=== PATIENT | male | born 1975 | race Caucasian/White ===

== ENCOUNTER 2020-12-19 18:49 | Inpatient (IN) | payer MEDICAID, OTHER ==
[2020-12-19 20:04] LABS: HEMOGLOBIN 12.4 g/dl (13.5-17.5); MEAN CORPUSCULAR HEMOGLOBIN 33.2 pg (27.0-33.0); MEAN CORPUSCULAR HGB CONC 33.5 g/dl (32.0-36.5); MEAN CORPUSCULAR VOLUME 98.9 fl (80.0-96.0); PLATELET COUNT, AUTOMATED 243 10^3/uL (150-450); RED BLOOD COUNT 3.74 10^6/uL (4.30-6.10); WHITE BLOOD COUNT 13.4 10^3/uL (4.0-10.0)
[2020-12-19 20:23] LABS: AMPHETAMINES LEVEL URINE NEGATIVE (NEGATIVE); BARBITURATES URINE NEGATIVE (NEGATIVE); BENZODIAZEPINES URINE NEGATIVE (NEGATIVE); CANNABINOIDS URINE POSITIVE (NEGATIVE); COCAINE METABOLITE URINE NEGATIVE (NEGATIVE); METHADONE URINE NEGATIVE (NEGATIVE); OPIATES URINE NEGATIVE (NEGATIVE); PHENCYCLIDINE URINE NEGATIVE (NEGATIVE)
[2020-12-19 20:32] LABS: ACETAMINOPHEN LEVEL < 2.0 UG/ML (10.0-30.0); ALBUMIN 3.2 GM/DL (3.2-5.2); ALT/SGPT 68 U/L (12-78); BILIRUBIN,DIRECT 0.2 MG/DL (0.0-0.2); BILIRUBIN,TOTAL 0.5 MG/DL (0.2-1.0); BLOOD UREA NITROGEN 10 MG/DL (7-18); CALCIUM LEVEL 9.1 MG/DL (8.5-10.1); CARBON DIOXIDE LEVEL 28 MEQ/L (21-32); CHLORIDE LEVEL 109 MEQ/L (98-107); CREATININE FOR GFR 1.02 MG/DL (0.70-1.30); ETHYL ALCOHOL (ETHANOL) < 0.003 % (0.000-0.010); GLOMERULAR FILTRATION RATE > 60.0 (>60); GLUCOSE, FASTING 131 MG/DL (70-100); POTASSIUM SERUM 3.8 MEQ/L (3.5-5.1); SALICYLATE LEVEL 3.3 MG/DL (5.0-30.0); SODIUM LEVEL 143 MEQ/L (136-145); TOTAL PROTEIN 6.1 GM/DL (6.4-8.2)
--- NOTE | 2020-12-19 21:35 | REPVR ---
PROCEDURE INFORMATION: Exam: CT Head Without Contrast Exam date and time: 12/19/2020 8:48 PM Age: 45 years old Clinical indication: Altered mental status/memory loss; Confusion or disorientation; Additional info: Personality change, HX CVA TECHNIQUE: Imaging protocol: Computed tomography of the head without contrast. Radiation optimization: All CT scans at this facility use at least one of these dose optimization techniques: automated exposure control; mA and/or kV adjustment per patient size (includes targeted exams where dose is matched to clinical indication); or iterative reconstruction. COMPARISON: No relevant prior studies available. FINDINGS: Brain: Normal. No hemorrhage. Unremarkable white matter. No mass effect. Cerebral ventricles: No ventriculomegaly. Paranasal sinuses: There is mucosal thickening right ethmoid sinus. There is no evidence of secretions within the ethmoid sinuses or sphenoid sinus. Mastoid air cells: Clear mastoid air cells. Orbital cavity: Symmetric orbits. Bones/joints: There is no evidence of fracture. Soft tissues: Unremarkable. IMPRESSION: Normal appearing CT scan of the brain. Electronically signed by: Jaziel Leyva On 12/19/2020 21:35:40 PM
[2020-12-19] MEDS ORDERED: MAALOX 30 ML SUSP *UDC PO PRN (22:15)
[2020-12-19] MEDS ORDERED: MOM 30ML SUSPENSION UDC PO PRN (22:15)
[2020-12-19 23:03] LABS: RSV AMPLIFICATION NEGATIVE (NEGATIVE)
[2020-12-19] MEDS ORDERED: LISI20TA33 PO (23:18)
[2020-12-19] MEDS ORDERED: ATOR80TA59 PO (23:18)
[2020-12-19] MEDS ORDERED: POTA20TA6 PO (23:18)
[2020-12-19] MEDS ORDERED: FLUO20CA20 PO (23:18)
[2020-12-19] MEDS ORDERED: HOME MED LIST COMPLETE! XX SCH (23:20)
[2020-12-19 23:51] VITALS: BP 150/90
[2020-12-20] MEDS: NICOTINE 21MG/24HR 1 EA TRANSDERMAL TD PRN ×2 (00:04→20:45)
[2020-12-20] MEDS ORDERED: diphenhydrAMINE 50MG/ML VIAL (J1200) IM STA (03:51)
[2020-12-20] MEDS ORDERED: HALOPERIDOL 5MG/ML VIAL (J1630 PER 1) IM STA (03:51)
[2020-12-20] MEDS ORDERED: LORazepam 2 MG/ML VIAL IM STA (03:51)
--- NOTE | 2020-12-20 06:24 | IPNPDOC ---
Text Note Date of Service The patient was seen on 12/20/20. NOTE CODE 25 Report: Subjective: Patient was combative and fighting staff. Reortedly kicking, spitting and attempting to bite. - Patient was restrained - The patient was a danger to the staff - Failed de-escalation interventions Physical exam:Pt meng appearance and lifting himself up in bed. RR18. He does allow 2 finger width assessment with restraints. He has brisk cap refill. Vitals: Unable to be obtained General: Patient is laying in bed, all 4 extremities are restrained, verbally abusive to staff. He begins getting agitated within moments of conversation. He remarks "there are gonna be problems" in reference to if restraints are not taken off. Discussed plan is for pt to calm, vitals to be taken and once pt is calm with no further threat to staff, restraints can be removed. By end of exam he agrees- vitals to be taken and restraint removal per guidelines. Staff has contacted Psychiatry; they have placed orders for physical and chemical restraints VS,Ochoabone, I+O VS, Fishbone, I+O Laboratory Tests 12/19/20 19:36 Vital Signs Date Time Temp Pulse Resp B/P (MAP) Pulse Ox O2 Delivery O2 Flow Rate FiO2 12/19/20 23:51 98.0 86 20 150/90 (110) 98 Room Air JENNIFER PEDERSEN NP Dec 20, 2020 06:24
--- NOTE | 2020-12-20 07:30 | MHHPEPDOC ---
General Date Of Admission: Dec 19, 2020 Legal Status: 9.39 Chief Complaint "I made threats" History of Present Illness HISTORY OF THE PRESENT ILLNESS: Patient is a 45 -year-old , male, who has a past psychiatric history of depression (states started when lost father at 6 y/o), dubious ADD (reports diagnosed in 30's),polysubstance use, states only uses cannabis, but used crack 15 years ago frequently, who was brought in on by police. [facility] went to [facility] on Wednesday for unstable vitals (had low BP in [place]) and when got there, says they did CT and xrays, was told had covid-19 ('brown spots on lungs"), states he smokes daily tobacco and cannabis, [facility] was not tested for covid, an argument ensued, "I said alot of bad things to him, If it wasn't for penitentiary I would end his life, so I walked out and lens generating machine tender were called", says that afternoon went to family doctor for covid testing and found out yesterday tests were negative, "there I said I wanted to know the doctor's name from [place], kept calling emergency room to find out when he was coming in", police were called on him. Was told by family doctor who is new he was supposed to go to behavioral health, reported he didn't want to go. Says he then went to 's house. Went with to meet police at parking lot in [facility] court, "talked to them then was arrested and brought to [facility] ED". States he would not hurt the doctor, named Dr Bullock, "I wanted to talk to the doctor and tell him he missed diagnosed me and how does he feel about it". Eleni Pa, , : "I'm baffled by the threats to the Doctor. Known him since age 9, been together 1.5 years, he has a history of ADHD, he has a history of cocaine use, not using 10-15 years, had addiction to Adderall. He told me took adderral in [place], was down there getting his stuff from house used to live at. Got his truck insured so nephew could use it, he got back. He was in kidney failure, unstable vitals. He had a major stroke last March. He was just very sick, he would wake up in the middle of night salivating, sweating, no appetite, he has lost 30 lbs in last year, he's eating like a horse. He has not had any psychiatric issues, but friends told me when abusing adderall was off the wall. He told me he took one last Wednesday. This isn't him at all his demeanor, he's never snapped at me, "he's the sweetest man", he's hyp erfocused, short tempered, he didn't sleep for 3 days very often, he washed and waxed my car at 10 pm. In June they put him on prozac due to depression, he's hellbent the kidney issues are from the prozac. He stopped the prozac on the 06 of November. He lost job, insurance and everything before when depressed. Was posting stuff about doctor on facebook, was weird. No suicidal behavior." Psychiatric Review of Systems Depression (2 or more weeks): denies Kathryn (4 or more days of): denies Psychosis: denies PTSD: denies Anxiety: not anxious Past Psychiatric History Previous Psychiatric Diagnosis: reports depression, substance abuse, adhd Previous Psychiatric Admissions: Inpatient in [place] "[facility]", 4 years ago, [facility] for [facility] abuse Suicide Attempts: denies Psychiatric Follow-up: denies Psychiatric medications: denies currently, hx of prozac 20 mg, reports not working and has felt down since a stroke 1.5 years ago Past Medical History Medical Problems stroke 1.5 years ago Head Injury: No Seizures: No Hospitalizations: No Surgeries: No Family Medical/Psychiatric HX Medical Problems mother has afib, father Psychiatric Disorders: No Addiction: Yes (alcohol both sides) Suicide Attemps/Completions: No Addiction History nicotine (1 ppd cigarettes), cocaine (remote hx), other (daily cannabis, 2 grams a day) Social History Childhood: Grew up in [place], [place], 1 sister older. Father when sharonda cadena was 6. 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 Marital: never , gf of 1.5 years Mental Status Examination General Appearance: well groomed, hospital scubs/clothing Build: average Demeanor: mistrustful, withdrawn, guarded Eye Contact: avoidant Activity: agitated, anxious, hostile Behavior: cooperative, agitated Speech: clear, spontaneous, normal volume Mood: angry, irritable Affect: appropriate, labile, incongruent Thought Process: logical/linear Thought Content (Delusions): none reported Thought Content (Other): none reported Thought Content (Aggressive): aggressive (assess), other (Denies intent or plan) Perception (Hallucinations): none reported Perception (Other): none reported Cognition (Impairment of): none reported Cognition(Intelligence Est.): average Oriented: Awake, Alert, Oriented times three Insight: poor Judgment: Poor Psychosis: Denies Diagnoses Bipolar disorder, unspecified Cannabis use disorder, severe History of cocaine use Unspecified personality disorder A-FIB/CHADSVASC A-FIB History Current/History of A-Fib/PAF?: No Current PO Anticoag Therapy: No Age/Risk Factor Scoring CHADSVASC: CHADSVASC Response (Comments) Value Age Risk Factor Age < 65 years old 0 Gender Risk Factor Male 0 Hx of CHF No 0 Hx of HTN Yes 1 Hx of Stroke/TIA/or VTE Yes 2 Hx of Diabetes No 0 Hx of Vascular Disease No 0 Total 3 Treatment Treatment ordered: NONE Reason Anticoagulant not given: Other (defer to hospitalist team) Other reason anticoagulant not: Defer to hospitalist team Assessment Patient is a 45 -year-old , male, who has a past psychiatric history of depression (states started when lost father at 6 y/o), dubious ADD (reports diagnosed in 30's),polysubstance use, states only uses cannabis, but used crack 15 years ago frequently. [facility] went to [facility] on Wednesday for unstable vitals (had low BP in [place]) and when got there, says they did CT and xrays, was told had covid-19 ('brown spots on lungs"), states he smokes daily tobacco and cannabis, states was not tested for covid, an argument ensued, "I said alot of bad things to him, If it wasn't for penitentiary I would end his life, so I walked out and lens generating machine tender were called", says that afternoon went to family doctor for covid testing and found out yesterday tests were negative, "there I said I wanted to know the doctor's name from [place], kept calling emergency room to find out when he was coming in", police were called on him. Was told by family doctor who is new he was supposed to go to behavioral health, reported he didn't want to go. Says he then went to 's house. Went with to meet police at parking lot in [facility] court, "talked to them then was arrested and brought to [facility] ED". States he would not hurt the doctor, named Dr Bullock, "I wanted to talk to the doctor and tell him he missed diagnosed me and how does he feel about it". Per collateral from girlfriend 1.5 years, states he is not his usual self and has had a significant change in mood and behavior including increased irritability, anger, staying up at night with excess goal-directed activity, lack of sleep for 3 days. Reports not taking outpatient medication Prozac due to concerns of infected kidney function despite the fact that she believes that the medication is not causing side effects that she is to take this medication. Reports he is concerned about misdiagnosis and covid which seem to be stressors for him. Reports the symptoms have interfered with his social and occupational life. Communicated with hospitalist team regarding reported medical issues, to ensure thorough work-up, as he has recently reported symptoms of weight loss despite average appetite, recent stroke, elevated white count, per labs patient has anemia, elevated white count, CT head December 19 was unremarkable, creatinine of 1, TSH within normal limits, sodium and potassium within normal limits. Patient will be offered Abilify 10 mg nightly, made aware of common and rare side effects, patient becomes irritable with document medication wants to end the interview. Initial Treatment Plan 1. Patient was admitted on a [9.39] status. 2. Complete history was obtained. 3. With patients permission, family will be contacted and database will be expanded. 4. Patients medication regimen will be reviewed and changed accordingly. 5. Patient will be provided with protected environment. 6. Patient will be treated with individual, group, and milieu therapies. 7. Patient will receive supportive psych-education. 8. Discharge planning will commence immediately. 9. Outpatient follow-up treatment will be strongly recommended. 10. The initial treatment plan will focus initially on: * Depression, bipolar disorder * Risk for suicide. ESTIMATED LENGTH OF STAY:3-7 DAYS. TIME SPENT COUNSELING AND COORDINATING INITIAL CARE: 40 minutes. Tobacco Cessation Screen If Patient is a Smoker 1 ppd Tobacco Cessation Tx Ordered?: Yes Ordered/Pending Vital Signs Vital Signs Date Time Temp Pulse Resp B/P (MAP) Pulse Ox O2 Delivery O2 Flow Rate FiO2 12/19/20 23:51 98.0 86 20 150/90 (110) 98 Room Air Laboratory Data 24H Labs Laboratory Tests 2 12/19/20 19:36: Nucleated Red Blood Cells % (auto) 0.0, Anion Gap 6L, Glomerular Filtration Rate > 60.0, Calcium Level 9.1, Total Bilirubin 0.5, Direct Bilirubin 0.2, Aspartate Amino Transf (AST/SGOT) 39H, Alanine Aminotransferase (ALT/SGPT) 68, Alkaline Phosphatase 103, Total Protein 6.1L, Albumin 3.2, Albumin/Globulin Ratio 1.1, Thyroid Stimulating Hormone (TSH) 1.030, Salicylates Level 3.3L, Urine Opiates Screen NEGATIVE, Urine Methadone Screen NEGATIVE, Acetaminophen Level < 2.0L, Urine Barbiturates Screen NEGATIVE, Urine Phencyclidine Screen NEGATIVE, Urine Amphetamines Screen NEGATIVE, Urine Benzodiazepines Screen NEGATIVE, Urine Cocaine Metabolite Screen NEGATIVE, Urine Cannabinoids Screen POSITIVEH, Ethyl Alcohol Level < 0.003 12/19/20 22:07: Coronavirus (COVID-19)(PCR) NEGATIVE, Influenza Type A (RT-PCR) NEGATIVE, Influenza Type B (RT-PCR) NEGATIVE, Respiratory Syncytial Virus (PCR) NEGATIVE CBC/BMP Laboratory Tests 12/19/20 19:36 Medications Scheduled Atorvastatin Calcium (Atorvastatin Calcium) 80 Mg Tablet, 80 MG PO QHS, (Reported) Fluoxetine Hcl (Fluoxetine HCl) 20 Mg Capsule, 20 MG PO DAILY, (Reported) Lisinopril (Lisinopril) 20 Mg Tablet, 20 MG PO DAILY, (Reported) Potassium Chloride (Potassium Chloride) 20 Meq Tab.er.prt, 20 MEQ PO QHS, (Reported) Allergies Coded Allergies: No Known Allergies (Verified , 10/02/02) BAMBI ODELL MD Dec 20, 2020 07:30
[2020-12-20] MEDS ORDERED: ASPIRIN 81MG ENTERIC TABLET PO SCH (09:00)
--- NOTE | 2020-12-20 12:35 | MHPR ---
General Date: Dec 20, 2020 Time: 09:00 Post-Restraint Evaluation THE OUTCOME OF THE RESTRAINT: Patient is calmer, continues to be irritable and mildly agitated but no longer aggressive. EFFECTIVENESS OF THE RESTRAINT: Mechanical and/or chemical: Positive ANY EVIDENCE THAT THE PATIENT WAS AFFECTED EMOTIONALLY: Denies ANY NEED FOR COUNSELING/ASSISTANCE: None at this time. CHANGES IN TREATMENT PLAN: Started on Abilify for control of hypomanic symptoms. RECOMMENDATIONS FOR FUTURE INCIDENTS: Offer as needed medications earlier BAMBI ODELL MD Dec 20, 2020 12:35
[2020-12-20] MEDS ORDERED: OLANZapine 2.5MG TABLET PO PRN (13:15)
--- NOTE | 2020-12-20 14:09 | REP ---
INDICATION: hx of nodules, psych c/f CA. COMPARISON: None. TECHNIQUE: Portable FINDINGS: The technique utilized in obtaining the radiograph has magnified the cardiac silhouette and accentuated the interstitial markings. The superior mediastinal structures are midline. The cardiac silhouette is unremarkable in size, shape, and position. The diaphragmatic surfaces of the lungs are regular, and the costophrenic angles are clear. The pulmonary chairez are clear. The imaged osseous structures are intact. IMPRESSION: There is no acute cardiopulmonary disease. <Electronically signed by Sage Howell > 12/20/20 [id number]
[2020-12-20] MEDS ORDERED: HYDR50TAB PO (14:46)
[2020-12-20] MEDS ORDERED: AMLO1TAB25 PO (14:46)
[2020-12-20] MEDS ORDERED: ASPI-255 PO (14:51)
[2020-12-20] MEDS: ASPIRIN ENTERIC 325 MG TAB PO SCH (15:56)
--- NOTE | 2020-12-20 16:29 | HPEPDOC ---
General Date of Admission Dec 19, 2020 at 22:12 Date of Service: Dec 20, 2020 Attending Physician: CLAYTON TATE MD Chief Complaint The patient is a 45-year-old male admitted with a reason for visit of Bipolar Disorder. Source: Patient, RN notes reviewed Exam Limitations: No limitations History of Present Illness 45 yo gentleman with a chart diagnosis of depression and maybe bipolar? who was brought in by police for making homicidal statements and threats to a [facility] doctor for "misdiagnosing him with covid-19" when he did not have covid-19. He is tangential, pressured, appears frustrated and misunderstood. He otherwise denies feeling any physical illness at this time without chest pain, palpitations, dyspnea, recent fevers, chills, cough. Initial ED workup was notable for cannabinoids on tox screen but covid-19 was negative and CBC and BMP were unremarkable. Internal medicine is now consulted for medical H&P. I asked Mr. Macias about his medical history given the extensive discussion I had with the psychiatrist concerned about his physical health given burden on medical history. He reports that he was living in [place] and returned a few days ago. While in [place] 1.5 years ago he had a CVA i/s/o hypertensive emergency with a presenting BP of 220 and there was a right sided stroke with left sided weakness that recovered completely with PT/OT. He was placed on full dose aspirin with ASA 325mg daily since then. He was also originally placed on lisinopril, amlodipine and HCTZ that were since then, revised to only lisinopril 20mg daily after noted symptomatic hypotension. He has a history of a remote kidney stone that has long recovered. He also has a history of depression for which he was placed on prozac but had side effects including some renal failure at the time during which HCTZ and prozac were stopped. During that time, he was quite ill with significant weight loss and poor po but he has begun recovery since his renal recovery and has been on lisinopril without trouble. Though the timing is a bit confusing in his history telling, he reports recent illness in [place] that resolved and on arrival to [facility] he went to [place] where he had a CXR from which a provider postulated that it was c/w covid-19 though he had not received a dedicated covid test. He was upset by being given this presumed diagnosis without confirmation as he had been tested before [place] and had been negative. his PCP tested him and he was negative and he remained upset at the provider who had presumed that heh ad covid-19 to a degree that precipitated his [facility] admission. It was during that CXR at [place] that he was told about lung nodules that may need future follow up. He otherwise denies a history of cancer, blood clots, myocardial infarction heart arrhythmias, ongoing fevers, chills, night sweats. Home Medications Scheduled Aspirin (Aspirin EC) 325 Mg Tablet.dr, 325 MG PO DAILY, (Reported) Atorvastatin Calcium (Atorvastatin Calcium) 80 Mg Tablet, 80 MG PO QHS, (Reported) Fluoxetine Hcl (Fluoxetine HCl) 20 Mg Capsule, 20 MG PO DAILY, (Reported) Lisinopril (Lisinopril) 20 Mg Tablet, 20 MG PO DAILY, (Reported) Potassium Chloride (Potassium Chloride) 20 Meq Tab.er.prt, 20 MEQ PO QHS, (Reported) Allergies Coded Allergies: No Known Allergies (Verified , 10/02/02) Past Medical History Medical History HTN HLD Depression Bipolar? Surgical History None Social History * Smoker: current smoker Alcohol: Denies Drugs: marijuana, other (history of [employer] with other substances as well but none other than MJ recently) Psychosocial History: Depression (history of), Other (reported recent history of admitting homicidal thought towards a [facility] physician) A-FIB/CHADSVASC A-FIB History Current/History of A-Fib/PAF?: No Current PO Anticoag Therapy: No Age/Risk Factor Scoring CHADSVASC: CHADSVASC Response (Comments) Value Age Risk Factor Age < 65 years old 0 Gender Risk Factor Male 0 Hx of CHF No 0 Hx of HTN Yes 1 Hx of Stroke/TIA/or VTE Yes 2 Hx of Diabetes No 0 Hx of Vascular Disease No 0 Total 3 Treatment Treatment ordered: NONE Reason Anticoagulant not given: Not indicated/[id number] Review of Systems Constitutional: Denies: Chills, Fever, Night Sweats Eyes: Denies: Pain, Vision change ENT: Denies: Head Aches, Ear Pain, Dysphagia Skin: Denies: Rash, Lesions, Jaundice, Bruising, Itching, Dry, Breakdown, Nail Changes, Other Pulmonary: Denies: Dyspnea, Cough Cardiovascular: Denies: Chest Pain, Palpitations, Orthopnea, Paroxysmal Noc. Dyspnea, Lt Headedness Gastrointestinal: Denies: Nausea, Vomiting, Abdominal Pain, Diarrhea Genitourinary: Denies: Dysuria, Frequency, Incontinence, Retention Hematologic: Denies: Bruising, Bleeding Excessively Endocrine: Denies: Polydipsia, Polyphagia, Polyuria, Heat Intolerance, Cold Intolerance, Other Endocrine Sx Musculoskeletal: Denies: Neck Pain, Back Pain, Joint Pain, Muscle Pain, Spasms Neurological: Reports: Weakness (was told that his BP had been low recently) Psych: Reports: Thoughts of Harming Other Physical Examination General Exam: Positive: Alert, No Acute Distress Eye Exam: Positive: PERRLA, Conjunctiva & lids normal, EOMI; Negative: Sclera icteric ENT Exam: Positive: Atraumatic, Mucous membr. moist/pink, Pharynx Normal Neck Exam: Positive: Supple; Negative: JVD, thyromegaly Chest Exam: Positive: Clear to auscultation, Normal air movement Heart Exam: Positive: Rate Normal, Regular Rhythm, Normal S1, Normal S2; Negative: Murmurs, Rubs Abdomen Exam: Positive: Normal bowel sounds, Soft; Negative: Tenderness, Hepatospenomegaly Extremity Exam: Positive: Normal pulses; Negative: Clubbing, Cyanosis, Edema Skin Exam: Positive: Nl turgor and temperature; Negative: Breakdown, Lesion Neuro Exam: Positive: Normal Gait, Normal Speech, Cranial Nerves 3-12 NL, Reflexes 2+ Psych Exam: Positive: Oriented x 3 Vital Signs Vital Signs Date Time Temp Pulse Resp B/P (MAP) Pulse Ox O2 Delivery O2 Flow Rate FiO2 12/19/20 23:51 98.0 86 20 150/90 (110) 98 Room Air Laboratory Data Labs 24H Laboratory Tests 2 12/19/20 19:36: Nucleated Red Blood Cells % (auto) 0.0, Anion Gap 6L, Glomerular Filtration Rate > 60.0, Calcium Level 9.1, Total Bilirubin 0.5, Direct Bilirubin 0.2, Aspartate Amino Transf (AST/SGOT) 39H, Alanine Aminotransferase (ALT/SGPT) 68, Alkaline Phosphatase 103, Total Protein 6.1L, Albumin 3.2, Albumin/Globulin Ratio 1.1, Thyroid Stimulating Hormone (TSH) 1.030, Salicylates Level 3.3L, Urine Opiates Screen NEGATIVE, Urine Methadone Screen NEGATIVE, Acetaminophen Level < 2.0L, Urine Barbiturates Screen NEGATIVE, Urine Phencyclidine Screen NEGATIVE, Urine Amphetamines Screen NEGATIVE, Urine Benzodiazepines Screen NEGATIVE, Urine Cocaine Metabolite Screen NEGATIVE, Urine Cannabinoids Screen POSITIVEH, Ethyl Alcohol Level < 0.003 12/19/20 22:07: Coronavirus (COVID-19)(PCR) NEGATIVE, Influenza Type A (RT-PCR) NEGATIVE, Influenza Type B (RT-PCR) NEGATIVE, Respiratory Syncytial Virus (PCR) NEGATIVE CBC/BMP Laboratory Tests 12/19/20 19:36 Assessment/Plan 45 yo gentleman with a chart diagnosis of depression and maybe bipolar? who was brought in by police for making homicidal statements and threats to a [facility] doctor for "misdiagnosing him with covid-19" when he did not have covid-19, for who medicine is now consulted for medical H&P. Homicidal statements w/ history of depression: -plan per psych team HTN: he is currently hypertensive -lisinopril 20mg QD HLD: -lipitor 80mg QD History of CVA: -ASA 325mg QDnper home script -lipitor 80mg QD Psych medical concerns: Psychiatrist informed me patient reported history of recent massive stroke while in [place], where he was found to also have pulm nodules for which he was presented to [facility] for f/u when he had the encounter with the physician he is upset with over the covid-19 misdiagnosis. The psychiatrist was concerned about 10lb weight loss reported over the last 1 year despite good PO and asked about potentially getting more in depth workup and imaging. I discussed that I would be happy to get a CXR at this time though with a negative respiratory panel, breathing comfortably on room air without pulmonary symptoms I would not have otherwise recommended it. With regard to oncological workup, he warrants [address] chest f/u for the nodules depending on their size according to the Fleischner guidelines but that is an outpatient matter that can be discussed with the PCP on follow up. Furthermore, he reported that the patient reported a history of an SALVADOR with Cr of 10 in [place] but his Cr is perfectly 1 here without evidence of an SALVADOR or electrolyte abnormalities or acid/base disturbances so I will not order more imaging, labs or stop his lisinopril. Apparently the patient reported "unstable vitals" at home that brought him to [place] but he is actually hypertensive here and afebrile, I am restarting his lisinopril at a lower dose of 10mg QD with goal to increase to 20mg if he is not adequately controlled since he reported recent hypotension. He has a mild leukocytosis but I believe it may be reactive given his nonfocal examination, afebrile. Of course if he develops a fever a full infectious workup would be warranted. -CXR DVT ppx: ambulatory Plan / VTE VTE Prophylaxis Ordered?: No VTE Exclusion Mechanical Proph: Low Risk for VTE VTE Exclusion Pharmacological: At Low Risk for VTE CLAYTON TATE MD Dec 20, 2020 10:14
[2020-12-20 18:27] VITALS: BP 170/112
[2020-12-20] MEDS ORDERED: LORazepam 1 MG TAB PO ONE (20:00)
[2020-12-20] MEDS ORDERED: diphenhydrAMINE 50MG CAP PO ONE (20:00)
[2020-12-20] MEDS ORDERED: OLANZapine 10 MG TAB PO ONE (20:00)
[2020-12-20] MEDS: ATORVASTATIN 20 MG TAB PO SCH (20:09)
[2020-12-20] MEDS: ARIPiprazole 10 MG TAB PO SCH (20:10)
[2020-12-20] MEDS: POTASSIUM CHLORIDE 10MEQ SR TABLET PO SCH (20:11)
[2020-12-21 06:00] VITALS: BP 158/92
[2020-12-21] MEDS: ACETAMINOPHEN TAB 650MG DOSE (2X325MG) PO PRN (06:57)
[2020-12-21 07:55] LABS: CHOLESTEROL RISK RATIO 4.55 (<5)
[2020-12-21] MEDS: ASPIRIN ENTERIC 325 MG TAB PO SCH (08:02)
[2020-12-21] MEDS: NICOTINE 21MG/24HR 1 EA TRANSDERMAL TD PRN (11:39)
[2020-12-21] MEDS: CEPACOL LOZENGE PO PRN (15:30)
--- NOTE | 2020-12-21 16:54 | MHIPNPDOC ---
[facility] Progress Note Progress Note DATE OF SERVICE: 12/21/20 HISTORY: Patient is a 45 -year-old , male, who has a past psychiatric history of depression (states started when lost father at 6 y/o), dubious ADD ( reports diagnosed in 30's),polysubstance use, states only uses cannabis, but used crack 15 years ago frequently, who was brought in on 9. by police. [facility] went to [facility] on Wednesday for unstable vitals (had low BP in [place]) and when got there, says they did CT and xrays, was told had covid-19 ('brown spots on lungs"), states he smokes daily tobacco and cannabis, states was not tested for covid, an argument ensued, "I said alot of bad things to him, If it wasn't for shelter I would end his life, so I walked out and cryptographic machine operator were called", says that afternoon went to family doctor for covid testing and found out yesterday tests were negative, "there I said I wanted to know the doctor's name from [place], kept calling emergency room to find out when he was coming in", police were called on him. Was told by family doctor who is new he was supposed to go to behavioral health, reported he didn't want to go. Says he then went to 's house. Went with to meet police at parking lot in [facility] court, "talked to them then was arrested and brought to [facility] ED". States he would not hurt the doctor, named Dr Bullock, "I wanted to talk to the doctor and tell him he missed diagnosed me and how does he feel about it". Eleni Pa, , : "I'm baffled by the threats to the Doctor. Known him since age 9, been together 1.5 years, he has a history of ADHD, he has a history of cocaine use, not using 10-15 years, had addiction to Adderall. He told me took adderral in [place], was down there getting his stuff from house used to live at. Got his truck insured so nephew could use it, he got back. He was in kidney failure, unstable vitals. He had a major stroke last March. He was just very sick, he would wake up in the middle of night salivating, sweati ng, no appetite, he has lost 30 lbs in last year, he's eating like a horse. He has not had any psychiatric issues, but friends told me when abusing adderall was off the wall. He told me he took one last Wednesday. This isn't him at all his demeanor, he's never snapped at me, "he's the sweetest man", he's hyperfocused, short tempered, he didn't sleep for 3 days very often, he washed and waxed my car at 10 pm. In June they put him on prozac due to depression, he's hellbent the kidney issues are from the prozac. He stopped the prozac on the 06 of November. He lost job, insurance and everything before when depressed. Was posting stuff about doctor on facebook, was weird. No suicidal behavior." VITAL SIGNS: See below. NEW TEST RESULTS: See below CURRENT MEDICATIONS: See below. MENTAL STATUS EXAMINATION: General Appearance: well groomed, hospital scubs/clothing Build: average Demeanor: cooperative Eye Contact: fair Activity: not fidgety, not restless Behavior: cooperative Speech: clear, spontaneous, normal volume Mood: anxious Affect: congruent with mood Thought Process: logical/linear Thought Content (Delusions): none reported Thought Content (Other): none reported Thought Content (Aggressive): Denies Perception (Hallucinations): none reported Perception (Other): none reported Cognition (Impairment of): none reported Cognition(Intelligence Est.): average Oriented: Awake, Alert, Oriented times three Insight: seems to be improving Judgment: seems to be improving Psychosis: Denies Diagnoses Bipolar disorder, unspecified Cannabis use disorder, severe History of cocaine use Unspecified personality disorder ASSESSMENT: Patient seems to be improving, he is stable, he feels better. MANAGEMENT PLAN: Continue with current treatment plan TIME SPENT: 20 minutes. Vital Signs Vital Signs Date Time Temp Pulse Resp B/P (MAP) Pulse Ox O2 Delivery O2 Flow Rate FiO2 12/21/20 09:45 Room Air 12/21/20 08:11 152/92 12/21/20 06:00 97.8 62 16 99 Laboratory Data 24H Labs Laboratory Tests 2 12/21/20 06:59: Triglycerides Level 106, Total Cholesterol 182, LDL Cholesterol 121H, Non-HDL Cholesterol (LDL + VLDL) 142, Total HDL Cholesterol 40, Cholesterol/HDL Ratio 4.550 Current Medications Current Medications Medications (Trade) Dose Ordered Sig/Debra Route PRN Reason Start Time Stop Time Status Last Admin Dose Admin Acetaminophen (Tylenol Tab) 650 mg Q6HP PRN PO HEADACHE or MILD DISCOMFORT 12/19/20 22:15 12/21/20 06:57 Al Hydrox/Mg Hydrox/Simethicone (Mylanta) 30 ml Q4HP PRN PO HEARTBURN/INDIGESTION 12/19/20 22:15 Aripiprazole (AbiLIFY) 10 mg QHS PO 12/20/20 21:00 12/20/20 20:10 Aspirin (Ecotrin) 81 mg DAILY PO 12/20/20 09:00 12/20/20 14:52 DC Aspirin (Ecotrin) 325 mg DAILY PO 12/20/20 09:00 12/21/20 08:02 Atorvastatin Calcium (Lipitor) 80 mg QHS PO 12/20/20 21:00 12/20/20 20:09 Cetylpyridinium Chloride (Cepacol) 1 fatemeh Q2HP PRN PO COUGH 12/21/20 11:55 12/21/20 15:30 Diphenhydramine HCl (Benadryl) 50 mg STAT STAT IM 12/20/20 03:51 12/20/20 03:53 DC 12/20/20 03:57 Haloperidol (Haldol) 5 mg STAT STAT IM 12/20/20 03:51 12/20/20 03:53 DC 12/20/20 03:57 Home Med (Home Med List Complete!) ASDIRECTED XX 12/19/20 23:20 12/19/20 23:20 DC Lisinopril (Prinivil) 10 mg DAILY PO 12/20/20 09:00 12/20/20 15:17 DC 12/20/20 12:11 Lisinopril (Prinivil) 20 mg DAILY PO 12/21/20 09:00 12/21/20 08:11 Lorazepam (Ativan) 2 mg STAT STAT IM 12/20/20 03:51 12/20/20 03:53 DC 12/20/20 03:58 Magnesium Hydroxide (Milk Of Magnesia) 30 ml DAILYPRN PRN PO CONSTIPATION 12/19/20 22:15 Nicotine (Nicoderm Cq 21mg) 1 patch DAILYPRN PRN TD NICOTINE WITHDRAWAL 12/20/20 00:00 12/21/20 11:39 Olanzapine (ZyPREXA ZYDIS) 5 mg Q2HP PRN PO AGITATION 12/19/20 22:15 Olanzapine (ZyPREXA) 2.5 mg Q6HP PRN PO AGITATION 12/20/20 13:15 12/20/20 13:47 DC Potassium Chloride (Micro-K Extencaps) 20 meq QHS PO 12/20/20 21:00 12/20/20 20:11 Trazodone HCl (Desyrel) 50 mg QHSP PRN PO INSOMNIA 12/19/20 22:15 Allergies Coded Allergies: No Known Allergies (Verified , 10/02/02) DAVINA PACHECO MD Dec 21, 2020 16:48
[2020-12-21 19:12] VITALS: BP 150/68
[2020-12-21] MEDS: traZODone 50 MG TAB PO PRN (20:01)
[2020-12-21] MEDS: ARIPiprazole 10 MG TAB PO SCH (20:01)
[2020-12-21] MEDS: POTASSIUM CHLORIDE 10MEQ SR TABLET PO SCH (20:02)
[2020-12-21] MEDS: ATORVASTATIN 20 MG TAB PO SCH (20:02)
[2020-12-21] MEDS: OLANZapine ORAL DISINTEGRATING TAB 5MG PO PRN (20:03)
[2020-12-21] MEDS: DIVALPROEX 250 MG TAB PO SCH (21:00)
[2020-12-21] MEDS ORDERED: LORazepam 2 MG/ML VIAL IM STA (23:09)
[2020-12-21] MEDS ORDERED: HALOPERIDOL 5MG/ML VIAL (J1630 PER 1) IM STA (23:09)
[2020-12-21] MEDS ORDERED: diphenhydrAMINE 50MG/ML VIAL (J1200) IM STA (23:09)
--- NOTE | 2020-12-21 23:59 | IPNPDOC ---
Text Note Date of Service The patient was seen on 12/21/20. NOTE Significant event. CODE 25 Report: Subjective: Patient was combative and fighting staff. Upon arrival to unit, patient had barricaded himself in his room. When staff began safety measures to open door which would be removing hinges; patient did proceed to unlock door and follow staff to de-escalation room, Patient still verbally aggressive in process of de-escalation room he is ins ulting and using profanity. He does begin to escalate as he sits on bed; nurses attempt to converse with patient regarding behavior and patient with increased agitation. - Patient was restrained - The patient was a danger to the staff - Failed de-escalation interventions Physical exam:Pt meng appearance. Nonlabored breathing. He does allow 2 finger width assessment with restraints. He has brisk cap refill. Vitals: Unable to be obtained at present; staff to obtain once patient calms. General: Patient is laying in bed, all 4 extremities are restrained, intermittently verbally abusive to staff. Calls 1 nurse "bitch". Discussed plan: Reiterated to patient -goal for pt to calm, vitals to be taken and once pt is calm with no further threat to staff, restraints can be removed. VS,Fishbone, I+O VS, Fishbone, I+O Vital Signs Date Time Temp Pulse Resp B/P (MAP) Pulse Ox O2 Delivery O2 Flow Rate FiO2 12/21/20 19:12 97.8 66 18 150/68 (95) 12/21/20 09:45 Room Air 12/21/20 06:00 99 JENNIFER PEDERSEN NP Dec 21, 2020 23:59
[2020-12-22] VITALS (7 sets, daily range): BP systolic 142–167; BP diastolic 85–108
[2020-12-22] MEDS: NICOTINE 21MG/24HR 1 EA TRANSDERMAL TD PRN (08:20)
[2020-12-22] MEDS: ASPIRIN ENTERIC 325 MG TAB PO SCH (08:20)
[2020-12-22] MEDS: DIVALPROEX 250 MG TAB PO SCH ×2 (08:22→20:07)
[2020-12-22] MEDS: CEPACOL LOZENGE PO PRN (09:15)
--- NOTE | 2020-12-22 11:27 | MHIPNPDOC ---
[facility] Progress Note Progress Note DATE OF SERVICE: 12/22/20 HISTORY: Patient is a 45 -year-old , male, who has a past psychiatric history of depression (states started when lost father at 6 y/o), dubious ADD ( reports diagnosed in 30's),polysubstance use, states only uses cannabis, but used crack 15 years ago frequently, who was brought in on 9. by police. [facility] went to [facility] on Wednesday for unstable vitals (had low BP in [place]) and when got there, says they did CT and xrays, was told had covid-19 ('brown spots on lungs"), states he smokes daily tobacco and cannabis, states was not tested for covid, an argument ensued, "I said alot of bad things to him, If it wasn't for penitentiary I would end his life, so I walked out and machine tracer were called", says that afternoon went to family doctor for covid testing and found out yesterday tests were negative, "there I said I wanted to know the doctor's name from [place], kept calling emergency room to find out when he was coming in", police were called on him. Was told by family doctor who is new he was supposed to go to behavioral health, reported he didn't want to go. Says he then went to 's house. Went with to meet police at parking lot in [facility] court, "talked to them then was arrested and brought to [facility] ED". States he would not hurt the doctor, named Dr Bullock, "I wanted to talk to the doctor and tell him he missed diagnosed me and how does he feel about it". Eleni Pa, , : "I'm baffled by the threats to the Doctor. Known him since age 9, been together 1.5 years, he has a history of ADHD, he has a history of cocaine use, not using 10-15 years, had addiction to Adderall. He told me took adderral in [place], was down there getting his stuff from house used to live at. Got his truck insured so nephew could use it, he got back. He was in kidney failure, unstable vitals. He had a major stroke last March. He was just very sick, he would wake up in the middle of night salivating, sweati ng, no appetite, he has lost 30 lbs in last year, he's eating like a horse. He has not had any psychiatric issues, but friends told me when abusing adderall was off the wall. He told me he took one last Wednesday. This isn't him at all his demeanor, he's never snapped at me, "he's the sweetest man", he's hyperfocused, short tempered, he didn't sleep for 3 days very often, he washed and waxed my car at 10 pm. In June they put him on prozac due to depression, he's hellbent the kidney issues are from the prozac. He stopped the prozac on the 06 of November. He lost job, insurance and everything before when depressed. Was posting stuff about doctor on facebook, was weird. No suicidal behavior." VITAL SIGNS: See below. NEW TEST RESULTS: See below CURRENT MEDICATIONS: See below. MENTAL STATUS EXAMINATION: General Appearance: well groomed, hospital scrubs/clothing Build: average Demeanor: cooperative, mildly irritated about being coded last night Eye Contact: fair Activity: not fidgety, not restless Behavior: cooperative Speech: clear, spontaneous, normal volume Mood: anxious, irritable Affect: congruent with mood Thought Process: logical/linear Thought Content (Delusions): none reported Thought Content (Other): none reported Thought Content (Aggressive): Denies Perception (Hallucinations): none reported Perception (Other): none reported Cognition (Impairment of): none reported Cognition(Intelligence Est.): average Oriented: Awake, Alert, Oriented times three Insight: limited Judgment: limited Psychosis: Denies Diagnoses Bipolar disorder, unspecified Cannabis use disorder, severe History of cocaine use Unspecified personality disorder ASSESSMENT: Yesterday night he got upset with the staff because he couldn't get his personal clothes since the staff noticed he was getting touchy with a female patient. He is venting today about this incident. I had ordered Depakote 250 mgs PO BID and Abilify 5 mgs PO am but he refused. He is hoping to get discharged tomorrow. I think he has antisocial personality traits. MANAGEMENT PLAN: Continue with current treatment plan TIME SPENT: 20 minutes. Vital Signs Vital Signs Date Time Temp Pulse Resp B/P (MAP) Pulse Ox O2 Delivery O2 Flow Rate FiO2 12/22/20 09:05 Room Air 12/22/20 08:20 148/92 12/22/20 06:00 97.5 72 15 98 Current Medications Current Medications Medications (Trade) Dose Ordered Sig/Debra Route PRN Reason Start Time Stop Time Status Last Admin Dose Admin Acetaminophen (Tylenol Tab) 650 mg Q6HP PRN PO HEADACHE or MILD DISCOMFORT 12/19/20 22:15 12/21/20 06:57 Al Hydrox/Mg Hydrox/Simethicone (Mylanta) 30 ml Q4HP PRN PO HEARTBURN/INDIGESTION 12/19/20 22:15 Aripiprazole (AbiLIFY) 5 mg QAM PO 12/22/20 09:00 Aripiprazole (AbiLIFY) 10 mg QHS PO 12/20/20 21:00 12/21/20 20:01 Aspirin (Ecotrin) 81 mg DAILY PO 12/20/20 09:00 12/20/20 14:52 DC Aspirin (Ecotrin) 325 mg DAILY PO 12/20/20 09:00 12/22/20 08:20 Atorvastatin Calcium (Lipitor) 80 mg QHS PO 12/20/20 21:00 12/21/20 20:02 Cetylpyridinium Chloride (Cepacol) 1 fatemeh Q2HP PRN PO COUGH 12/21/20 11:55 12/22/20 09:15 Diphenhydramine HCl (Benadryl) 50 mg STAT STAT IM 12/20/20 03:51 12/20/20 03:53 DC 12/20/20 03:57 Diphenhydramine HCl (Benadryl) 50 mg STAT STAT IM 12/21/20 23:09 12/21/20 23:12 DC 12/21/20 23:22 Divalproex Sodium (Depakote) 250 mg BID PO 12/21/20 21:00 Haloperidol (Haldol) 5 mg STAT STAT IM 12/20/20 03:51 12/20/20 03:53 DC 12/20/20 03:57 Haloperidol (Haldol) 10 mg STAT STAT IM 12/21/20 23:09 12/21/20 23:12 DC 12/21/20 23:22 Home Med (Home Med List Complete!) ASDIRECTED XX 12/19/20 23:20 12/19/20 23:20 DC Lisinopril (Prinivil) 10 mg DAILY PO 12/20/20 09:00 12/20/20 15:17 DC 12/20/20 12:11 Lisinopril (Prinivil) 20 mg DAILY PO 12/21/20 09:00 12/22/20 08:20 Lorazepam (Ativan) 2 mg STAT STAT IM 12/20/20 03:51 12/20/20 03:53 DC 12/20/20 03:58 Lorazepam (Ativan) 2 mg STAT STAT IM 12/21/20 23:09 12/21/20 23:12 DC 12/21/20 23:22 Magnesium Hydroxide (Milk Of Magnesia) 30 ml DAILYPRN PRN PO CONSTIPATION 12/19/20 22:15 Nicotine (Nicoderm Cq 21mg) 1 patch DAILYPRN PRN TD NICOTINE WITHDRAWAL 12/20/20 00:00 12/22/20 08:20 Olanzapine (ZyPREXA ZYDIS) 5 mg Q2HP PRN PO AGITATION 12/19/20 22:15 12/21/20 20:03 Olanzapine (ZyPREXA) 2.5 mg Q6HP PRN PO AGITATION 12/20/20 13:15 12/20/20 13:47 DC Potassium Chloride (Micro-K Extencaps) 20 meq QHS PO 12/20/20 21:00 12/21/20 20:02 Trazodone HCl (Desyrel) 50 mg QHSP PRN PO INSOMNIA 12/19/20 22:15 12/21/20 20:01 Allergies Coded Allergies: No Known Allergies (Verified , 10/02/02) DAVINA PACHECO MD Dec 22, 2020 11:27
[2020-12-22] MEDS: ATORVASTATIN 20 MG TAB PO SCH (20:07)
[2020-12-22] MEDS: traZODone 50 MG TAB PO PRN (20:07)
[2020-12-22] MEDS: ARIPiprazole 10 MG TAB PO SCH (20:07)
[2020-12-22] MEDS: OLANZapine ORAL DISINTEGRATING TAB 5MG PO PRN (20:07)
[2020-12-22] MEDS: POTASSIUM CHLORIDE 10MEQ SR TABLET PO SCH (20:07)
[2020-12-23 06:21] VITALS: BP 158/98
[2020-12-23] MEDS: NICOTINE 21MG/24HR 1 EA TRANSDERMAL TD PRN (08:04)
[2020-12-23] MEDS: ASPIRIN ENTERIC 325 MG TAB PO SCH (08:04)
[2020-12-23] MEDS: DIVALPROEX 250 MG TAB PO SCH ×2 (08:04→20:21)
[2020-12-23] MEDS: CEPACOL LOZENGE PO PRN (11:37)
--- NOTE | 2020-12-23 12:34 | MHPR ---
General Date: Dec 23, 2020 Time: 08:30 Post-Restraint Evaluation THE OUTCOME OF THE RESTRAINT: Patient is calmer and sitting comfortably in his room, no longer having aggression and lashing out staff. EFFECTIVENESS OF THE RESTRAINT: Mechanical and/or chemical: Positive ANY EVIDENCE THAT THE PATIENT WAS AFFECTED EMOTIONALLY: None ANY NEED FOR COUNSELING/ASSISTANCE: None at this time CHANGES IN TREATMENT PLAN: Offer as needed medications earlier RECOMMENDATIONS FOR FUTURE INCIDENTS: Early intervention to avoid escalation with redirection and possible use of p.o. medications BAMBI ODELL MD Dec 23, 2020 12:34
--- NOTE | 2020-12-23 12:45 | MHIPNPDOC ---
[facility] Progress Note Progress Note DATE OF SERVICE: 12/23/20 HISTORY: Patient is a 45 -year-old , male, who has a past psychiatric history of depression (states started when lost father at 6 y/o), dubious ADD ( reports diagnosed in 30's),polysubstance use, states only uses cannabis, but used crack 15 years ago frequently, who was brought in on 9.41 by police. [facility] went to [facility] on Wednesday for unstable vitals (had low BP in [place]) and when got there, says they did CT and xrays, was told had covid-19 ('brown spots on lungs"), states he smokes daily tobacco and cannabis, states was not tested for covid, an argument ensued, "I said alot of bad things to him, If it wasn't for detention I would end his life, so I walked out and clinical appeals reviewer were called", says that afternoon went to family doctor for covid testing and found out yesterday tests were negative, "there I said I wanted to know the doctor's name from [place], kept calling emergency room to find out when he was coming in", police were called on him. Was told by family doctor who is new he was supposed to go to behavioral health, reported he didn't want to go. Says he then went to 's house. Went with to meet police at parking lot in [facility], "talked to them then was arrested and brought to [facility] ED". States he would not hurt the doctor, named Dr Bullock, "I wanted to talk to the doctor and tell him he missed diagnosed me and how does he feel about it". Interval: Patient is calm, has been going to groups, has been taking medications, this is despite being chemically restrained 2 times last night and being threatening towards staff, yelling and disrupting the unit. Per collateral obtained yesterday partner of 1.5 years, Vania booking reports a change in behavior and personality with increased irritability and excessive goal-directed behavior in the evenings which is uncharacteristic of him and his concerned. Patient states he is tolerating medications without side effects, no acute physical complaints including any shortness of breath, chest pain, but states he has chronic left-sided weakness post stroke, despite this is able to ambulate and move adequately, without issue. VITAL SIGNS: See below. NEW TEST RESULTS: None CURRENT MEDICATIONS: See below. MENTAL STATUS EXAMINATION: Patient is a 45-year old male, who is in no acute distress, bald, fair hygiene, average build Speech: Is normal Language skills are intact Thought processes including: Linear and logical. Thought content: Denies suicidal or homicidal ideation. Abstract reasoning, and computation: Intact description of associations: Intact. Description of abnormal or psychotic thoughts: Denies Judgment: Poor, improved. Insight: Poor, improving. Orientation: X4. Recent and remote memory: Intact Attention span and concentration: Intact. Language: Citizen Of [place]. Fund of knowledge: Average. Mood: "alright". Affect: Mildly constricted, mood congruent, appropriate DIAGNOSES: Bipolar disorder, unspecified Cannabis use disorder, severe History of cocaine use Unspecified personality disorder ASSESSMENT: Patient is calm today on interview, but had to be chemically mechanically restrained 2 times last night with Haldol, lorazepam and diphenhydramine. Was opening of all the patient's doors and yelling in the evening. Per chart review partner reports change and personality and behavior. In the evenings he tends to be more aggressive requiring restraints, the medication was adjusted to help with mood lability including adding Depakote and increasing abilify nighttime dose. MANAGEMENT PLAN: Increase Abilify to 15 mg nightly, continue 5 mg p.o. daily, continue Depakote 250 mg twice daily, Depakote level ordered and pending. TIME SPENT: 20 minutes. Vital Signs Vital Signs Date Time Temp Pulse Resp B/P (MAP) Pulse Ox O2 Delivery O2 Flow Rate FiO2 12/23/20 08:46 Room Air 12/23/20 08:04 158/98 12/23/20 06:21 97.8 85 18 99 Current Medications Current Medications Medications (Trade) Dose Ordered Sig/Debra Route PRN Reason Start Time Stop Time Status Last Admin Dose Admin Acetaminophen (Tylenol Tab) 650 mg Q6HP PRN PO HEADACHE or MILD DISCOMFORT 12/19/20 22:15 12/21/20 06:57 Al Hydrox/Mg Hydrox/Simethicone (Mylanta) 30 ml Q4HP PRN PO HEARTBURN/INDIGESTION 12/19/20 22:15 Aripiprazole (AbiLIFY) 5 mg QAM PO 12/22/20 09:00 12/23/20 08:04 Aripiprazole (AbiLIFY) 10 mg QHS PO 12/20/20 21:00 12/22/20 20:07 Aspirin (Ecotrin) 81 mg DAILY PO 12/20/20 09:00 12/20/20 14:52 DC Aspirin (Ecotrin) 325 mg DAILY PO 12/20/20 09:00 12/23/20 08:04 Atorvastatin Calcium (Lipitor) 80 mg QHS PO 12/20/20 21:00 12/22/20 20:07 Cetylpyridinium Chloride (Cepacol) 1 fatemeh Q2HP PRN PO COUGH 12/21/20 11:55 12/23/20 11:37 Diphenhydramine HCl (Benadryl) 50 mg STAT STAT IM 12/20/20 03:51 12/20/20 03:53 DC 12/20/20 03:57 Diphenhydramine HCl (Benadryl) 50 mg STAT STAT IM 12/21/20 23:09 12/21/20 23:12 DC 12/21/20 23:22 Divalproex Sodium (Depakote) 250 mg BID PO 12/21/20 21:00 12/23/20 08:04 Haloperidol (Haldol) 5 mg STAT STAT IM 12/20/20 03:51 12/20/20 03:53 DC 12/20/20 03:57 Haloperidol (Haldol) 10 mg STAT STAT IM 12/21/20 23:09 12/21/20 23:12 DC 12/21/20 23:22 Home Med (Home Med List Complete!) ASDIRECTED XX 12/19/20 23:20 12/19/20 23:20 DC Lisinopril (Prinivil) 10 mg DAILY PO 12/20/20 09:00 12/20/20 15:17 DC 12/20/20 12:11 Lisinopril (Prinivil) 20 mg DAILY PO 12/21/20 09:00 12/23/20 08:04 Lorazepam (Ativan) 2 mg STAT STAT IM 12/20/20 03:51 12/20/20 03:53 DC 12/20/20 03:58 Lorazepam (Ativan) 2 mg STAT STAT IM 12/21/20 23:09 12/21/20 23:12 DC 12/21/20 23:22 Magnesium Hydroxide (Milk Of Magnesia) 30 ml DAILYPRN PRN PO CONSTIPATION 12/19/20 22:15 Nicotine (Nicoderm Cq 21mg) 1 patch DAILYPRN PRN TD NICOTINE WITHDRAWAL 12/20/20 00:00 12/23/20 08:04 Olanzapine (ZyPREXA ZYDIS) 5 mg Q2HP PRN PO AGITATION 12/19/20 22:15 12/22/20 20:07 Olanzapine (ZyPREXA) 2.5 mg Q6HP PRN PO AGITATION 12/20/20 13:15 12/20/20 13:47 DC Potassium Chloride (Micro-K Extencaps) 20 meq QHS PO 12/20/20 21:00 12/22/20 20:07 Trazodone HCl (Desyrel) 50 mg QHSP PRN PO INSOMNIA 12/19/20 22:15 12/22/20 20:07 Allergies Coded Allergies: No Known Allergies (Verified , 10/02/02) BAMBI ODELL MD Dec 23, 2020 12:45
[2020-12-23] MEDS: ACETAMINOPHEN TAB 650MG DOSE (2X325MG) PO PRN (15:15)
[2020-12-23 16:29] VITALS: BP 158/94
[2020-12-23] MEDS: traZODone 50 MG TAB PO PRN (20:22)
[2020-12-23] MEDS: POTASSIUM CHLORIDE 10MEQ SR TABLET PO SCH (20:22)
[2020-12-23] MEDS: ATORVASTATIN 20 MG TAB PO SCH (20:23)
[2020-12-24 07:50] VITALS: BP 158/98
[2020-12-24] MEDS: NICOTINE 21MG/24HR 1 EA TRANSDERMAL TD PRN (07:50)
[2020-12-24] MEDS: DIVALPROEX 250 MG TAB PO SCH (07:50)
[2020-12-24] MEDS: ASPIRIN ENTERIC 325 MG TAB PO SCH (07:51)
[2020-12-24] MEDS ORDERED: TRAZ-252 PO (11:28)
[2020-12-24] MEDS ORDERED: ABIL1TAB11 PO ×2 (11:28)
[2020-12-24] MEDS ORDERED: NICO21PAT TD (11:28)
[2020-12-24] MEDS ORDERED: DEPA250T32 PO (11:28)
[2020-12-24] MEDS ORDERED: SORE15LO PO (11:28)
--- NOTE | 2020-12-24 15:03 | MHDSPDOC ---
[facility] Discharge Summary Discharge Summary DATE OF ADMISSION: Dec 19, 2020 at 22:12 DATE OF DISCHARGE: Dec 24, 2020 at 12:30 Discharge diagnoses: Bipolar disorder, unspecified Cannabis use disorder, severe History of cocaine use Unspecified personality disorder Reason for admission:Patient is a 45 -year-old , male, who has a past psychiatric history of depression (states started when lost father at 6 y/o), dubious ADD (reports diagnosed in 's),polysubstance use, states only uses cannabis, but used crack 15 years ago frequently, who was brought in on by police. [facility] went to [facility] on Wednesday for unstable vitals (had low BP in [place]) and when got there, says they did CT and xrays, was told had covid-19 ('brown spots on lungs"), states he smokes daily tobacco and cannabis, states was not tested for covid, an argument ensued, "I said alot of bad things to him, If it wasn't for penitentiary I would end his life, so I walked out and pile operator were called", says that afternoon went to family doctor for covid testing and found out yesterday tests were negative, "there I said I wanted to know the doctor's name from [place], kept calling emergency room to find out when he was coming in", police were called on him. Was told by family doctor who is new he was supposed to go to behavioral health, reported he didn't want to go. Says he then went to 's house. Went with to meet police at parking lot in [facility] [address], "talked to them then was arrested and brought to [facility] ED". States he would not hurt the doctor, named Dr Bullock, "I wanted to talk to the doctor and tell him he missed diagnosed me and how does he feel about it". Vital signs: See below Consultants involved: See medical H&P by hospitalist Treatment and progress on the unit: Patient was admitted to the [facility] legal status and was afforded the following treatment modalities: 1. Individual therapy 2. Group therapy 3. Medication management 4. Milieu therapy 5. Safe environment Hospital course: Patient was admitted to the [facility] on a legal status. Was medically cleared prior to coming up to the [facility]. Patient initially had multiple restraints, twice on the unit which required Haldol, diphenhydramine and lorazepam. Was on the unit opening up patient's doors and yelling which led to these events including mechanical and chemical restraints. Collateral was obtained from noriearnestine agrees to booking reported a sudden change in mental status over the previous few weeks to months, including increased irritability which likely led to his admission. Patient initially appeared frustrated by being hospitalized despite behavioral indiscretion. Communicated the hospitalist team history of stroke and medical concerns for work-up. Patient was started on Abilify 5 mg daily and 15 mg nightly for hypomanic behavior and impulsivity. Was also started on Depakote 250 mg p.o. twice daily, Depakote level was not elevated on testing. Patient found medications beneficial and tolerated them well without side effects. Prior to discharge discussed with ina Vania booking plan for him returning home and she felt he was ready to come back if he can take his medications but did have some questions and concerns needed addressing. Prior to discharge denied low mood, anxiety or intrusive thoughts, these symptoms improved with treatment. Patient attended groups daily during stay. Patient symptoms improved with treatment. On day of discharge patient denied depression, anxiety, insomnia, suicidal or homicidal ideations intent or plan, hallucinations, delusions. Patient was discharged home with follow-up. Patient felt safe for discharge. Was offered continued stay on voluntary admission but refused. Her stay was counseled about substance abuse, risks, especially in context of medical comorbidities. Discharge assessment: On today's interview patient is alert and oriented, dressed appropriately. Hygiene and grooming is well-kept. He is calm and able to engage appropriately in interview, no acute aggression or anger, denies any homicidal ideations, states he had a conversation with his friends yesterday and was tearful coming to terms of him having to continue his medications and outpatient follow-up for behavioral health. Smiles on approach and is pleasant and engaged on interview. Denies depression and anxiety. Denies suicidal homicidal ideation, intent or planning. Denies and is not observed with roxanne or psychotic symptoms of delusions, hallucinations, bizarre thinking, obsessions, paranoia, ruminations, illogical thoughts, flight of ideas or having poor insight or judgment. Patient has normal mentation, declines further hospitalization of voluntary status and meets criteria for discharge today, patient encouraged to return the hospital if symptoms worsen or change and encouraged to call unit if they feel they need provider's questions to be answered or help with medications or care. Mental status: Patient is a 45-year old male, who is in no acute distress, bald, fair hygiene, average build Speech: Is normal Language skills are intact Thought processes including: Linear and logical. Thought content: Denies suicidal or homicidal ideation. Abstract reasoning, and computation: Intact description of associations: Intact. Description of abnormal or psychotic thoughts: Denies Judgment: Good, improved. Insight: Fair, improving. Orientation: X4. Recent and remote memory: Intact Attention span and concentration: Intact. Language: Vietnamese. Fund of knowledge: Average. Mood: "good, just fine". Affect: Euthymic, mood congruent, appropriate, smiles at times. Medications on discharge: -see medication reconciliation: CSSRS on discharge: Wish to be : No nonspecific active suicidal thoughts: No lifetime attempts: 0 interrupted attempts: 0 aborted attempts: 0 preparatory acts or behavior: None Taking into consideration safety state, status, modifiable, non-modifiable risk factors patient is at low risk for suicide on discharge for suicide according to [place] suicide evaluation. PLAN/FOLLOWUP ARRANGEMENTS: Follow Up Care Education Label * Mental Health Appt 1 * Mental Health [facility] * Established With This Provider Yes * Therapist ANDREA * Date Dec 31, 2020 * Time 09:15 * Address of Clinic or Practice [address] [place] [address] * * Additional information PATIENT NEEDS TO ARRIVE ON TIME TO COMPLETE INTAKE PAPERWORK. Follow Up Care Education Label * Medical * Medical Follow Up [facility] * Established With This Provider No NEW PATIENT * Therapist ISAÍAS * Date Mar 31, 2021 * Time 13:45 * Address of Clinic or Practice [address] [place] [address] * * Additional information NEW PATIENTS ARE BOOKED OUT UNTIL MAR. PATIENT NEEDS ARRIVE WITH ID AND INSURANCE INFORMATION, ANY MEDICATIONS THEY ARE CURRENTLY TAKING. THEY ASK YOU ARRIVE 15 MINUTES PRIOR TO APPOINTMENT TO FILL OUT PAPERWORK. WHEN YOU ARRIVE YOU WILL NEED TO CONTACT [phone] FOR ENTRY TO THE CLINIC. The amount of time spent in the coordination of care for this patient was approximately 35 minutes. ETOH/Disorder Med Rx ETOH/DRUG DISORDER RX: Offrd @ d/c & pt refused Vital Signs/I&Os Vital Signs Date Time Temp Pulse Resp B/P (MAP) Pulse Ox O2 Delivery O2 Flow Rate FiO2 12/24/20 07:50 158/98 12/23/20 16:29 97.7 82 18 12/23/20 08:46 Room Air 12/23/20 06:21 99 Laboratory Data Labs 24H Laboratory Tests 2 12/23/20 19:30: Valproic Acid (Depakene) Level 29.1L Medications Scheduled Aripiprazole (Abilify) 5 Mg Tablet, 15 MG PO QHS for mood , #21 Aripiprazole (Abilify) 5 Mg Tablet, 5 MG PO QAM for mood, #7 Aspirin (Aspirin EC) 325 Mg Tablet.dr, 325 MG PO DAILY, (Reported) Atorvastatin Calcium (Atorvastatin Calcium) 80 Mg Tablet, 80 MG PO QHS, (Reported) Divalproex Sodium (Depakote) 250 Mg Tablet.dr, 250 MG PO BID for mood stabilization, #14 Lisinopril (Lisinopril) 20 Mg Tablet, 20 MG PO DAILY, (Reported) Potassium Chloride (Potassium Chloride) 20 Meq Tab.er.prt, 20 MEQ PO QHS, (Reported) Scheduled PRN Benzocaine/Menthol (Sore Throat Lozenge) 1 Each Lozenge, 1 PETER PO Q2HP PRN for COUGH, #7 Nicotine (Nicotine Patch) 21 Mg Patch.td24, 1 PATCH TD DAILYPRN PRN for NICOTINE WITHDRAWAL, #7 Trazodone HCl (Trazodone HCl) 50 Mg Tablet, 50 MG PO QHSP PRN for INSOMNIA, #7 Allergies Coded Allergies: No Known Allergies (Verified , 10/02/02) BAMBI ODELL MD Dec 24, 2020 15:03
== END 2020-12-24 12:30 | disposition home or self-care (01) | DRG 753 ==
LOC: M ED 18:49 → M ED INP 22:12 → M PSY 23:45
PROVIDERS: ADMIT Student in an Organized Health Care Education/Training Program; ATTEND Student in an Organized Health Care Education/Training Program
DX: F31.9 Bipolar disorder, unspecified (principal); F12.20 Cannabis dependence, uncomplicated; F60.9 Personality disorder, unspecified; Z78.1 Physical restraint status; Z86.73 Personal history of transient ischemic attack (TIA), and cerebral infarction without residual deficits; F17.210 Nicotine dependence, cigarettes, uncomplicated; F14.11 Cocaine abuse, in remission; Z20.822 Contact with and (suspected) exposure to COVID-19; Z79.899 Other long term (current) drug therapy; I10 Essential (primary) hypertension; E78.5 Hyperlipidemia, unspecified

== ENCOUNTER 2021-02-05 04:16 | Emergency (ER) | payer MEDICAID, OTHER ==
[~2021-02-05] VITALS: Ht 177.8 cm; Wt 84.2 kg
[~2021-02-05 04:16] MED LIST: ABIL1TAB11 PO; AMLO1TAB25 PO; ASPI-255 PO; ATOR80TA59 PO; DEPA250T32 PO; FLUO20CA20 PO; HYDR50TAB PO; LISI20TA33 PO; NICO21PAT TD; POTA20TA6 PO; SORE15LO PO; TRAZ-252 PO
--- OUTSIDE RECORDS SUMMARY | 2021-02-05 04:23 | CCD ---
Author Author [facility] Organization [facility] Address Unknown Phone Unavailable Care Team Providers Care Project Program Manager Name Role Phone Margarito Mendez Unavailable PROBLEMS Type Condition ICD9-CM Code [id number] Code Onset Dates Condition S tatus W/U Status Risk SNOMED Code Notes Problem Hypertension I10 Active confirmed [id number] Problem ADHD (attention deficit hyperactivity disorder) F9 0.9 Active confirmed 976722568 Problem Hyperlipidemia, unspecified hyperlipidemia type E7 8.5 Active confirmed 99863214 Problem Bipolar affective disorder, remission status unspecified F31.9 Active confirmed 02546144 Problem Smoker F17.200 Active confirmed 09790123 Problem Abnormal CT scan, chest R93.89 Active confirmed 82580495982018523 Problem Renal failure, unspecified chronicity N19 Ac tive confirmed 71550253 Problem Cerebrovascular accident (CVA), unspecified mechanism I63.9 Active confirmed 317803763 ALLERGIES No Known Allergies ENCOUNTERS from 1974 to 2021-01-23 Encounter Location Date Provider Diagnosis [address] [phone] [place] [address] Dec, Margarito Mendez Hypertension I10 ; Hyperlipi demia, unspecified hyperlipidemia type E78.5 ; Bipolar affective disorder, remission status unspecified F31.9 ; History of kidney stones Z87.442 ; Pain in testicle, unspec ified laterality N50.819 ; Renal failure, unspecified chronicity N19 ; Cerebrovascular accident (CVA), unspecified mechanism I63.[address] scan, chest R93.89 IMMUNIZATIONS No Information SOCIAL HISTORY Tobacco Use: Social History Observation Description Date Details (start date - stop date) Current Smoker Sex Assigned At : Social History Observation Description Sex Assigned At Unknown Education: Question Answer Notes Level of Education: Not Finished College Audit Question Answer Notes Total Score: 0 Interpretation: Alcohol Education Language: Question Answer Notes Languages spoken: Indonesian Buddhism: Question Answer Notes Buddhism No confucianist beliefs that would impact health care. Domestic Violence: Question Answer Notes Status: Single Sexual Hx: Question Answer Notes Had sex in the last 12 months (vaginal, oral, or anal)? Yes Have you ever had an STD? No with Women only Use protection? No Drug and Alcohol Question Answer Notes Total Score: 1 Interpretation: Low level Tobacco Use: Question Answer Notes Are you a: current smoker Smoking Cessation Information Given 01/13/2021 Patient counseled on the dangers of tobacco use and urged to quit: 01/13/2021 How many cigarettes a day do you smoke? 11-20 1 ppd Are you interested in quitting? Ready to quit REASON FOR REFERRAL No Information VITAL SIGNS Weight 187 lbs Dec, Weight-kg 84.82 kg Dec, Height 70 in Dec, BMI 26.83 kg/m2 Dec, Heart Rate 64 /min Dec, Respiratory Rate 18 /min Dec, Temperature 98.0 degrees Fahrenheit Dec, Oximetry 100 Dec, Blood pressure systolic 155 mm Hg Dec, Blood pressure diastolic 108 mm Hg Dec, MEDICATIONS Medication SIG (Take, Route, Frequency, Duration) Notes Start Da te End Date Status Potassium Chloride 20 MEQ 1 tablet with food Orally Once a day f or 30 day(s) Active Abilify 20 MG 1 tablet Orally Once a day for 30 day(s) Active Adderall 30 MG 1 tablet Orally Twice a day ( max 2 per day) for 9 days Sep, Not-Taking Lisinopril 40 40 mg 1 tab(s) p.o. daily for 90 day(s) 27 M 2013 Not-Taking traZODone HCl 50 MG 1 tablet at bedtime as neede d Orally Once a day for 30 day(s) Active amLODIPine Besylate 10 mg 1 tablet Orally Once a day for 90 day( s) Mar, Active Lisinopril 20 MG 1 tablet Orally Once a day for 30 day(s) Active Aspirin 81 81 MG 1 tablet Orally Once a day for 30 day(s) Active Hydrochlorothiazide 25 25 mg 1 tab(s) p.o. every morning for 90 day(s) Apr, Not-Taking Atorvastatin Calcium 80 MG 1 tablet Orally Once a day for 30 day(s) Active Depakote 250 MG 1 tablet Orally Twice a day for 30 day(s) Active PROCEDURES No Information RESULTS No Results REASON FOR VISIT TO [facility] CARE MEDICAL (GENERAL) HISTORY Type Description Date Medical History ADHD Medical History hypertension Surgical History No know Surgical history Hospitalization History Stroke - [facility] [place] 03/2019 Hospitalization History Inpatient [facility] -12/31/20 Goals Section No Information Health Concerns No Information MEDICAL EQUIPMENT No Information MENTAL STATUS No Information FUNCTIONAL STATUS No Information ASSESSMENTS Encounter Date Diagnosis Assessment Notes Treatment Notes Treatm ent Clinical Notes Dec, Hypertension (ICD-10 - I10) Patient notes uncontrolled BP outside office. May have stroke last year due to this. Discussed adding on another BP medication. Used to be on norvasc. restart at this time. Check BP outside office. Dec, Hyperlipidemia, unspecified hyperlipidemia type (ICD-10 - E78.5) Continue statin for this and history of CVA. Dec, Bipolar affective disorder, remission status unspecified (ICD-10 - F31.9) Continue to follow up with pyshciatry to adjust medication. Notes some fatigue since starting some medication. Dec, History of kidney stones (ICD-10 - Z87.442) Has an appt next month with urology. Dec, Pain in testicle, unspecified laterality (ICD-10 - N50.819) Has an appt with urology. If worsens call office. Dec, Renal failure, unspecified chronicity (ICD-10 - N19) Noted history of kidney failure in [place]. Will try to obtain records from [place]. Reviewed labs from [facility] admission. Normal kidney function at that time. Dec, Cerebrovascular accident (CV A), unspecified mechanism (ICD-10 - I63.9) Noted history of CVA. Continue medication, continue to control HTN at this time. Dec, Abnormal CT scan, chest (ICD-10 - R93.89) Had some abnormal imaging in [place]. Had negative covid test. Will attempt to obtain copy of that imaging or report. Repeat imaging in future as needed. Reviewed chest xray from [facility] admission. PLAN OF TREATMENT Medication Medication Name Sig Start Date Stop Date amLODIPine Besylate 10 mg 1 tablet Orally Once a day for 90 day( s) Mar, Treatment Notes Assessment Notes Clinical Notes Hypertension Patient notes uncont rolled BP outside office. May have stroke last year due to this. Discussed adding on another BP medication. Used to be on norvasc. restart at this time. Check BP outside office. Hyperlipidemia, unspecified hyperlipidemia type Continue statin for this and history of CVA. Bipolar affective disorder, remission status unspecified Continue to follow up with pyshciatry to adjust medication. Notes some fatigue since starting some medication. History of kidney stones Has an appt nex t month with urology. Pain in testicle, unspecified laterality Has an appt with urology. If worsens call office. Renal failure, unspecified chronicity No mau history of kidney failure in [place]. Will try to obtain records from [place]. Reviewed labs from [facility] admission. Normal kidney function at that time. Cerebrovascular accident (CVA), unspecified mechanism Noted history of CVA. Continue medication, continue to control HTN at this time. Abnormal CT scan, chest Had some abnorma l imaging in [place]. Had negative covid test. Will attempt to obtain copy of that imaging or report. Repeat imaging in future as needed. Reviewed chest xray from [facility] admission. Next Appt Details 2 mth Reason: Provider Name:Margarito Mendez, 2021-03-24 11:00:00 AM, [id number] [facility], , [place], [address], Provider Name:Sheila Porter, - 01:45:00 PM, [address] [facility], , [place], [address], Insurance Providers Payer Name Payer Address Payer Phone Insured Name Patient Relati onship to Insured Coverage Start Date Coverage End Date [facility] [employer] [facility] [address] [facility] [phone] [place]
--- OUTSIDE RECORDS SUMMARY | 2021-02-05 04:23 | CCD | Continuity of Care Document ---
Author Author Nikita GALAVIZ Organization Unknown Address [address] [place] [address] Phone [phone] Care Team Providers Care Meat Stock Clerk Name Role Phone [facility] Neurology AUTM [phone] [facility] Behavioral Health AUTM [phone] [facility] AUTM [phone] [facility] Dermatology AUTM [phone] Elvira Galaviz AUTM [phone] [facility] Urology Clinic AUTM [phone] Problems Active Problems Provider Date Essential hypertension Kaia Santillan PA-C Onset: 01/23/2020 Recurrent major depressive episodes Kaia Santillan PA-C Onse t: 01/23/2020 Anxiety state Kaia Santillan PA-C Onset: 01/23/2020 Social History Type Date Description Comments Sex Unknown Tobacco Use Start: Unknown Heavy tobacco smoker (more than 10 cigarettes/day) Tobacco Use Start: Unknown Never Smoked Cigars Tobacco Use Start: Unknown Never Smoked A Pipe Tobacco Use Start: Unknown Never Used Smokeless Tobacco ETOH Use Denies alcohol use Tobacco Use Start: Unknown Heavy tobacco smoker (more than 10 cigarettes/day) Recreational Drug Use Denies Drug Use Allergies, Adverse Reactions, Alerts Active Allergies Criticality Reaction | Severity Comments Date NKDA Unable to assess criticality 01/23/2020 NKFA Unable to assess criticality 09/16/2020 NKEA Unable to assess criticality 09/16/2020 Medications Active Medications SIG Qnty Indications Ordering Provide r Date Potassium Chloride ER 20Meq Tablet s ER 1 by mouth every day 10tabs GRETA Mckeon Atorvastatin Calcium 80mg Tablets 1 by mouth every day 10taGRETA Lemus 12/16/2020 Lisinopril 20mg Tablets 1 by mouth every day 10GRETA Richey 12/16/2020 Miko Aspirin 325mg Tablets 1 PO daily GRETA Mckeon 12/16/2020 History Medications No Active Medications Unknown - 12/16/2020 Potassium Chloride ER 20Meq Tablet s ER 1 by mouth every day 10GRETA Richey 1 - 12/16/2020 Immunizations Description No Information Available Vital Signs Date Vital Result Comment 12/19/2020 3:42pm BP Systolic 118 mmHg BP Diastolic 72 mmHg Heart Rate 79 /min Body Temperature 97.1 F O2 % BldC Oximetry 98 % Weight 166.38 lb Weight 75.468 kg Height 71 inches 5'11" BMI (Body Mass Index) 23.2 kg/m2 BSA (Body Surface Area) 1.95 m2 12/16/2020 7:38am BP Systolic 142 mmHg BP Diastolic 90 mmHg Heart Rate 99 /min Respiratory Rate 24 /min O2 % BldC Oximetry 72 % Weight 170.00 lb Weight 77.112 kg Height 69 inches 5'9" BMI (Body Mass Index) 25.1 kg/m2 BSA (Body Surface Area) 1.93 m2 Results Test Acquired Date Facility Test Result H/L Range Note Iron Binding Capacity 12/17/2020 [facility] Iron 51 g/dL 42 - 135 Uibc 185 g/dL 112 - 347 Tibc 236 g/dL Low 250 - 450 Iron Sat 22 % Laboratory test finding 12/17/2020 [facility] Ferritin Gerri 451.0 ng/mL High 5.0 - 244 Folic Acid Serum(Folate) 7.7 NG/ML 4.4 - 31.0 Vitamin B12 Serum 917 pg/mL 232 - 1245 Covid-19 12/16/2020 [facility] Sars-CoV-2, Ifrah Not Detected Not Detected 1 Sars-CoV-2, Ifrah 2 Day Tat Performed CBC W/Automated Diff 12/15/2020 [facility] CBC W/Automated Diff (SEE NOTE) 2, 3 WBC 8.1 10^3/uL 4.2 - 11.0 RBC 3.84 10^6/uL Low 4.50 - 6.30 Hemoglobin 12.6 g/dL Low 14.0 - 16.0 Hematocrit 37.3 % Low 41.0 - 51.0 MCV 97.1 fL High 80.0 - 94.0 MCH 32.8 pg 27.0 - 34.0 MCHC 33.8 g/dL 31.0 - 36.0 RDW 12.1 % 11.5 - 14.8 Platelets 198 10^3/uL 150 - 450 MPV 11.8 fL High 7.4 - 10.4 Neut 70.4 % 37.0 - 80.0 Lymph 16.7 % Low 25.0 - 40.0 [place] 8.8 % High 3.0 - 8.0 Eos 3.2 % 0.0 - 7.0 Baso 0.7 % 0.0 - 2.0 %Ig 0.2 % High 0.0 - 0.0 %NRBC 0.0 % 0.0 - 0.0 #Neut 5.67 10^3/uL 2.00 - 6.90 #Lymph 1.35 10^3/uL 0.60 - 3.40 #[place] 0.71 10^3/uL 0.00 - 0.90 #Eos 0.26 10^3/uL 0.00 - 0.70 #Baso 0.06 10^3/uL 0.00 - 0.20 #Ig 0.02 10^3/uL 0.00 - 0.10 #NRBC 0.00 10^3/uL 0.00 - 0.00 Manual Diff NOT INDICATED RBC Morph NOT INDICATED Comprehensive Metabolic Panel 12/15/2020 [facility] Comprehensive Metabo (SEE NOTE) 4 Sodium 140 mEq/L 134 - 153 Potassium 3.7 mEq/L 3.6 - 5.0 Chloride 103 mEq/L 98 - 107 Co2 25 mEq/L 22 - 30 Glucose 97 mg/dL 70 - 99 BUN 17 mg/dL 7 - 21 Creatinine 0.8 mg/dL 0.7 - 1.5 BUN/Creat 21 8 - 27 Total Protein 6.0 g/dL Low 6.3 - 8.2 Albumin 4.0 g/dL 3.9 - 5.0 Globulin 2.0 GM/DL Low 2.4 - 3.2 A/G Ratio 2.0 0.8 - 2.0 Calcium 9.0 mg/dL 8.4 - 10.2 Total Bili 0.7 mg/dL 0.2 - 1.3 Alkaline Phos 98 U/L 38 - 126 Sgot/Ast 48 U/L High 5 - 40 SGPT/Alt 72 U/L High 7 - 56 Anion Gap 12.0 mmol/L 8.0 - 16.0 Age 45 yrs Non-Aa GFR >60 mL/min Afr Amer GFR >60 mL/min 5 Cve Panel 12/15/2020 [facility] Cve Panel (SEE NOTE) 6 Cholesterol 178 mg/dL 131 - 200 Triglycerides 89 mg/dL 35 - 160 HDL 40 mg/dL 29 - 86 LDL 121 mg/dL 65 - 175 Risk Factor 4.5 3.4 - 4.9 LDL/HDL 3.03 1.00 - 3.55 7 Lyme Disease Antibodies 09/18/2020 [facility] Lyme IgG/IgM Ab <0.91 ISR 0.00-0.90 8 Lyme Disease Ab, Quant,IgM 1.10 index High 0.00-0.79 9 IgG P93 Ab. Absent IgG P66 Ab. Absent IgG P58 Ab. Absent IgG P45 Ab. Absent IgG P41 Ab. Absent IgG P39 Ab. Absent IgG P30 Ab. Absent IgG P28 Ab. Absent IgG P23 Ab. Absent IgG P18 Ab. Absent Lyme IgG Line BlotInterp. Negative 10 IgM P41 Ab. Absent IgM P39 Ab. Absent IgM P23 Ab. Present Abnormal Lyme IgM Line BlotInterp. Negative 11 CBC W/Automated Diff 09/16/2020 [facility] CBC W/Automated Diff (SEE NOTE) 12, 13 WBC 8.7 10^3/uL 4.2 - 11.0 RBC 4.60 10^6/uL 4.50 - 6.30 Hemoglobin 15.3 g/dL 14.0 - 16.0 Hematocrit 44.0 % 41.0 - 51.0 MCV 95.7 fL High 80.0 - 94.0 MCH 33.3 pg 27.0 - 34.0 MCHC 34.8 g/dL 31.0 - 36.0 RDW 12.3 % 11.5 - 14.8 Platelets 169 10^3/uL 150 - 450 MPV 13.3 fL High 7.4 - 10.4 Neut 63.7 % 37.0 - 80.0 Lymph 27.2 % 25.0 - 40.0 [place] 6.7 % 3.0 - 8.0 Eos 1.4 % 0.0 - 7.0 Baso 0.8 % 0.0 - 2.0 %Ig 0.2 % High 0.0 - 0.0 %NRBC 0.0 % 0.0 - 0.0 #Neut 5.55 10^3/uL 2.00 - 6.90 #Lymph 2.37 10^3/uL 0.60 - 3.40 #[place] 0.58 10^3/uL 0.00 - 0.90 #Eos 0.12 10^3/uL 0.00 - 0.70 #Baso 0.07 10^3/uL 0.00 - 0.20 #Ig 0.02 10^3/uL 0.00 - 0.10 #NRBC 0.00 10^3/uL 0.00 - 0.00 Manual Diff NOT INDICATED RBC Morph NOT INDICATED Comprehensive Metabolic Panel 09/16/2020 [facility] Comprehensive Metabo (SEE NOTE) 14 Sodium 139 mEq/L 134 - 153 Potassium 3.4 mEq/L Low 3.6 - 5.0 Chloride 101 mEq/L 98 - 107 Co2 27 mEq/L 22 - 30 Glucose 102 mg/dL High 70 - 99 BUN 19 mg/dL 7 - 21 Creatinine 1.0 mg/dL 0.7 - 1.5 BUN/Creat 19 8 - 27 Total Protein 6.5 g/dL 6.3 - 8.2 Albumin 4.4 g/dL 3.9 - 5.0 Globulin 2.1 GM/DL Low 2.4 - 3.2 A/G Ratio 2.1 High 0.8 - 2.0 Calcium 9.2 mg/dL 8.4 - 10.2 Total Bili 0.9 mg/dL 0.2 - 1.3 Alkaline Phos 112 U/L 38 - 126 Sgot/Ast 23 U/L 5 - 40 SGPT/Alt 37 U/L 7 - 56 Anion Gap 11.0 mmol/L 8.0 - 16.0 Age 45 yrs Non-Aa GFR >60 mL/min Afr Amer GFR >60 mL/min 15 Laboratory test finding 09/16/2020 [facility] Hgba1c 5.7 % 4.4 - 6.1 16 TSH Highly Sensitive 1.08 uIU/mL 0.47 - 5.01 Laboratory test finding 09/16/2020 [facility] CRP (High Sensitivity) 0.57 mg/L Low 1.00 - 3.00 17 1 This nucleic acid amplificat ion test was developed and its performance characteristics determined by [employer]. Nucleic acid amplification tests include RT-PCR and TMA. This test has not been FDA cleared or approved. This test has been authorized by FDA under an Emergency Use Authorization (EUA). This test is only authorized for the duration of time the declaration that circumstances exist justifying the authorization of the emergency use of in vitro diagnostic tests for detection of SARS-CoV-2 virus and/or diagnosis of COVID-19 infection under section 564(b)(1) of the Act, 21 U.S.C. 360bbb-3(b) (1), unless the authorizatio n is terminated or revoked sooner. When diagnostic testing is negative, the possibility of a false negative result should be considered in the context of a patient's recent exposures and the presence of clinical signs and symptoms consistent with COVID-19. An individual without symptoms of COVID-19 and who is not shedding SARS-CoV-2 virus would expect to have a negative (not detected) result in this assay. 2 Is patient fasting? Y 3 COMPLETE BLOOD COUNT 4 COMPREHENSIVE METABOLIC PANE L 5 Male GFR Interprentation 20-49 yrs >60 mL/min Normal 50-59 yrs >56 mL/min Normal 60-69 yrs >49 mL/min Normal 70-79yrs >42 mL/min Normal 80 and above >35 mL/min Normal Female GFR Interpretation 20-39 yrs >60 mL/min Normal 40-49 yrs >58 mL/min Normal 50-59 yrs >51 mL/min Normal 60-69 yrs >45 mL/min Normal 70-79 yrs >39 mL/min Normal 80 and above >32 mL/min Normal 6 LIPID PANEL 7 CVE RISK CHOL/HDL LDL/HDL MEN: 1/2 AVERAGE 3.43 1.00 AVERAGE 4.97 3.55 2X AVERAGE 9.55 6.25 3X AVERAGE 23.99 7.99 WOMEN: 1/2 AVERAGE 3.27 1.47 AVERAGE 4.44 3.22 2X AVERAGE 7.05 5.03 3X AVERAGE 11.04 6.14 8 Negative <0.91 Equivocal 0.91 - 1.09 Positive >1.09 9 Negative <0.80 Equivocal 0.80 - 1.19 Positive >1.19 IgM levels may peak at 3-6 weeks post infection, then gradually decline. 10 Positive: 5 of the following Borrelia-specific bands: 18,23,28,30,39,41,45,58, 66, and 93. Negative: No bands or banding patterns which do not meet positive criteria. 11 Note: An equivocal or positi ve EIA result followed by a negative Line Blot result is considered NEGATIVE. An equivocal or positive EIA result followed by a positive Line Blot is considered POSITIVE by the CDC. Positive: 2 of the following bands: 23,39 or 41 Negative: No bands or banding patterns which do not meet positive criteria. Criteria for positivity are those recommended by CDC/ASTPHLD. p23=Osp C, c46=[id number] Note: Sera from individuals with the following may cross react in the Lyme Line Blot assays: other spirochetal diseases (periodontal disease, leptospirosis, relapsing fever, yaws, and pinta); connective autoimmune (Rheumatoid Arthritis and Systemic Lupus Erythematosus and also individuals with Antinuclear Antibody); other infections ([place] Spotted Fever; Marcus-Reed Virus, and Cytomegalovirus). 12 Is patient fasting? N 13 COMPLETE BLOOD COUNT 14 COMPREHENSIVE METABOLIC PANE L 15 Male GFR Interprentation 20-49 yrs >60 mL/min Normal 50-59 yrs >56 mL/min Normal 60-69 yrs >49 mL/min Normal 70-79yrs >42 mL/min Normal 80 and above >35 mL/min Normal Female GFR Interpretation 20-39 yrs >60 mL/min Normal 40-49 yrs >58 mL/min Normal 50-59 yrs >51 mL/min Normal 60-69 yrs >45 mL/min Normal 70-79 yrs >39 mL/min Normal 80 and above >32 mL/min Normal 16 {A1] {HB] 17 CDC/AHS HS-CRP CUT-OFF: RELATIVE RISK: <1.0 mg/L Low 1.0 - 3.0 mg/L A verage >3.0 mg/L High Optimally, the average of HS-CRP results repeated two weeks apart should be used for risk assessment. Procedures Date Code Description Status 12/16/2020 19173 Office/Outpatient Established Mo d MDM 30-39 Min Completed 11/19/2020 80220 Office/Outpatient Established Mo d MDM 30-39 Min Completed 09/16/2020 68755 Office/Outpatient Established Lo w MDM 20-29 Min Completed Medical Devices Description No Information Available Encounters Description No Information Available Assessments Date Code Description Provider 12/16/2020 N17.9 Acute kidney failure, unspecifie d GRETA Mckeon 12/16/2020 R30.0 Dysuria GRETA Mckeon 12/16/2020 N50.811 Right testicular pain GRETA Hines 12/16/2020 M54.5 Low back pain GRETA Mckeon 12/16/2020 Z86.73 Personal history of transient ischemic attack (TIA), and cerebral infarction without residual deficits GRETA Mckeon 12/16/2020 I10 Essential (primary) hypertension GRETA Mckeon 11/19/2020 I10 Essential (primary) hypertension GRETA Mckeon 11/19/2020 Z00.01 Encounter for [facility] adult medical examination with abnormal findings GRETA Mckeon 11/19/2020 R21 Rash and other nonspecific skin eruption GRETA Mckeon 11/19/2020 Z86.73 Personal history of transient ischemic attack (TIA), and cerebral infarction without residual deficits GRETA Mckeon 11/19/2020 F33.9 Major depressive disorder, recur rent, unspecified GRETA Mckeon 11/19/2020 F41.9 Anxiety disorder, unspecified GRETA Rowan 09/16/2020 R21 Rash and other nonspecific skin eruption Kaia Santillan PA-C 09/16/2020 R53.83 Other fatigue GRETA Rubio 09/16/2020 Z86.73 Personal history of transient ischemic attack (TIA), and cerebral infarction without residual deficits Kaia Santillan PA-C 09/16/2020 F33.9 Major depressive disorder, recur rent, unspecified Kaia Santillan PA-C 09/16/2020 F41.9 Anxiety disorder, unspecified El hollis Santillan PA-C Plan of Treatment Future Appointment(s):* 01/29/2021 9:00 am - Urology Resource Schedule at [facility] Urology Center * 12/23/2020 8:40 am - GRETA Mckeon at [facility] * 02/24/2021 2:40 pm - GRETA Mckeon at [facility] Functional Status Description No Information Available Mental Status Description No Information Available Referrals Refer to Reason for Referral Status Appt Date [facility] Urology Clinic 45 year old male with a 2 we ek history of urinary hesitancy, right testicular pain and right back pain. Please evaluate and treat. Thank you. Sent [address] [place] [address] [phone] [facility] Dermatology 45 year old male with rash o n right lower leg. Please evaluate and treat. Thank you. Sent [address] [place] [address] [id number] [phone]
--- OUTSIDE RECORDS SUMMARY | 2021-02-05 04:23 | CCD | Continuity of Care Document ---
Author Author Urology Resource Schedule, Alfredo Jose Organization Unknown Address [address] [place] [address] Phone [phone] Care Team Providers Care Vending Machine Refiller Name Role Phone [facility] Neurology AUTM [phone] [facility] Behavioral Health AUTM [phone] [facility] AUTM [facility] Dermatology AUTM [phone] Elvira Snowden AUTM [phone] [facility] Urology Clinic AUTM [phone] Problems Active Problems Provider Date Essential hypertension Kaia Santillan PA-C Onset: 01/23/2020 Recurrent major depressive episodes Kaia Santillan PA-C Onse t: 01/23/2020 Anxiety state Kaia Santillan PA-C Onset: 01/23/2020 Pure hypercholesterolemia Pj Almanza M.D. Onset: 021 Social History Type Date Description Comments Sex Unknown Tobacco Use Start: Unknown Heavy tobacco smoker (more than 10 cigarettes/day) Tobacco Use Start: Unknown Never Smoked Cigars Tobacco Use Start: Unknown Never Smoked A Pipe Tobacco Use Start: Unknown Never Used Smokeless Tobacco ETOH Use Denies alcohol use Tobacco Use Start: Unknown Heavy tobacco smoker (more than 10 cigarettes/day) Recreational Drug Use Current Drug User Allergies and adverse reactions Active Allergies Criticality Reaction | Severity Comments [...] Tablets 1 PO daily GRETA Mckeon 12/16/2020 Amlodipine Besylate 10mg Tablets 1 by mouth every day Unknown Prazosin HCL 1mg Capsules 1 cap by mouth daily at bedtime Unknown Depakote 500mg Tablets DR 1 by mouth twice a day Unknown Abilify 15mg Tablets 1 by mouth every day Unknown Trazodone HCL 50mg Tablets 1 tab by mouth daily at bedtime Unknown History Medications No Active Medications Unknown - 12/16/2020 Potassium Chloride ER 20Meq Tablet s ER 1 by mouth every day 10taGRETA Lemus - 12/16/2020 Immunizations Description No Information Available Vital Signs Date Vital Result Comment 01/29/2021 8:50am BP Systolic 134 mmHg BP Diastolic 80 mmHg Heart Rate 66 /min O2 % BldC Oximetry 99 % Weight 164.00 lb Weight 74.390 kg Height 70 inches 5'10" BMI (Body Mass Index) 23.5 kg/m2 BSA (Body Surface Area) 1.92 m2 12/19/2020 3:42pm BP Systolic 118 mmHg BP Diastolic 72 mmHg Heart Rate 79 /min Body Temperature 97.1 F O2 % BldC Oximetry 98 % Weight 166.38 lb Weight 75.468 kg Height 71 inches 5'11" BMI (Body Mass Index) 23.2 kg/m2 BSA (Body Surface Area) 1.95 m2 Results Test Acquired Date Facility Test Result H/L Range Note Inhouse Ua 01/29/2021 In Office Ua Color gold Normal: Yellow Ua Appearance clear Normal: Clear Spec [place] 1.020 1.001-1.030 Ua PH Test Strip 5 5-9 Leukocytes - Normal: Negative Ua Nitrate - Normal: Negative Ua Protein trace Normal: Negative Inhouse Glucose 100 High Normal: Negative Ua Ketones - Noraml: Negative Urobilinogen - Normal: Negative Ua Bilirubin - Normal: Negative Blood 50 High Noraml: Negative Iron Binding Capacity 12/17/2020 [facility] Iron 51 g/dL 42 - 135 Uibc 185 g/dL 112 - 347 Tibc 236 g/dL Low 250 - 450 Iron Sat 22 % Laboratory test finding 12/17/[address] [facility] Ferritin Gerri 451.0 ng/mL High 5.0 - 244 Folic Acid Serum(Folate) 7.7 NG/ML 4.4 - 31.0 Vitamin B12 Serum 917 pg/mL 232 - 1245 Covid-19 12/16/2020 [facility] Sars-CoV-2, Ifrah Not Detected Not Detected 1 Sars-CoV-2, Ifrah 2 Day Tat Performed CBC W/Automated Diff 12/15/2020 [facility] CBC W/Automated Diff (SEE NOTE) 2, 3 [...] Lymph 16.7 % Low 25.0 - 40.0 [place] 8.8 % High 3.0 - 8.0 Eos 3.2 % 0.0 - 7.0 Baso 0.7 % 0.0 - 2.0 %Ig 0.2 % High 0.0 - 0.0 %NRBC 0.0 % 0.0 - 0.0 #Neut 5.67 10^3/uL 2.00 - 6.90 #Lymph 1.35 10^3/uL 0.60 - 3.40 #[place] 0.71 10^3/uL 0.00 - 0.90 #Eos 0.26 10^3/uL 0.00 - 0.70 #Baso 0.06 10^3/uL 0.00 - 0.20 #Ig 0.02 10^3/uL 0.00 - 0.10 #NRBC 0.00 10^3/uL 0.00 - 0.00 Manual Diff NOT INDICATED RBC Morph NOT INDICATED Comprehensive Metabolic Panel 12/15/2020 [facility] Comprehensive Metabo (SEE NOTE) 4 Sodium 140 [...] GFR >60 mL/min 5 Cve Panel 12/15/2020 [facility] Cve Panel (SEE NOTE) 6 Cholesterol 178 mg/dL 131 - 200 Triglycerides 89 mg/dL 35 - 160 HDL 40 mg/dL 29 - 86 LDL 121 mg/dL 65 - 175 Risk Factor 4.5 3.4 - 4.9 LDL/HDL 3.03 1.00 - 3.55 7 Lyme Disease Antibodies 09/18/2020 [facility] Lyme IgG/IgM Ab <0.91 ISR 0.00-0.90 [...] BlotInterp. Negative 11 CBC W/Automated Diff 09/16/2020 [facility] CBC W/Automated Diff (SEE NOTE) 12, 13 [...] 80.0 Lymph 27.2 % 25.0 - 40.0 [place] 6.7 % 3.0 - 8.0 Eos 1.4 % 0.0 - 7.0 Baso 0.8 % 0.0 - 2.0 %Ig 0.2 % High 0.0 - 0.0 %NRBC 0.0 % 0.0 - 0.0 #Neut 5.55 10^3/uL 2.00 - 6.90 #Lymph 2.37 10^3/uL 0.60 - 3.40 #[place] 0.58 10^3/uL 0.00 - 0.90 #Eos 0.12 10^3/uL 0.00 - 0.70 #Baso 0.07 10^3/uL 0.00 - 0.20 #Ig 0.02 10^3/uL 0.00 - 0.10 #NRBC 0.00 10^3/uL 0.00 - 0.00 Manual Diff NOT INDICATED RBC Morph NOT INDICATED Comprehensive Metabolic Panel 09/16/2020 [facility] Comprehensive Metabo (SEE NOTE) 14 Sodium 139 [...] >60 mL/min 15 Laboratory test finding 09/16/2020 [facility] Hgba1c 5.7 % 4.4 - 6.1 16 TSH Highly Sensitive 1.08 uIU/mL 0.47 - 5.01 Laboratory test finding 09/16/2020 [facility] CRP (High Sensitivity) 0.57 mg/L Low 1.00 - 3.00 17 1 This nucleic acid amplificat ion test was developed and its performance characteristics determined by [employer]. Nucleic acid amplification tests include RT-PCR and [...] are those recommended by CDC/ASTPHLD. p23=Osp C, m97=[id number] Note: Sera from individuals with the following may cross react in the Lyme Line Blot assays: other spirochetal diseases (periodontal disease, leptospirosis, relapsing fever, yaws, and pinta); connective autoimmune (Rheumatoid Arthritis and Systemic Lupus Erythematosus and also individuals with Antinuclear Antibody); other infections ([place] Spotted Fever; Marcus-Reed Virus, and Cytomegalovirus). 12 [...] >32 mL/min Normal 16 {A1] {HB] 17 CDC/S HS-CRP CUT-OFF: RELATIVE RISK: <1.0 mg/L Low 1.0 - 3.0 mg/L A verage >3.0 mg/L High Optimally, the average of HS-CRP results repeated two weeks apart should be used for risk assessment. Procedures Date Code Description Status 01/29/2021 83657 Office/Outpatient New Moderate M DM 45-59 Minutes Completed 12/19/2020 92536 Office/Outpatient Established Lo w MDM 20-29 Min Completed 12/16/2020 87600 Office/Outpatient Established Mo d MDM 30-39 Min Completed 11/19/2020 09396 Office/Outpatient Established Mo d MDM 30-39 Min Completed 09/16/2020 53673 Office/Outpatient Established Lo w MDM 20-29 Min Completed Medical Devices Description No Information Available Encounters Type Date Location Provider Dx Diagnosis Office Visit 01/29/2021 9:00a [facility] Urology Center Pj Almanza M.D. R39.12 Poor urinary stream N50.811 Right testicular pain R10.2 Pelvic and perineal pain N50.3 Cyst of epididymis F17.210 Nicotine dependence, cigaret yolanda, uncomplicated R31.29 Other microscopic hematuria K40.90 Unil inguinal hernia, w/o ob st or gangr, not spcf as recur Z71.2 Person consulting for explan ation of exam or test findings Assessments Date Code Description Provider 01/29/2021 R39.12 Poor urinary stream Pj cevallos M.D. 01/29/2021 N50.811 Right testicular pain Pj david M.D. 01/29/2021 R10.2 Pelvic and perineal pain Pj Almanza M.D. 01/29/2021 N50.3 Cyst of epididymis Pj Almanza M.D. 01/29/2021 F17.210 Nicotine dependence, cigarettes, uncomplicated Pj Almanza M.D. 01/29/2021 R31.29 Other microscopic hematuria Evelyn Almanza M.D. 01/29/2021 K40.90 Unilateral inguinal hernia, without obstruction or gangrene, not specified as recurrent Pj Almanza M.D. 01/29/2021 Z71.2 Person consulting fo r explanation of examination or test findings Pj Almanza M.D. 12/19/2020 F30.8 Other manic episodes GRETA Austin 12/16/2020 N17.9 Acute kidney failure, unspecifie d GRETA Mckeon 12/16/2020 R30.0 Dysuria GRETA Mckeon 12/16/2020 N50.811 Right testicular pain GRETA Hines 12/16/2020 M54.5 Low back pain GRETA Mckeon 12/16/2020 Z86.73 Personal history of transient ischemic attack (TIA), and cerebral infarction without residual deficits GRETA Mckeon 12/16/2020 I10 Essential (primary) hypertension GRETA Mckeon 11/19/2020 I10 Essential (primary) hypertension GRETA Mckeon 11/19/2020 Z00.01 Encounter for [facility] adult medical examination with abnormal findings GRETA [...] Santillan PA-C Plan of Treatment Future Appointment(s):* 2021 1:30 pm - Urology Resource Schedule at [facility] Urology Center 04/09/2020 - Kaia Santillan PA-C* M25.551 Pain in right hip* Comments:* He c/o worsening right hip pain. Will order right hip x-ray for further evaluation. He can take naproxen along with Tylenol. Will defer treatment plan based on the results. Functional Status Description No Information Available Mental Status Description No Information Available Referrals Refer to Reason for Referral Status Appt Date [facility] Urology Clinic 45 year old male with a 2 we ek history of urinary hesitancy, right testicular pain and right back pain. Please evaluate and treat. Thank you. Closed 01/29/2021 [address] [place] [address] [phone] [facility] Dermatology 45 year old male with rash o n right lower leg. Please evaluate and treat. Thank you. Sent [address] [address] [phone]
--- OUTSIDE RECORDS SUMMARY | 2021-02-05 04:23 | CCD | Continuity of Care Document ---
Author Author Urology Resource Schedule, Alfredo Jose Organization Unknown Address [address] [place] [address] Phone [phone] Care Team Providers Care Tie Inspector Name Role Phone [facility] Neurology AUTM [phone] [facility] Behavioral Health AUTM [phone] [facility] AUTM [facility] Dermatology AUTM [phone] Elvira Snowden AUTM [phone] [facility] Urology Clinic AUTM [phone] Problems Active Problems Provider Date Essential hypertension [...] Yellow Ua Appearance clear Normal: Clear Spec [place] 1.020 1.001-1.030 Ua PH Test Strip 5 5-9 Leukocytes - Normal: Negative Ua Nitrate - Normal: Negative Ua Protein trace Normal: Negative Inhouse Glucose 100 High Normal: Negative Ua Ketones - Noraml: Negative Urobilinogen - Normal: Negative Ua Bilirubin - Normal: Negative Blood 50 High Noraml: Negative Iron Binding Capacity 12/17/2020 [facility] Iron 51 g/dL 42 - 135 Uibc 185 g/dL 112 - 347 Tibc 236 g/dL Low 250 - 450 Iron Sat 22 % Laboratory test finding 12/17/2020 [facility] l Ferritin Gerri 451.0 ng/mL High 5.0 - 244 Folic Acid Serum(Folate) 7.7 NG/ML 4.4 - 31.0 Vitamin B12 Serum 917 pg/mL 232 - 1245 Covid-19 12/16/2020 [facility] Sars-CoV-2, Ifrah Not Detected Not Detected 1 Sars-CoV-2, Ifrah 2 Day Tat Performed CBC W/Automated Diff 12/15/2020 [facility] CBC W/Automated Diff (SEE NOTE) 2, 3 [...] Lymph 16.7 % Low 25.0 - 40.0 [place] 8.8 % High 3.0 - 8.0 Eos 3.2 % 0.0 - 7.0 Baso 0.7 % 0.0 - 2.0 %Ig 0.2 % High 0.0 - 0.0 %NRBC 0.0 % 0.0 - 0.0 #Neut 5.67 10^3/uL 2.00 - 6.90 #Lymph 1.35 10^3/uL 0.60 - 3.40 #Bowman 0.71 10^3/uL 0.00 - 0.90 #Eos 0.26 10^3/uL 0.00 - 0.70 #Baso 0.06 10^3/uL 0.00 - 0.20 #Ig 0.02 10^3/uL 0.00 - 0.10 #NRBC 0.00 10^3/uL 0.00 - 0.00 Manual Diff NOT INDICATED RBC Morph NOT INDICATED Comprehensive Metabolic Panel 12/15/2020 [facility] Comprehensive Metabo (SEE NOTE) 4 Sodium 140 [...] GFR >60 mL/min 5 Cve Panel 12/15/2020 [facility] Cve Panel (SEE NOTE) 6 Cholesterol 178 mg/dL 131 - 200 Triglycerides 89 mg/dL 35 - 160 HDL 40 mg/dL 29 - 86 LDL 121 mg/dL 65 - 175 Risk Factor 4.5 3.4 - 4.9 LDL/HDL 3.03 1.00 - 3.55 7 Lyme Disease Antibodies 09/18/2020 [facility] Lyme IgG/IgM Ab <0.91 ISR 0.00-0.90 [...] BlotInterp. Negative 11 CBC W/Automated Diff 09/16/2020 [facility] CBC W/Automated Diff (SEE NOTE) 12, 13 [...] 80.0 Lymph 27.2 % 25.0 - 40.0 [place] 6.7 % 3.0 - 8.0 Eos 1.4 % 0.0 - 7.0 Baso 0.8 % 0.0 - 2.0 %Ig 0.2 % High 0.0 - 0.0 %NRBC 0.0 % 0.0 - 0.0 #Neut 5.55 10^3/uL 2.00 - 6.90 #Lymph 2.37 10^3/uL 0.60 - 3.40 #Bowman 0.58 10^3/uL 0.00 - 0.90 #Eos 0.12 10^3/uL 0.00 - 0.70 #Baso 0.07 10^3/uL 0.00 - 0.20 #Ig 0.02 10^3/uL 0.00 - 0.10 #NRBC 0.00 10^3/uL 0.00 - 0.00 Manual Diff NOT INDICATED RBC Morph NOT INDICATED Comprehensive Metabolic Panel 09/16/2020 [facility] Comprehensive Metabo (SEE NOTE) 14 Sodium 139 [...] >60 mL/min 15 Laboratory test finding 09/16/2020 [facility] Hgba1c 5.7 % 4.4 - 6.1 16 TSH Highly Sensitive 1.08 uIU/mL 0.47 - 5.01 Laboratory test finding 09/16/2020 [facility] CRP (High Sensitivity) 0.57 mg/L Low 1.00 - 3.00 17 1 This nucleic acid amplificat ion test was developed and its performance characteristics determined by [employer]. Nucleic acid amplification tests include RT-PCR and [...] are those recommended by CDC/ASTPHLD. p23=Osp C, y41=[id number] Note: Sera from individuals with the following may cross react in the Lyme Line Blot assays: other spirochetal diseases (periodontal disease, leptospirosis, relapsing fever, yaws, and pinta); connective autoimmune (Rheumatoid Arthritis and Systemic Lupus Erythematosus and also individuals with Antinuclear Antibody); other infections ([place] Spotted Fever; Marcus-Reed Virus, and Cytomegalovirus). 12 [...] assessment. Procedures Date Code Description Status 01/29/2021 53042 Office/Outpatient New Moderate M DM 45-59 Minutes Completed 12/19/2020 39423 Office/Outpatient Established Lo w MDM 20-29 Min Completed 12/16/2020 68571 Office/Outpatient Established Mo d MDM 30-39 Min Completed 11/19/2020 18374 Office/Outpatient Established Mo d MDM 30-39 Min Completed 09/16/2020 27558 Office/Outpatient Established Lo w MDM 20-29 Min Completed Medical Devices Description No Information Available Encounters Type Date Location Provider Dx Diagnosis Office Visit 01/29/2021 9:00a [facility] Urology Center Pj Almanza M.D. R39.12 Poor [...] hypertension GRETA Mckeon 11/19/2020 Z00.01 Encounter for [facility] adult medical examination with [...] 1:30 pm - Urology Resource Schedule at [facility] Urology Center 04/09/2020 - Kaia Santillan PA-C* M25.551 Pain in right hip* Comments:* He c/o worsening right hip pain. Will order right hip x-ray for further evaluation. He can take naproxen along with Tylenol. Will defer treatment plan based on the results. Functional Status Description No Information Available Mental Status Description No Information Available Referrals Refer to Reason for Referral Status Appt Date [facility] Urology Clinic 45 year old male with a 2 we ek history of urinary hesitancy, right testicular pain and right back pain. Please evaluate and treat. Thank you. Closed 01/29/2021 3 [place] [address] [phone] [facility] Dermatology 45 year old male with rash o n right lower leg. Please evaluate and treat. Thank you. Sent [address] [address] [phone]
--- OUTSIDE RECORDS SUMMARY | 2021-02-05 04:23 | CCD | Continuity of Care Document ---
Author Author Urology Resource Schedule, Alfredo Jose Organization Unknown Address [address] [place] [address] Phone [phone] Care Team Providers Care Nightman Name Role Phone [facility] Neurology AUTM [phone] [facility] Behavioral Health AUTM [phone] [facility] AUTM [phone] [facility] Dermatology AUTM [phone] Elvira Snowden AUTM [phone] [facility] Urology Clinic AUTM [phone] Problems Active Problems Provider Date Essential hypertension [...] Aspirin 325mg Tablets 1 PO daily GRETA Mkceon 12/16/2020 Amlodipine Besylate 10mg Tablets 1 by [...] Yellow Ua Appearance clear Normal: Clear Spec [place] 1.020 1.001-1.030 Ua PH Test Strip 5 5-9 Leukocytes - Normal: Negative Ua Nitrate - Normal: Negative Ua Protein trace Normal: Negative Inhouse Glucose 100 High Normal: Negative Ua Ketones - Noraml: Negative Urobilinogen - Normal: Negative Ua Bilirubin - Normal: Negative Blood 50 High Noraml: Negative Iron Binding Capacity 12/17/2020 [facility] Iron 51 g/dL 42 - 135 Uibc 185 g/dL 112 - 347 Tibc 236 g/dL Low 250 - 450 Iron Sat 22 % Laboratory test finding 12/17/2020 [facility] l Ferritin Gerri 451.0 ng/mL High 5.0 - 244 Folic Acid Serum(Folate) 7.7 NG/ML 4.4 - 31.0 Vitamin B12 Serum 917 pg/mL 232 - 1245 Covid-19 12/16/2020 [facility] Sars-CoV-2, Ifrah Not Detected Not Detected 1 Sars-CoV-2, Ifrah 2 Day Tat Performed CBC W/Automated Diff 12/15/2020 [facility] CBC W/Automated Diff (SEE NOTE) 2, [...] Lymph 16.7 % Low 25.0 - 40.0 [place] 8.8 % High 3.0 - 8.0 Eos 3.2 % 0.0 - 7.0 Baso 0.7 % 0.0 - 2.0 %Ig 0.2 % High 0.0 - 0.0 %NRBC 0.0 % 0.0 - 0.0 #Neut 5.67 10^3/uL 2.00 - 6.90 #Lymph 1.35 10^3/uL 0.60 - 3.40 #[place] 0.71 10^3/uL 0.00 - 0.90 #Eos 0.26 10^3/uL 0.00 - 0.70 #Baso 0.06 10^3/uL 0.00 - 0.20 #Ig 0.02 10^3/uL 0.00 - 0.10 #NRBC 0.00 10^3/uL 0.00 - 0.00 Manual Diff NOT INDICATED RBC Morph NOT INDICATED Comprehensive Metabolic Panel 12/15/2020 [facility] Comprehensive Metabo (SEE NOTE) 4 [...] GFR >60 mL/min 5 Cve Panel 12/15/2020 [facility] Cve Panel (SEE NOTE) 6 Cholesterol 178 mg/dL 131 - 200 Triglycerides 89 mg/dL 35 - 160 HDL 40 mg/dL 29 - 86 LDL 121 mg/dL 65 - 175 Risk Factor 4.5 3.4 - 4.9 LDL/HDL 3.03 1.00 - 3.55 7 Lyme Disease Antibodies 09/18/2020 [facility] Lyme IgG/IgM Ab <0.91 ISR 0.00-0.90 8 [...] BlotInterp. Negative 11 CBC W/Automated Diff 09/16/2020 [facility] CBC W/Automated Diff (SEE NOTE) 12, [...] 80.0 Lymph 27.2 % 25.0 - 40.0 [place] 6.7 % 3.0 - 8.0 Eos 1.4 % 0.0 - 7.0 Baso 0.8 % 0.0 - 2.0 %Ig 0.2 % High 0.0 - 0.0 %NRBC 0.0 % 0.0 - 0.0 #Neut 5.55 10^3/uL 2.00 - 6.90 #Lymph 2.37 10^3/uL 0.60 - 3.40 #[place] 0.58 10^3/uL 0.00 - 0.90 #Eos 0.12 10^3/uL 0.00 - 0.70 #Baso 0.07 10^3/uL 0.00 - 0.20 #Ig 0.02 10^3/uL 0.00 - 0.10 #NRBC 0.00 10^3/uL 0.00 - 0.00 Manual Diff NOT INDICATED RBC Morph NOT INDICATED Comprehensive Metabolic Panel 09/16/2020 [facility] Comprehensive Metabo (SEE NOTE) 14 Sodium [...] >60 mL/min 15 Laboratory test finding 09/16/2020 [facility] Hgba1c 5.7 % 4.4 - 6.1 16 TSH Highly Sensitive 1.08 uIU/mL 0.47 - 5.01 Laboratory test finding 09/16/2020 [facility] CRP (High Sensitivity) 0.57 mg/L Low 1.00 - 3.00 17 1 This nucleic acid amplificat ion test was developed and its performance characteristics determined by [employer]. Nucleic acid amplification tests include RT-PCR and [...] are those recommended by CDC/ASTPHLD. p23=Osp C, m16=[id number] Note: Sera from individuals with the following may cross react in the Lyme Line Blot assays: other spirochetal diseases (periodontal disease, leptospirosis, relapsing fever, yaws, and pinta); connective autoimmune (Rheumatoid Arthritis and Systemic Lupus Erythematosus and also individuals with Antinuclear Antibody); other infections ([place] Spotted Fever; Marcus-Reed Virus, and Cytomegalovirus). 12 [...] assessment. Procedures Date Code Description Status 01/29/2021 08208 Office/Outpatient New Moderate M DM 45-59 Minutes Completed 12/19/2020 51469 Office/Outpatient Established Lo w MDM 20-29 Min Completed 12/16/2020 23076 Office/Outpatient Established Mo d MDM 30-39 Min Completed 11/19/2020 54537 Office/Outpatient Established Mo d MDM 30-39 Min Completed 09/16/2020 31535 Office/Outpatient Established Lo w MDM 20-29 Min Completed Medical Devices Description No Information Available Encounters Type Date Location Provider Dx Diagnosis Office Visit 01/29/2021 9:00a [facility] Urology Center Pj Almanza M.D. [...] hypertension GRETA Mckeon 11/19/2020 Z00.01 Encounter for [facility] adult medical examination with abnormal findings [...] 1:30 pm - Urology Resource Schedule at [facility] Urology Center 04/09/2020 - Kaia [...] to Reason for Referral Status Appt Date [facility] Urology Clinic 45 year old male with a 2 we ek history of urinary hesitancy, right testicular pain and right back pain. Please evaluate and treat. Thank you. Closed 01/29/2021 3 [place] [address] [phone] [facility] Dermatology 45 year old male with rash o n right lower leg. Please evaluate and treat. Thank you. Sent [address] [address] [phone]
--- OUTSIDE RECORDS SUMMARY | 2021-02-05 04:23 | CCD | Continuity of Care Document ---
Author Author Nikita GALAVIZ Organization Unknown Address [address] [place] [address] Phone [phone] Care Team Providers Care Vp Construction Name Role Phone [facility] Neurology AUTM [phone] [facility] Behavioral Health AUTM [phone] [facility] AUTM [phone] [facility] Dermatology AUTM [phone] Elvira Galaviz AUTM [phone] Problems Active Problems Provider Date Anxiety state Kaia Santillan PA-C Onset: 01/23/2020 Recurrent major depressive episodes Kaia Santillan PA-C Onse t: 01/23/2020 Essential hypertension Kaia Santillan PA-C Onset: 01/23/2020 Social History [...] SIG Qnty Indications Ordering Provide r Date No Active Medications Unknown History Medications Potassium Chloride ER 20Meq Tablet s ER 1 by mouth every day 10tabs GRETA Mckeon - 12/16/2020 Immunizations Description No Information Available Vital Signs Date Vital Result Comment 12/16/2020 7:38am BP Systolic 142 mmHg BP Diastolic 90 mmHg Heart Rate 99 /min Respiratory Rate 24 /min O2 % BldC Oximetry 72 % Weight 170.00 lb Weight 77.112 kg Height 69 inches 5'9" BMI (Body Mass Index) 25.1 kg/m2 BSA (Body Surface Area) 1.93 m2 11/19/2020 2:33pm BP Systolic 127 mmHg BP Diastolic 78 mmHg Heart Rate 88 /min Body Temperature 98.2 F Respiratory Rate 16 /min O2 % BldC Oximetry 99 % Weight 175.50 lb Weight 79.607 kg Height 68 inches 5'8" BMI (Body Mass Index) 26.7 kg/m2 BSA (Body Surface Area) 1.93 m2 Results Test Acquired Date Facility Test Result H/L Range Note CBC W/Automated Diff 12/15/2020 [facility] CBC W/Automated Diff (SEE NOTE) 1, 2 WBC 8.1 10^3/uL 4.2 - 11.0 RBC [...] Lymph 16.7 % Low 25.0 - 40.0 [place] 8.8 % High 3.0 - 8.0 Eos 3.2 % 0.0 - 7.0 Baso 0.7 % 0.0 - 2.0 %Ig 0.2 % High 0.0 - 0.0 %NRBC 0.0 % 0.0 - 0.0 #Neut 5.67 10^3/uL 2.00 - 6.90 #Lymph 1.35 10^3/uL 0.60 - 3.40 #[place] 0.71 10^3/uL 0.00 - 0.90 #Eos 0.26 10^3/uL 0.00 - 0.70 #Baso 0.06 10^3/uL 0.00 - 0.20 #Ig 0.02 10^3/uL 0.00 - 0.10 #NRBC 0.00 10^3/uL 0.00 - 0.00 Manual Diff NOT INDICATED RBC Morph NOT INDICATED Comprehensive Metabolic Panel 12/15/2020 [facility] Comprehensive Metabo (SEE NOTE) 3 Sodium 140 mEq/L 134 - 153 Potassium [...] >60 mL/min Afr Amer GFR >60 mL/min 4 Cve Panel 12/15/2020 [facility] Cve Panel (SEE NOTE) 5 Cholesterol 178 mg/dL 131 - 200 Triglycerides 89 mg/dL 35 - 160 HDL 40 mg/dL 29 - 86 LDL 121 mg/dL 65 - 175 Risk Factor 4.5 3.4 - 4.9 LDL/HDL 3.03 1.00 - 3.55 6 Lyme Disease Antibodies 09/18/2020 [facility] Lyme IgG/IgM Ab <0.91 ISR 0.00-0.90 7 Lyme Disease Ab, Quant,IgM 1.10 index High 0.00-0.79 8 IgG P93 Ab. Absent IgG P66 Ab. Absent IgG P58 Ab. Absent IgG P45 Ab. Absent IgG P41 Ab. Absent IgG P39 Ab. Absent IgG P30 Ab. Absent IgG P28 Ab. Absent IgG P23 Ab. Absent IgG P18 Ab. Absent Lyme IgG Line BlotInterp. Negative 9 IgM P41 Ab. Absent IgM P39 Ab. Absent IgM P23 Ab. Present Abnormal Lyme IgM Line BlotInterp. Negative 10 CBC W/Automated Diff 09/16/2020 [facility] CBC W/Automated Diff (SEE NOTE) 11, 12 WBC 8.7 10^3/uL 4.2 - 11.0 RBC [...] 80.0 Lymph 27.2 % 25.0 - 40.0 [place] 6.7 % 3.0 - 8.0 Eos 1.4 % 0.0 - 7.0 Baso 0.8 % 0.0 - 2.0 %Ig 0.2 % High 0.0 - 0.0 %NRBC 0.0 % 0.0 - 0.0 #Neut 5.55 10^3/uL 2.00 - 6.90 #Lymph 2.37 10^3/uL 0.60 - 3.40 #Val[place] 0.58 10^3/uL 0.00 - 0.90 #Eos 0.12 10^3/uL 0.00 - 0.70 #Baso 0.07 10^3/uL 0.00 - 0.20 #Ig 0.02 10^3/uL 0.00 - 0.10 #NRBC 0.00 10^3/uL 0.00 - 0.00 Manual Diff NOT INDICATED RBC Morph NOT INDICATED Comprehensive Metabolic Panel 09/16/2020 [facility] Comprehensive Metabo (SEE NOTE) 13 Sodium 139 mEq/L 134 - 153 Potassium [...] >60 mL/min Afr Amer GFR >60 mL/min 14 Laboratory test finding 09/16/2020 [facility] Hgba1c 5.7 % 4.4 - 6.1 15 TSH Highly Sensitive 1.08 uIU/mL 0.47 - 5.01 Laboratory test finding 09/16/2020 [facility] CRP (High Sensitivity) 0.57 mg/L Low 1.00 - 3.00 16 1 Is patient fasting? Y 2 COMPLETE BLOOD COUNT 3 COMPREHENSIVE METABOLIC PANE L 4 Male GFR Interprentation 20-49 yrs >60 mL/min Normal 50-59 yrs >56 mL/min Normal 60-69 yrs >49 mL/min Normal 70-79yrs >42 mL/min Normal 80 and above >35 mL/min Normal Female GFR Interpretation 20-39 yrs >60 mL/min Normal 40-49 yrs >58 mL/min Normal 50-59 yrs >51 mL/min Normal 60-69 yrs >45 mL/min Normal 70-79 yrs >39 mL/min Normal 80 and above >32 mL/min Normal 5 LIPID PANEL 6 CVE RISK CHOL/HDL LDL/HDL MEN: 1/2 AVERAGE 3.43 1.00 AVERAGE 4.97 3.55 2X AVERAGE 9.55 6.25 3X AVERAGE 23.99 7.99 WOMEN: 1/2 AVERAGE 3.27 1.47 AVERAGE 4.44 3.22 2X AVERAGE 7.05 5.03 3X AVERAGE 11.04 6.14 7 Negative <0.91 Equivocal 0.91 - 1.09 Positive >1.09 8 Negative <0.80 Equivocal 0.80 - 1.19 Positive >1.19 IgM levels may peak at 3-6 weeks post infection, then gradually decline. 9 Positive: 5 of the following Borrelia-specific bands: 18,23,28,30,39,41,45,58, 66, and 93. Negative: No bands or banding patterns which do not meet positive criteria. 10 Note: An equivocal or positi ve EIA [...] are those recommended by CDC/ASTPHLD. p23=Osp C, s55=yepecblzs Note: Sera from individuals with the following may cross react in the Lyme Line Blot assays: other spirochetal diseases (periodontal disease, leptospirosis, relapsing fever, yaws, and pinta); connective autoimmune (Rheumatoid Arthritis and Systemic Lupus Erythematosus and also individuals with Antinuclear Antibody); other infections ([place] Spotted Fever; Marcus-Reed Virus, and Cytomegalovirus). 11 Is patient fasting? N 12 COMPLETE BLOOD COUNT 13 COMPREHENSIVE METABOLIC PANE L 14 Male GFR Interprentation 20-49 yrs >60 mL/min Normal 50-59 yrs >56 mL/min Normal 60-69 yrs >49 mL/min Normal 70-79yrs >42 mL/min Normal 80 and above >35 mL/min Normal Female GFR Interpretation 20-39 yrs >60 mL/min Normal 40-49 yrs >58 mL/min Normal 50-59 yrs >51 mL/min Normal 60-69 yrs >45 mL/min Normal 70-79 yrs >39 mL/min Normal 80 and above >32 mL/min Normal 15 {A1] {HB] 16 CDC/AHS HS-CRP CUT-OFF: RELATIVE RISK: <1.0 mg/L Low 1.0 - 3.0 mg/L A verage >3.0 mg/L High Optimally, the average of HS-CRP results repeated two weeks apart should be used for risk assessment. Procedures Date Code Description Status 11/19/2020 78694 Office/Outpatient Established Mo d MDM 30-39 Min Completed 09/16/2020 83624 Office/Outpatient Established Lo w MDM 20-29 Min Completed Medical Devices Description No Information Available Encounters Description No Information Available Assessments Date Code Description Provider 12/16/2020 R30.0 Dysuria GRETA Mckeon 11/19/2020 I10 Essential (primary) hypertension GRETA Mckeon 11/19/2020 Z00.01 Encounter for genera l adult medical examination with abnormal findings [...] Santillan PA-C Plan of Treatment Future Appointment(s):* 12/23/2020 8:40 am - GRETA Mckeon at [facility] * 02/24/2021 2:40 pm - GRETA Mckeon at [facility] 12/16/2020 - GRETA Mckeon* R30.0 Dysuria * All * New Medication:* No Active Medications - Functional Status Description No Information Available Mental Status Description No Information Available Referrals Refer to Reason for Referral Status Appt Date [facility] Dermatology 45 year old male with rash o n right lower leg. Please evaluate and treat. Thank you. Sent [address] [address] [phone]
--- OUTSIDE RECORDS SUMMARY | 2021-02-05 04:23 | CCD | Continuity of Care Document ---
Author Author Urology Resource Schedule, Alfredo Jose Organization Unknown Address [address] [place] [address] Phone [phone] Care Team Providers Care Feed Mill Manager Name Role Phone [facility] Neurology AUTM [phone] [facility] Behavioral Health AUTM [phone] [facility] AUTM [phone] [facility] Dermatology AUTM [phone] Elvira Snowden AUTM [phone] [facility] Urology Clinic AUTM [phone] Problems Active Problems Provider Date Essential hypertension [...] Yellow Ua Appearance clear Normal: Clear Spec [place] 1.020 1.001-1.030 Ua PH Test Strip 5 5-9 Leukocytes - Normal: Negative Ua Nitrate - Normal: Negative Ua Protein trace Normal: Negative Inhouse Glucose 100 High Normal: Negative Ua Ketones - Noraml: Negative Urobilinogen - Normal: Negative Ua Bilirubin - Normal: Negative Blood 50 High Noraml: Negative Iron Binding Capacity 12/17/2020 [facility] Iron 51 g/dL 42 - 135 Uibc 185 g/dL 112 - 347 Tibc 236 g/dL Low 250 - 450 Iron Sat 22 % Laboratory test finding 12/17/2020 [facility] Ferritin Gerri 451.0 ng/mL High 5.0 - 244 Folic Acid Serum(Folate) 7.7 NG/ML 4.4 - 31.0 Vitamin B12 Serum 917 pg/mL 232 - 1245 Covid-19 12/16/2020 [facility] Sars-CoV-2, Ifrah Not Detected Not Detected 1 Sars-CoV-2, Ifrah 2 Day Tat Performed CBC W/Automated Diff 12/15/2020 [facility] CBC W/Automated Diff (SEE NOTE) 2, [...] Lymph 16.7 % Low 25.0 - 40.0 Morgan 8.8 % High 3.0 - 8.0 Eos 3.2 % 0.0 - 7.0 Baso 0.7 % 0.0 - 2.0 %Ig 0.2 % High 0.0 - 0.0 %NRBC 0.0 % 0.0 - 0.0 #Neut 5.67 10^3/uL 2.00 - 6.90 #Lymph 1.35 10^3/uL 0.60 - 3.40 #Morgan 0.71 10^3/uL 0.00 - 0.90 #Eos 0.26 10^3/uL 0.00 - 0.70 #Baso 0.06 10^3/uL 0.00 - 0.20 #Ig 0.02 10^3/uL 0.00 - 0.10 #NRBC 0.00 10^3/uL 0.00 - 0.00 Manual Diff NOT INDICATED RBC Morph NOT INDICATED Comprehensive Metabolic Panel 12/15/2020 [facility] Comprehensive Metabo (SEE NOTE) 4 Sodium [...] GFR >60 mL/min 5 Cve Panel 12/15/2020 [facility] Cve Panel (SEE NOTE) 6 Cholesterol 178 mg/dL 131 - 200 Triglycerides 89 mg/dL 35 - 160 HDL 40 mg/dL 29 - 86 LDL 121 mg/dL 65 - 175 Risk Factor 4.5 3.4 - 4.9 LDL/HDL 3.03 1.00 - 3.55 7 Lyme Disease Antibodies 09/18/2020 [facility] Lyme IgG/IgM Ab <0.91 ISR 0.00-0.90 8 [...] BlotInterp. Negative 11 CBC W/Automated Diff 09/16/2020 [facility] CBC W/Automated Diff (SEE NOTE) 12, [...] 80.0 Lymph 27.2 % 25.0 - 40.0 Morgan 6.7 % 3.0 - 8.0 Eos 1.4 % 0.0 - 7.0 Baso 0.8 % 0.0 - 2.0 %Ig 0.2 % High 0.0 - 0.0 %NRBC 0.0 % 0.0 - 0.0 #Neut 5.55 10^3/uL 2.00 - 6.90 #Lymph 2.37 10^3/uL 0.60 - 3.40 #Morgan 0.58 10^3/uL 0.00 - 0.90 #Eos 0.12 10^3/uL 0.00 - 0.70 #Baso 0.07 10^3/uL 0.00 - 0.20 #Ig 0.02 10^3/uL 0.00 - 0.10 #NRBC 0.00 10^3/uL 0.00 - 0.00 Manual Diff NOT INDICATED RBC Morph NOT INDICATED Comprehensive Metabolic Panel 09/16/2020 [facility] Comprehensive Metabo (SEE NOTE) 14 Sodium [...] >60 mL/min 15 Laboratory test finding 09/16/2020 [facility] Hgba1c 5.7 % 4.4 - 6.1 16 TSH Highly Sensitive 1.08 uIU/mL 0.47 - 5.01 Laboratory test finding 09/16/2020 [facility] CRP (High Sensitivity) 0.57 mg/L Low 1.00 - 3.00 17 1 This nucleic acid amplificat ion test was developed and its performance characteristics determined by [employer]. Nucleic acid amplification tests include RT-PCR and [...] are those recommended by CDC/ASTPHLD. p23=Osp C, a32=bqrqroiev Note: Sera from individuals with the following may cross react in the Lyme Line Blot assays: other spirochetal diseases (periodontal disease, leptospirosis, relapsing fever, yaws, and pinta); connective autoimmune (Rheumatoid Arthritis and Systemic Lupus Erythematosus and also individuals with Antinuclear Antibody); other infections ([place] Spotted Fever; Marcus-Reed Virus, and Cytomegalovirus). 12 [...] assessment. Procedures Date Code Description Status 01/29/2021 27229 Office/Outpatient New Moderate M DM 45-59 Minutes Completed 12/19/2020 25668 Office/Outpatient Established Lo w MDM 20-29 Min Completed 12/16/2020 44685 Office/Outpatient Established Mo d MDM 30-39 Min Completed 11/19/2020 81878 Office/Outpatient Established Mo d MDM 30-39 Min Completed 09/16/2020 93816 Office/Outpatient Established Lo w MDM 20-29 Min Completed Medical Devices Description No Information Available Encounters Type Date Location Provider Dx Diagnosis Office Visit 01/29/2021 9:00a [facility] Urology Center Pj Almanza M.D. R39.12 [...] hypertension GRETA Mckeon 11/19/2020 Z00.01 Encounter for [facility] adult medical examination with abnormal findings [...] 1:30 pm - Urology Resource Schedule at [facility] Urology Center 04/09/2020 - Kaia Santillan [...] for Referral Status Appt Date [facility] Urology Clinic 45 year old male with a 2 we ek history of urinary hesitancy, right testicular pain and right back pain. Please evaluate and treat. Thank you. Closed 01/29/2021 [address] [place] [address] [phone] [facility] Dermatology 45 year old male with rash o n right lower leg. Please evaluate and treat. Thank you. Sent [address] [address] [phone]
--- OUTSIDE RECORDS SUMMARY | 2021-02-05 04:23 | CCD | Continuity of Care Document ---
Author Author Nikita GALAVIZ Organization Unknown Address [address] [place] [address] Phone [phone] Care Team Providers Care Flower Grower Name Role Phone [facility] Neurology AUTM [phone] [facility] Behavioral Health AUTM [phone] [facility] AUTM [facility] Dermatology AUTM [phone] Elvira Galaviz AUTM [phone] [facility] Urology Clinic AUTM [phone] Problems Active Problems Provider Date Anxiety state [...] 80mg Tablets 1 by mouth every day 10GRETA Richey 12/16/2020 Lisinopril 20mg Tablets 1 by mouth [...] H/L Range Note Iron Binding Capacity 12/17/2020 [facility] Iron 51 g/dL 42 - 135 Uibc 185 g/dL 112 - 347 Tibc 236 g/dL Low 250 - 450 Iron Sat 22 % Laboratory test finding 12/17/2020 [facility] l Ferritin Gerri 451.0 ng/mL High 5.0 - 244 Folic Acid Serum(Folate) 7.7 NG/ML 4.4 - 31.0 Vitamin B12 Serum 917 pg/mL 232 - 1245 Covid-19 12/16/2020 [facility] Sars-CoV-2, Ifrah Not Detected Not Detected 1 Sars-CoV-2, Ifrah 2 Day Tat Performed CBC W/Automated Diff 12/15/2020 [facility] CBC W/Automated Diff (SEE NOTE) 2, [...] Lymph 16.7 % Low 25.0 - 40.0 [place] 8.8 % High 3.0 - 8.0 Eos 3.2 % 0.0 - 7.0 Baso 0.7 % 0.0 - 2.0 %Ig 0.2 % High 0.0 - 0.0 %NRBC 0.0 % 0.0 - 0.0 #Neut 5.67 10^3/uL 2.00 - 6.90 #Lymph 1.35 10^3/uL 0.60 - 3.40 #Cocke 0.71 10^3/uL 0.00 - 0.90 #Eos 0.26 10^3/uL 0.00 - 0.70 #Baso 0.06 10^3/uL 0.00 - 0.20 #Ig 0.02 10^3/uL 0.00 - 0.10 #NRBC 0.00 10^3/uL 0.00 - 0.00 Manual Diff NOT INDICATED RBC Morph NOT INDICATED Comprehensive Met[facility] Panel 12/[facility]2020 [facility] Comprehensive Metabo (SEE NOTE) 4 Sodium [...] GFR >60 mL/min 5 Cve Panel 12/15/2020 [facility] Cve Panel (SEE NOTE) 6 Cholesterol 178 mg/dL 131 - 200 Triglycerides 89 mg/dL 35 - 160 HDL 40 mg/dL 29 - 86 LDL 121 mg/dL 65 - 175 Risk Factor 4.5 3.4 - 4.9 LDL/HDL 3.03 1.00 - 3.55 7 Lyme Disease Antibodies 09/18/2020 [facility] Lyme IgG/IgM Ab <0.91 ISR 0.00-0.90 8 [...] BlotInterp. Negative 11 CBC W/Automated Diff 09/16/2020 [facility] CBC W/Automated Diff (SEE NOTE) 12, [...] 80.0 Lymph 27.2 % 25.0 - 40.0 [place]ke 6.7 % 3.0 - 8.0 Eos 1.4 % 0.0 - 7.0 Baso 0.8 % 0.0 - 2.0 %Ig 0.2 % High 0.0 - 0.0 %NRBC 0.0 % 0.0 - 0.0 #Neut 5.55 10^3/uL 2.00 - 6.90 #Lymph 2.37 10^3/uL 0.60 - 3.40 #[place]ocke 0.58 10^3/uL 0.00 - 0.90 #Eos 0.12 10^3/uL 0.00 - 0.70 #Baso 0.07 10^3/uL 0.00 - 0.20 #Ig 0.02 10^3/uL 0.00 - 0.10 #NRBC 0.00 10^3/uL 0.00 - 0.00 Manual Diff NOT INDICATED RBC Morph NOT INDICATED Comprehensive Metabolic Panel 09/16/2020 [facility] Comprehensive Metabo (SEE NOTE) 14 [...] >60 mL/min 15 Laboratory test finding 09/16/2020 [facility] Hgba1c 5.7 % 4.4 - 6.1 16 TSH Highly Sensitive 1.08 uIU/mL 0.47 - 5.01 Laboratory test finding 09/16/2020 [facility] CRP (High Sensitivity) 0.57 mg/L Low 1.00 - 3.00 17 1 This nucleic acid amplificat ion test was developed and its performance characteristics determined by [employer]. Nucleic acid amplification tests include RT-PCR and [...] are those recommended by CDC/ASTPHLD. p23=Osp C, o83=rbrfznchp Note: Sera from individuals with the following may cross react in the Lyme Line Blot assays: other spirochetal diseases (periodontal disease, leptospirosis, relapsing fever, yaws, and pinta); connective autoimmune (Rheumatoid Arthritis and Systemic Lupus Erythematosus and also individuals with Antinuclear Antibody); other infections ([place] Spotted Fever; Marcus-Reed Virus, and Cytomegalovirus). [...] assessment. Procedures Date Code Description Status 12/16/2020 78333 Office/Outpatient Established Mo d MDM 30-39 Min Completed 11/19/2020 91838 Office/Outpatient Established Mo d MDM 30-39 Min Completed 09/16/2020 74279 Office/Outpatient Established Lo w MDM 20-29 Min [...] hypertension GRETA Mckeon 11/19/[address]00[address] [facility] l adult medical examination with abnormal findings [...] 9:00 am - Urology Resource Schedule at [facility] Urology Center * 12/23/2020 8:40 am - GRETA Mckeon at [facility] * 02/24/2021 2:40 pm - GRETA Mckeon at [facility] 04/09/2020 - GRETA Rubio-C* M25.551 Pain in right hip* Comments:* He c/o worsening right hip pain. Will order right hip x-ray for further evaluation. He can take naproxen along with Tylenol. Will defer treatment plan based on the results. Functional Status Description No Information Available Mental Status Description No Information Available Referrals Refer to Reason for Referral Status Appt Date [facility] Urology Clinic 45 year old male with a 2 we ek history of urinary hesitancy, right testicular pain and right back pain. Please evaluate and treat. Thank you. Sent [address] [place] [address] [phone] [facility] Dermatology 45 year old male with rash o n right lower leg. Please evaluate and treat. Thank you. Sent [address] [id number] [phone]
--- OUTSIDE RECORDS SUMMARY | 2021-02-05 04:23 | CCD ---
Continuity of Care Document (CCD) Created on: 01/29/2021 Nikita Macias External Reference #: [id number] : [id number] Sex: Male Author Author iNkita CORREA M.D. Organization Unknown Address [facility] Urology Center [address] [place] [address] Phone [phone] Care Team Providers Care Burner Tender Name Role Phone [facility] Neurology AUTM [phone] [facility] Behavioral Health AUTM [phone] [facility] AUTM [phone] [facility] Dermatology AUTM [phone] Elvira Snowden AUTM [phone] [facility] Urology Clinic AUTM [phone] Problems Active Problems Provider Date Essential hypertension Kaia Santillan PA-C Onset: 01/23/2020 Recurrent major depressive episodes Kaia Santillan PA-C Onse t: 01/23/2020 Anxiety state Kaia Santillan PA-C Onset: 01/23/2020 Pure hypercholesterolemia Pj Correa M.D. Onset: 021 Social History Type Date [...] ER 1 by mouth every day 10tabs Elvira Snowden PA Atorvastatin Calcium 80mg Tablets 1 by mouth [...] 1 by mouth every day 10taGRETA Lemus 1 - 12/16/2020 Immunizations Description No Information [...] Yellow Ua Appearance clear Normal: Clear Spec [place] 1.020 1.001-1.030 Ua PH Test Strip 5 5-9 Leukocytes - Normal: Negative Ua Nitrate - Normal: Negative Ua Protein trace Normal: Negative Inhouse Glucose 100 High Normal: Negative Ua Ketones - Noraml: Negative Urobilinogen - Normal: Negative Ua Bilirubin - Normal: Negative Blood 50 High Noraml: Negative Iron Binding Capacity 12/17/2020 [facility] Iron 51 g/dL 42 - 135 Uibc 185 g/dL 112 - 347 Tibc 236 g/dL Low 250 - 450 Iron Sat 22 % Laboratory test finding 12/17/2020 [facility] l Ferritin Gerri 451.0 ng/mL High 5.0 - 244 Folic Acid Serum(Folate) 7.7 NG/ML 4.4 - 31.0 Vitamin B12 Serum 917 pg/mL 232 - 1245 Covid-19 12/16/2020 [facility] Sars-CoV-2, Ifrah Not Detected Not Detected 1 Sars-CoV-2, Ifrah 2 Day Tat Performed CBC W/Automated Diff 12/15/2020 [facility] CBC W/Automated Diff (SEE NOTE) 2, [...] Lymph 16.7 % Low 25.0 - 40.0 [place] 8.8 % High 3.0 - 8.0 Eos 3.2 % 0.0 - 7.0 Baso 0.7 % 0.0 - 2.0 %Ig 0.2 % High 0.0 - 0.0 %NRBC 0.0 % 0.0 - 0.0 #Neut 5.67 10^3/uL 2.00 - 6.90 #Lymph 1.35 10^3/uL 0.60 - 3.40 #[place] 0.71 10^3/uL 0.00 - 0.90 #Eos 0.26 10^3/uL 0.00 - 0.70 #Baso 0.06 10^3/uL 0.00 - 0.20 #Ig 0.02 10^3/uL 0.00 - 0.10 #NRBC 0.00 10^3/uL 0.00 - 0.00 Manual Diff NOT INDICATED RBC Morph NOT INDICATED Comprehensive Metabolic Panel 12/15/2020 [facility] Comprehensive Metabo (SEE NOTE) 4 Sodium 140 [...] GFR >60 mL/min 5 Cve Panel 12/15/2020 [facility] Cve Panel (SEE NOTE) 6 Cholesterol 178 mg/dL 131 - 200 Triglycerides 89 mg/dL 35 - 160 HDL 40 mg/dL 29 - 86 LDL 121 mg/dL 65 - 175 Risk Factor 4.5 3.4 - 4.9 LDL/HDL 3.03 1.00 - 3.55 7 Lyme Disease Antibodies 09/18/2020 [facility] Lyme IgG/IgM Ab <0.91 ISR 0.00-0.90 [...] BlotInterp. Negative 11 CBC W/Automated Diff 09/16/2020 [facility] CBC W/Automated Diff (SEE NOTE) 12, [...] 80.0 Lymph 27.2 % 25.0 - 40.0 [place] 6.7 % 3.0 - 8.0 Eos 1.4 % 0.0 - 7.0 Baso 0.8 % 0.0 - 2.0 %Ig 0.2 % High 0.0 - 0.0 %NRBC 0.0 % 0.0 - 0.0 #Neut 5.55 10^3/uL 2.00 - 6.90 #Lymph 2.37 10^3/uL 0.60 - 3.40 #[place] 0.58 10^3/uL 0.00 - 0.90 #Eos 0.12 10^3/uL 0.00 - 0.70 #Baso 0.07 10^3/uL 0.00 - 0.20 #Ig 0.02 10^3/uL 0.00 - 0.10 #NRBC 0.00 10^3/uL 0.00 - 0.00 Manual Diff NOT INDICATED RBC Morph NOT INDICATED Comprehensive Met[facility] Panel [facility]16/2020 [facility] Comprehensive Metabo (SEE NOTE) 14 Sodium [...] >60 mL/min 15 Laboratory test finding 09/16/2020 [facility] Hgba1c 5.7 % 4.4 - 6.1 16 TSH Highly Sensitive 1.08 uIU/mL 0.47 - 5.01 Laboratory test finding 09/16/2020 [facility] CRP (High Sensitivity) 0.57 mg/L Low 1.00 - 3.00 17 1 This nucleic acid amplificat ion test was developed and its performance characteristics determined by [employer]. Nucleic acid amplification tests include RT-PCR and [...] are those recommended by CDC/ASTPHLD. p23=Osp C, z78=diabsesmu Note: Sera from individuals with the following may cross react in the Lyme Line Blot assays: other spirochetal diseases (periodontal disease, leptospirosis, relapsing fever, yaws, and pinta); connective autoimmune (Rheumatoid Arthritis and Systemic Lupus Erythematosus and also individuals with Antinuclear Antibody); other infections ([place] Spotted Fever; Marcus-Reed Virus, and Cytomegalovirus). 12 [...] assessment. Procedures Date Code Description Status 01/29/2021 37658 Office/Outpatient New Moderate M DM 45-59 Minutes Completed 12/19/2020 18942 Office/Outpatient Established Lo w MDM 20-29 Min Completed 12/16/2020 93551 Office/Outpatient Established Mo d MDM 30-39 Min Completed 11/19/2020 82984 Office/Outpatient Established Mo d MDM 30-39 Min Completed 09/16/2020 77525 Office/Outpatient Established Lo w MDM 20-29 Min Completed Medical Devices Description No Information Available Encounters Type Date Location Provider Dx Diagnosis Office Visit 01/29/2021 9:00a [facility] Urology Center Pj Correa M.D. R39.12 Poor urinary stream N50.811 Right [...] 01/29/2021 R10.2 Pelvic and perineal pain Pj Correa M.D. 01/29/2021 N50.3 Cyst of epididymis Pj Correa M.D. 01/29/2021 F17.210 Nicotine dependence, cigarettes, uncomplicated Pj Correa M.D. 01/29/2021 R31.29 Other microscopic hematuria Evelyn rojas Abhishek Correa M.D. 01/29/2021 K40.90 Unilateral inguinal hernia, without obstruction or gangrene, not specified as recurrent Pj Correa M.D. 01/29/2021 Z71.2 Person consulting fo r explanation of examination or test findings Pj Correa M.D. 12/19/2020 F30.8 Other manic episodes GRETA [...] hypertension GRETA Mckeon 11/19/2020 Z00.01 Encounter for [facility] l adult medical examination [...] 1:30 pm - Urology Resource Schedule at [facility] Urology Center 04/09/2020 - Kaia Santillan PA-C* [...] Appt Date [facility] Urology Clinic 45 year old male with a 2 we ek history of urinary hesitancy, right testicular pain and right back pain. Please evaluate and treat. Thank you. Closed 01/29/[address] [place] [address] [phone] [facility] Dermatology 45 year old male with rash o n right lower leg. Please evaluate and treat. Thank you. Sent [address] [id number] [phone]
--- OUTSIDE RECORDS SUMMARY | 2021-02-05 04:23 | CCD | Continuity of Care Document ---
Author Author Nikita GALAVIZ Organization Unknown Address [address] [place] [address] Phone [phone] Care Team Providers Care Pharmacy Grad Intern Name Role Phone [facility] Neurology AUTM [phone] [facility] Behavioral Health AUTM [phone] [facility] AUTM [facility] Dermatology AUTM [phone] Elvira Galaviz AUTM [phone] [facility] Urology Clinic AUTM [phone] Problems Active Problems Provider Date Anxiety state [...] H/L Range Note Iron Binding Capacity 12/17/2020 [facility] Iron 51 g/dL 42 - 135 Uibc 185 g/dL 112 - 347 Tibc 236 g/dL Low 250 - 450 Iron Sat 22 % Laboratory test finding 12/17/2020 [facility] Ferritin Gerri 451.0 ng/mL High 5.0 - 244 Folic Acid Serum(Folate) 7.7 NG/ML 4.4 - 31.0 Vitamin B12 Serum 917 pg/mL 232 - 1245 Covid-19 12/16/2020 [facility] Sars-CoV-2, Ifrah Not Detected Not Detected 1 Sars-CoV-2, Ifrah 2 Day Tat Performed CBC W/Automated Diff 12/15/2020 [facility] CBC W/Automated Diff (SEE NOTE) 2, [...] Lymph 16.7 % Low 25.0 - 40.0 [place] 8.8 % High 3.0 - 8.0 Eos 3.2 % 0.0 - 7.0 Baso 0.7 % 0.0 - 2.0 %Ig 0.2 % High 0.0 - 0.0 %NRBC 0.0 % 0.0 - 0.0 #Neut 5.67 10^3/uL 2.00 - 6.90 #Lymph 1.35 10^3/uL 0.60 - 3.40 #[place] 0.71 10^3/uL 0.00 - 0.90 #Eos 0.26 [...] GFR >60 mL/min 5 Cve Panel 12/15/2020 [facility] Cve Panel (SEE NOTE) 6 Cholesterol 178 mg/dL 131 - 200 Triglycerides 89 mg/dL 35 - 160 HDL 40 mg/dL 29 - 86 LDL 121 mg/dL 65 - 175 Risk Factor 4.5 3.4 - 4.9 LDL/HDL 3.03 1.00 - 3.55 7 Lyme Disease Antibodies 09/18/2020 [facility] Lyme IgG/IgM Ab <0.91 ISR 0.00-0.90 [...] BlotInterp. Negative 11 CBC W/Automated Diff 09/16/2020 [facility] CBC W/Automated Diff (SEE NOTE) 12, [...] 80.0 Lymph 27.2 % 25.0 - 40.0 [place] 6.7 % 3.0 - 8.0 Eos 1.4 % 0.0 - 7.0 Baso 0.8 % 0.0 - 2.0 %Ig 0.2 % High 0.0 - 0.0 %NRBC 0.0 % 0.0 - 0.0 #Neut 5.55 10^3/uL 2.00 - 6.90 #Lymph 2.37 10^3/uL 0.60 - 3.40 #[place] 0.58 10^3/uL 0.00 - 0.90 #Eos 0.12 10^3/uL 0.00 - 0.70 #Baso 0.07 10^3/uL 0.00 - 0.20 #Ig 0.02 10^3/uL 0.00 - 0.10 #NRBC 0.00 10^3/uL 0.00 - 0.00 Manual Diff NOT INDICATED RBC Morph NOT INDICATED Comprehensive Metabolic Panel 09/16/2020 [facility] Comprehensive Metabo (SEE NOTE) 14 [...] >60 mL/min 15 Laboratory test finding 09/16/2020 [facility] Hgba1c 5.7 % 4.4 - 6.1 16 TSH Highly Sensitive 1.08 uIU/mL 0.47 - 5.01 Laboratory test finding 09/16/2020 [facility] CRP (High Sensitivity) 0.57 mg/L Low 1.00 - 3.00 17 1 This nucleic acid amplificat ion test was developed and its performance characteristics determined by [employer]. Nucleic acid amplification tests include RT-PCR and [...] are those recommended by CDC/ASTPHLD. p23=Osp C, n64=vcsrppqhm Note: Sera from individuals with the following may cross react in the Lyme Line Blot assays: other spirochetal diseases (periodontal disease, leptospirosis, relapsing fever, yaws, and pinta); connective autoimmune (Rheumatoid Arthritis and Systemic Lupus Erythematosus and also individuals with Antinuclear Antibody); other infections ([place] Spotted Fever; Marcus-Reed Virus, and Cytomegalovirus). 12 [...] assessment. Procedures Date Code Description Status 12/16/2020 04645 Office/Outpatient Established Mo d MDM 30-39 Min Completed 11/19/2020 19810 Office/Outpatient Established Mo d MDM 30-39 Min Completed 09/16/2020 77657 Office/Outpatient Established Lo w MDM 20-29 Min [...] hypertension GRETA Mckeon 11/19/2020 Z00.01 Encounter for [facility] l adult medical examination with abnormal [...] - Urology Resource Schedule at [facility] Urology Center * 12/23/2020 8:40 am - GRETA Mckeon at [facility] * 02/24/2021 2:40 pm - GRETA Mckeon at [facility] 04/09/2020 - GRETA Rubio-C* M25.551 Pain in right hip* Comments:* He c/o worsening right hip pain. Will order right hip x-ray for further evaluation. He can take naproxen along with Tylenol. Will defer treatment plan based on the results. Functional Status Description No Information Available Mental Status Description No Information Available Referrals Refer to Reason for Referral Status Appt Date [facility] Urology Clinic 45 year old male with a 2 we ek history of urinary hesitancy, right testicular pain and right back pain. Please evaluate and treat. Thank you. Sent [address] [place] [address] [phone] [facility] Dermatology 45 year old male with rash o n right lower leg. Please evaluate and treat. Thank you. Sent [address] [id number] [phone]
--- OUTSIDE RECORDS SUMMARY | 2021-02-05 04:24 | CCD | Continuity of Care Document ---
Author Author Nikita GALAVIZ Organization Unknown Address [address] [place] [address] Phone [phone] Care Team Providers Care Dialysis Social Worker Name Role Phone [facility] Neurology AUTM [phone] [facility] Behavioral Health AUTM [phone] [facility] AUTM [facility] Dermatology AUTM [phone] Ankita Barrientos MD AUTM [phone] Problems Active Problems Provider Date Anxiety state [...] s ER 1 by mouth every day 30tabs GRETA Mckeon Lisinopril 20mg Tablets 1 by mouth every day 90tabs GRETA Mckeon Hydrochlorothiazide 50mg Tablets 1 by mouth every day 90tabs GRETA Mckeon Atorvastatin Calcium 80mg Tablets 1 by mouth every day 90tabs GRETA Mckeon Amlodipine Besylate 10mg Tablets 1 by mouth every day 90tabs GRETA Mckeon Miko Aspirin 325mg Tablets 1 PO daily Unknown Fluoxetine HCL 20mg Capsules Take One Capsule By Mouth Every Day Unknown Immunizations Description No Information Available Vital Signs Date Vital Result Comment 11/19/2020 2:33pm BP Systolic 127 mmHg BP Diastolic 78 mmHg Heart Rate 88 /min Body Temperature 98.2 F Respiratory Rate 16 /min O2 % BldC Oximetry 99 % Weight 175.50 lb Weight 79.607 kg Height 68 inches 5'8" BMI (Body Mass Index) 26.7 kg/m2 BSA (Body Surface Area) 1.93 m2 09/16/2020 3:46pm BP Systolic 102 mmHg BP Diastolic 68 mmHg Heart Rate 95 /min Body Temperature 97.3 F Respiratory Rate 18 /min O2 % BldC Oximetry 98 % Weight 179.00 lb Weight 81.194 kg Height 70 inches 5'10" BMI (Body Mass Index) 25.7 kg/m2 BSA (Body Surface Area) 1.99 m2 Results Test Acquired Date Facility Test Result H/L Range Note Lyme Disease Antibodies 09/18/2020 [facility] Lyme IgG/IgM Ab <0.91 ISR 0.00-0.90 1 Lyme Disease Ab, Quant,IgM 1.10 index High 0.00-0.79 2 IgG P93 Ab. Absent IgG P66 Ab. Absent IgG P58 Ab. Absent IgG P45 Ab. Absent IgG P41 Ab. Absent IgG P39 Ab. Absent IgG P30 Ab. Absent IgG P28 Ab. Absent IgG P23 Ab. Absent IgG P18 Ab. Absent Lyme IgG Line BlotInterp. Negative 3 IgM P41 Ab. Absent IgM P39 Ab. Absent IgM P23 Ab. Present Abnormal Lyme IgM Line BlotInterp. Negative 4 CBC W/Automated Diff 09/16/2020 [facility] CBC W/Automated Diff (SEE NOTE) 5, 6 WBC 8.7 10^3/uL 4.2 - 11.0 RBC [...] 80.0 Lymph 27.2 % 25.0 - 40.0 [place] 6.7 % 3.0 - 8.0 Eos 1.4 % 0.0 - 7.0 Baso 0.8 % 0.0 - 2.0 %Ig 0.2 % High 0.0 - 0.0 %NRBC 0.0 % 0.0 - 0.0 #Neut 5.55 10^3/uL 2.00 - 6.90 #Lymph 2.37 10^3/uL 0.60 - 3.40 #[place] 0.58 10^3/uL 0.00 - 0.90 #Eos 0.12 10^3/uL 0.00 - 0.70 #Baso 0.07 10^3/uL 0.00 - 0.20 #Ig 0.02 10^3/uL 0.00 - 0.10 #NRBC 0.00 10^3/uL 0.00 - 0.00 Manual Diff NOT INDICATED RBC Morph NOT INDICATED Comprehensive Met[facility]2020 [facility] Comprehensive Metabo (SEE NOTE) 7 Sodium 139 mEq/L 134 - 153 Potassium [...] >60 mL/min Afr Amer GFR >60 mL/min 8 Laboratory test finding 09/16/2020 [facility] Hgba1c 5.7 % 4.4 - 6.1 9 TSH Highly Sensitive 1.08 uIU/mL 0.47 - 5.01 Laboratory test finding 09/16/2020 [facility] CRP (High Sensitivity) 0.57 mg/L Low 1.00 - 3.00 10 1 Negative <0.91 Equivocal 0.91 - 1.09 Positive >1.09 2 Negative <0.80 Equivocal 0.80 - 1.19 Positive >1.19 IgM levels may peak at 3-6 weeks post infection, then gradually decline. 3 Positive: 5 of the following Borrelia-specific bands: 18,23,28,30,39,41,45,58, 66, and 93. Negative: No bands or banding patterns which do not meet positive criteria. 4 Note: An equivocal or positi ve EIA [...] are those recommended by CDC/ASTPHLD. p23=Osp C, j66=hbinmmzzo Note: Sera from individuals with the following may cross react in the Lyme Line Blot assays: other spirochetal diseases (periodontal disease, leptospirosis, relapsing fever, yaws, and pinta); connective autoimmune (Rheumatoid Arthritis and Systemic Lupus Erythematosus and also individuals with Antinuclear Antibody); other infections ([place] Spotted Fever; Marcus-Reed Virus, and Cytomegalovirus). 5 Is patient fasting? N 6 COMPLETE BLOOD COUNT 7 COMPREHENSIVE METABOLIC PANE L 8 Male GFR Interprentation 20-49 yrs >60 mL/min Normal 50-59 yrs >56 mL/min Normal 60-69 yrs >49 mL/min Normal 70-79yrs >42 mL/min Normal 80 and above >35 mL/min Normal Female GFR Interpretation 20-39 yrs >60 mL/min Normal 40-49 yrs >58 mL/min Normal 50-59 yrs >51 mL/min Normal 60-69 yrs >45 mL/min Normal 70-79 yrs >39 mL/min Normal 80 and above >32 mL/min Normal 9 {A1] {HB] 10 CDC/AHS HS-CRP CUT-OFF: RELATIVE RISK: <1.0 mg/L Low 1.0 - 3.0 mg/L A verage >3.0 mg/L High Optimally, the average of HS-CRP results repeated two weeks apart should be used for risk assessment. Procedures Date Code Description Status 09/16/2020 27961 Office/Outpatient Established Lo w MDM 20-29 Min Completed Medical Devices Description No Information Available Encounters Description No Information Available Assessments Date Code Description Provider 11/19/2020 I10 Essential (primary) hypertension GRETA Mckeon [...] Santillan PA-C Plan of Treatment Future Appointment(s):* 02/24/2021 2:40 pm - GRETA Mckeon at [facility] 11/19/2020 - GRETA Mckeon* I10 Essential (primary) hypertension* New Labs:* CBC W/Automated Diff, Ordered: 11/19/20 * Comprehensive Metabolic Panel, Ordered: 11/19/20 * Cve Panel, Ordered: 11/19/20 * Follow up:* 3 months * Recommendations:* Patient is encouraged to take all blood pressure medications daily and call office if any side effects are experienced. Patient is recommended to consume <2000 mg of sodium per day and choose a diet rich in fruits, vegetables, and low-fat dairy products, and low in meats, sweets, and refined grains. Patient is encouraged to do something active for at least 30 minutes a day on most days of the week. Patient is encouraged to check blood pressures at home. Will continue current regimen. * Z00.01 Encounter for general adult medical examination with abnormal findings * Recommendations:* Will have patient recheck labs before next appointment. Will discuss smoking cessation at next appointment. * R21 Rash and other nonspecific skin eruption* Recommendations:* Rash of unknown etiology. Patient has an upcoming appointment with Dermatology. Encourage patient to call if rash changes. Previous Lyme test completed on 09/18/20 was western blot negative. * Z86.73 Personal history of transient ischemic attack (TIA), and cerebral infarction without residual deficits* Recommendations:* This is currently being followed by [facility] in [place]. Patient will begin PT soon. Will discuss smoking cessation in detail at next appointment. * F33.9 Major depressive disorder, recurrent, unspecified* Recommendations:* Patient is taking Fluoxetine with no side effects. This is working well. Continue current dosage. If patient experiences any HI/SI, patient should call 911 and go to closest ER to keep himself safe. * F41.9 Anxiety disorder, unspecified* Recommendations:* See above * All * Recommendations:* Potassium was slightly low at last blood draw. Will repeat labs and treat accordingly. Functional Status Description No Information Available Mental Status Description No Information Available Referrals Refer to Reason for Referral Status Appt Date [facility] Dermatology 45 year old male with rash o n right lower leg. Please evaluate and treat. Thank you. Sent [address] [id number] [phone]
--- OUTSIDE RECORDS SUMMARY | 2021-02-05 04:24 | CCD | Continuity of Care Document ---
Author Author Nikita GALAVIZ Organization Unknown Address [address] [place] [address] Phone [phone] Care Team Providers Care Shipping Weigher Name Role Phone [facility] Neurology AUTM [phone] [facility] Behavioral Health AUTM [phone] [facility] AUTM [phone] [facility] Dermatology AUTM [phone] Ankita Barrientos MD AUTM [phone] Problems Active Problems Provider Date Anxiety state [...] H/L Range Note Lyme Disease Antibodies 09/18/2020 [facility] Lyme IgG/IgM Ab <0.91 ISR 0.00-0.90 1 [...] BlotInterp. Negative 4 CBC W/Automated Diff 09/16/2020 [facility] CBC W/Automated Diff (SEE NOTE) 5, 6 [...] 80.0 Lymph 27.2 % 25.0 - 40.0 [place] 6.7 % 3.0 - 8.0 Eos 1.4 % 0.0 - 7.0 Baso 0.8 % 0.0 - 2.0 %Ig 0.2 % High 0.0 - 0.0 %NRBC 0.0 % 0.0 - 0.0 #Neut 5.55 10^3/uL 2.00 - 6.90 #Lymph 2.37 10^3/uL 0.60 - 3.40 #[place] 0.58 10^3/uL 0.00 - 0.90 #Eos 0.12 [...] >60 mL/min 8 Laboratory test finding 09/16/2020 [facility] Hgba1c 5.7 % 4.4 - 6.1 9 TSH Highly Sensitive 1.08 uIU/mL 0.47 - 5.01 Laboratory test finding 09/16/2020 [facility] CRP (High Sensitivity) 0.57 mg/L [...] are those recommended by CDC/ASTPHLD. p23=Osp C, t97=hfatvpbug Note: Sera from individuals with the following may cross react in the Lyme Line Blot assays: other spirochetal diseases (periodontal disease, leptospirosis, relapsing fever, yaws, and pinta); connective autoimmune (Rheumatoid Arthritis and Systemic Lupus Erythematosus and also individuals with Antinuclear Antibody); other infections ([place] Spotted Fever; Marcus-Reed Virus, and Cytomegalovirus). 5 [...] assessment. Procedures Date Code Description Status 09/16/2020 65617 Office/Outpatient Established Lo w MDM 20-29 Min [...] 02/24/2021 2:40 pm - GRETA Mckeon at [facility] 11/19/2020 - GRETA Mckeon* I10 Essential (primary) [...] currently being followed by Stroke Center in [place]. Patient will begin PT soon. Will discuss [...] to Reason for Referral Status Appt Date [facility] Dermatology 45 year old male with rash o n right lower leg. Please evaluate and treat. Thank you. Sent [address] [id number] [phone]
--- OUTSIDE RECORDS SUMMARY | 2021-02-05 04:24 | CCD | Continuity of Care Document ---
Author Author Nikita GALAVIZ Organization Unknown Address [address] [place] [address] Phone [phone] Care Team Providers Care Premium Cancellation Clerk Name Role Phone [facility] Neurology AUTM [phone] [facility] Behavioral Health AUTM [phone] [facility] AUTM [phone] [facility] Dermatology AUTM [phone] Ankita Barrientos MD AUTM [phone] Problems Active Problems Provider Date Anxiety state [...] H/L Range Note Lyme Disease Antibodies 09/18/2020 [facility] Lyme IgG/IgM Ab <0.91 ISR 0.00-0.90 1 [...] BlotInterp. Negative 4 CBC W/Automated Diff 09/16/2020 [facility] CBC W/Automated Diff (SEE NOTE) 5, 6 [...] 80.0 Lymph 27.2 % 25.0 - 40.0 [place] 6.7 % 3.0 - 8.0 Eos 1.4 % 0.0 - 7.0 Baso 0.8 % 0.0 - 2.0 %Ig 0.2 % High 0.0 - 0.0 %NRBC 0.0 % 0.0 - 0.0 #Neut 5.55 10^3/uL 2.00 - 6.90 #Lymph 2.37 10^3/uL 0.60 - 3.40 #[place] 0.58 10^3/uL 0.00 - 0.90 #Eos 0.12 [...] >60 mL/min 8 Laboratory test finding 09/16/2020 [facility] Hgba1c 5.7 % 4.4 - 6.1 9 TSH Highly Sensitive 1.08 uIU/mL 0.47 - 5.01 Laboratory test finding 09/16/2020 [facility] CRP (High Sensitivity) 0.57 mg/L [...] are those recommended by CDC/ASTPHLD. p23=Osp C, a06=ljauwcttz Note: Sera from individuals with the following may cross react in the Lyme Line Blot assays: other spirochetal diseases (periodontal disease, leptospirosis, relapsing fever, yaws, and pinta); connective autoimmune (Rheumatoid Arthritis and Systemic Lupus Erythematosus and also individuals with Antinuclear Antibody); other infections ([place] Spotted Fever; Marcus-Reed Virus, and Cytomegalovirus). 5 [...] assessment. Procedures Date Code Description Status 09/16/2020 [id number] Office/Outpatient Established Lo w MDM 20-29 Min [...] 02/24/2021 2:40 pm - GRETA Mckeon at [facility] 11/19/2020 - GRETA Mckeon* I10 Essential [...] currently being followed by Stroke [facility] in [place]. Patient will begin PT soon. Will discuss [...] to Reason for Referral Status Appt Date [facility] Dermatology 45 year old male with rash o n right lower leg. Please evaluate and treat. Thank you. Sent [address] [id number] [phone]
--- OUTSIDE RECORDS SUMMARY | 2021-02-05 04:24 | CCD | Continuity of Care Document ---
Author Author Nikita GALAVIZ Organization Unknown Address [address] [place] [address] Phone [phone] Care Team Providers Care Oim Consultant Name Role Phone [facility] Neurology AUTM [phone] [facility] Behavioral Health AUTM [phone] [facility] AUTM [facility] Dermatology AUTM [phone] Ankita Barrientos MD AUTM [phone] Problems Active Problems Provider Date Anxiety state [...] H/L Range Note Lyme Disease Antibodies 09/18/2020 [facility] Lyme IgG/IgM Ab <0.91 ISR [...] BlotInterp. Negative 4 CBC W/Automated Diff 09/16/2020 [facility] CBC W/Automated Diff (SEE NOTE) 5, [...] 80.0 Lymph 27.2 % 25.0 - 40.0 [place] 6.7 % 3.0 - 8.0 Eos 1.4 % 0.0 - 7.0 Baso 0.8 % 0.0 - 2.0 %Ig 0.2 % High 0.0 - 0.0 %NRBC 0.0 % 0.0 - 0.0 #Neut 5.55 10^3/uL 2.00 - 6.90 #Lymph 2.37 10^3/uL 0.60 - 3.40 #[place] 0.58 10^3/uL 0.00 - 0.90 #Eos 0.12 [...] mL/min 8 Laboratory test finding 09/16/2020 [facility] Hgba1c 5.7 % 4.4 - 6.1 9 TSH Highly Sensitive 1.08 uIU/mL 0.47 - 5.01 Laboratory test finding 09/16/2020 [facility] CRP (High Sensitivity) 0.57 mg/L [...] are those recommended by CDC/ASTPHLD. p23=Osp C, v04=aoohasfeo Note: Sera from individuals with the following may cross react in the Lyme Line Blot assays: other spirochetal diseases (periodontal disease, leptospirosis, relapsing fever, yaws, and pinta); connective autoimmune (Rheumatoid Arthritis and Systemic Lupus Erythematosus and also individuals with Antinuclear Antibody); other infections ([place] Spotted Fever; Marcus-Reed Virus, and Cytomegalovirus). 5 [...] assessment. Procedures Date Code Description Status 09/16/2020 [id number] Office/Outpatient Established Lo w MDM 20-29 Min [...] 02/24/2021 2:40 pm - GRETA Mckeon at [facility] 11/19/2020 - GRETA Mckeon* I10 Essential [...] currently being followed by Stroke Center in [place]. Patient will begin PT soon. Will discuss [...] to Reason for Referral Status Appt Date [facility] Dermatology 45 year old male with rash o n right lower leg. Please evaluate and treat. Thank you. Sent [address] [id number] [phone]
--- OUTSIDE RECORDS SUMMARY | 2021-02-05 04:25 | CCD ---
Author Author [facility] Organization [facility] Address Unknown Phone Unavailable Care Team Providers Care Fire Captain Name Role Phone Theodora Martínez MD Unavailable Unavailable Theodora Martínez MD Unavailable Unavailable Theodora Martínez MD Unavailable Unavailable Theodora Martínez MD Unavailable Unavailable Elvira Snowden PA Unavailable Unavailable SnowdenElvira michele PA Unavailable Unavailable SnowdenElvira michele PA Unavailable Unavailable SnowdenElvira michele PA Unavailable Unavailable SnowdenElvira michele PA Unavailable Unavailable SnowdenElvira PA Unavailable Unavailable SnowdenElvira PA Unavailable Unavailable Snowden Elvira PA Unavailable Unavailable SnowdenCariElvira PA Unavailable Unavailable SnowdenElvira PA Unavailable Unavailable Nolan, M Kaia PA-C Unavailable Unavailable Nolan, M Kaia PA-C Unavailable Unavailable Nolan, M Kaia PA-C Unavailable Unavailable Nolan, M Kaia PA-C Unavailable Unavailable Nolan, M Kaia PA-C Unavailable Unavailable Nolan, M Kaia PA-C Unavailable Unavailable Nolan, M Kaia PA-C Unavailable Unavailable Nolan, M Kaia PA-C Unavailable Unavailable Nolan, M Kaia PA-C Unavailable Unavailable Nolan, M Kiaa PA-C Unavailable Unavailable Nolan, M Kaia PA-C Unavailable Unavailable Nolan, M Kaia PA-C Unavailable Unavailable Nolan, M Kaia PA-C Unavailable Unavailable Nolan, M Kaia PA-C Unavailable Unavailable Nolan, M Kaia PA-C Unavailable Unavailable Nolan, M Kaia PA-C Unavailable Unavailable Nolan, M Kaia PA-C Unavailable Unavailable Nolan, M Kaia PA-C Unavailable Unavailable Nolan, M Kaia PA-C Unavailable Unavailable Nolan, M Kaia PA-C Unavailable Unavailable Nolan, M Kaia PA-C Unavailable Unavailable Nolan, M Kaia PA-C Unavailable Unavailable Nolan, M Kaia PA-C Unavailable Unavailable Nolan, M Kaia PA-C Unavailable Unavailable Nolan, M Kaia PA-C Unavailable Unavailable Nolan, M Kaia PA-C Unavailable Unavailable Nolan, M Kaia PA-C Unavailable Unavailable Nolan, M Kaia PA-C Unavailable Unavailable Nolan, M Kaia PA-C Unavailable Unavailable Nolan, M Kaia PA-C Unavailable Unavailable Nolan, M Kaia PA-C Unavailable Unavailable Nolan, M Kaia PA-C Unavailable Unavailable Nolan, M Kaia PA-C Unavailable Unavailable Nolan, M Kaia PA-C Unavailable Unavailable Nolan, M Kaia PA-C Unavailable Unavailable Nolan, M Kaia PA-C Unavailable Unavailable Nolan, M Kaia PA-C Unavailable Unavailable Nolan, M Kaia PA-C Unavailable Unavailable Nagi Brooks MD Unavailable Unavailable Nagi Brooks MD Unavailable Unavailable Nagi Brooks MD Unavailable Unavailable Nagi Brooks MD Unavailable Unavailable Nagi Brooks MD Unavailable Unavailable Nagi Brooks MD Unavailable Unavailable TURRIN, DANIE Unavailable Unavailable TURRIN, DANIE Unavailable Unavailable TURRIN, DANIE Unavailable Unavailable TURRIN, DANIE Unavailable Unavailable Sam CORREA MD Unavailable Unavailable Sam CORREA MD Unavailable Unavailable Sam CORREA MD Unavailable Unavailable Sam CORREA MD Unavailable Unavailable Sam CORREA MD Unavailable Unavailable Sam CORREA MD Unavailable Unavailable Sam CORREA MD Unavailable Unavailable Sam CORREA MD Unavailable Unavailable Sam CORREA MD Unavailable Unavailable Sam CORREA MD Unavailable Unavailable Sam CORREA MD Unavailable Unavailable Sam CORREA MD Unavailable Unavailable Sam CORREA MD Unavailable Unavailable Sam CORREA MD Unavailable Unavailable OBEN, T JULISA MD Unavailable Unavailable OBEN, T JULISA MD Unavailable Unavailable OBEN, T JULISA MD Unavailable Unavailable OBEN, T JULISA MD Unavailable Unavailable OBEN, T JULISA MD Unavailable Unavailable OBEN, T JULISA MD Unavailable Unavailable OBEN, T JULISA MD Unavailable Unavailable OBEN, T JULISA MD Unavailable Unavailable OBEN, T JULISA MD Unavailable Unavailable OBEN, T JULISA MD Unavailable Unavailable OBEN, T JULISA MD Unavailable Unavailable OBEN, T JULISA MD Unavailable Unavailable OBEN, T JULISA MD Unavailable Unavailable OBEN, T JULISA MD Unavailable Unavailable OBEN, T JULISA MD Unavailable Unavailable OBEN, T JULISA MD Unavailable Unavailable OBEN, T JULISA MD Unavailable Unavailable OBEN, T JULISA MD Unavailable Unavailable OBEN, T JULISA MD Unavailable Unavailable OBEN, T JULISA MD Unavailable Unavailable OBEN, T JULISA MD Unavailable Unavailable OBEN, T JULISA MD Unavailable Unavailable OBEN, T JULISA MD Unavailable Unavailable OBEN, T JULISA MD Unavailable Unavailable OBEN, T JULISA MD Unavailable Unavailable OBEN, T JULISA MD Unavailable Unavailable OBEN, T JULISA MD Unavailable Unavailable OBEN, T JULISA MD Unavailable Unavailable OBEN, T JULISA MD Unavailable Unavailable OBEN, T JULISA MD Unavailable Unavailable OBEN, T JULISA MD Unavailable Unavailable OBEN, T JULISA MD Unavailable Unavailable OBEN, T JULISA MD Unavailable Unavailable OBEN, T JULISA MD Unavailable Unavailable OBEN, T JULISA MD Unavailable Unavailable OBEN, T JULISA MD Unavailable Unavailable OBEN, T JULISA MD Unavailable Unavailable OBEN, T JULISA MD Unavailable Unavailable OBEN, T JULISA MD Unavailable Unavailable OBEN, T JULISA MD Unavailable Unavailable OBEN, T JULISA MD Unavailable Unavailable OBEN, T JULISA MD Unavailable Unavailable OBEN, T JULISA MD Unavailable Unavailable OBEN, T JULISA MD Unavailable Unavailable Kunnumpurath, F Ankita Unavailable Unavailable Rhysnumpurasusan, F Ankita MD Unavailable Unavailable Lucienumpurasusan F Ankita [place] Unavailable Unavailable Rhysnumpurasusan F Ankita MD Unavailable Unavailable Rhysnumpurasusan F Ankita MD Unavailable Unavailable Rhysnumpurasusan, F Ankita MD Unavailable Unavailable Rhysnumpurasusan, F Ankita MD Unavailable Unavailable Rhysnumpurasusan, F Ankita MD Unavailable Unavailable Rhysnumpurasusan F Ankita MD Unavailable Unavailable Kunnumpurath, F Ankita MD Unavailable Unavailable Kunnumpurath, F Ankita MD Unavailable Unavailable Kunnumpurath, F Ankita MD Unavailable Unavailable Kunnumpurath, F Ankita MD Unavailable Unavailable Kunnumpurath, F Ankita MD Unavailable Unavailable Kunnumpurath, F Ankita MD Unavailable Unavailable Kunnumpurath, F Ankita MD Unavailable Unavailable Kunnumpurath, F Ankita MD Unavailable Unavailable Kunnumpurath, F Ankita MD Unavailable Unavailable Kunnumpurath, F Ankita MD Unavailable Unavailable Kunnumpurath, F Ankita MD Unavailable Unavailable Kunnumpurath, F Ankita MD Unavailable Unavailable Kunnumpurath, F Ankita MD Unavailable Unavailable Kunnumpurath, F Ankita MD Unavailable Unavailable Kunnumpurath, F Ankita MD Unavailable Unavailable Kunnumpurath, F Ankita MD Unavailable Unavailable Kunnumpurath, F Ankita MD Unavailable Unavailable Kunnumpurath, F Ankita MD Unavailable Unavailable Kunnumpurath, F Ankita MD Unavailable Unavailable Kunnumpurath, F Ankita MD Unavailable Unavailable Kunnumpurath, F Ankita MD Unavailable Unavailable Kunnumpurath, F Ankita MD Unavailable Unavailable Kunnumpurath, F Ankita MD Unavailable Unavailable Kunnumpurath, F Ankita MD Unavailable Unavailable Kunnumpurath, F Ankita MD Unavailable Unavailable Kunnumpurath, F Ankita MD Unavailable Unavailable Kunnumpurath, F Ankita MD Unavailable Unavailable Kunnumpurath, F Ankita MD Unavailable Unavailable Kunnumpurath, F Ankita MD Unavailable Unavailable Kunnumpurath, F Ankita MD Unavailable Unavailable Kunnumpurath, F Ankita MD Unavailable Unavailable Kunnumpurath, F Ankita MD Unavailable Unavailable Kunnumpurath, F Ankita MD Unavailable Unavailable Kunnumpurath, F Ankita MD Unavailable Unavailable Kunnumpurath, F Ankita MD Unavailable Unavailable Kunnumpurath, F Ankita MD Unavailable Unavailable Kunnumpurath, F Ankita MD Unavailable Unavailable Sam CORREA MD Unavailable Unavailable Sam CORREA MD Unavailable Unavailable Sam CORREA MD Unavailable Unavailable Sam CORREA MD Unavailable Unavailable Sam CORREA MD Unavailable Unavailable Sam CORREA MD Unavailable Unavailable OBEN, T JULISA MD Unavailable Unavailable OBEN, T JULISA MD Unavailable Unavailable OBEN, T JULISA MD Unavailable Unavailable OBEN, T JULISA MD Unavailable Unavailable OBEN, T JULISA MD Unavailable Unavailable OBEN, T JULISA MD Unavailable Unavailable OBEN, T JULISA MD Unavailable Unavailable OBEN, T JULISA MD Unavailable Unavailable OBEN, T JULISA MD Unavailable Unavailable OBEN, T JULISA MD Unavailable Unavailable OBEN, T JULISA MD Unavailable Unavailable OBEN, T JULISA MD Unavailable Unavailable OBEN, T JULISA MD Unavailable Unavailable OBEN, T JULISA MD Unavailable Unavailable OBEN, T JULISA MD Unavailable Unavailable OBEN, T JULISA MD Unavailable Unavailable OBEN, T JULISA MD Unavailable Unavailable OBEN, T JULISA MD Unavailable Unavailable OBEN, T JULISA MD Unavailable Unavailable OBEN, T JULISA MD Unavailable Unavailable OBEN, T JULISA MD Unavailable Unavailable OBEN, T JULISA MD Unavailable Unavailable OBEN, T JULISA MD Unavailable Unavailable OBEN, T JULISA MD Unavailable Unavailable OBEN, T JULISA MD Unavailable Unavailable OBEN, T JULISA MD Unavailable Unavailable OBEN, T JULISA MD Unavailable Unavailable OBEN, T JULISA MD Unavailable Unavailable OBEN, T JULISA MD Unavailable Unavailable OBEN, T JULISA MD Unavailable Unavailable OBEN, T JULISA MD Unavailable Unavailable OBEN, T JULISA MD Unavailable Unavailable OBEN, T JULISA MD Unavailable Unavailable OBEN, T JULISA MD Unavailable Unavailable OBEN, T JULISA MD Unavailable Unavailable OBEN, T JULISA MD Unavailable Unavailable OBEN, T JULISA MD Unavailable Unavailable OBEN, T JULISA MD Unavailable Unavailable OBEN, T JULISA MD Unavailable Unavailable OBEN, T JULISA MD Unavailable Unavailable OBEN, T JULISA MD Unavailable Unavailable OBEN, T JULISA MD Unavailable Unavailable OBEN, T JULISA MD Unavailable Unavailable OBEN, T JULISA MD Unavailable Unavailable OBEN, T JULISA MD Unavailable Unavailable OBEN, T JULISA MD Unavailable Unavailable OBEN, T JULISA MD Unavailable Unavailable OBEN, T JULISA MD Unavailable Unavailable OBEN, T JULISA MD Unavailable Unavailable OBEN, T JULISA MD Unavailable Unavailable OBEN, T JULISA MD Unavailable Unavailable OBEN, T JULISA MD Unavailable Unavailable NolanFinesse-C Unavailable Unavailable NolanFinesseC Unavailable Unavailable NolanFinesseC Unavailable Unavailable Nolan, M Kaia PA-C Unavailable Unavailable Nolan, M Kaia PA-C Unavailable Unavailable Nolan, M Kaia PA-C Unavailable Unavailable Nolan, M Kaia PA-C Unavailable Unavailable Nolan, M Kaia PA-C Unavailable Unavailable Nolan, M Kaia PA-C Unavailable Unavailable Nolan, M Kaia PA-C Unavailable Unavailable Nolan, M Kaia PA-C Unavailable Unavailable Nolan, M Kaia PA-C Unavailable Unavailable Nolan, M Kaia PA-C Unavailable Unavailable Nolan, M Kaia PA-C Unavailable Unavailable Nolan, M Kaia PA-C Unavailable Unavailable Nolan, M Kaia PA-C Unavailable Unavailable Nolan, M Kaia PA-C Unavailable Unavailable Nolan, M Kaia PA-C Unavailable Unavailable Nolan, M Kaia PA-C Unavailable Unavailable Nolan, M Kaia PA-C Unavailable Unavailable Nolan, M Kaia PA-C Unavailable Unavailable Nolan, M Kaia PA-C Unavailable Unavailable Nolan, M Kaia PA-C Unavailable Unavailable Nolan, M Kaia PA-C Unavailable Unavailable Nolan, M Kaia PA-C Unavailable Unavailable Nolan, M Kaia PA-C Unavailable Unavailable Nolan, M Kaia PA-C Unavailable Unavailable Nolan, M Kaia PA-C Unavailable Unavailable Nolan, M Kaia PA-C Unavailable Unavailable Nolan, M Kaia PA-C Unavailable Unavailable Nolan, M Kaia PA-C Unavailable Unavailable Nolan, M Kaia PA-C Unavailable Unavailable Nolan, M Kaia PA-C Unavailable Unavailable Nolan, M Kaia PA-C Unavailable Unavailable Nolan, M Kaia PA-C Unavailable Unavailable Nolan, M Kaia PA-C Unavailable Unavailable Nolan, M Kaia PA-C Unavailable Unavailable Nolan, M Kaia PA-C Unavailable Unavailable Nolan, M Kaia PA-C Unavailable Unavailable Nolan, M Kaia PA-C Unavailable Unavailable Nolan, M Kaia PA-C Unavailable Unavailable Nolan, M Kaia PA-C Unavailable Unavailable Nolan, M Kaia PA-C Unavailable Unavailable Nolan, M Kaia PA-C Unavailable Unavailable Nolan, M Kaia PA-C Unavailable Unavailable Nolan, M Kaia PA-C Unavailable Unavailable Nolan, M Kaia PA-C Unavailable Unavailable Nolan, M Kaia PA-C Unavailable Unavailable Nolan, M Kaia PA-C Unavailable Unavailable Nolan, M Kaia PA-C Unavailable Unavailable Nolan, M Kaia PA-C Unavailable Unavailable Nolan, M Kaia PA-C Unavailable Unavailable Nolan, M Kaia PA-C Unavailable Unavailable Nolan, M Kaia PA-C Unavailable Unavailable Nolan, M Kaia PA-C Unavailable Unavailable Nolan, M Kaia PA-C Unavailable Unavailable Nolan, M Kaia PA-C Unavailable Unavailable Nolan, M Kaia PA-C Unavailable Unavailable Nolan, M Kaia PA-C Unavailable Unavailable Nolan, M Kaia PA-C Unavailable Unavailable Nolan, M Kaia PA-C Unavailable Unavailable Nolan, M Kaia PA-C Unavailable Unavailable Nolan, M Kaia PA-C Unavailable Unavailable Nolan, M Kaia PA-C Unavailable Unavailable Nolan, M Kaia PA-C Unavailable Unavailable Nolan, M Kaia PA-C Unavailable Unavailable Nolan, M Kaia PA-C Unavailable Unavailable Nolan, M Kaia PA-C Unavailable Unavailable Nolan, M Kaia PA-C Unavailable Unavailable Nolan, M Kaia PA-C Unavailable Unavailable Nolan, M Kaia PA-C Unavailable Unavailable Nolan, M Kaia PA-C Unavailable Unavailable Nolan, M Kaia PA-C Unavailable Unavailable Nolan, M Kaia PA-C Unavailable Unavailable Nolan, M Kaia PA-C Unavailable Unavailable Nolan, M Kaia PA-C Unavailable Unavailable Re-disclosure Warning The records that you are about to access may contain information from federally-assisted alcohol or drug abuse programs. If such information is present, then the following federally mandated warning applies: This information has been disclosed to you from records protected by federal confidentiality rules (42 CFR part 2). The federal rules prohibit you from making any further disclosure of this information unless further disclosure is expressly permitted by the written consent of the person to whom it pertains or as otherwise permitted by 42 CFR part 2. A general authorization for the release of medical or other information is NOT sufficient for this purpose. The Federal rules restrict any use of the information to criminally investigate or prosecute any alcohol or drug abuse patient.The records that you are about to access may contain highly sensitive health information, the redisclosure of which is protected by Article 27-F of the [place] State Public Health law. If you continue you may have access to information: Regarding HIV / AIDS; Provided by facilities licensed or operated by the [facility] Office of Mental Health; or Provided by the [facility] Office for People With Developmental Disabilities. If such information is present, then the following [facility] mandated warning applies: This information has been disclosed to you from confidential records which are protected by state law. State law prohibits you from making any further disclosure of this information without the specific written consent of the person to whom it pertains, or as otherwise permitted by law. Any unauthorized further disclosure in violation of state law may result in a fine or mcfp sentence or both. A general authorization for the release of medical or other information is NOT sufficient authorization for further disc losure. Allergies and Adverse Reactions Type Description Substance Reaction Status Data Source(s ) Propensity to adverse reactions NO KNOWN ALLERGIES NO KNOWN ALLERGIES [facility] Encounters Encounter Providers Location Date Indications Data Source(s ) Outpatient Attender: JULISA CORREA MD Family [facility] 01/29/2021 09:00:0 0 AM EDT [facility] ([facility]) Outpatient Attender: JULISA CORREA MDConsultant: Kaia Nolan PA-C 01/29/2021 08:45:00 AM EDT - 01/29/2021 08:45:00 AM EDT [facility] Outpatient [address] [id number] 01/13/2021 12:00:00 AM EDT eCW1 ([facility]) Outpatient Attender: Elvira Snowden PAConsultant: Kaia Lau [facility] GRETA- 12/19/2020 03:40:00 PM EDT - 12/19/2020 03:40:00 PM EDT [facility] Emergency Attender: DANIE PIERREConsultant: Kaia hull PA-C 12/16/2020 08:34:00 AM EDT - 12/16/2020 11:00:00 AM EDT [facility] Patient discharged. Outpatient Attender: Elvira Snowden PAConsultant: Kaia cabral PA-C 12/16/2020 07:28:00 AM EDT - 12/16/2020 07:28:00 AM EDT [facility] Outpatient Attender: Elvira Snowden PAConsultant: Kaia cabral PA-C 12/15/2020 07:49:00 AM EDT - 12/15/2020 08:49:00 AM EDT [facility] Outpatient Attender: Elvira Snowden PA Attender: Ankita Barrientos MDConsultant: Kaia Nolan PA-C 11/19/2020 02:23:00 PM EDT - 11/19/2020 02:23: 00 PM EDT [facility] Outpatient Attender: Kaia Nolan PA-C Family [facility] 08/28 03:40:00 PM EDT [facility] Outpatient Attender: Kaia LEIGHonsultant: Kaia cuadra PA-C 09/16/2020 03:38:00 PM EDT - 09/16/2020 03:38:00 PM EDT [facility] Emergency Attender: Nagi Brooks MDConsultant: Kaia Brian 09/07/2020 08:22:00 AM EDT - 09/07/2020 09:33:00 AM EDT [facility] Patient discharged. Outpatient Attender: Vladislav Martínez MDReferrer: Kaia Nolan PA-C [id number] 07/24/2020 12:00:00 AM EDT - 07/24/2020 02:15:47 PM EDT Personal history of transient ischemic attack (TIA), and cerebral infarction without residual deficits [facility] Personal history of transient ischemic a ttack (TIA), and cerebral infarction without residual deficits Outpatient Attender: Kaia DEL ROSARIOCConsultant: Kaia cuadra PA-C 05/10/2020 08:40:00 AM EST - 05/10/2020 08:40:00 AM [facility] Outpatient Attender: Kaia LEIGHonsultant: Kaia cuadra PA-C 04/25/2020 07:40:00 AM EST - 04/25/2020 08:40:00 AM [facility] Outpatient Attender: Kaia Nolan PA-C 03/29 02:14:00 PM EST - 04/09/2020 02:14:00 PM [facility] Outpatient Attender: Kaia Nolan PA-C 02/26 11:19:00 AM EST - 03/07/2020 11:19:00 AM [facility] Outpatient Attender: Kaia Nolan PA-C Family Practice 02/26 10:20:00 AM EST [facility] ([facility]) Outpatient Attender: Kaia Nolan PA-C 12/28 08:06:00 AM EDT - 01/23/2020 08:06:00 AM EDT [facility] Medications Medication Brand Name Start Date Product Form Dose Route Admi nistrative Instructions Pharmacy Instructions Status Indications Reaction Description Data Source(s) 10 mg 01/13/2021 12:00:00 AM EDT tablet 90 TAKE ONE TABLET BY MOUTH EVERY DAY TAKE ONE TABLET BY MOUTH EVERY DAY SOLD: 01/14/2021 [facility] 15 mg 01/12/2021 12:00:00 AM EDT tablet 30 TAKE ONE TABLET BY MOUTH EVERY DAY TAKE ONE TABLET BY MOUTH EVERY DAY SOLD: 01/14/2021 [facility] 1 mg 01/12/2021 12:00:00 AM EDT capsule 30 TAKE ONE CAPSULE BY MOUTH EVERY DAY TAKE ONE CAPSULE BY MOUTH EVERY DAY SOLD: 01/14/2021 [facility] 500 mg 01/12/2021 12:00:00 AM EDT tablet,delayed release (DR/EC) 30 TAKE ONE TABLET BY MOUTH AT BEDTIME TAKE ONE TABLET BY MOUTH AT BEDTIME SOLD: 01/14/2021 [facility] 50 mg 01/12/2021 12:00:00 AM EDT tablet 30 TAKE ONE TABLET BY MOUTH AT BEDTIME TAKE ONE TABLET BY MOUTH AT BEDTIME SOLD: 01/14/2021 [facility] 21 mg/24 hr 12/25/2020 12:00:00 AM EDT patch 24 hour 7 APPLY 1 PATCH TO SKIN ONCE DAILY APPLY 1 PATCH TO SKIN ONCE DAILY SOLD: 12/30/2020 [facility] 50 mg 12/24/2020 12:00:00 AM EDT tablet 7 TAKE ONE TABLET BY MOUTH AT BEDTIME NEEDED FOR INSOMNIA TAKE ONE TABLET BY MOUTH AT BEDTIME N EEDED FOR INSOMNIA SOLD: 12/31/2020 [facility] 250 mg 12/24/2020 12:00:00 AM EDT tablet,delayed release (DR/EC) 14 TAKE ONE TABLET BY MOUTH TWICE A DAY FOR MOOD STABILIZATION TAKE ONE TABLET BY MOUTH TWICE A DAY FOR MOOD STABILIZATION SOLD: 12/30/2020 [facility] 50 mg 12/24/2020 12:00:00 AM EDT tablet 7 TAKE ONE TABLET BY MOUTH AT BEDTIME NEEDED FOR INSOMNIA TAKE ONE TABLET BY MOUTH AT BEDTIME N EEDED FOR INSOMNIA SOLD: 01/06/2021 [facility] 250 mg 12/24/2020 12:00:00 AM EDT tablet,delayed release (DR/EC) 14 TAKE ONE TABLET BY MOUTH TWICE A DAY FOR MOOD STABILIZATION TAKE ONE TABLET BY MOUTH TWICE A DAY FOR MOOD STABILIZATION SOLD: 01/06/2021 [facility] 20 mg 12/24/2020 12:00:00 AM EDT tablet 7 TAKE ONE TABLET BY MOUTH EVERY EVENING TAKE ONE TABLET BY MOUTH EVERY EVENING SOLD: 12/30/2020 [facility] 50 mg 12/24/2020 12:00:00 AM EDT tablet 7 TAKE ONE TABLET BY MOUTH AT BEDTIME NEEDED FOR INSOMNIA TAKE ONE TABLET BY MOUTH AT BEDTIME N EEDED FOR INSOMNIA SOLD: 12/24/2020 [facility] 20 mg 12/24/2020 12:00:00 AM EDT tablet 7 TAKE ONE TABLET BY MOUTH EVERY EVENING TAKE ONE TABLET BY MOUTH EVERY EVENING SOLD: 01/06/2021 [facility] 20 mg 12/24/2020 12:00:00 AM EDT tablet 7 TAKE ONE TABLET BY MOUTH EVERY EVENING TAKE ONE TABLET BY MOUTH EVERY EVENING SOLD: 12/24/2020 [facility] 250 mg 12/24/2020 12:00:00 AM EDT tablet,delayed release (DR/EC) 14 TAKE ONE TABLET BY MOUTH TWICE A DAY FOR MOOD STABILIZATION TAKE ONE TABLET BY MOUTH TWICE A DAY FOR MOOD STABILIZATION SOLD: 12/24/2020 [facility] Lisinopril 20 MG Oral Tablet Lisinopril 12/16/2020 12:00:00 AM EDT ORAL active [facility] ([facility]) Aspirin 325 MG Oral Tablet [Miko Aspirin] Miko Aspirin 12/16/2020 12:00:00 AM EDT ORAL active [facility] ([facility]) No Active Medications 12/16/2020 12:00:00 AM EDT completed [facility] ([facility]) atorvastatin 80 MG Oral Tablet Atorvastatin Calcium 12/16/2020 1 2:00:00 AM EDT ORAL active [facility] ( [facility]) Potassium Chloride 20 MEQ Extended Release Oral Tablet Potas sium Chloride ER 12/16/2020 12:00:00 AM EDT ORAL active [facility] ([facility]) 20 mEq 11/20/2020 12:00:00 AM EDT tablet extended release 30 TAKE ONE TABLET BY MOUTH EVERY DAY TAKE ONE TABLET BY MOUTH EVERY DAY SOLD: 01/14/2021 [facility] 20 mEq 11/20/2020 12:00:00 AM EDT tablet extended release 30 TAKE ONE TABLET BY MOUTH EVERY DAY TAKE ONE TABLET BY MOUTH EVERY DAY SOLD: 11/26/2020 [facility] 20 mg 11/20/2020 12:00:00 AM EDT tablet 90 TAKE ONE TABLET BY MOUTH EVERY DAY TAKE ONE TABLET BY MOUTH EVERY DAY SOLD: 11/26/2020 [facility] 80 mg 10/11/2020 12:00:00 AM EDT tablet 90 TAKE ONE TABLET BY MOUTH EVERY DAY TAKE ONE TABLET BY MOUTH EVERY DAY SOLD: 02/01/2021 [facility] 80 mg 10/11/2020 12:00:00 AM EDT tablet 90 TAKE ONE TABLET BY MOUTH EVERY DAY TAKE ONE TABLET BY MOUTH EVERY DAY SOLD: 10/15/2020 [facility] 10 mg 09/19/2020 12:00:00 AM EDT tablet 90 TAKE ONE TABLET BY MOUTH EVERY DAY TAKE ONE TABLET BY MOUTH EVERY DAY SOLD: 09/20/2020 [facility] Hydrochlorothiazide 50 MG Oral Tablet HYDROCHLOROTHIAZIDE 12:00:00 AM EDT tablet 90 TAKE ONE TABLET BY MOUTH ENMA RY DAY TAKE ONE TABLET BY MOUTH EVERY DAY SOLD: 09/20/2020 [facility] Potassium Chloride 20 MEQ Extended Release Oral Tablet Potas sium Chloride ER 09/17/2020 12:00:00 AM EDT ORAL completed [facility] ([facility]) 20 mEq 09/17/2020 12:00:00 AM EDT tablet extended release 30 TAKE ONE TABLET BY MOUTH EVERY DAY TAKE ONE TABLET BY MOUTH EVERY DAY SOLD: 09/20/2020 [facility] 20 mEq 09/17/2020 12:00:00 AM EDT tablet extended release 30 TAKE ONE TABLET BY MOUTH EVERY DAY TAKE ONE TABLET BY MOUTH EVERY DAY SOLD: 10/22/2020 [facility] 20 mg 07/25/2020 12:00:00 AM EDT capsule 30 TAKE ONE CAPSULE BY MOUTH EVERY DAY TAKE ONE CAPSULE BY MOUTH EVERY DAY SOLD: 11/30/2020 [facility] 20 mg 07/25/2020 12:00:00 AM EDT capsule 30 TAKE ONE CAPSULE BY MOUTH EVERY DAY TAKE ONE CAPSULE BY MOUTH EVERY DAY SOLD: 08/28/2020 [facility] 20 mg 07/25/2020 12:00:00 AM EDT capsule 30 TAKE ONE CAPSULE BY MOUTH EVERY DAY TAKE ONE CAPSULE BY MOUTH EVERY DAY SOLD: 10/22/2020 [facility] 20 mg 07/25/2020 12:00:00 AM EDT capsule 30 TAKE ONE CAPSULE BY MOUTH EVERY DAY TAKE ONE CAPSULE BY MOUTH EVERY DAY SOLD: 07/31/2020 [facility] 20 mg 07/25/2020 12:00:00 AM EDT capsule 30 TAKE ONE CAPSULE BY MOUTH EVERY DAY TAKE ONE CAPSULE BY MOUTH EVERY DAY SOLD: 09/25/2020 [facility] Fluoxetine 20 MG Oral Capsule FLUoxetine HCl 20 MG Ora l Capsule (PROZAC) FLUoxetine HCl 20 MG Oral Capsule (PROZAC) 07/24/2020 12:00:00 AM EDT 20 mg Oral active Take 1 capsule by mo uth daily [facility] 10 mg 03/08/2020 12:00:00 AM EST tablet 30 TAKE ONE TABLET BY MOUTH EVERY DAY TAKE ONE TABLET BY MOUTH EVERY DAY SOLD: 06/13/2020 [facility] atorvastatin 80 MG Oral Tablet Atorvastatin Calcium 80 MG Oral Tablet (LIPITOR) Atorvastatin Calcium 80 MG Oral Tablet (LIPITOR) 03/08/2020 12:00:00 AM EST 80 mg Oral active Take 80 mg by mouth [facility] Hydrochlorothiazide 50 MG Oral Tablet hy droCHLOROthiazide 50 MG Oral Tablet (HYDRODIURIL) hydroCHLOROthiazide 50 MG Oral Tablet (HYDRODIURIL) 12:00:00 AM EST 50 mg Oral active Take 50 mg by mouth daily [facility] Hydrochlorothiazide 50 MG Oral Tablet HYDROCHLOROTHIAZIDE 12:00:00 AM EST tablet 30 TAKE ONE TABLET BY MOUTH ENMA RY DAY TAKE ONE TABLET BY MOUTH EVERY DAY SOLD: 07/19/2020 [facility] Amlodipine 10 MG Oral Tablet amLODIPine Besylate 10 MG Oral Tablet (NORVASC) amLODIPine Besylate 10 MG Oral Tablet (NORVASC) 03/08/2020 12:00:00 AM EST 10 mg Oral active Take 10 mg by mouth [facility] 10 mg 03/08/2020 12:00:00 AM EST tablet 30 TAKE ONE TABLET BY MOUTH EVERY DAY TAKE ONE TABLET BY MOUTH EVERY DAY SOLD: 08/19/2020 [facility] Hydrochlorothiazide 50 MG Oral Tablet HYDROCHLOROTHIAZIDE 12:00:00 AM EST tablet 90 TAKE ONE TABLET BY MOUTH ENMA DAY TAKE ONE TABLET BY MOUTH EVERY DAY SOLD: 03/14/2020 [facility] 80 mg 03/08/2020 12:00:00 AM EST tablet 30 TAKE ONE TABLET BY MOUTH EVERY DAY TAKE ONE TABLET BY MOUTH EVERY DAY SOLD: 08/28/2020 [facility] 80 mg 03/08/2020 12:00:00 AM EST tablet 30 TAKE ONE TABLET BY MOUTH EVERY DAY TAKE ONE TABLET BY MOUTH EVERY DAY SOLD: 06/28/2020 [facility] 10 mg 03/08/2020 12:00:00 AM EST tablet 30 TAKE ONE TABLET BY MOUTH EVERY DAY TAKE ONE TABLET BY MOUTH EVERY DAY SOLD: 07/15/2020 [facility] Hydrochlorothiazide 50 MG Oral Tablet HYDROCHLOROTHIAZIDE 12:00:00 AM EST tablet 30 TAKE ONE TABLET BY MOUTH ENMA TAKE ONE TABLET BY MOUTH EVERY DAY SOLD: 08/19/2020 [facility] Hydrochlorothiazide 50 MG Oral Tablet HYDROCHLOROTHIAZIDE 12:00:00 AM EST tablet 30 TAKE ONE TABLET BY MOUTH ENMA DAY TAKE ONE TABLET BY MOUTH EVERY DAY SOLD: 06/13/2020 [facility] 10 mg 03/08/2020 12:00:00 AM EST tablet 90 TAKE ONE TABLET BY MOUTH EVERY DAY TAKE ONE TABLET BY MOUTH EVERY DAY SOLD: 03/14/2020 [facility] 80 mg 03/08/2020 12:00:00 AM EST tablet 30 TAKE ONE TABLET BY MOUTH EVERY DAY TAKE ONE TABLET BY MOUTH EVERY DAY SOLD: 07/31/2020 [facility] 80 mg 03/08/2020 12:00:00 AM EST tablet 90 TAKE ONE TABLET BY MOUTH EVERY DAY TAKE ONE TABLET BY MOUTH EVERY DAY SOLD: 03/14/2020 [facility] Lisinopril 20 MG Oral Tablet Lisinopril 20 MG Oral Tab let (ZESTRIL) Lisinopril 20 MG Oral Tablet (ZESTRIL) 02/19/2020 12:00:00 AM EST 20 mg Oral active Take 20 mg by mouth daily [facility] 20 mg 02/19/2020 12:00:00 AM EST tablet 30 TAKE ONE TABLET BY MOUTH EVERY DAY TAKE ONE TABLET BY MOUTH EVERY DAY SOLD: 08/28/2020 [facility] 20 mg 02/19/2020 12:00:00 AM EST tablet 30 TAKE ONE TABLET BY MOUTH EVERY DAY TAKE ONE TABLET BY MOUTH EVERY DAY SOLD: 06/28/2020 [facility] 20 mg 02/19/2020 12:00:00 AM EST tablet 30 TAKE ONE TABLET BY MOUTH EVERY DAY TAKE ONE TABLET BY MOUTH EVERY DAY SOLD: 10/22/2020 [facility] 20 mg 02/19/2020 12:00:00 AM EST tablet 90 TAKE ONE TABLET BY MOUTH EVERY DAY TAKE ONE TABLET BY MOUTH EVERY DAY SOLD: 02/19/2020 [facility] 20 mg 02/19/2020 12:00:00 AM EST tablet 30 TAKE ONE TABLET BY MOUTH EVERY DAY TAKE ONE TABLET BY MOUTH EVERY DAY SOLD: 05/27/2020 [facility] 20 mg 02/19/2020 12:00:00 AM EST tablet 30 TAKE ONE TABLET BY MOUTH EVERY DAY TAKE ONE TABLET BY MOUTH EVERY DAY SOLD: 09/25/2020 [facility] 20 mg 02/19/2020 12:00:00 AM EST tablet 30 TAKE ONE TABLET BY MOUTH EVERY DAY TAKE ONE TABLET BY MOUTH EVERY DAY SOLD: 07/31/2020 [facility] Insurance Providers Payer name Policy type / Coverage type Policy ID Covered republican ID Covered republican's relationship to burrows Policy Burrows Plan Information [facility] I [id number] Self [id number] [facility] XIX [id number] 18 [id number] [facility] COMMUNTY PLAN [id number] [facility] [id number] SP [id number] [facility] COMM[facility] [id number] SP [id number] UN COMMUNITY PLAN [facility] [id number] SP [id number] UNAVAILABLE UNAVAILA BLE MEDICAID CT CLIN[facility] [id number] 18 [id number] MEDICAID -PHYSICIAN [id number] 1 [id number] MEDICAID -O/P [id number] 18 [id number] [place]/PPO 306 [id number] P [id number] [place] PPO 302/307 [id number] SP [id number] MEDICAID [id number] [employer] COMMUNITY PLAN XIX [id number] 18 [id number] Problems, Conditions, and Diagnoses Code Display Name Description Problem Type Effective Dates Data Source(s) K4090 Unilateral inguinal hernia, without obstruction or gangrene, not specified as recurrent Unilateral inguinal hernia, without obst ruction or gangrene, not specified as recurrent Diagnosis 01/29/2021 08:45:00 AM EDT [facility] R3129 Other microscopic hematuria Other microscopic hematuri a Diagnosis 01/29/2021 08:45:00 AM EDT [facility] X56352 Nicotine dependence, cigarettes, uncompl icated Nicotine dependence, cigarettes, uncomplicated Diagnosis 01/29/2021 08:45:00 AM EDT [facility] N503 Cyst of epididymis Cyst of epididymis Diagnosis 08:45:00 AM EDT [facility] R102 Pelvic and perineal pain Pelvic and perineal pain Diag nosis 01/29/2021 08:45:00 AM EDT [facility] U25328 Right testicular pain Right testicular pain Diagnosis 01/29/2021 08:45:00 AM EDT [facility] R3912 Poor urinary stream Poor urinary stream Diagnosis 1 03/31/2020 08:45:00 AM EDT [facility] F308 Other manic episodes Other manic episodes Diagnosis 12/19/2020 03:40:00 PM EDT [facility] Z5320 Procedure and treatment not carried out because of patient's decision for unspecified reasons Procedure and treatment not carried out because of patient's decision for unspecified reasons Diagnosis 12/16/2020 08:34:00 AM EDT [facility] R456 Violent behavior Violent behavior Diagnosis 12/16/2020 08 :34:00 AM EDT [facility] G8929 Other chronic pain Other chronic pain [facility] Right lower quadrant pain Right lower quadrant pain Di agnosis 12/16/2020 08:34:00 AM [facility] Z1152 ENCOUNTER FOR SCREENING FOR COVID-19 ENCOUNTER F OR SCREENING FOR COVID-19 Diagnosis 12/16/2020 07:28:00 AM [facility] I10 Essential (primary) hypertension Essential (primary) h ypertension Diagnosis 12/16/2020 07:28:00 AM [facility] Z8673 Personal history of transien t ischemic attack (TIA), and cerebral infarction without residual deficits Personal history of transient ischemic attack (TIA), and cerebral infarction without residual deficits Diagnosis 12/16/2020 07:28:00 AM [facility] M545 Low back pain Low back pain Diagnosis 12/16/2020 07:28:00 AM [facility] R300 Dysuria Dysuria Diagnosis 12/16/2020 07:28:00 AM ED [facility] N179 Acute kidney failure, unspecified Acute kidney f ailure, unspecified Diagnosis 12/16/2020 07:28:00 AM [facility] D649 Anemia, unspecified Anemia, unspecified Diagnosis 0 12/15/2020 07:49:00 AM [facility] F419 Anxiety disorder, unspecified Anxiety disorder, unspec ified Diagnosis 11/19/2020 02:23:00 PM [facility] F339 Major depressive disorder, recurrent, un specified Major depressive disorder, recurrent, unspecified Diagnosis 11/19/2020 02:23:00 PM [facility] R21 Rash and other nonspecific skin eruption Rash and other nonspecific skin eruption Diagnosis 11/19/2020 02:23:00 PM [facility] 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 senior living (cu rrent) use of aspirin Diagnosis 09/07/2020 08:22:00 AM [facility] L237 Allergic contact dermatitis due to plant s, except food Allergic contact dermatitis due to plants, except food Diagnosis 09/07/2020 08:22:00 AM [facility] Z86.73 Personal history of transien t ischemic attack (TIA), and cerebral infarction without residual deficits Personal history of transient ischemic attack (TIA), and cerebral infarction without residual deficits Diagnosis 07/24/2020 01:59:59 PM EDT [facility] M1611 Unilateral primary osteoarthritis, right hip Unilateral primary osteoarthritis, right hip Diagnosis 04/25/2020 07:40:00 AM [facility] D12361 Pain in right hip Pain in right hip Diagnosis 04/09/2020 02:14:00 PM [facility] [id number] Pure hypercholesterolemia Pure hypercholesterolemia Pr oblem 01/29/2021 12:00:00 AM EDT [facility] ([facility]) I63.9 [id number] Cerebrovascular accident (CVA), unspecifi ed mechanism Problem 01/19/2021 12:00:00 AM EDT [facility]CW1 ([facility]) N19 [id number] Renal failure, unspecified chronicity Pro blem 01/19/2021 12:00:00 AM EDT eCW1 ([facility]) R93.[id number] scan, chest Problem 01/19/2021 12:00:00 AM EDT eCW1 ([facility]) F31.9 [id number] Bipolar affective disorder, remission sta tus unspecified Problem 01/13/2021 12:00:00 AM EDT eCW1 ([facility]) E78.5 [id number] Hyperlipidemia, unspecified hyperlipidemi a type Problem 01/13/2021 12:00:00 AM EDT eCW1 ([facility]) F41.9 Anxiety state Anxiety state Problem 01/23/2020 12:00:00 AM EDT [facility] ([facility]) F33.9 Recurrent major depressive episodes Recurrent ma paul depressive episodes Problem 01/23/2020 12:00:00 AM EDT [facility] ([facility]) I10 Essential hypertension Essential hypertension Problem 01/23/2020 12:00:00 AM EDT [facility] ([facility]) Surgeries/Procedures Procedure Description Date Indications Data Source(s) OFFICE OUTPATIENT NEW 45 MINUTES 01/29/2021 12:00:00 A M EDT [facility] ([facility]) OFFICE OUTPATIENT VISIT 15 MINUTES 12/19/2020 12:00:00 AM EDT [facility] ([facility]) OFFICE OUTPATIENT VISIT 25 MINUTES 12/16/2020 12:00:00 AM EDT [facility] ([facility]) OFFICE OUTPATIENT VISIT 25 MINUTES 11/19/2020 12:00:00 AM EDT [facility] ([facility]) OFFICE OUTPATIENT VISIT 15 MINUTES 09/16/2020 12:00:00 AM EDT [facility] ([facility]) PLATELET AGGREGATION IN VITRO EACH AGENT <td>VERIFYNOW ASPIRIN</td><td>Routine</td><td>07/24/2020 2:27 PM EDT</td><td> History of ischemic stroke</td><td> </td> 07/24/2020 02:27:00 PM EDT History of ischemic stroke [facility] History of ischemic stroke Brief Emotional/Behav Assessment W/ Scoring Doc Per Standard Inst 01/23/2020 12:00:00 AM EDT [facility] ([facility]) Admin Patient Focused Health Risk Assessment Instrument 01/23/2020 12:00:00 AM EDT [facility] ([facility]) Results ID Date Data Source [id number] 01/29/2021 11:13:00 AM EDT [facility] ([facility]) Name Value Range Interpretation Code Description Data Rhea rce(s) Supporting Document(s) Appearance of Urine Laboratory test result [facility] ([facility]) Color of Urine Laboratory test result [facility] ([facility]) Leukocytes Laboratory test result [facility] ([facility]) pH of Urine by Test strip 5 5-9 [facility] NT ([facility]) Spec [place] 1.020 1.001-1.030 [facility] ([facility]) Protein [Presence] in Urine by Test strip Laboratory test result [facility] ([facility]) Nitrate [Presence] in Urine Laboratory [facility] Urobilinogen Laboratory test result [facility] ([facility]) Ketones [Presence] in Urine by Test strip Laboratory test [facility]) Inhouse Glucose 100 Above high normal [facility] ([facility]) Bilirubin.total [Presence] in Urine by Test strip Laboratory test res ult [facility] ([facility]) Blood type and Indirect antibody screen panel - Blood 50 Above high normal [facility] ([facility]) ID Date Data Source [id number] 12/19/2020 10:07:00 PM EDT [facility] Name Value Range Interpretation Code Description Data Rhea rce(s) Supporting Document(s) SARS coronavirus 2 RNA [Presence] in Res piratory specimen by JOSE with probe detection NEGATIVE [facility] This lab was ordered by [facility] a nd reported by [facility]. ID Date Data Source [id number] 12/17/2020 08:04:00 AM EDT [facility] ([facility]) Name Value Range Interpretation Code Description Data Rhea rce(s) Supporting Document(s) Folate [Mass/volume] in Serum or Plasma 7.7 ng/mL 4.4-31.0 [facility] ([facility]) Ferritin [Mass/volume] in Serum or Plasma 451.0 ng/mL 5.0-244 Above high normal [facility] ([facility]) Cobalamin (Vitamin B12) [Mass/volume] in Serum or Plasma 917 pg/mL 2 32-1245 [facility] ([facility]) ID Date Data Source [id number] 12/17/2020 08:04:00 AM EDT [facility] ([facility]) Name Value Range Interpretation Code Description Data Rhea rce(s) Supporting Document(s) Iron 51 ug/dL 42-135 [facility] ([facility]) Uibc 185 ug/dL 112-347 [facility] ([facility]) Tibc 236 ug/dL 250-450 Below low normal [facility] ( [facility]) Iron Sat 22 % [facility] ([facility]) ID Date Data Source [id number] 12/17/2020 11:18:00 AM EDT [facility] Name Value Range Interpretation Code Description Data Rhea rce(s) Supporting Document(s) Ferritin [Mass/volume] in Serum or Plasma 451.0 ng/mL 5.0 - 244 H [facility] ID Date Data Source [id number] 12/17/2020 11:15:00 AM EDT [facility] Name Value Range Interpretation Code Description Data Rhea rce(s) Supporting Document(s) Cobalamin (Vitamin B12) [Mass/volume] in Serum or Plasma 917 PG/ML 232 - 1245 [facility] ID Date Data Source [id number] 12/17/2020 11:15:00 AM EDT [facility] Name Value Range Interpretation Code Description Data Rhea rce(s) Supporting Document(s) Folate [Mass/volume] in Serum or Plasma 7.7 NG/ML 4.4 - 31.0 [facility] ID Date Data Source [id number] 12/17/2020 10:54:00 AM EDT [facility] Name Value Range Interpretation Code Description Data Rhea rce(s) Supporting Document(s) Iron [Mass/volume] in Serum or Plasma 51 UG/DL 42 - 135 [facility] Iron binding capacity.unsaturated [Mass/volume] in Serum or Plasma 185 UG/DL 112 - 347 [facility] Iron binding capacity [Mass/volume] in Serum or Plasma 236 ug/dL 250 - 450 L [facility] Iron saturation [Mass Fraction] in Serum or Plasma 22 % [facility] ID Date Data Source [id number] 12/16/2020 08:34:00 AM EDT [facility] 1 OrderSheet [facility] Emergency Department [address] [place] [address] Phone #: [phone]- [phone] 12/16/2020 08:34 Patient: NEERAJ SANTIAGO Sex: M : 1975 Age: 45yWEIGHT:76.6 kg (S) HEIGHT:70 inches (S) BMI:24.2ALLERGIES: No Known Drug AllergyCHIEF COMPLAINT: dysuria, flank pain:, Rt, testicular pain:, RtDIAGNOSIS: Abdominal painLAB ORDERSOrder Description Priority Entered Acknowledged InitialedCBC w Diff STAT 08:58 12/16/2020 09:07 Ignacio Lloyd Riccardo Jennifer R.N. M.D.;CMP STAT 08:58 12/16/2020 09:07 Ignacio Lloyd Riccardo Jennifer R.N. M.D.;Lipase STAT 08:58 12/16/2020 09:07 Ignacio Lloyd Riccardo Jennifer R.N. M.D.;UA Reflex to UA 08:58 12/16/2020 09:07 Prema,Culture Danie Pierre R.N., M.D.;Lactic Acid STAT 08:58 12/16/2020 09:07 Ignacio Lloyd Riccardo Jennifer R.N. M.D.;COVID-19 CAH STAT 10:29 12/16/2020 Cancelled: Unable to Collect 11:06(Symptomatic as Danie Pierre Riccardo M.D.Defined by CDC) Jem;(12/16/2020) (FirstTest) (NotHospitalized) (Not) (NotResident inCongregate CareSetting) (NotEmployed inHealthcare Setting)DIAGNOSTIC STUDY OR DERSOrder Description Priority Entered Acknowledged InitialedCT Abd PEL W/ IV STAT 09:00 12/16/2020 Ack'd: 09:07 10:09 Prema,Marlyn Only Danie Pierre Jennifer Jennifer R.N. 2 OrderSheet [facility] Emergency Department [address] [place] [address] Phone #: ext- [phone] 12/16/2020 08:34 Patient: NEERAJ SANTIAGO Sex: M : 1975 Age: 45y(Oxygen?(No)) Jem; R.N.(IV?(Yes)) Reason for Study: RLQ pain w radiation to rt testicle x 2 monthsUS Scrotal STAT 09:00 12/16/2020 Ack'd: 09:07 09:46 Delight,(Oxygen?(No)) Danie Pierre Jennifer Jennifer R.N. MLarissaDLarissa; R.N. Reason for Study: rt testicle pain x 2 monthsCT Chest W/O Cont STAT 10:35 12/16/2020 Cancelled: Patient Refusal 11:06 Turrin,(Oxygen?(No)) Danie Pierre M.D., M.D.; Reason for Study: Covid Pneumoniae on CTAPMEDICATION/IV/DRIP/FLUID ORD ERSOrder Description Priority Entered Acknowledged InitialedToradol 15 mg IVP 09:00 12/16/2020 Ack'd: 09:07 10:09 Delight,X1 dose: 15 mg Danie Pierre Jennifer Jennifer R.N.(NOW x1) M.D.; R.N.Zofran 4 mg IVP X 1 09:00 12/16/2020 Ack'd: 09:07 09:15 Delight,dose: 4 mg (NOW Danie Pierre Jennifer Jennifer R.N.x1) M.D.; R.N.NS IV 500 mL 09:00 12/16/2020 Ack'd: 09:07 09:15 Prema,Bolus: : Bolus 500 Danie Pierre Jennifer Jennifer R.N.mL, then 150 mL/hr M.D.; R.N.(X1)Potassium Chloride 09:48 12/16/2020 Ack'd: 09:50 10:09 Delight,Liquid PO 40 meq Danie Pierre Jennifer Jennifer R.N. M.DLarissa; R.N.Dexamethasone 10:29 12/16/2020IVP 10 mg Danie Pierre M.D.;GENERAL ORDERSOrder Description Priority Entered Acknowledged InitialedNPO 08:58 12/16/2020 09:07 Delight, Danie Pierre R.N., M.D.;Saline Lock 08:58 12/16/2020 09:07 Ignacio Lloyd Riccardo Jennifer R.N. M.D.; 3 OrderSheet [facility] Emergency Department [address] [place] [address] Phone #: ext- [phone] 12/16/2020 08:34 Patient: NEERAJ SANTIAGO Sex: M : 1975 Age: 45y[Electronically signed by Carola Lloyd R.N. (11:00 12/16/2020)][Electronically signed by Danie Pierre M.D. (19:30 12/16/2020)][Electronically locked by Carola Lloyd R.N. (11:00 12/16/2020)] Name Value Range Interpretation Code Description Data Rhea rce(s) Supporting Document(s) ID Date Data Source [id number] 12/16/2020 08:34:00 AM EDT [facility] 1 Medication Reconciliation Report [facility] Emergency Department [address] [place] [address] Phone #: ext- [phone] 12/16/2020 08:34 Patient: NEERAJ SANTIAGO Sex: M : 1975 Age: 45yWeight: 76.6 kgHeight/Length: 70 in.BMI: 24.2ALLERGIES: No Known Drug AllergyThe patient's Home Medications are listed below:NONE.The source(s) of the original Home Medication information:patientThe following Medications were given to the patient in the Emergency Department:NS [IV] IV F luids bolus 500 mL wide open, then 150 mL/hr, administered: :12/16/2020Zofran [IVP] IVP 4 mg, administered: 12/16/2020Toradol [IVP] IVP 15 mg, administered: 10:12/16/2020OTASSIUM CHLORIDE LIQUID PO PO 40 meq, administered: 10:12/16/2020The following Medications were prescribed to the patient:None. Name Value Range Interpretation Code Description Data Rhea rce(s) Supporting Document(s) ID Date Data Source [id number] 12/16/2020 08:34:00 AM EDT [facility] 1 Medication Administration Record [facility] Emergency Department [address] [place] [address] Phone #: ext- [phone] 12/16/2020 08:34 Patient: NEERAJ SANTIAGO Sex: M : 1975 Age: 45yWeight: 76.6 kgHeight/Length: 70 inBMI: 24.2ALLERGIES: No Known Drug Allergy Date/Time Medication Administered Medication OrderedGiven TORADOL [IVP] (KETOROLAC Toradol 15 mg IVP X1 dose: 15 mg10:12/16/2020 TROMETHAMINE) (NOW x1)Carola Lloyd R.N. Dose: 15 mg IVP Site: #1 left ACGiven ZOFRAN [IVP] (ONDANSETRON HCL) Zofran 4 mg IVP X 1 dose: 4 mg09:12/16/2020 Dose: 4 mg IVP (NOW x1)Carola Lloyd R.N. Site: #1 left ACStart NS [IV] NS IV 500 mL Bolus: : Bolus 11652:12/16/2020 Dose: IV Fluids mL, then 150 mL/hr (X1)Carola Lloyd R.N. Rate: 150 mL/hr---- Bolus: 500 mL wide openStop Dispensed: 1000 mL bag10:35 12/16/2020 Site: #1 left Carola Rick R.N.Given POTASSIUM CHLORIDE LIQUID PO Potassium Chloride Liquid PO 4010:09 12/16/2020 Dose: 40 meq Oral Suspension PO meqCarola Lloyd R.N. Name Value Range Interpretation Code Description Data Rhea rce(s) Supporting Document(s) ID Date Data Source [id number] 12/16/2020 08:34:00 AM EDT [facility] 1 General Instructions [facility] Emergency Department [address] [place] [address] Phone #: [phone] hgs- [phone] 12/16/2020 08:34 Patient: NEERAJ SANTIAGO Sex: M : 1975 Age: 45yChronic right lower quadrant abdominal pain.Rule out Covid- 19LWBS with Aggressive, Violent Behavior.INSTRUCTIONSEloped: Patient left the Emergency Department without completion of treatment. Notified the chargenurse and primary nurse of patient departure. Stated is leaving the ED due to personal reasons.(Electronically signed by Danie Pierre M.D. 12/16/2020 19:30) Name Value Range Interpretation Code Description Data Rhea rce(s) Supporting Document(s) ID Date Data Source [id number] 12/16/2020 08:34:00 AM EDT [facility] 1 Clinical Report - Nurses [facility] Emergency Department [address] [place] [address] Phone #: ext- [phone] 12/16/2020 08:34 Patient: NEERAJ SANTIAGO Sex: M : 1975 Age: 45yTRIAGEArrived by private vehicle. Historian: patient. Accompanied by (Significant other).Triage time: 08:35 12/16/2020. Acuity: LEVEL 3.Chief Complaint: TESTICULAR PAIN.Alert.Onset. (2 weeks ago). 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 SEPSIS SCREEN NEGATIVE. No suspected or confirmedsigns of infection present. (08:40 12/16/2020). --08:40 12/16/20 Carola Lloyd R.N.08:35 12/16/20. BP: 144/96. MAP: 112. HR: 79. RR: 18. O2 saturation: 99% on room air. Temp: 98.2 F(oral). Pain level now: 01/05. --08:40 12/16/20 Carola Lloyd R.N.Weight: 76.6 kg stated. Height/Length: 70 inches Per Patient. BMI: 24.2. --08:35 12/16/20 Carola Lloyd R.N.MedicationsNone. --08:38 12/16/20 Carola Lloyd R.N.AllergiesNo Known Drug Allergy. --08:38 12/16/20 Carola Lloyd R.N.PROBLEMS:Hypertension.Hypercholesterolemia.Blood clot in clavicle.CVA - Cerebrovascular Accident: (Slight L sided weakness). --08:38 12/16/20 Carola Lloyd R.N.Medication/allergy information source: the patient. --08:40 12/16/20 Carola Lloyd R.N.ADDITIONAL SURGERIES:no known surgeries. 2 Clinical Report - Nurses [facility] Emergency Department [address] [place] [address] Phone #: ext- [phone] 12/16/2020 08:34 Patient: NEERAJ SANTIAGO Sex: M : 1975 Age: 45y History PAST MEDICAL HX: Immunizations: up-to-date and (Pt has not had COVID-19 vaccine). SOCIAL HX: Current every day heavy tobacco smoker (cigarette)- 1 pack per day. Heavy drug use: marijuana. No alcohol use. He was offered HIV testing but declined. Patient education was provided. He was offered hepatitis C testing but declined. Patient education was provided. ( COVID screen negative; Pt states chronic cough and recent travel to [place] with negative covid test on 12/08/2020, denies all other symptoms). He has not traveled outside the [place] Infectious disease exposure: No infectious disease exposure. The patient was not exposed to Coronavirus. Patient is not a known carrier of tuberculosis, hepatitis, HIV, MRSA or VRE. Patient is not a known carrier of CRE. SELF HARM ASSESSMENT: Self harm assessment was performed. The patient answered "no" to the question(s) "Do you have thoughts of harming or killing yourself?" and "Do you have a plan for harming or killing yourself?". ABUSE ASSESSMENT: Abuse assessment. The patient had positive responses to the question(s) "Do you feel safe in your home?". Abuse denied. No suspicion of abuse. No report of abuse. NUTRITIONAL RISK ASSESSMENT: The nutritional risk assessment revealed no deficiencies. FUNCTIONAL ASSESSMENT: Functional assessment: no impairments noted. LEARNING NEEDS ASSESSMENT: The learning needs assessment revealed no barriers. FALL RISK ASSESSMENT: Fall risk assessment completed. No risk factors identified. SKIN INTEGRITY ASSESSMENT: Skin integrity risk assessment completed. No skin integrity risk identified. --08:40 12/16/20 Carola Lloyd R.N. Interventions Identification band on patient. --08:40 12/16/20 Carola Lloyd R.N.PHYSICAL ASSESSMENTAmbulatory to room.GENERAL / NEURO / PSYCH: Alert. Oriented X 4. Appears in pain.HEENT: Mucous membranes are pink.RESPIRATORY: Respirations not labored. Breath sounds within normal limits.CVS: Capillary refill less than 2 seconds.GI / : Abdomen soft. Abdominal tenderness in the right lower quadrant (right groin). Bowel soundswithin normal limits. Right testicular tenderness. No swelling, erythema or ulceration. ( Pt c/o low urine"force").SKIN: Skin is warm and dry. --08:57 12/16/20 Carola Lloyd R.N. 3 Clinical Report - Nurses [facility] Emergency Department [address] [place] [address] Phone #: ext- [phone] 12/16/2020 08:34 Patient: NEERAJ SANTIAGO Sex: M : 1975 Age: 45yNURSING PROGRESS NOTESPatient gowned. Reassurance given. Three patient identi fiers checked. Call light placed in reach. Siderails up x 2. Bed placed in lowest position. Brakes of bed on. Patient ready for evaluation- ED physiciannotified. --08:41 12/16/20 Carola Lloyd R.N. 09:05 12/16/2020 Site #1 started via IV in the left antecubital space with an 20g angiocath, with aseptic technique and good blood return; three attempts. Blood drawn: rainbow set. Labeled in the presence of the patient and sent to the lab. Saline lock flushed with 10 mL saline. --09:07 12/16/20 Carola Lloyd R.N. 09:15 12/16/2020 Started bag #1 1000 mL IV Fluids NS; bolus of 500 mL wide open then a t 150 mL/hr via site #1 via IV pump. Allergies verified and confirmed 5 rights. IV patency established. IV site checked: no pain, redness, or swelling. IV flushed thoroughly pre- and post-medication administration. Information reviewed with patient including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 [facility] al Calcium [Mass/volume] in Serum or Plasma 9.0 MG/DL 8.4 - 10.2 [facility] Bilirubin.total [Mass/volume] in Serum or Plasma 0.9 MG/DL 0.2 - 1.3 [facility] Alkaline phosphatase [Enzymatic activity/volume] in Serum or Plasma 103 U/L 38 - 126 [facility] Aspartate aminotransferase [Enzymatic activity/volume] in Serum or Plasma 50 U/L 5 - 40 H [facility] Alanine aminotransferase [Enzymatic activity/volume] in Seru m or Plasma 67 U/L 7 - 56 H [facility] Anion gap 3 in Serum or Plasma 13.0 mmol/L 8.0 - 16.0 [facility] AGE 45 yrs [facility] al NON-AA GFR >60 mL/min [facility] Hosp ital AFR AMER GFR >60 mL/min [facility] Ho spital Male GFR In terprentation 20-49 yrs >60 mL/min Normal 50-59 yrs >56 mL/min Normal 60-69 yrs >49 mL/min Normal 70-79yrs >42 mL/min Normal 80 and above >35 mL/min Normal Female GFR Interpretation 20-39 yrs >60 mL/min Normal 40-49 yrs >58 mL/min Normal 50-59 yrs >51 mL/min Normal 60-69 yrs >45 mL/min Normal 70-79 yrs >39 mL/min Normal 80 and above >32 mL/min Normal ID Date Data Source [id number] 12/16/2020 09:41:00 AM EDT [facility] Name Value Range Interpretation Code Description Data Rhea rce(s) Supporting Document(s) Lipase [Enzymatic activity/volume] in Serum or Plasma 28 U/L 13 - 60 [facility] ID Date Data Source [id number] 12/16/2020 09:21:00 AM EDT [facility] Name Value Range Interpretation Code Description Data Rhea rce(s) Supporting Document(s) Lactate [Moles/volume] in Serum or Plasma 1.3 MMOL/L 0.2 - 2.2 [facility] ID Date Data Source [id number] 12/16/2020 09:15:00 AM EDT [facility] Name Value Range Interpretation Code Description Data Rhea rce(s) Supporting Document(s) CBC W/AUTOMATED DIFF [facility] COMPLETE BLOOD COUNT Leukocytes [#/volume] in Blood by Automated count 9.5 10^3/uL 4.2 - 1 1.0 [facility] Erythrocytes [#/volume] in Blood by Automated count 3.80 10^6/uL 4. 50 - 6.30 L [facility] Hemoglobin [Mass/volume] in Blood 12.7 g/dL 14.0 - 16.0 L [facility] Hematocrit [Volume Fraction] of Blood by Automated count 36.5 % 4 1.0 - 51.0 L [facility] Erythrocyte mean corpuscular volume [Entitic volume] by Auto mated count 96.1 fL 80.0 - 94.0 H [facility] Erythrocyte mean corpuscular hemoglobin [Entitic mass] by Automated count 33.4 pg 27.0 - 34.0 [facility] Erythrocyte mean corpuscular hemoglobin concentration [Mass/volume] by Automated count 34.8 g/dL 31.0 - 36.0 [facility] Erythrocyte distribution width [Ratio] by Automated count 12.0 % 11.5 - 14.8 [facility] Platelets [#/volume] in Blood by Automated count 212 10^3/uL 150 - 45 0 [facility] Platelet mean volume [Entitic volume] in Blood by Automated count 11.4 fL 7.4 - 10.4 H [facility] Neutrophils/100 leukocytes in Blood by Automated count 70.0 % 37. 0 - 80.0 [facility] Lymphocytes/100 leukocytes in Blood by Manual count 19.3 % 25.0 - 40.0 L [facility] Monocytes/100 leukocytes in Blood by Automated count 8.2 % 3.0 - 8.0 H [facility] Eosinophils/100 leukocytes in Blood by Automated count 1.6 % 0.0 - 7.0 [facility] Basophils/100 leukocytes in Blood by Automated count 0.7 % 0.0 - 2.0 [facility] %IG 0.2 % 0.0 - 0.0 H [facility] %NRBC 0.0 % 0.0 - 0.0 [facility] al Neutrophils [#/volume] in Blood by Automated count 6.68 10^3/uL 2.00 - 6.90 [facility] Lymphocytes [#/volume] in Blood by Automated count 1.84 10^3/uL 0.60 - 3.40 [facility] Monocytes [#/volume] in Blood by Automated count 0.78 10^3/uL 0.00 - 0.90 [facility] Eosinophils [#/volume] in Blood by Automated count 0.15 10^3/uL 0.00 - 0.70 [facility] Basophils [#/volume] in Blood by Automated count 0.07 10^3/uL 0.00 - 0.20 [facility] #IG 0.02 10^3/uL 0.00 - 0.10 [facility] H ospital #NRBC 0.00 10^3/uL 0.00 - 0.00 [facility] ospital MANUAL DIFF NOT INDICATED [facility] RBC MORPH NOT INDICATED [facility] spital ID Date Data Source [id number] 12/16/2020 09:14:00 AM EDT [facility] Name Value Range Interpretation Code Description Data Rhea rce(s) Supporting Document(s) UA REFLEX TO UA CULTURE [facility] URINALYSIS SOURCE R [facility] COLOR yellow NORMAL: Yellow [facility] ospital CLARITY clear NORMAL: Clear [facility] spital Specific gravity of Urine by Test strip 1.010 1.001 - 1.030 [facility] pH 6 5 - 9 [facility] al Glucose [Mass/volume] in Urine by Test strip NORM NORMAL: Negat myah [facility] Bilirubin.total [Presence] in Urine by Test strip NEG NORMAL: Negative [facility] Ketones [Presence] in Urine by Test strip NEG NORMAL: Negative [facility] Protein [Mass/volume] in Urine by Test strip NEG NORMAL: Negat myah [facility] Nitrite [Presence] in Urine by Test strip NEG NORMAL: Negative [facility] BLOOD 25 NORMAL: Negative A [facility] Leukocyte esterase [Presence] in Urine by Test strip NEG YOSVANY L: Negative [facility] Urobilinogen [Mass/volume] in Urine by Test strip NOR less gayle n 1.0 mg/dL [facility] MICROSCOPIC See Below [facility] WBC 0 - 1 NORMAL: NONE SEEN [facility] Erythrocytes [#/volume] in Urine by Test strip 0 - 1 NORMAL: NON E SEEN [facility] EPITHELIAL FEW NORMAL: NONE SEEN [facility] Bacteria [Presence] in Urine sediment by Light microscopy Tr jake NORMAL: NONE SEEN [facility] Mucus [Presence] in Urine sediment by Light microscopy None Seen NORMAL: NONE SEEN [facility] Amorphous sediment [Presence] in Urine sediment by Light jp roscopy NONE SEEN NORMAL: NONE SEEN [facility] Casts [#/area] in Urine sediment by Microscopy low power field N ot Indicated [facility] Crystals [type] in Urine sediment by Light microscopy Not Indicated [facility] YEAST None Seen [facility] ID Date Data Source [id number] 12/15/2020 08:04:00 AM EDT [facility] Name Value Range Interpretation Code Description Data Rhea rce(s) Supporting Document(s) Cve Panel Laboratory test result [facility] ([facility]) Is patient fasting? Y Cholesterol 178 mg/dL 131-200 [facility] ([facility]) Is patient fasting? Y Triglycerides 89 mg/dL 35-160 [facility] ([facility]) Is patient fasting? Y HDL 40 mg/dL 29-86 [facility] ([facility]) Is patient fasting? Y LDL 121 mg/dL 65-175 [facility] ([facility]) Is patient fasting? Y Risk Factor 4.5 3.4-4.9 [facility] ([facility]) Is patient fasting? Y LDL/HDL 3.03 1.00-3.55 [facility] ([facility]) Is patient fasting? Y ID Date Data Source [id number] 12/15/2020 08:04:00 AM EDT [facility] ([facility]) Name Value Range Interpretation Code Description Data Rhea rce(s) Supporting Document(s) Sodium 140 meq/L 134-153 [facility] ([facility]) Is patient fasting? Y Comprehensive Metabo Laboratory test result [facility] ([facility]) Is patient fasting? Y Potassium 3.7 meq/L 3.6-5.0 [facility] ([facility]) Is patient fasting? Y Chloride 103 meq/L 98-107 [facility] ([facility]) Is patient fasting? Y Co2 25 meq/L 22-30 [facility] ([facility]) Is patient fasting? Y BUN 17 mg/dL 7-21 [facility] ([facility]) Is patient fasting? Y Glucose 97 mg/dL 70-99 [facility] ([facility]) Is patient fasting? Y Creatinine 0.8 mg/dL 0.7-1.5 [facility] ([facility]) Is patient fasting? Y BUN/Creat 21 8-27 [facility] ([facility]) Is patient fasting? Y Total Protein 6.0 g/dL 6.3-8.2 Below low normal [facility] ([facility]) Is patient fasting? Y A/G Ratio 2.0 0.8-2.0 [facility] ([facility]) Is patient fasting? Y Globulin 2.0 GM/DL 2.4-3.2 Below low normal [facility] ( [facility]) Is patient fasting? Y Albumin 4.0 g/dL 3.9-5.0 [facility] ([facility]) Is patient fasting? Y Calcium 9.0 mg/dL 8.4-10.2 [facility] ([facility]) Is patient fasting? Y Total Bili 0.7 mg/dL 0.2-1.3 [facility] ([facility]) Is patient fasting? Y Alkaline Phos 98 U/L 38-126 [facility] ([facility]) Is patient fasting? Y Sgot/Ast 48 U/L 5-40 Above high normal [facility] ([facility]) Is patient fasting? Y Anion Gap 12.0 mmol/L 8.0-16.0 [facility] ([facility]) Is patient fasting? Y SGPT/Alt 72 U/L 7-56 Above high normal [facility] ([facility]) Is patient fasting? Y Non-Aa GFR Laboratory test result [facility] ([facility]) Is patient fasting? Y Age 45 yrs [facility] ([facility]) Is patient fasting? Y Afr Amer GFR Laboratory test result [facility] ([facility]) Is patient fasting? Y ID Date Data Source [id number] 12/15/2020 08:04:00 AM EDT [facility] ([facility]) Name Value Range Interpretation Code Description Data Rhea rce(s) Supporting Document(s) CBC W/Automated Diff Laboratory test result [facility] ([facility]) Is patient fasting? Y WBC 8.1 10^3/uL 4.2-11.0 [facility] ([facility]) Is patient fasting? Y RBC 3.84 10^6/uL 4.50-6.30 Below low normal [facility] ([facility]) Is patient fasting? Y Hemoglobin 12.6 g/dL 14.0-16.0 Below low normal [facility] ( [facility]) Is patient fasting? Y Hematocrit 37.3 % 41.0-51.0 Below low normal [facility] ( [facility]) Is patient fasting? Y MCV 97.1 fL 80.0-94.0 Above high normal [facility] ([facility]) Is patient fasting? Y MCHC 33.8 g/dL 31.0-36.0 [facility] ([facility]) Is patient fasting? Y MCH 32.8 pg 27.0-34.0 [facility] ([facility]) Is patient fasting? Y MPV 11.8 fL 7.4-10.4 Above high normal [facility] ([facility]) Is patient fasting? Y Platelets 198 10^3/uL 150-450 [facility] ([facility]) Is patient fasting? Y RDW 12.1 % 11.5-14.8 [facility] ([facility]) Is patient fasting? Y Neut 70.4 % 37.0-80.0 [facility] ([facility]) Is patient fasting? Y Lymph 16.7 % 25.0-40.0 Below low normal [facility] ( [facility]) Is patient fasting? Y Ritchie 8.8 % 3.0-8.0 Above high normal [facility] ([facility]) Is patient fasting? Y Eos 3.2 % 0.0-7.0 [facility] ([facility]) Is patient fasting? Y Baso 0.7 % 0.0-2.0 [facility] ([facility]) Is patient fasting? Y %NRBC 0.0 % 0.0-0.0 [facility] ([facility]) Is patient fasting? Y %Ig 0.2 % 0.0-0.0 Above high normal [facility] ([facility]) Is patient fasting? Y #Lymph 1.35 10^3/uL 0.60-3.40 [facility] ([facility]) Is patient fasting? Y #Neut 5.67 10^3/uL 2.00-6.90 [facility] ([facility]) Is patient fasting? Y #Ritchie 0.71 10^3/uL 0.00-0.90 [facility] ([facility]) Is patient fasting? Y #Eos 0.26 10^3/uL 0.00-0.70 [facility] ([facility]) Is patient fasting? Y #Baso 0.06 10^3/uL 0.00-0.20 [facility] ([facility]) Is patient fasting? Y #NRBC 0.00 10^3/uL 0.00-0.00 [facility] ([facility]) Is patient fasting? Y #Ig 0.02 10^3/uL 0.00-0.10 [facility] ([facility]) Is patient fasting? Y RBC Morph Laboratory test result [facility] ([facility]) Is patient fasting? Y Manual Diff Laboratory test result [facility] ([facility]) Is patient fasting? Y ID Date Data Source [id number] 12/15/2020 09:07:00 AM EDT [facility] Name Value Range Interpretation Code Description Data Rhea rce(s) Supporting Document(s) CBC W/AUTOMATED DIFF [facility] COMPLETE BLOOD COUNT Leukocytes [#/volume] in Blood by Automated count 8.1 10^3/uL 4.2 - 1 1.0 [facility] Erythrocytes [#/volume] in Blood by Automated count 3.84 10^6/uL 4. 50 - 6.30 L [facility] Hemoglobin [Mass/volume] in Blood 12.6 g/dL 14.0 - 16.0 L [facility] Hematocrit [Volume Fraction] of Blood by Automated count 37.3 % 4 1.0 - 51.0 L [facility] Erythrocyte mean corpuscular volume [Entitic volume] by Auto mated count 97.1 fL 80.0 - 94.0 H [facility] Erythrocyte mean corpuscular hemoglobin [Entitic mass] by Automated count 32.8 pg 27.0 - 34.0 [facility] Erythrocyte mean corpuscular hemoglobin concentration [Mass/volume] by Automated count 33.8 g/dL 31.0 - 36.0 [facility] Erythrocyte distribution width [Ratio] by Automated count 12.1 % 11.5 - 14.8 [facility] Platelets [#/volume] in Blood by Automated count 198 10^3/uL 150 - 45 0 [facility] Platelet mean volume [Entitic volume] in Blood by Automated count 11.8 fL 7.4 - 10.4 H [facility] Neutrophils/100 leukocytes in Blood by Automated count 70.4 % 37. 0 - 80.0 [facility] Lymphocytes/100 leukocytes in Blood by Manual count 16.7 % 25.0 - 40.0 L [facility] Monocytes/100 leukocytes in Blood by Automated count 8.8 % 3.0 - 8.0 H [facility] Eosinophils/100 leukocytes in Blood by Automated count 3.2 % 0.0 - 7.0 [facility] Basophils/100 leukocytes in Blood by Automated count 0.7 % 0.0 - 2.0 [facility] %IG 0.2 % 0.0 - 0.0 H [facility] %NRBC 0.0 % 0.0 - 0.0 [facility] al Neutrophils [#/volume] in Blood by Automated count 5.67 10^3/uL 2.00 - 6.90 [facility] Lymphocytes [#/volume] in Blood by Automated count 1.35 10^3/uL 0.60 - 3.40 [facility] Monocytes [#/volume] in Blood by Automated count 0.71 10^3/uL 0.00 - 0.90 [facility] Eosinophils [#/volume] in Blood by Automated count 0.26 10^3/uL 0.00 - 0.70 [facility] Basophils [#/volume] in Blood by Automated count 0.06 10^3/uL 0.00 - 0.20 [facility] #IG 0.02 10^3/uL 0.00 - 0.10 [facility] H ospital #NRBC 0.00 10^3/uL 0.00 - 0.00 [facility] ospital MANUAL DIFF NOT INDICATED [facility] RBC MORPH NOT INDICATED [facility] spital ID Date Data Source [id number] 12/15/2020 09:06:00 AM EDT [facility] Name Value Range Interpretation Code Description Data Rhea rce(s) Supporting Document(s) COMPREHENSIVE METABOLIC PANEL [facility] COMPREHENSIVE METABOLIC PANEL Sodium [Moles/volume] in Serum or Plasma 140 mEq/L 134 - 153 [facility] Potassium [Moles/volume] in Serum or Plasma 3.7 mEq/L 3.6 - 5.0 [facility] Chloride [Moles/volume] in Serum or Plasma 103 mEq/L 98 - 107 [facility] Carbon dioxide, total [Moles/volume] in Serum or Plasma 25 MEQ/L 22 - 30 [facility] Glucose [Mass/volume] in Serum or Plasma 97 MG/DL 70 - 99 [facility] BUN 17 MG/DL 7 - 21 [facility] al Creatinine [Mass/volume] in Serum or Plasma 0.8 MG/DL 0.7 - 1.5 [facility] BUN/CREAT 21 8 - 27 [facility] al Protein [Mass/volume] in Serum or Plasma 6.0 G/DL 6.3 - 8.2 L [facility] Albumin [Mass/volume] in Serum or Plasma 4.0 G/DL 3.9 - 5.0 [facility] Globulin [Mass/volume] in Serum by calculation 2.0 GM/DL 2.4 - 3.2 L [facility] A/G RATIO 2.0 0.8 - 2.0 [facility] Calcium [Mass/volume] in Serum or Plasma 9.0 MG/DL 8.4 - 10.2 [facility] Bilirubin.total [Mass/volume] in Serum or Plasma 0.7 MG/DL 0.2 - 1.3 [facility] Alkaline phosphatase [Enzymatic activity/volume] in Serum or Plasma 98 U/L 38 - 126 [facility] Aspartate aminotransferase [Enzymatic activity/volume] in Serum or Plasma 48 U/L 5 - 40 H [facility] Alanine aminotransferase [Enzymatic activity/volume] in Seru m or Plasma 72 U/L 7 - 56 H [facility] Anion gap 3 in Serum or Plasma 12.0 mmol/L 8.0 - 16.0 [facility] AGE 45 yrs [facility] al NON-AA GFR >60 mL/min [facility] AFR AMER GFR >60 mL/min [facility] Ho spital Male GFR In terprentation 20-49 yrs >60 mL/min Normal 50-59 yrs >56 mL/min Normal 60-69 yrs >49 mL/min Normal 70-79yrs >42 mL/min Normal 80 and above >35 mL/min Normal Female GFR Interpretation 20-39 yrs >60 mL/min Normal 40-49 yrs >58 mL/min Normal 50-59 yrs >51 mL/min Normal 60-69 yrs >45 mL/min Normal 70-79 yrs >39 mL/min Normal 80 and above >32 mL/min Normal ID Date Data Source [id number] 12/15/2020 09:06:00 AM EDT [facility] Name Value Range Interpretation Code Description Data Rhea rce(s) Supporting Document(s) CVE PANEL [facility] LIPID PANEL Cholesterol [Mass/volume] in Serum or Plasma 178 MG/DL 131 - 200 [facility] Deprecated Triglyceride [Mass/volume] in Serum or Plasma 89 MG/DL 3 5 - 160 [facility] HDL 40 MG/DL 29 - 86 [facility] Cholesterol in LDL [Mass/volume] in Serum or Plasma by Direc t assay 121 mg/dL 65 - 175 [facility] Cholesterol.total/Cholesterol in HDL [Mass Ratio] in Serum o r Plasma 4.5 3.4 - 4.9 [facility] LDL/HDL 3.03 1.00 - 3.55 [facility] CVE RISK CHOL/HDL LDL/HDLMEN: 1/2 AVERAGE 3.43 1.00 AVERAGE 4.97 3.55 2X AVERAGE 9.55 6.25 3X AVERAGE 23.99 7.99WOMEN: 1/2 AVERAGE 3.27 1.47 AVERAGE 4.44 3.22 2X AVERAGE 7.05 5.03 3X AVERAGE 11.04 6.14 ID Date Data Source [id number] 09/18/2020 04:18:00 PM EDT [facility] ([facility]) Name Value Range Interpretation Code Description Data Rhea rce(s) Supporting Document(s) Lyme IgG/IgM Ab Laboratory test result 0.00-0.90 [facility] ([facility]) <content>Negative <0.91</content >
<content>Equivocal 0.91 - 1.09</content>
<content>Positive >1.09</content>
<content></content> IgG P93 Ab. [facility] Lyme Disease Ab, Quant,IgM 1.10 index 0.00-0.79 Above high normal [facility] <content>Negative <0.80</content >
<content>Equivocal 0.80 - 1.19</content>
<content>Positive >1.19</content>
<content>IgM levels may peak at 3-6 weeks post infection, then</content>
<content>gradually decline.</content>
<content></content> IgG P58 Ab. Laboratory test result [facility] ([facility]) IgG P66 Ab. Laboratory test result [facility] ([facility]) IgG P41 Ab. Laboratory test result [facility] ([facility]) IgG P45 Ab. Laboratory test result [facility] ([facility]) IgG P39 Ab. Laboratory test result [facility] [facility] IgG P30 Ab. Laboratory test result [facility] ([facility]) IgG P28 Ab. Laboratory test result [facility] ([facility]) IgG P18 Ab. Laboratory test result [facility] ([facility]) IgG P23 Ab. Laboratory test result [facility] ([facility]) Laboratory test finding (navigational concept) Laboratory test result [facility] ([facility]) Positive: 5 of the following Borrelia-specific bands: 18,23,28,30,39,41,45,58, 66, and 93. Negative: No bands or banding patterns which do not meet positive criteria. IgM P41 Ab. Laboratory test result [facility] ([facility]) IgM P39 Ab. Laboratory test result [facility] ([facility]) IgM P23 Ab. Laboratory test result Abnormal (applies to non-numeric results) [facility] ([facility]) Laboratory test finding (navigational concept) Laboratory test result [facility] ([facility]) Note: An equivocal or positive EIA resul t followed by a negative Line Blot result is considered NEGATIVE. An equivocal or positive EIA result followed by a positive Line Blot is considered POSITIVE by the CDC. Positive: 2 of the following bands: 23,39 or 41 Negative: No bands or banding patterns which do not meet positive criteria. Criteria for positivity are those recommended by CDC/ASTPHLD. p23=Osp C, j99=kfwhbcxke Note: Sera from individuals with the following may cross react in the Lyme Line Blot assays: other spirochetal diseases (periodontal disease, leptospirosis, relapsing fever, yaws, and pinta); connective autoimmune (Rheumatoid Arthritis and Systemic Lupus Erythematosus and also individuals with Antinuclear Antibody); other infections (Olmsted Spotted Fever; Marcus-Reed Virus, and Cytomegalovirus). ID Date Data Source [id number] 09/21/2020 06:44:00 AM EDT [facility] Name Value Range Interpretation Code Description Data Rhea rce(s) Supporting Document(s) Borrelia burgdorferi IgG+IgM Ab [Units/volume] in Serum <0.91 ISR 0. 00-0.90 [facility] Negative <0.91 Equivocal 0.91 - 1.09 Positive >1.09 Borrelia burgdorferi IgM Ab [Units/volume] in Serum by Immun oassay 1.10 index 0.00-0.79 H [facility] Negative <0.80 Equivocal 0.80 - 1.19 Positive >1.19 IgM levels may peak at 3-6 weeks post infection, then gradually decline. Borrelia burgdorferi 93kD IgG Ab [Presence] in Serum by Immu noblot (IB) Absent [facility] Borrelia burgdorferi 66kD IgG Ab [Presence] in Serum by Immu noblot (IB) Absent [facility] Borrelia burgdorferi 58kD IgG Ab [Presence] in Serum by Immu noblot (IB) Absent [facility] Borrelia burgdorferi 45kD IgG Ab [Presence] in Serum by Immu noblot (IB) Absent [facility] Borrelia burgdorferi 41kD IgG Ab [Presence] in Serum by Immu noblot (IB) Absent [facility] Borrelia burgdorferi 39kD IgG Ab [Presence] in Serum by Immu noblot (IB) Absent [facility] Borrelia burgdorferi 30kD IgG Ab [Presence] in Serum by Immu noblot (IB) Absent [facility] Borrelia burgdorferi 28kD IgG Ab [Presence] in Serum by Immu noblot (IB) Absent [facility] Borrelia burgdorferi 23kD IgG Ab [Presence] in Serum by Immu noblot (IB) Absent [facility] Borrelia burgdorferi 18kD IgG Ab [Presence] in Serum by Immu noblot (IB) Absent [facility] Borrelia burgdorferi Ab.IgG band pattern [Interpretation] in Serum by Immunoblot (IB) Negative [facility] Posi tive: 5 of the following Borrelia-specific bands: 18,23,28,30,39,41,45,58, 66, and 93. Negative: No bands or banding patterns which do not meet positive criteria. Borrelia burgdorferi 41kD IgM Ab [Presence] in Serum by Immu noblot (IB) Absent [facility] Borrelia burgdorferi 39kD IgM Ab [Presence] in Serum by Immu noblot (IB) Absent [facility] Borrelia burgdorferi 23kD IgM Ab [Presence] in Serum by Immu noblot (IB) Present A [facility] Borrelia burgdorferi Ab.IgM band pattern [Interpretation] in Serum by Immunoblot (IB) Negative [facility] Note: An equivocal or positive EIA resul t followed by a negativeLine Blot result is considered NEGATIVE. An equivocal or positiveEIA result followed by a positive Line Blot is considered POSITIVEby the CDC.Positive: 2 of the following bands: 23,39 or 41Negative: No bands or banding patterns which do not meet positivecriteria.Criteria for positivity are those recommended by CDC/ASTPHLD.p23=Osp C, h21=yjkfhqtybFkyo:Sera from individuals with the following may cross react in theLyme Line Blot assays: other spirochetal diseases (periodontaldisease, leptospirosis, relapsing fever, yaws, and pinta);connective autoimmune (Rheumatoid Arthritis and Systemic LupusErythematosus and also individuals with Antinuclear Antibody);other infections (Olmsted Spotted Fever; Marcus-Reed Virus,and Cytomegalov irus). ID Date Data Source [id number] 09/16/2020 04:18:00 PM EDT [facility] ([facility]) Name Value Range Interpretation Code Description Data Rhea rce(s) Supporting Document(s) C reactive protein [Mass/volume] in Serum or Plasma by High sensitivity method 0.57 mg/L 1.00-3.00 Below low normal [facility] ([facility]) Is patient fasting? N ID Date Data Source [id number] 09/16/2020 04:18:00 PM EDT [facility] ([facility]) Name Value Range Interpretation Code Description Data Rhea rce(s) Supporting Document(s) Hemoglobin A1c/Hemoglobin.total in Blood 5.7 % 4.4-6.1 [facility] ([facility]) Is patient fasting? N Thyrotropin [Units/volume] in Serum or Plasma 1.08 uIU/mL 0.47-5.01 [facility] ([facility]) Is patient fasting? N ID Date Data Source [id number] 09/16/2020 04:18:00 PM EDT [facility] ([facility]) Name Value Range Interpretation Code Description Data Rhea rce(s) Supporting Document(s) Comprehensive Metabo Laboratory test result [facility] ([facility]) Is patient fasting? N Potassium 3.4 meq/L 3.6-5.0 Below low normal [facility] ( [facility]) Is patient fasting? N Sodium 139 meq/L 134-153 [facility] ([facility]) Is patient fasting? N Chloride 101 meq/L 98-107 [facility] ([facility]) Is patient fasting? N Co2 27 meq/L 22-30 [facility] ([facility]) Is patient fasting? N Glucose 102 mg/dL 70-99 Above high normal [facility] ([facility]) Is patient fasting? N BUN 19 mg/dL 7-21 [facility] ([facility]) Is patient fasting? N Creatinine 1.0 mg/dL 0.7-1.5 [facility] ([facility]) Is patient fasting? N BUN/Creat 19 8-27 [facility] ([facility]) Is patient fasting? N Total Protein 6.5 g/dL 6.3-8.2 [facility] ([facility]) Is patient fasting? N Albumin 4.4 g/dL 3.9-5.0 [facility] ([facility]) Is patient fasting? N A/G Ratio 2.1 0.8-2.0 Above high normal [facility] ([facility]) Is patient fasting? N Globulin 2.1 GM/DL 2.4-3.2 Below low normal [facility] ( [facility]) Is patient fasting? N Calcium 9.2 mg/dL 8.4-10.2 [facility] ([facility]) Is patient fasting? N Total Bili 0.9 mg/dL 0.2-1.3 [facility] ([facility]) Is patient fasting? N Sgot/Ast 23 U/L 5-40 [facility] ([facility]) Is patient fasting? N Alkaline Phos 112 U/L 38-126 [facility] ([facility]) Is patient fasting? N SGPT/Alt 37 U/L 7-56 [facility] ([facility]) Is patient fasting? N Age 45 yrs [facility] ([facility]) Is patient fasting? N Non-Aa GFR Laboratory test result [facility] ([facility]) Is patient fasting? N Anion Gap 11.0 mmol/L 8.0-16.0 [facility] ([facility]) Is patient fasting? N Afr Amer GFR Laboratory test result [facility] ([facility]) Is patient fasting? N ID Date Data Source [id number] 09/16/2020 04:18:00 PM EDT [facility] ([facility]) Name Value Range Interpretation Code Description Data Rhea rce(s) Supporting Document(s) WBC 8.7 10^3/uL 4.2-11.0 [facility] ([facility]) Is patient fasting? N CBC W/Automated Diff Laboratory test result [facility] ([facility]) Is patient fasting? N RBC 4.60 10^6/uL 4.50-6.30 [facility] ([facility]) Is patient fasting? N Hemoglobin 15.3 g/dL 14.0-16.0 [facility]) Is patient fasting? N Hematocrit 44.0 % 41.0-51.0 [facility] ([facility]) Is patient fasting? N MCV 95.7 fL 80.0-94.0 Above high normal [facility] ([facility]) Is patient fasting? N MCH 33.3 pg 27.0-34.0 [facility] ([facility]) Is patient fasting? N RDW 12.3 % 11.5-14.8 [facility] ([facility]) Is patient fasting? N MCHC 34.8 g/dL 31.0-36.0 [facility] ([facility]) Is patient fasting? N MPV 13.3 fL 7.4-10.4 Above high normal [facility] ([facility]) Is patient fasting? N Platelets 169 10^3/uL 150-450 [facility] ([facility]) Is patient fasting? N Neut 63.7 % 37.0-80.0 [facility] ([facility]) Is patient fasting? N Lymph 27.2 % 25.0-40.0 [facility] ([facility]) Is patient fasting? N Ritchie 6.7 % 3.0-8.0 [facility] ([facility]) Is patient fasting? N Eos 1.4 % 0.0-7.0 [facility] ([facility]) Is patient fasting? N %Ig 0.2 % 0.0-0.0 Above high normal [facility] ([facility]) Is patient fasting? N Baso 0.8 % 0.0-2.0 [facility] ([facility]) Is patient fasting? N #Neut 5.55 10^3/uL 2.00-6.90 [facility] ([facility]) Is patient fasting? N %NRBC 0.0 % 0.0-0.0 [facility] ([facility]) Is patient fasting? N #Eos 0.12 10^3/uL 0.00-0.70 [facility] ([facility]) Is patient fasting? N #Ritchie 0.58 10^3/uL 0.00-0.90 [facility] ([facility]) Is patient fasting? N #Lymph 2.37 10^3/uL 0.60-3.40 [facility] ([facility]) Is patient fasting? N #Baso 0.07 10^3/uL 0.00-0.20 [facility] ([facility]) Is patient fasting? N #Ig 0.02 10^3/uL 0.00-0.10 [facility] ([facility]) Is patient fasting? N #NRBC 0.00 10^3/uL 0.00-0.00 [facility] ([facility]) Is patient fasting? N Manual Diff Laboratory test result [facility] ([facility]) Is patient fasting? N RBC Morph Laboratory test result [facility] ([facility]) Is patient fasting? N ID Date Data Source [id number] 09/16/2020 10:05:00 PM EDT [facility] Name Value Range Interpretation Code Description Data Rhea rce(s) Supporting Document(s) Thyrotropin [Units/volume] in Serum or Plasma by Detec tion limit <= 0.05 mIU/L 1.08 uIU/mL 0.47 - 5.01 [facility] ID Date Data Source [id number] 09/16/2020 10:00:00 PM EDT [facility] Name Value Range Interpretation Code Description Data Rhea rce(s) Supporting Document(s) C reactive protein [Mass/volume] in Serum or Plasma by High sensitivity method 0.57 MG/L 1.00 - 3.00 L [facility] HS-CRP CUT-OFF: RELATIVE RISK: <1.0 mg/L Low 1.0 - 3.0 mg/L Average >3.0 mg/L High Optimally, the average of HS-CRP results repeated two weeks apart should be used for risk assessment. ID Date Data Source [id number] 09/16/2020 10:00:00 PM EDT [facility] Name Value Range Interpretation Code Description Data Rhea rce(s) Supporting Document(s) COMPREHENSIVE METABOLIC PANEL [facility] COMPREHENSIVE METABOLIC PANEL Sodium [Moles/volume] in Serum or Plasma 139 mEq/L 134 - 153 [facility] Potassium [Moles/volume] in Serum or Plasma 3.4 mEq/L 3.6 - 5.0 L [facility] Chloride [Moles/volume] in Serum or Plasma 101 mEq/L 98 - 107 [facility] Carbon dioxide, total [Moles/volume] in Serum or Plasma 27 MEQ/L 22 - 30 [facility] Glucose [Mass/volume] in Serum or Plasma 102 MG/DL 70 - 99 H [facility] BUN 19 MG/DL 7 - 21 [facility] Creatinine [Mass/volume] in Serum or Plasma 1.0 MG/DL 0.7 - 1.5 [facility] BUN/CREAT 19 8 - 27 [facility] Protein [Mass/volume] in Serum or Plasma 6.5 G/DL 6.3 - 8.2 [facility] Albumin [Mass/volume] in Serum or Plasma 4.4 G/DL 3.9 - 5.0 [facility] Globulin [Mass/volume] in Serum by calculation 2.1 GM/DL 2.4 - 3.2 L [facility] A/G RATIO 2.1 0.8 - 2.[address] [facility] Calcium [Mass/volume] in Serum or Plasma 9.2 MG/DL 8.4 - 10.2 [facility] Bilirubin.total [Mass/volume] in Serum or Plasma 0.9 MG/DL 0.2 - 1.3 [facility] Alkaline phosphatase [Enzymatic activity/volume] in Serum or Plasma 112 U/L 38 - 126 [facility] Aspartate aminotransferase [Enzymatic activity/volume] in Serum or Plasma 23 U/L 5 - 40 [facility] Alanine aminotransferase [Enzymatic activity/volume] in Seru m or Plasma 37 U/L 7 - 56 [facility] Anion gap 3 in Serum or Plasma 11.0 mmol/L 8.0 - 16.0 [facility] AGE 45 yrs [facility] al NON-AA GFR >60 mL/min [facility] ital AFR AMER GFR >60 mL/min [facility] sp[facility] Male GFR In terprentation 20-49 yrs >60 mL/min Normal 50-59 yrs >56 mL/min Normal 60-69 yrs >49 mL/min Normal 70-79yrs >42 mL/min Normal 80 and above >35 mL/min Normal Female GFR Interpretation 20-39 yrs >60 mL/min Normal 40-49 yrs >58 mL/min Normal 50-59 yrs >51 mL/min Normal 60-69 yrs >45 mL/min Normal 70-79 yrs >39 mL/min Normal 80 and above >32 mL/min Normal ID Date Data Source [id number] 09/16/2020 09:59:00 PM EDT [facility] Name Value Range Interpretation Code Description Data Rhea rce(s) Supporting Document(s) Hemoglobin A1c/Hemoglobin.total in Blood 5.7 % 4.4 - 6.1 [facility] {A1]{HB] ID Date Data Source [id number] 09/16/2020 09:23:00 PM EDT [facility] Name Value Range Interpretation Code Description Data Rhea rce(s) Supporting Document(s) CBC W/AUTOMATED DIFF [facility] COMPLETE BLOOD COUNT Leukocytes [#/volume] in Blood by Automated count 8.7 10^3/uL 4.2 - 1 1.0 [facility] Erythrocytes [#/volume] in Blood by Automated count 4.60 10^6/uL 4. 50 - 6.30 [facility] Hemoglobin [Mass/volume] in Blood 15.3 g/dL 14.0 - 16.0 [facility] Hematocrit [Volume Fraction] of Blood by Automated count 44.0 % 4 1.0 - 51.0 [facility] Erythrocyte mean corpuscular volume [Entitic volume] by Auto mated count 95.7 fL 80.0 - 94.0 H [facility] Erythrocyte mean corpuscular hemoglobin [Entitic mass] by Automated count 33.3 pg 27.0 - 34.0 [facility] Erythrocyte mean corpuscular hemoglobin concentration [Mass/volume] by Automated count 34.8 g/dL 31.0 - 36.0 [facility] Erythrocyte distribution width [Ratio] by Automated count 12.3 % 11.5 - 14.8 [facility] Platelets [#/volume] in Blood by Automated count 169 10^3/uL 150 - 45 0 [facility] Platelet mean volume [Entitic volume] in Blood by Automated count 13.3 fL 7.4 - 10.4 H [facility] Neutrophils/100 leukocytes in Blood by Automated count 63.7 % 37. 0 - 80.0 [facility] Lymphocytes/100 leukocytes in Blood by Manual count 27.2 % 25.0 - 40.0 [facility] Monocytes/100 leukocytes in Blood by Automated count 6.7 % 3.0 - 8.0 [facility] Eosinophils/100 leukocytes in Blood by Automated count 1.4 % 0.0 - 7.0 [facility] Basophils/100 leukocytes in Blood by Automated count 0.8 % 0.0 - 2.0 [facility] %IG 0.2 % 0.0 - 0.0 H [facility] %NRBC 0.0 % 0.0 - 0.0 [facility] al Neutrophils [#/volume] in Blood by Automated count 5.55 10^3/uL 2.00 - 6.90 [facility] Lymphocytes [#/volume] in Blood by Automated count 2.37 10^3/uL 0.60 - 3.40 [facility] Monocytes [#/volume] in Blood by Automated count 0.58 10^3/uL 0.00 - 0.90 [facility] Eosinophils [#/volume] in Blood by Automated count 0.12 10^3/uL 0.00 - 0.70 [facility] Basophils [#/volume] in Blood by Automated count 0.07 10^3/uL 0.00 - 0.20 [facility] #IG 0.02 10^3/uL 0.00 - 0.10 [facility] #NRBC 0.00 10^3/uL 0.00 - 0.00 [facility] MANUAL DIFF NOT INDICATED [facility] RBC MORPH NOT INDICATED [facility] ID Date Data Source [id number] 09/07/2020 08:22:00 AM EDT [facility] 1 OrderSheet [facility] Emergency Department [address] [place] [address] Phone #: ext- [phone] 09/07/2020 08:18 [id number] Sex: M : 1975 Age: 45yWEIGHT:86.1 kg (S) HEIGHT:70 inches (S) BMI:27.2ALLERGIES: No Known Drug AllergyCHIEF COMPLAINT: skin rash, lesionDIAGNOSIS: Contact dermatitisLAB ORDERSOrder Description Priority Entered Acknowledged InitialedDIAGNOSTIC STUDY ORDERSOrder Description Priority Entered Acknowledged InitialedMEDICATION/IV/DRIP/FLUID ORDERSOrder Description Priority Entered Acknowledged InitialedGENERAL ORDERSOrder Description Priority Entered Acknowledged InitialedAccucheck 09:02 09/07/2020 09:09 Todd Donahue Jack ; Nora RN[Electronically signed by Nagi Brooks (09:54 09/07/2020)][Electronically signed by Nora Donahue RN (10:15 09/07/2020)][Electronically locked by Nora Donahue RN (10:15 09/07/2020)] Name Value Range Interpretation Code Description Data Rhea rce(s) Supporting Document(s) ID Date Data Source [id number] 09/07/2020 08:22:00 AM EDT [facility] 1 Medication Reconciliation Report [facility] Emergency Department [address] [place] [address] Phone #: ext- [phone] 09/07/2020 08:18 Patient: NEERAJ SANTIAGO Sex: M : 1975 Age: 45yWeight: 86.1 kgHeight/Length: 70 in.BMI: 27.2ALLERGIES: No Known Drug AllergyThe patient's Home Medications are listed below:THE FOLLOWING MEDICATIONS NEED TO BE RECONCILED: Aspirin EC Oral hydroCHLOROthiazide Oral Lipitor Oral Lisinopril Oral Norvasc OralThe source(s) of the original Home Medication information:patientThe following Medications were given to the patient in the Emergency Department:None.The following Medications were prescribed to the patient:hydrocortisone acetate 1 % topical cream Apply 1 a small amount three times a day -- Dispense 1 tube.Refills: 0. Substitution permitted.Pharmacy - [facility] - [address] [place], [place] [phone]. . -- Nagi Brooks Name Value Range Interpretation Code Description Data Rhea rce(s) Supporting Document(s) ID Date Data Source [id number] 09/07/2020 08:22:00 AM EDT [facility] 1 Medication Administration Record [facility] Emergency Department [address] [place] [address] Phone #: ext- [phone] 09/07/2020 08:18 Patient: NEERAJ SANTIAGO Sex: M : 1975 Age: 45yWeight: 86.1 kgHeight/Length: 70 inBMI: 27.2ALLERGIES: No Known Drug AllergyDate/Time Medication Administered Medication Ordered Name Value Range Interpretation Code Description Data Rhea rce(s) Supporting Document(s) ID Date Data Source [id number] 09/07/2020 08:22:00 AM EDT [facility] 1 General Instructions [facility] Emergency Department [address] [place] [address] Phone #: ext- [phone] 09/07/2020 08:18 Patient: NEERAJ SANTIAGO Sex: M : 1975 Age: 45yMild irritative contact dermatitis from plants.INSTRUCTIONSWarnings: Further evaluation is necessary.GENERAL WARNINGS: Return or contact your physician immediately if your condition worsens orchanges unexpectedly, if not improving as expected, or if other problems alecia se.Prescription Medications:hydrocortisone acetate 1 % topical cream Apply 1 a small amount three times a day -- Dispense 1 tube.Refills: 0. Substitution permitted.Pharmacy - [facility] [address] - [address] [place], [place] [phone]. .Understanding of the discharge instructions verbalized by patient.Follow-up with: [facility], , , [address], [place], [facility] Follow up in two days if not well. Call for an appointment. Reason for referral: evaluation. ADDITIONAL INFORMATIONContact DermatitisContact dermatitis is a skin rash caused by something that touches the skin and makes it irritated andinflamed. Your skin may be red, swollen, dry, and may be cracked. Blisters may form and ooze. Therash will itch.Contact dermatitis often forms on the face and neck, backs of hands, forearms, genitals, and lowerlegs. But it can affect any area.People can get contact dermatitis from lots of sources. These include: Plants such as poison alissa, oak, or sumac Chemicals in hair dyes and rinses, soaps, solvents, waxes, fingernail gibraltarian, and deodorants Jewelry or watchbands made of nickel or cobalt 2 General Instructions [facility] Emergency Department [address] [place] [address] Phone #: ext- [phone] 09/07/2020 08:18 Patient: NEERAJ SANTIAGO Sex: M : 1975 Age: 45yContact dermatitis is not passed from person to person.Talk with your healthcare provider about what may have caused the rash. A type of allergy testingcalled "patch testing" may be used to discover what you are allergic to. You will need to stay awayfrom the source of the rash in the future to prevent it from coming back.Treatment is done to ease itching and prevent the rash from coming back. The rash should go awayin a few days to a few weeks.Home careYour healthcare provider may prescribe medicine to ease swelling and itching. Follow all instructionswhen using these medicines.General care Stay away from anything that heats up your skin, such as hot showers or baths, or direct sunlight. This can make itching worse. Apply cold compresses to soothe your sores to help ease your symptoms. Do this for 30 minutes 3 to 4 times a day. You can make a cold compress by soaking a cloth in cold water. Squeeze out excess water. You can add colloidal oatmeal to the water to help reduce itching. For severe itching in a small area, apply an ice pack wrapped in a thin towel. Do this for 20 minutes 3 to 4 times a day. You can also try wet dressings. One way to do this is to wear a wet piece of clothing under a dry one. Wear a damp shirt under a dry shirt if your upper body is affected. This can relieve itching and prevent you from scratching the affected area. You can also help ease large areas of itching by taking a lukewarm bath with colloidal oatmeal added to the water. Use hydrocortisone cream for redness and irritation, unless another medicine was prescribed. Calamine lotion can also relieve mild symptoms. Use oral diphenhydramine to help reduce itching. You can buy this antihistamine at drugstores and grocery stores. It can make you sleepy, so use lower doses during the daytime. Don't use diphenhydramine if you have glaucoma or have trouble urinating because of an enlarged prostate. If a plant causes your rash, make sure to wash your skin and the clothes you were wearing when you came into contact with the plant. This is to wash away the plant oils that gave you the rash and prevent more or worse symptoms. If you have a pet that's been outdoors, its fur may also have oil from the plant. Bathe your pet with soap or shampoo. Stay away from the substance or object that causes your symptoms. If you can't stay away 3 General Instructions [facility] Emergency Department [address] [place] [address] Phone #: ext- [phone] 09/07/2020 08:18 Patient: NEERAJ SANTIAGO Sex: M : 1975 Age: 45y from it, wear gloves or some other type of protectionFollow-up careFollow up with your healthcare provider, or as advised.When to seek medical adviceCall your healthcare provider or seek medical attention right away if any of these occur: Spreading of the rash to other parts of your body Severe swelling of your face, eyelids, mouth, throat or tongue Trouble urinating due to swelling in the genital area Fever of 100.4F (38C) or higher, or as advised by your provider Redness or swelling that gets worse Pain that gets worse Foul-smelling fluid leaking from the skin Yellow-brown crusts on the open blisters [phone] [employer]. [address] [place] [address], [place] [address]. All rights reserved. This information is not intended as asubstitute for professional medical care. Always follow your healthcare professional's instructions. You have been given the following additional information: Contact Dermatitis(Electronically signed by Nagi Brooks 09/07/2020 09:54) Name Value Range Interpretation Code Description Data Rhea rce(s) Supporting Document(s) ID Date Data Source [id number] 09/07/2020 08:22:00 AM EDT [facility] 1 Clinical Report - Nurses [facility] Emergency Department [address] [place] [address] Phone #: ext- [phone] 09/07/2020 08:18 [id number] Sex: M : 1975 Age: 45yTRIAGEArrived by private vehicle. Historian: patient. Accompanied by family. ( presents with girlfriend with c/odiscoloration on R inner calf area, has had it for a month but today and yesterday noticed increasedredness, no pain or injury).Triage time: 08:23 09/07/2020. Acuity: LEVEL 4.Chief Complaint: L lower leg discoloration.Alert. No acute distress.Reported as located on the right leg. Onset. 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 SEPSIS SCREEN NEGATIVE. No suspected or confirmedsigns of infection present. --08:29 09/07/20 Nora Donahue RN08:23 09/07/20. BP: 127/82. MAP: 97. HR: 59. RR: 18. O2 saturation: 97%. Temp: 97.4 F. Pain level now:0/10. --08:29 09/07/20 Nora Donahue RN.Weight: 86.1 kg stated. Height/Length: 70 inches Per Patient. BMI: 27.2. --08:28 09/07/20 Nora Donahue RN.MedicationsLisinopril Oral. --08:09/07/20 Nora Donahue RN hydroCHLOROthiazide Oral. --08:09/07/20 Nora Donahue, ANA Lipitor Oral. --08:09/07/20 Nora Donahue RN Aspirin EC Oral. --08:09/07/20 Nora Donahue RN Norvasc Oral. --08:09/07/20 Nora Donahue RN.AllergiesNo Known Drug Allergy. --08:09/07/20 Nora Donahue RN.PROBLEMS:Hypertension.Hypercholesterolemia. --08:27 09/07/20 Nora Donahue RNBlood clot in clavicle.CVA - Cerebrovascular Accident: (Slight L sided weakness). --08:31 09/07/20 Nora Donahue RN.Medication/allergy information source: the patient. --08:29 09/07/20 Nora Donahue RN. 2 Clinical Report - Nurses [facility] Emergency Department [address] [place] [address] Phone #: ext- [phone] 09/07/2020 08:18 [id number] Sex: M : 1975 Age: 45y ADDITIONAL SURGERIES: no known surgeries. History SOCIAL HX: Heavy tobacco smoker- 1 pack per day. Drug use: marijuana. No alcohol use. He was offered HIV testing but declined and hepatitis C testing but declined. He has not traveled outside the [place] Infectious disease exposure: No infectious disease exposure. SELF HARM ASSESSMENT: Self harm assessment was performed. The patient answered "no" to the question(s) "Have you recently felt down, depressed, or hopeless?". ABUSE ASSESSMENT: No report of abuse. NUTRITIONAL RISK ASSESSMENT: The nutritional risk assessment revealed no deficiencies. FUNCTIONAL ASSESSMENT: Functional assessment: no impairments noted. LEARNING NEEDS ASSESSMENT: The learning needs assessment revealed no barriers. FALL RISK ASSESSMENT: Fall risk assessment completed. No risk factors identified. SKIN INTEGRITY ASSESSMENT: Skin integrity risk assessment completed. No skin integrity risk identified. --08:29 09/07/20 Nora Donahue RN. FAMILY HX: No significant family medical history. --09:54 09/07/20 Nagi Brooks.PHYSICAL WGRKJRIKVZ45:25 09/07/20. Ambulatory to room.GENERAL / NEURO / PSYCH: Alert. The patient does not appear to be in acute distress. Oriented X 4.HEENT: Mucous membranes are pink.RESPIRATORY: Respirations not labored.CVS: Capillary refill less than 2 seconds.SKIN: Skin is warm and dry. ( R inner calf area has brownish discoloration, no redness or pain.). --09: Nora Donahue RN.NURSING PROGRESS NOTESPatient gowned. Reassurance given. Two patient identifiers checked. Bed placed in lowest position.Brakes of bed on. Patient ready for evaluation. --08:30 09/07/20 Nora Donahue RN Finger stick glucose: 113; performed by nurse; result shown to the ED physician. --09:09 09/07/20 Nora Donahue RN.DISPOSITION / DISCHARGE 3 Clinical Report - Nurses [facility] Emergency Department [address] [place] [address] Phone #: ext- [phone] 09/07/2020 08:18 [id number] Sex: M : 1975 Age: 45y 09:30 09/07/20. BP: 114/79. MAP: 90. HR: 59. RR: 16. O2 saturation: 99%. Temp: 98.1 F. Pain level now: 04/07. --09:31 09/07/20 [place] inventory control supervisor, Leeanne, Tech1 Departure time: 09:33 09/07/2020. --09:33 09/07/20 Nora Donahue RN Condition at departure: unchanged. No learning barriers present. Discharge instructions provided and reviewed with the patient. Reviewed medication(s) side effects, precautions, dosing and course information. Prescription(s) sent electronically to pharmacy. Reviewed referral to a primary care physician. Patient verbalized understanding. Written instructions provided in Malawian. The patient was discharged by the physician. He was discharged home and accompanied by staff electrical engineer. He left ambulatory and via private vehicle. Telephone Advice Nurse driving. --09:33 09/07/20 Nora Donahue RN.Locked/Released at 09/07/2020 10:15 by Nora Donahue RN Name Value Range Interpretation Code Description Data Rhea rce(s) Supporting Document(s) ID Date Data Source [id number] 09/07/2020 08:22:00 AM EDT [facility] 1 Clinical Report - Physicians/Mid Levels [facility] Emergency Department [address] [place] [address] Phone #: ext- [phone] 09/07/2020 08:18 [id number] Sex: M : 1975 Age: 45y Time Seen: 09:09 09/07/2020. Arrived- By private vehicle. Historian- patient.HISTORY OF PRESENT ILLNESS Chief Complaint: SKIN RASH and LESION. This started yesterday and is now gone. (1 day). Not itchy, painful or burning. It has been located on the right lower extremity. It has not been generalized in location. No cause has been identified. No recent medication, insect bite or food exposure. Was not recently exposed to poison alissa. (Red area developed yesterday but resolved this morning. There has been a dark oval lesion on right calf for over a month. It was never itchy, painful, red or swollen. However, it never went away. Girlfriend was worried that it was a blood clot or infection. There was never any pain, itching or swelling). Similar symptoms previously. None. Recent medical care: Not recently seen/assessed.REVIEW OF SYSTEMSNo fever, sore throat, cough, difficulty breathing or enlarged lymph nodes. No headache, eye irritation,chest pain or pain or abdominal pain. No diarrhea, joint pain, insect bite, numbness or diabetic symptoms.No easy bruising or extremity swelling. The patient has had fatigue, weight loss and skin lesion. All othersystems reviewed and are negative.PAST HISTORYSee nurses notes. Has not had shingles. Problems: CVA - Cerebrovascular Accident. (Slight L sided weakness) Hypertension. Hypercholesterolemia. Additional Surgeries: no known surgeries. Medications: Norvasc Oral. Aspirin EC Oral. Lipitor Oral. hydroCHLOROthiazide Oral. Lisinopril Oral. Allergies: 2 Clinical Report - Physicians/Mid Levels [facility] Emergency Department [address] [place] [address] Phone #: ext- [phone] 09/07/2020 08:18 Patient: [id number] Sex: M : 1975 Age: 45y No Known Drug Allergy.SOCIAL HISTORYCurrent every day smoker.FAMILY HISTORYNo significant family medical history.ADDITIONAL NOTESThe nursing notes have been reviewed.PHYSICAL EXAMVital Signs: 09/07/2020 08:23 BP: 127/82. MAP: 97. HR: 59. RR: 18. O2 saturation: 97%. Temp: 97.4 F.Pain level now: 0/10.Appearance: Alert. Oriented X3. No acute distress.Eyes: Pupils equal, round and reactive to light. Conjunctivae and eyelids normal.ENT: Pharynx normal.Neck: Neck supple. No lymphadenopathy.CVS: Normal heart rate and rhythm.Respiratory: No respiratory distress. Breath sounds normal. Chest nontender.Abdomen: Nontender. No organomegaly.Skin: Skin warm and dry. Normal skin color. Normal skin turgor. No erythema. No tender induratedarea. No cellulitis. Mild, well- demarcated skin rash on the right leg- hyperpigmented circular lesion. Nocrusting skin rash. The rash is fine. No abscess.Extremities: Normal external inspection. Extremities nontender. No calf tenderness. (no edema).Neuro: Orien mau X 3. No motor deficit. No sensory deficit. (flat affect).PROGRESS AND PROCEDURESCourse of Care: 09:19 09/07/20. Apparently he was told he was pre- diabetic at PCP office months ago.No signs of infection, cellulitis, edema. Unlikely to be DVT or cellulitis. The red region noted at the monthold lesion has completely resolved. Accucheck normal 09:52 09/07/20. Patient will follow up with PCP for the fatigue. This is an unrelated complaint that has been ongoing since move from [place]. Disposition: Discharged. Condition: stable.CLINICAL IMPRESSION Mild irritative contact dermatitis from plants. 3 Clinical Report - Physicians/Mid Levels [facility] Emergency Department [address] [place] [address] Phone #: ext- [phone] 09/07/2020 08:18 Patient: NEERAJ SANTIAGO Sex: M : 1975 Age: 45yINSTRUCTIONS Warnings: Further evaluation is necessary. GENERAL WARNINGS: Return or contact your physician immediately if your condition worsens or changes unexpectedly, if not improving as expected, or if other problems arise. Prescription Medications: hydrocortisone acetate 1 % topical cream Apply 1 a small amount three times a day -- Dispense 1 tube. Refills: 0. Substitution permitted. Pharmacy - [facility] - [id number] ; [place], [place] [id number]. . Understanding of the discharge instructions verbalized by patient. Follow-up with: [facility], , , [address], , [place], [address] Follow up in two days if not well. Call for an appointment. Reason for referral: evaluation.(Electronically signed by Nagi Brooks 09/07/2020 09:54) Name Value Range Interpretation Code Description Data Rhea rce(s) Supporting Document(s) ID Date Data Source [id number] 07/26/2020 01:44:06 PM EDT [facility] Name Value Range Interpretation Code Description Data [facility] rce(s) Supporting Document(s) Progress Note [facility] EGLDCj1nKnYESgQr92/SGNazNQAez6MrOMhsNWx1ZOkbNBWyG3PjIFS7uI0bQPC0FVjGEaWpQpFcOUFv [facility] OsIjbQHhChHQOhSlrUOsMbAHdxBrbgnUXmFS5ZvQP5WLKeL21dBRTjKKPuP4EaWVOzArr+Rr0WYGOsfZ PnSH3MSzoC3H3pnia7LZ1o5L4WuMFZH2L4mm7yERbODniamliVGyQr1IJpd208rUTrmQmubc1Au8N9d9 KHqBnrEOdGspNmhmgPc0uIUJnK/XwV+9AkjOSY7+XH INLi+kH8+G4mQibFk8Bug2tLrOWVFToVW5tBV/38kYWTRAgDChRceqcD211TsOhkHuQQhFeT8OcOs765 jF+Ld/FoFM/pavgPL9qv9LULDpf2/wGG4rkk0MYXi9lsgdSebVQ85d+HcZWjUgqIJievFKkXV3xH2j1F vp7fLFKXGiF+5ATaY3+dhGgSFtM6oCDcT+RtGotbu/ LS3GzCaKPGVCOHDaNsFo+RUSjZnyW+wNGZ/OrC0Voz7yZB+D0xb5oNztb5SdSUmnsSKYmD3jyE87on9V IM/LIdABYJ2nC4/EoKdsduSXFBvsDXBqVKd1dbH/g+kxoFZ6DoodUb9tB21G8tt1Ylq8G+2s4vqvVhhl h+OI9U9v4/ygnMZQOEFbSWqyYG6MscZF0fFjLc1AUw PQdp5Kq1lrQhyjDwE7/o4iXoFV7/Z96G3vKFsr63T201l4uY9A8hcMoux99jT5lh6XcIaz+PLNqeHHjO ZezVm8Ax9zLJ62Jg82Z9DSeOMvJyCIe33UV/g7MifgCW9zvmrEHEwLDEDICWgVHB88CiRO0T+v8Sk4QT 2Iba9zZDu1AagxcEWZk1PC3Jq8/ekIRL8vhOjYAl0T pr/HsWZ+dk6eFl0T/H4q+yN4BqUg1LYPY8Nfd66XEtNeLqLlkb8QhjXiBOu+n42+Wvisl2O5VqrbfG0K ndWv4Op1XanadTn4lBF+1mZ+n3jg3wsiRFpB4efzIT0vguGUyeG12e90RdrLUN0Uv0ncsP/bko/nkS94 aXWvEgUWsFUNI3Pc0foHCATvapW17JNPFaqVgZSFCK [file] ICAgICAgICAgICAgICAgICAgICAgICAgICAgICAgIC AgICAgICAgICAgICAgICAgICAgICAgICAgICAgICAgICAgICAgICAgICAgICAgICAgICANCiAgICAgIC AgICAgICAgICAgICAgICAgICAgICAgICAgICAgICAgICAgICAgICAgICAgICAgICAgICAgICAgICAgIC AgICAgICAgICAgICAgICAgICAgICAgICAgICAgICAg ICANCiAgICAgICAgICAgICAgICAgICAgICAgICAgICAgICAgICAgICAgICAgICAgICAgICAgICAgICAg ICAgICAgICAgICAgICAgICAgICAgICAgICAgICAgICAgICAgICAgICAgICANCiAgICAgICAgICAgICAg ICAgICAgICAgICAgICAgICAgICAgICAgICAgICAgIC AgICAgICAgICAgICAgICAgICAgICAgICAgICAgICAgICAgICAgICAgICAgICAgICAgICAgICANCiAgIC AgICAgICAgICAgICAgICAgICAgICAgICAgICAgICAgICAgICAgICAgICAgICAgICAgICAgICAgICAgIC AgICAgICAgICAgICAgICAgICAgICAgICAgICAgICAg ICAgICANCiAgICAgICAgICAgICAgICAgICAgICAgICAgICAgICAgICAgICAgICAgICAgICAgICAgICAg ICAgICAgICAgICAgICAgICAgICAgICAgICAgICAgICAgICAgICAgICAgICAgICANCiAgICAgICAgICAg ICAgICAgICAgICAgICAgICAgICAgICAgICAgICAgIC AgICAgICAgICAgICAgICAgICAgICAgICAgICAgICAgICAgICAgICAgICAgICAgICAgICAgICAgICANCi AgICAgICAgICAgICAgICAgICAgICAgICAgICAgICAgICAgICAgICAgICAgICAgICAgICAgICAgICAgIC AgICAgICAgICAgICAgICAgICAgICAgICAgICAgICAg ICAgICAgICANCiAgICAgICAgICAgICAgICAgICAgICAgICAgICAgICAgICAgICAgICAgICAgICAgICAg ICAgICAgICAgICAgICAgICAgICAgICAgICAgICAgICAgICAgICAgICAgICAgICAgICANCiAgICAgICAg ICAgICAgICAgICAgICAgICAgICAgICAgICAgICAgIC AgICAgICAgICAgICAgICAgICAgICAgICAgICAgICAgICAgICAgICAgICAgICAgICAgICAgICAgICAgIC ANCjw/nESqX6tzbWFdobK0V8clXj3WXo3DNU5ah1BxZHAnIRynuzTlNakKPzVdLVZjYbvQJrl2VUndJW 4EvZQkR5ZuX1JiGJzeTA4NLMXgDVZakVSmZJToHAPb LbJ0VGHmDMcrLN5JrERrQFanLDOvTLCxZkFvCVYrFZGhKKYnEXAtSWZWPTAoMRWoQlSiQJVzNUVaDIkb CPQSULU6ZUAsTcAgWWEeKRNvGV6JDYYpP241sbSpKS1HFe9ZFmAcXK8fcx8CHYJoVMZrSzuQQsc9RAvx QT9OzPOnkCX3LiQpHPPPRjQkW7vim1WtPLchXZYOZI dqCI4Pr0KirBMeGNo+Vh8YIA0wr3UfPIx9SyLeEB0qfd6SZSaLWyAqO5TiaUbpHXAhh7ikJEEtDC4buT DeHCD6GXDwtdtkcoVRgpgsfqLRi6LrcbacEZUrSHSnNW1qOO8zQPYoOZMbObYhKZBEIU3QXDFkXQHuyK KdGDZmAQXFLO5CSQhdTRO9TXQmrvEqvBVoHYkoBC9B YXJlbnQgNDYgMCBSDQo+Sr1OZQ5hl9BhPYp4HCRkUW5rnf2IARbDZtEmR1Z0sRMkF0K8AZeaUf1XDINq RFCdGRHgAJJXFHgcTL6JET8tobP0SV5WzSBrYKCnKQAgoAQtBUv3N87qbXSiOEfqJR1FBAF+Kaila+Pg0K QWAuAXOdNTWeQqUgGVROShKaR0EpA2JIj7RvZ2HpGO 04tHmawrJeNTdyCT0KUN6tKRMhUUAHVO5RfTBrcQ7oatL5OcQdGVBMHaXeR07noSWsNUDsNWT1NDWfHs 3KOOPeA5TaywXlfRzdpnOgTLIhVANDBU6WYHvatoPziKIafZdkZF43uGriNW3KXv8LWvWaAE3ayy0OdO PbNg6QCSX0UA7ZWOExIXGnSSYrSIZ1PZFiUkDxGWif MGJuEYYtYRD9JYAbBBTwII5IAdBkSSBmJHUkQLphVBQbEXEstl8QLTHqFVO2OJHlPnQxKSCqELTpDAic DGXbQOMlVQT6KPSuYVLsMR3RBcWbVVOgKSH6BIJpMLTxZEMeur4JFRQxWFQoZbcuKJOmFZWmWRGdYLho AQYwXQA1JUJjIIIhVJVaXF3LFmTfLSNtUWcsZosjOI RzZSSpfh9HYYStGAWrVQL8CNLvICRwEZGlKYnuXHXuOXW3YKMrNQFjDHXxOH2VCrWqMPQpHTI7AOGnAC LtURFaag9EUVSaPKEsJjysMUNqJJWvXCJtYKeoQGFgLVL7QwBhBDXuIVXkUO0QBpTrMLUmHMs1JbtuTV HsTULrvp2LPXKeAZCrQWMzLTNqXTIpYNJdGHibZPYg TNTrVMK9IBEpJVYrRJ6VNaCaOOCnAtY0TPEgQENyARLxty2RTDDnFGHeCwzuFSCkQHKqEOLjQHosOLVj FSC8Zsv2HYPpVORaDN8NShIdQJNdEcx9DJDnYOBtPNTcki9IUGDuEYNhPOwkCUBtERSgTYRjCMyyZWYd FZU3YLImOBBcRDIcEM7ZCbDnTOBbQsu1GPPvFZSaCS Gxon9PJGQoVOLqLHV6AYBaPHEeRGBqSSlySXIqBBHfTgGfHBTrZJLgRV1UGePeOOEoUyEmFsNsYRLnHN Gvdf5GUKLgERVdVKAfHyXuOSJvJFOjYVvtJNWkDQKbPxZqCFKbWMYwPF2EEuFqTGTuCaJ8RYAsVQTzYI Gwpf0JCQBnRKC1BpH0InHjKICnCZZgVKnsTDXhXSVv Veo9ZCIcGWAiLQ6IVgKxOUSkQbKnECFvLKVuUUGwlx6UGTAgJDX4LaWaPiCvIFLfIZGwTJpnKYMmHOD0 RkL7JNMuSBYtUJ0JTpNdLFAoIuR2GjOiJHGnTLDnal5ILGOjHMM8VOZbRbTjWPLuJOBeLDjnFZEoRIV8 WOF1LTIvTYDkQM4YEbDoPHNfMwG6IEzgYUOzWACddm 7OLHXyDVN3DLyhWUHqNXDaRPBzNMgrGBXcRWx0PVRkGAGkTPPgAK3ATmQjQGLfPDE5SqckNKOfUYTicp 3FRZAsQVU7LVU3WjRpAPIoZXOwAXadFBZtZGk4JZt8HOGjHKLeXF4ALjHxORUtBMWjUdqfPOElYRJlvo 3XCTAlGPE4Wrg7SwErUIGbCZLzJRemCXJuJIl2Lns1 KAUpMFSrSQ5ARkZwGRIhTRyfCXdoMSWbIBGpmq8FOZDtNOX5MGLbEhInNBVyXGKoXKi6jpZatUBrAGa1 PN3PI7YonjKjYYvMAo2Al570HKN9OMLnCe4ZE9tjWr9vNYIsJZUXLu5JVDs4HNwtXld0OLgiMKPxRCU2 ZYDgICj2ZEzrFOJfL2W5UqS+OJlpTCUjYParIFK9QK L3YbVvU9M5GUkkDlM1TsL6LQM2Rq9cXASXMc7+BMybtZVuoPenMFLRQyi4VaQ7TJfxVRUOIm8W ID Date Data Source [id number] 07/24/2020 04:11:26 PM EDT [facility] Name Value Range Interpretation Code Description Data Rhea rce(s) Supporting Document(s) Platelet aggregation arachidonate induced [Units/volume] in Bloo d 451 ARU <550 [facility] (NOTE)350-549 ARU Therapeutic aspirin r xorq783-207 ARU Non-therapeutic range for aspirin ID Date Data Source [id number] 05/10/2020 09:27:00 AM EST [facility] ([facility]) Name Value Range Interpretation Code Description Data Rhea rce(s) Supporting Document(s) Shoulder Comp-2 Or More VWS RT Laboratory test result [facility] ([facility]) Spine Cerv Comp-5 Or More View Laboratory test result [facility] ([facility]) ID Date Data Source [id number] 04/26/2020 10:55:00 AM EST [facility] [address] [place] [address] PHONE: [phone] FAX: [phone] Name .................. : PAMELA PICKARD Acct Number.................. : [id number] ROOM. ................. : MR Number ................... : [id number] Stay type ............. : O/P Discharge Date......... ... : 04/25/20 Admit Date ......... : 04/25/20 Admit Phys .................... : INGRAMELIS Date of ....... : 1975 Family Phys ................... : INGRAMELIS Phone . ................. : [phone] Age ................................ : 45 Film# .................. .:[id number] Sex ................................. : M Unsigned transcriptions are preliminary reports and do not represent a medical or legal document [place] [id number] COMPLETE:04/25/20 07:44 3115 (REASON FOR HIP: PAIN RIGHT HIP, 04/25/20: INDICATION: Pain. 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 Vymg-uy-dxpz contact is identified along with joint space narrowing and sclerotic margins. No evidence of an acute fracture is noted. Soft tissues are within normal limits. IMPRESSION: Severe degenerative changes. No acute findings. Examination dictated by GRETA De La Torre. Examination was reviewed with Candida Glover MD, radiologist at the time of this dictation. Electronically Reviewed and Signed By CANDIDA GLOVER MD , 04/26/20 10:55, [facility] Transcribe Initials: [facility], Transcribe Date: 04/25/20 10:52, Dictation Date: Copy for: NOLAN KAIA Hull via fax Copy for : [address] [facility] Page 1 of 1 Name Value Range Interpretation Code Description Data Rhea rce(s) Supporting Document(s) ID Date Data Source [id number] 04/09/2020 02:56:00 PM EST [facility] ([facility]) Name Value Range Interpretation Code Description Data Rhea rce(s) Supporting Document(s) Hip Complete RT Laboratory test result [facility] ([facility]) ID Date Data Source [id number] 03/07/2020 11:40:00 AM EST [facility] ([facility]) Name Value Range Interpretation Code Description Data Rhea rce(s) Supporting Document(s) Prostate specific Ag [Mass/volume] in Serum or Plasma 1.07 ng/mL 0.00 -4.00 [facility] ([facility]) Is patient fasting? N ID Date Data Source [id number] 03/07/2020 11:40:00 AM EST [facility] ([facility]) Name Value Range Interpretation Code Description Data Rhea rce(s) Supporting Document(s) Calcidiol [Mass/volume] in Serum or Plasma 37 ng/mL [facility] ([facility]) Is patient fasting? N ID Date Data Source [id number] 03/07/2020 11:40:00 AM EST [facility] ([facility]) Name Value Range Interpretation Code Description Data Rhea rce(s) Supporting Document(s) Thyrotropin [Units/volume] in Serum or Plasma 1.52 uIU/mL 0.47-5.01 [facility] ([facility]) Is patient fasting? N ID Date Data Source [id number] 03/07/2020 11:40:00 AM EST [facility] ([facility]) Name Value Range Interpretation Code Description Data Rhea rce(s) Supporting Document(s) Cve Panel Laboratory test result [facility] ([facility]) Is patient fasting? N Cholesterol 159 mg/dL 131-200 [facility] ([facility]) Is patient fasting? N Triglycerides 94 mg/dL 35-160 [facility] ([facility]) Is patient fasting? N HDL 41 mg/dL 29-86 [facility] ([facility]) Is patient fasting? N LDL 109 mg/dL 65-175 [facility] ([facility]) Is patient fasting? N LDL/HDL 2.66 1.00-3.55 [facility] ([facility]) Is patient fasting? N Risk Factor 3.9 3.4-4.9 [facility] ([facility]) Is patient fasting? N ID Date Data Source [id number] 03/07/2020 11:40:00 AM EST [facility] ([facility]) Name Value Range Interpretation Code Description Data Rhea rce(s) Supporting Document(s) Hemoglobin A1c/Hemoglobin.total in Blood 5.8 % 4.4-6.1 [facility] ([facility]) Is patient fasting? N ID Date Data Source [id number] 03/07/2020 11:40:00 AM EST [facility] ([facility]) Name Value Range Interpretation Code Description Data Rhea rce(s) Supporting Document(s) Comprehensive Metabo Laboratory test result [facility] ([facility]) Is patient fasting? N Sodium 140 meq/L 134-153 [facility] ([facility]) Is patient fasting? N Potassium 3.9 meq/L 3.6-5.0 [facility] ([facility]) Is patient fasting? N Chloride 101 meq/L 98-107 [facility] ([facility]) Is patient fasting? N Co2 30 meq/L 22-30 [facility] ([facility]) Is patient fasting? N Glucose 72 mg/dL 65-110 [facility] ([facility]) Is patient fasting? N Creatinine 1.0 mg/dL 0.7-1.5 [facility] ([facility]) Is patient fasting? N BUN 22 mg/dL 7-21 Above high normal [facility] ([facility]) Is patient fasting? N BUN/Creat 22 8-27 [facility] ([facility]) Is patient fasting? N Total Protein 6.4 g/dL 6.3-8.2 [facility] ([facility]) Is patient fasting? N Albumin 4.8 g/dL 3.9-5.0 [facility] ([facility]) Is patient fasting? N Globulin 1.6 GM/DL 2.4-3.2 Below low normal [facility] ( [facility]) Is patient fasting? N A/G Ratio 3.0 0.8-2.0 Above high normal [facility] Is patient fasting? N Calcium 9.4 mg/dL 8.4-10.2 [facility] ([facility]) Is patient fasting? N Total Bili Laboratory test result 0.2-1.3 [facility] ([facility]) Is patient fasting? N Alkaline Phos 106 U/L 38-126 [facility] ([facility]) Is patient fasting? N Anion Gap 9.0 mmol/L 8.0-16.0 [facility] ([facility]) Is patient fasting? N SGPT/Alt 36 U/L 7-56 [facility] Is patient fasting? N Sgot/Ast 22 U/L 5-40 [facility] ([facility]) Is patient fasting? N Age 45 yrs [facility] ([facility]) Is patient fasting? N Non-Aa GFR Laboratory test result [facility] ([facility]) Is patient fasting? N Afr Amer GFR Laboratory test result [facility] ([facility]) Is patient fasting? N ID Date Data Source [id number] 03/07/2020 11:40:00 AM EST [facility] ([facility]) Name Value Range Interpretation Code Description Data Rhea rce(s) Supporting Document(s) CBC W/Automated Diff Laboratory test result [facility] ([facility]) Is patient fasting? N WBC 9.2 10^3/uL 4.2-11.0 [facility] ([facility]) Is patient fasting? N RBC 4.69 10^6/uL 4.50-6.30 [facility] ([facility]) Is patient fasting? N Hematocrit 46.1 % 41.0-51.0 [facility] ([facility]) Is patient fasting? N Hemoglobin 15.6 g/dL 14.0-16.0 [facility] ([facility]) Is patient fasting? N MCV 98.3 fL 80.0-94.0 Above high normal [facility] ([facility]) Is patient fasting? N MCH 33.3 pg 27.0-34.0 [facility] ([facility]) Is patient fasting? N Platelets 163 10^3/uL 150-450 [facility] ([facility]) Is patient fasting? N RDW 11.9 % 11.5-14.8 [facility] ([facility]) Is patient fasting? N MCHC 33.8 g/dL 31.0-36.0 [facility] ([facility]) Is patient fasting? N MPV 13.2 fL 7.4-10.4 Above high normal [facility] ([facility]) Is patient fasting? N Neut 59.1 % 37.0-80.0 [facility] ([facility]) Is patient fasting? N Ritchie 7.8 % 3.0-8.0 [facility] ([facility]) Is patient fasting? N Eos 1.7 % 0.0-7.0 [facility] ([facility]) Is patient fasting? N Lymph 30.1 % 25.0-40.0 [facility] ([facility]) Is patient fasting? N Baso 1.0 % 0.0-2.0 [facility] ([facility]) Is patient fasting? N %Ig 0.3 % 0.0-0.0 Above high normal [facility] ([facility]) Is patient fasting? N %NRBC 0.0 % 0.0-0.0 [facility] ([facility]) Is patient fasting? N #Neut 5.43 10^3/uL 2.00-6.90 [facility] ([facility]) Is patient fasting? N #Eos 0.16 10^3/uL 0.00-0.70 [facility] ([facility]) Is patient fasting? N #Lymph 2.77 10^3/uL 0.60-3.40 [facility] ([facility]) Is patient fasting? N #Ritchie 0.72 10^3/uL 0.00-0.90 [facility] ([facility]) Is patient fasting? N #Baso 0.09 10^3/uL 0.00-0.20 [facility] ([facility]) Is patient fasting? N #Ig 0.03 10^3/uL 0.00-0.10 [facility] ([facility]) Is patient fasting? N #NRBC 0.00 10^3/uL 0.00-0.00 [facility] ([facility]) Is patient fasting? N Manual Diff Laboratory test result M [facility] ([facility]) Is patient fasting? N PLT Est Laboratory test result [facility] ([facility]) Is patient fasting? N RBC Morph Laboratory test result [facility] ([facility]) Is patient fasting? N ID Date Data Source [id number] 03/08/2020 03:53:00 AM EST [facility] Name Value Range Interpretation Code Description Data Rhea rce(s) Supporting Document(s) Calcidiol [Moles/volume] in Serum or Plasma 37 NG/ML [facility] VITAMIN-D(2 5HYDROXY) Deficiency: <=20 ng/ml Insufficiency: 21-29 ng/ml Preferred level: => 30 ng/ml ID Date Data Source [id number] 03/07/2020 06:18:00 PM EST [facility] Name Value Range Interpretation Code Description Data Rhea rce(s) Supporting Document(s) CBC W/AUTOMATED DIFF [facility] COMPLETE BLOOD COUNT Leukocytes [#/volume] in Blood by Automated count 9.2 10^3/uL 4.2 - 1 1.0 [facility] Erythrocytes [#/volume] in Blood by Automated count 4.69 10^6/uL 4. 50 - 6.30 [facility] Hemoglobin [Mass/volume] in Blood 15.6 g/dL 14.0 - 16.0 [facility] Hematocrit [Volume Fraction] of Blood by Automated count 46.1 % 4 1.0 - 51.0 [facility] Erythrocyte mean corpuscular volume [Entitic volume] by Auto mated count 98.3 fL 80.0 - 94.0 H [facility] Erythrocyte mean corpuscular hemoglobin [Entitic mass] by Automated count 33.3 pg 27.0 - 34.0 [facility] Erythrocyte mean corpuscular hemoglobin concentration [Mass/volume] by Automated count 33.8 g/dL 31.0 - 36.0 [facility] Erythrocyte distribution width [Ratio] by Automated count 11.9 % 11.5 - 14.8 [facility] Platelets [#/volume] in Blood by Automated count 163 10^3/uL 150 - 45 0 [facility] Platelet mean volume [Entitic volume] in Blood by Automated count 13.2 fL 7.4 - 10.4 H [facility] Neutrophils/100 leukocytes in Blood by Automated count 59.1 % 37. 0 - 80.0 [facility] Lymphocytes/100 leukocytes in Blood by Manual count 30.1 % 25.0 - 40.0 [facility] Monocytes/100 leukocytes in Blood by Automated count 7.8 % 3.0 - 8.0 [facility] Eosinophils/100 leukocytes in Blood by Automated count 1.7 % 0.0 - 7.0 [facility] Basophils/100 leukocytes in Blood by Automated count 1.0 % 0.0 - 2.0 [facility] %IG 0.3 % 0.0 - 0.0 [facility] %NRBC 0.0 % 0.0 - 0.0 [facility] al Neutrophils [#/volume] in Blood by Automated count 5.43 10^3/uL 2.00 - 6.90 [facility] Lymphocytes [#/volume] in Blood by Automated count 2.77 10^3/uL 0.60 - 3.40 [facility] Monocytes [#/volume] in Blood by Automated count 0.72 10^3/uL 0.00 - 0.90 [facility] Eosinophils [#/volume] in Blood by Automated count 0.16 10^3/uL 0.00 - 0.70 [facility] Basophils [#/volume] in Blood by Automated count 0.09 10^3/uL 0.00 - 0.20 [facility] #IG 0.03 10^3/uL 0.00 - 0.10 [facility] #NRBC 0.00 10^3/uL 0.00 - 0.00 [facility] MANUAL DIFF NOT INDICATED [facility] RBC MORPH MORPH IS NORMAL [facility] { SICKLE CELL (NORMAL: NONE SEEN ) Platelet adequacy [Presence] in Blood by Light microscopy NORMAL NORMAL: NORMAL [facility] COMMENT: ID Date Data Source [id number] 03/07/2020 06:03:00 PM EST [facility] Name Value Range Interpretation Code Description Data Rhea rce(s) Supporting Document(s) CVE PANEL [facility] al LIPID PANEL Cholesterol [Mass/volume] in Serum or Plasma 159 MG/DL 131 - 200 [facility] Deprecated Triglyceride [Mass/volume] in Serum or Plasma 94 MG/DL 3 5 - 160 [facility] HDL 41 MG/DL 29 - 86 [facility] Cholesterol in LDL [Mass/volume] in Serum or Plasma by Direc t assay 109 mg/dL 65 - 175 [facility] Cholesterol.total/Cholesterol in HDL [Mass Ratio] in Serum o r Plasma 3.9 3.4 - 4.9 [facility] LDL/HDL 2.66 1.00 - 3.55 [facility] CVE RISK CHOL/HDL LDL/HDLMEN: 1/2 AVERAGE 3.43 1.00 AVERAGE 4.97 3.55 2X AVERAGE 9.55 6.25 3X AVERAGE 23.99 7.99WOMEN: 1/2 AVERAGE 3.27 1.47 AVERAGE 4.44 3.22 2X AVERAGE 7.05 5.03 3X AVERAGE 11.04 6.14 ID Date Data Source [id number] 03/07/2020 06:02:00 PM EST [facility] Name Value Range Interpretation Code Description Data Rhea rce(s) Supporting Document(s) COMPREHENSIVE METABOLIC PANEL [facility] COMPREHENSIVE METABOLIC PANEL Sodium [Moles/volume] in Serum or Plasma 140 mEq/L 134 - 153 [facility] Potassium [Moles/volume] in Serum or Plasma 3.9 mEq/L 3.6 - 5.0 [facility] Chloride [Moles/volume] in Serum or Plasma 101 mEq/L 98 - 107 [facility] Carbon dioxide, total [Moles/volume] in Serum or Plasma 30 MEQ/L 22 - 30 [facility] Glucose [Mass/volume] in Serum or Plasma 72 MG/DL 65 - 110 [facility] BUN 22 MG/DL 7 - 21 [facility] Creatinine [Mass/volume] in Serum or Plasma 1.0 MG/DL 0.7 - 1.5 [facility] BUN/CREAT 22 8 - 27 [facility] al Protein [Mass/volume] in Serum or Plasma 6.4 G/DL 6.3 - 8.2 [facility] Albumin [Mass/volume] in Serum or Plasma 4.8 G/DL 3.9 - 5.0 [facility] Globulin [Mass/volume] in Serum by calculation 1.6 GM/DL 2.4 - 3.2 L [facility] A/G RATIO 3.0 0.8 - 2.[address] [facility] Calcium [Mass/volume] in Serum or Plasma 9.4 MG/DL 8.4 - 10.2 [facility] Bilirubin.total [Mass/volume] in Serum or Plasma <0.7 MG/DL 0.2 - 1.3 [facility] Alkaline phosphatase [Enzymatic activity/volume] in Serum or Plasma 106 U/L 38 - 126 [facility] Aspartate aminotransferase [Enzymatic activity/volume] in Serum or Plasma 22 U/L 5 - 40 [facility] Alanine aminotransferase [Enzymatic activity/volume] in Seru m or Plasma 36 U/L 7 - 56 [facility] Anion gap 3 in Serum or Plasma 9.0 mmol/L 8.0 - 16.0 [facility] AGE 45 yrs [facility] Hospit al NON-AA GFR >60 mL/min [facility] Hosp ital AFR AMER GFR >60 mL/min [facility] Ho spital Male GFR In terprentation 20-49 yrs >60 mL/min Normal 50-59 yrs >56 mL/min Normal 60-69 yrs >49 mL/min Normal 70-79yrs >42 mL/min Normal 80 and above >35 mL/min Normal Female GFR Interpretation 20-39 yrs >60 mL/min Normal 40-49 yrs >58 mL/min Normal 50-59 yrs >51 mL/min Normal 60-69 yrs >45 mL/min Normal 70-79 yrs >39 mL/min Normal 80 and above >32 mL/min Normal ID Date Data Source [id number] 03/07/2020 06:02:00 PM [facility] Name Value Range Interpretation Code Description Data Rhea rce(s) Supporting Document(s) Prostate specific Ag [Mass/volume] in Serum or Plasma 1.07 ng/mL 0.00 - 4.00 [facility] \\BLDo\\PSA INTERPRETA TION\\BLDx\\ The PSA assay should not be used alone for a screening test or diagnosis for presence or absence of malignant disease. Predictions of disease recurrence should not be based solely on values obtained from serial patient serum values. The PSA result was determined by "[employer]", on the [employer] 6000. Values obtained with different assay methods or kits cannot be used interchangeably. ID Date Data Source [id number] 03/07/2020 06:02:00 PM [facility] Name Value Range Interpretation Code Description Data Rhea rce(s) Supporting Document(s) Thyrotropin [Units/volume] in Serum or Plasma by Detec tion limit <= 0.05 mIU/L 1.52 uIU/mL 0.47 - 5.01 [facility] ID Date Data Source [id number] 03/07/2020 04:59:00 PM [facility] Name Value Range Interpretation Code Description Data Rhea rce(s) Supporting Document(s) Hemoglobin A1c/Hemoglobin.total in Blood 5.8 % 4.4 - 6.1 [facility] {A1]{HB] Procedure Social History Code Duration Value Status Description Data Source(s ) Smoking 01/13/2021 12:00:00 AM EDT Current Smoker completed Curre nt Smoker eCW1 ([facility]) Alcohol intake 07/24/2020 12:00:00 AM EDT Ex-drinker (finding) comp leted Ex- drinker (finding) [facility] Tobacco use and exposure 07/24/2020 12:00:00 AM EDT Never used co mpleted Never used [facility] Smoking 07/24/2020 12:00:00 AM EDT Current every day smoker co mpleted Current every day smoker [facility] Vital Signs ID Date Data Source UNK Name Value Range Interpretation Code Description Data Source(s) Heart rate 66 /min 66 /min [facility] Systolic blood pressure 134 mm[Hg] 134 mm[Hg] [facility] Diastolic blood pressure 80 mm[Hg] 80 mm[Hg] [facility] ([facility]) Oxygen saturation in Arterial blood by Pulse oximetry 99 % 99 % [facility] ([facility]) Body weight 164.00 [lb_av] 164.00 [lb_av] [facility] T ([facility]) Body weight 74.390 kg 74.390 kg [facility] ([facility]) Body height 70 [in_i] 70 [in_i] [facility] ([facility]) 5'10" Body mass index (BMI) [Ratio] 23.5 kg/m2 23.5 k g/m2 [facility] ([facility]) Body surface area Derived from formula 1.92 m2 1.92 m2 [facility] ([facility]) Body weight 187 [lb_av] 187 [lb_av] eCW1 ([facility]) Body weight 84.82 kg 84.82 kg W1 ([facility]) Body height 70 [in_i] 70 [in_i] W1 ([facility]) Body mass index (BMI) [Ratio] 26.83 kg/m2 26.83 kg/m2 [facility] ([facility]) Heart rate 64 /min 64 /min eCW1 ([facility]) Respiratory rate 18 /min 18 /min eCW1 ([facility]) Body temperature 98.0 [degF] 98.0 [degF] eCW1 ( [facility]) Systolic blood pressure 155 mm[Hg] 155 mm[Hg] e CW1 ([facility]) Diastolic blood pressure 108 mm[Hg] 108 mm[Hg] eCW1 ([facility]) Body weight 75.468 kg 75.468 kg [facility] ([facility]) Heart rate 79 /min 79 /min [facility] ([facility]) Body temperature 97.1 [degF] 97.1 [degF] [facility] ([facility]) Oxygen saturation in Arterial blood by Pulse oximetry 98 % 98 % [facility] ([facility]) Body weight 166.38 [lb_av] 166.38 [lb_av] [facility] T ([facility]) Body height 71 [in_i] 71 [in_i] [facility]) 5'11" Body mass index (BMI) [Ratio] 23.2 kg/m2 23.2 k g/m2 [facility] ([facility]) Body surface area Derived from formula 1.95 m2 1.95 m2 [facility] ([facility]) Systolic blood pressure 118 mm[Hg] 118 mm[Hg] M [facility] ([facility]) Diastolic blood pressure 72 mm[Hg] 72 mm[Hg] [facility] ([facility]) Systolic blood pressure 142 mm[Hg] 142 mm[Hg] [facility] ([facility]) Diastolic blood pressure 90 mm[Hg] 90 mm[Hg] [facility] ([facility]) Heart rate 99 /min 99 /min [facility] ([facility]) Respiratory rate 24 /min 24 /min [facility] ( [facility]) Oxygen saturation in Arterial blood by Pulse oximetry 72 % 72 % [facility] ([facility]) Body weight 170.00 [lb_av] 170.00 [lb_av] [facility] T ([facility]) Body weight 77.112 kg 77.112 kg [facility] ([facility]) Body height 69 [in_i] 69 [in_i] [facility] ([facility]) 5'9" Body mass index (BMI) [Ratio] 25.1 kg/m2 25.1 k g/m2 [facility] ([facility]) Body surface area Derived from formula 1.93 m2 1.93 m2 [facility] ([facility]) Systolic blood pressure 127 mm[Hg] 127 mm[Hg] M [facility] ([facility]) Diastolic blood pressure 78 mm[Hg] 78 mm[Hg] [facility] ([facility]) Heart rate 88 /min 88 /min [facility] ([facility]) Body temperature 98.2 [degF] 98.2 [degF] [facility] ([facility]) Respiratory rate 16 /min 16 /min [facility] ( [facility]) Body height 68 [in_i] 68 [in_i] [facility] ([facility]) 5'8" Body weight 79.607 kg 79.607 kg [facility] ([facility]) Body surface area Derived from formula 1.93 m2 1.93 m2 [facility] ([facility]) Oxygen saturation in Arterial blood by Pulse oximetry 99 % 99 % [facility] ([facility]) Body mass index (BMI) [Ratio] 26.7 kg/m2 26.7 k g/m2 [facility] ([facility]) Body weight 175.50 [lb_av] 175.50 [lb_av] [facility] T ([facility]) Diastolic blood pressure 68 mm[Hg] 68 mm[Hg] [facility] ([facility]) Heart rate 95 /min 95 /min [facility] ([facility]) Body temperature 97.3 [degF] 97.3 [degF] [facility] ([facility]) Respiratory rate 18 /min 18 /min [facility]) Oxygen saturation in Arterial blood by Pulse oximetry 98 % 98 % [facility] ([facility]) Systolic blood pressure 102 mm[Hg] 102 mm[Hg] M [facility] ([facility]) Body weight 179.00 [lb_av] 179.00 [lb_av] [facility] T ([facility]) Body weight 81.194 kg 81.194 kg [facility] ([facility]) Body height 70 [in_i] 70 [in_i] [facility] 5'10" Body mass index (BMI) [Ratio] 25.7 kg/m2 25.7 k g/m2 [facility] ([facility]) Body surface area Derived from formula 1.99 m2 1.99 m2 [facility] ([facility]) Systolic blood pressure 122 mm[Hg] 122 mm[Hg] M [facility] ([facility]) Diastolic blood pressure 84 mm[Hg] 84 mm[Hg] [facility] ([facility]) Heart rate 73 /min 73 /min [facility] ([facility]) Body temperature 97.2 [degF] 97.2 [degF] [facility] ([facility]) Respiratory rate 16 /min 16 /min [facility] ( [facility]) Oxygen saturation in Arterial blood by Pulse oximetry 98 % 98 % [facility] ([facility]) Body weight 186.12 [lb_av] 186.12 [lb_av] [facility] T ([facility]) Body weight 84.426 kg 84.426 kg [facility] ([facility]) Body height 70 [in_i] 70 [in_i] [facility] 5'10" Body mass index (BMI) [Ratio] 26.7 kg/m2 26.7 k g/m2 [facility] ([facility]) Body surface area Derived from formula 2.02 m2 2.02 m2 [facility] ([facility]) Systolic blood pressure 120 mm[Hg] 120 mm[Hg] M [facility] ([facility]) Diastolic blood pressure 80 mm[Hg] 80 mm[Hg] [facility] ([facility]) Heart rate 68 /min 68 /min [facility] ([facility]) Body temperature 97.6 [degF] 97.6 [degF] [facility] ([facility]) Respiratory rate 16 /min 16 /min [facility] ( [facility]) Oxygen saturation in Arterial blood by Pulse oximetry 97 % 97 % [facility] Body weight 86.411 kg 86.411 kg [facility] ([facility]) Body height 70 [in_i] 70 [in_i] [facility] ([facility]) 5'10" Body mass index (BMI) [Ratio] 27.3 kg/m2 27.3 k g/m2 [facility] ([facility]) Body surface area Derived from formula 2.04 m2 2.04 m2 [facility] ([facility]) Body weight 190.50 [lb_av] 190.50 [lb_av] [facility] T ([facility]) Body mass index (BMI) [Ratio] 28.0 kg/m2 28.0 k g/m2 [facility] ([facility]) Body surface area Derived from formula 2.06 m2 2.06 m2 [facility] ([facility]) Systolic blood pressure 112 mm[Hg] 112 mm[Hg] [facility] ([facility]) Diastolic blood pressure 78 mm[Hg] 78 mm[Hg] [facility] ([facility]) Heart rate 57 /min 57 /min [facility] ([facility]) Body temperature 97.1 [degF] 97.1 [degF] [facility] ([facility]) Respiratory rate 16 /min 16 /min [facility] ( [facility]) Oxygen saturation in Arterial blood by Pulse oximetry 98 % 98 % [facility] ([facility]) Body weight 195.00 [lb_av] 195.00 [lb_av] [facility] T ([facility]) Body weight 88.452 kg 88.452 kg [facility] ([facility]) Body height 70 [in_i] 70 [in_i] [facility] ([facility]) 5'10" Systolic blood pressure 128 mm[Hg] 128 mm[Hg] M [facility] ([facility]) Body weight 190.38 [lb_av] 190.38 [lb_av] [facility] T ([facility]) Body weight 86.354 kg 86.354 kg [facility] ([facility]) Diastolic blood pressure 80 mm[Hg] 80 mm[Hg] [facility] ([facility]) Heart rate 72 /min 72 /min [facility] ([facility]) Body temperature 97.4 [degF] 97.4 [degF] [facility] ([facility]) Respiratory rate 16 /min 16 /min [facility] ( [facility]) Oxygen saturation in Arterial blood by Pulse oximetry 99 % 99 % [facility] ([facility]) Body height 70 [in_i] 70 [in_i] [facility] ([facility]) 5'10" Body mass index (BMI) [Ratio] 27.3 kg/m2 27.3 k g/m2 [facility] ([facility]) Body surface area Derived from formula 2.04 m2 2.04 m2 [facility] ([facility]) ID Date Data Source [id number] 08/01/2020 02:01:[address] [facility] Name Value Range Interpretation Code Description Data Source(s) WEIGHT RECORDED 190 lb 190 lb [facility] Body height Measured 71 in 71 in [facility] Patient Treatment Plan of Care Planned Activity Planned Date Details Description Data Source (s) Fluoxetine 20 MG Oral Capsule 07/24/2020 12:00:00 AM [facility] Amlodipine 10 MG Oral Tablet 03/08/2020 12:00:00 AM [facility] atorvastatin 80 MG Oral Tablet 03/08/2020 12:00:00 AM [facility] Hydrochlorothiazide 50 MG Oral Tablet 03/08/2020 12:00:00 AM [facility] Lisinopril 20 MG Oral Tablet 02/19/2020 12:00:00 AM [facility]
[2021-02-05 05:04] LABS: BASO # 0.1 10^3/uL (0.0-0.2); BASO % 0.6 % (0.0-1.0); EOS # 0.2 10^3/uL (0.0-0.5); EOS % 1.8 % (0.0-3.0); HEMOGLOBIN 15.2 g/dl (13.5-17.5); LYMPH # 1.9 10^3/uL (1.5-5.0); LYMPH % 14.7 % (24.0-44.0); MEAN CORPUSCULAR HEMOGLOBIN 33.3 pg (27.0-33.0); MEAN CORPUSCULAR HGB CONC 33.8 g/dl (32.0-36.5); MEAN CORPUSCULAR VOLUME 98.5 fl (80.0-96.0); MONO # 1.2 10^3/uL (0.0-0.8); NEUTROPHILS # 9.7 10^3/uL (1.5-8.5); NEUTROPHILS % 73.5 % (36.0-66.0); PLATELET COUNT, AUTOMATED 151 10^3/uL (150-450); RED BLOOD COUNT 4.57 10^6/uL (4.30-6.10); WHITE BLOOD COUNT 13.2 10^3/uL (4.0-10.0)
[2021-02-05 05:29] LABS: ALBUMIN 3.5 GM/DL (3.2-5.2); ALT/SGPT 30 U/L (12-78); BILIRUBIN,DIRECT 0.3 MG/DL (0.0-0.2); BILIRUBIN,TOTAL 1.4 MG/DL (0.2-1.0); BLOOD UREA NITROGEN 20 MG/DL (7-18); CALCIUM LEVEL 8.9 MG/DL (8.5-10.1); CARBON DIOXIDE LEVEL 26 MEQ/L (21-32); CHLORIDE LEVEL 108 MEQ/L (98-107); GLOMERULAR FILTRATION RATE > 60.0 (>60); GLUCOSE, FASTING 104 MG/DL (70-100); LIPASE 84 U/L (73-393); POTASSIUM SERUM 3.5 MEQ/L (3.5-5.1); SODIUM LEVEL 141 MEQ/L (136-145); TOTAL PROTEIN 6.6 GM/DL (6.4-8.2)
[2021-02-05] MEDS ORDERED: NS 1,000 ML IV ONE (06:40)
[2021-02-05 06:54] LABS: C REACTIVE PROTEIN QUANTITATIV 4.72 MG/DL (0.00-0.30)
--- OUTSIDE RECORDS SUMMARY | 2021-02-05 06:55 | CCD ---
Author Author [facility] Organization [facility] Address Unknown Phone Unavailable Care Team Providers Care Supply Manager Name Role Phone Theodora Martínez MD Unavailable [...] M Kaia PA-C Unavailable Unavailable Nolan, M Kaai PA-C Unavailable Unavailable Nolan, M Kaia PA-C [...] is protected by Article 27-F of the [place] State Public Health law. If you continue you may have access to information: Regarding HIV / AIDS; Provided by facilities licensed or operated by the [facility] Office of Mental Health; or Provided by the [facility] Office for People With Developmental Disabilities. If such information is present, then the following [facility] mandated warning applies: This information has [...] law may result in a fine or penitentiary sentence or both. A general authorization for the release of medical or other information is NOT sufficient authorization for further disc losure. Allergies and Adverse Reactions Type Description Substance Reaction Status Data Source(s ) Propensity to adverse reactions NO KNOWN ALLERGIES NO KNOWN ALLERGIES [facility] Encounters Encounter Providers Location Date Indications Data Source(s ) Outpatient Attender: JULISA CORREA MD Family [facility] 01/29/2021 09:00:0 0 AM EDT [facility] ([facility]) Outpatient Attender: JULISA CORREA MDConsultant: Kaia Nolan PA-C 01/29/2021 08:45:00 AM EDT - 01/29/2021 08:45:00 AM EDT [facility] Outpatient [address] [facility] [id number] 01/13/2021 12:00:00 AM EDT eCW1 ([facility]) Outpatient Attender: Elvira Snowden PAConsultant: Kaia Lau [facility] [place]- 12/19/2020 03:40:00 PM EDT - 12/19/2020 03:40:00 PM EDT [facility] Emergency Attender: DANIE PIERREConsultant: Kaia hull PA-C 12/16/2020 08:34:00 AM EDT - 12/16/2020 11:00:00 AM EDT [facility] Patient discharged. Outpatient Attender: Elvira Snowden PAConsultant: Kaia cabral PA-C 12/16/2020 07:28:00 AM EDT - 12/16/2020 07:28:00 AM EDT [facility] Outpatient Attender: Elvira Snowden PAConsultant: Kaia cabral PA-C 12/15/2020 07:49:00 AM EDT - 12/15/2020 08:49:00 AM EDT [facility] Outpatient Attender: Elvira Snowden PA Attender: Ankita Barrientos MDConsultant: Kaia Nolan PA-C 11/19/2020 02:23:00 PM EDT - 11/19/2020 02:23: 00 PM EDT [facility] Outpatient Attender: Kaia Nloan PA-C Family [facility] 08/28 03:40:00 PM EDT [facility] ([facility]) Outpatient Attender: Kaia LEIGHonsultant: Kaia cuadra PA-C 09/16/2020 03:38:00 PM EDT - 09/16/2020 03:38:00 PM EDT [facility] Emergency Attender: Nagi Brooks MDConsultant: Kaia Brian 09/07/2020 08:22:00 AM EDT - 09/07/2020 09:33:00 AM EDT [facility] Patient discharged. Outpatient Attender: Vladislav Martínez MDReferrer: Kaia Nolan PA-C [id number] 07/24/2020 12:00:00 AM EDT - 07/24/2020 02:15:47 PM EDT Personal history of transient ischemic attack (TIA), and cerebral infarction without residual deficits [facility] Personal history of transient ischemic a ttack (TIA), and cerebral infarction without residual deficits Outpatient Attender: Kaia DEL ROSARIOCConsultant: Kaia cuadra PA-C 05/10/2020 08:40:00 AM EST - 05/10/2020 08:40:00 AM [facility] Outpatient Attender: Kaia LEIGHonsultant: Kaia cuadra PA-C 04/25/2020 07:40:00 AM EST - 04/25/2020 08:40:00 AM [facility] Outpatient Attender: Kaia Nolan PA-C 03/29 02:14:00 PM EST - 04/09/2020 02:14:00 PM [facility] Outpatient Attender: Kaia Nolan PA-C 02/26 11:19:00 AM EST - 03/07/2020 11:19:00 AM [facility] Outpatient Attender: Kaia Nolan PA-C Family Practice 02/26 10:20:00 AM EST [facility] ([facility]) Outpatient Attender: Kaia Nolan PA-C 12/28 08:06:00 AM EDT - 01/23/2020 08:06:00 AM EDT [facility] Medications Medication Brand Name Start Date [...] 12/16/2020 12:00:00 AM EDT ORAL active [facility] ([facility]) Aspirin 325 MG Oral Tablet [Miko Aspirin] Miko Aspirin 12/16/2020 12:00:00 AM EDT ORAL active [facility] ([facility]) No Active Medications 12/16/2020 12:00:00 AM EDT completed [facility] ([facility]) atorvastatin 80 MG Oral Tablet Atorvastatin Calcium 12/16/2020 1 2:00:00 AM EDT ORAL active [facility] ( [facility]) Potassium Chloride 20 MEQ Extended Release Oral Tablet Potas sium Chloride ER 12/16/2020 12:00:00 AM EDT ORAL active [facility] ([facility]) 20 mEq 11/20/2020 12:00:00 AM EDT tablet [...] 09/17/2020 12:00:00 AM EDT ORAL completed [facility] ([facility]) 20 mEq 09/17/2020 12:00:00 AM EDT tablet [...] Take 1 capsule by mo uth daily [facility] 10 mg 03/08/2020 12:00:00 AM EST tablet 30 TAKE ONE TABLET BY MOUTH EVERY DAY TAKE ONE TABLET BY MOUTH EVERY DAY SOLD: 06/13/2020 [facility] atorvastatin 80 MG Oral Tablet Atorvastatin Calcium 80 MG Oral Tablet (LIPITOR) Atorvastatin Calcium 80 MG Oral Tablet (LIPITOR) 03/08/2020 12:00:00 AM EST 80 mg Oral active Take 80 mg by mouth [facility] Hydrochlorothiazide 50 MG Oral Tablet hy droCHLOROthiazide 50 MG Oral Tablet (HYDRODIURIL) hydroCHLOROthiazide 50 MG Oral Tablet (HYDRODIURIL) 12:00:00 AM EST 50 mg Oral active Take 50 mg by mouth daily [facility] Hydrochlorothiazide 50 MG Oral Tablet [...] Oral active Take 10 mg by mouth [facility] 10 mg 03/08/2020 12:00:00 AM EST tablet [...] active Take 20 mg by mouth daily [facility] 20 mg 02/19/2020 12:00:00 AM EST tablet [...] type / Coverage type Policy ID Covered libertarian ID Covered libertarian's relationship to burrows Policy Burrows Plan Information [facility] I [id number] Self [id number] [facility] COMMUNITY PLAN XIX [id number] 18 [id number] [facility] COMMUNTY PLAN [id number] [facility] [id number] SP [id number] [facility] COMMUNITY PLAN [facility] [id number] SP [id number] UN COMMUNITY PLAN [facility] [id number] SP [id number] U[place] B[place] [id number] 18 A [id number] MEDICAID -PHYSICIAN [id number] 1 8 [id number] MEDICAID -O/P [id number] 18 [id number]/PPO 306 [id number] P [id number] [place] PPO [id number] SP [id number] MEDICAID [id number] [facility] COMMUNITY PLAN XIX [id number] 18 [id number] Problems, Conditions, and Diagnoses Code Display Name Description Problem Type Effective Dates Data Source(s) K4090 Unilateral inguinal hernia, without obstruction or gangrene, not specified as recurrent Unilateral inguinal hernia, without obst ruction or gangrene, not specified as recurrent Diagnosis 01/29/2021 08:45:00 AM EDT [facility] R3129 Other microscopic hematuria Other microscopic hematuri a Diagnosis 01/29/2021 08:45:00 AM EDT [facility] O31539 Nicotine dependence, cigarettes, uncompl icated Nicotine dependence, cigarettes, uncomplicated Diagnosis 01/29/2021 08:45:00 AM EDT [facility] N503 Cyst of epididymis Cyst of epididymis Diagnosis 08:45:00 AM EDT [facility] R102 Pelvic and perineal pain Pelvic and perineal pain Diag nosis 01/29/2021 08:45:00 AM EDT [facility] O35293 Right testicular pain Right testicular pain Diagnosis 01/29/2021 08:45:00 AM EDT [facility] R3912 Poor urinary stream Poor urinary stream Diagnosis 1 03/31/2020 08:45:00 AM EDT [facility] F308 Other manic episodes Other manic episodes Diagnosis 12/19/2020 03:40:00 PM EDT [facility] Z5320 Procedure and treatment not carried out because of patient's decision for unspecified reasons Procedure and treatment not carried out because of patient's decision for unspecified reasons Diagnosis 12/16/2020 08:34:00 AM EDT [facility] R456 Violent behavior Violent behavior Diagnosis 12/16/2020 08 :34:00 AM EDT [facility] G8929 Other chronic pain Other chronic pain [facility] Right lower quadrant pain Right lower quadrant pain Di agnosis 12/16/2020 08:34:00 AM [facility] Z1152 ENCOUNTER FOR SCREENING FOR COVID-19 ENCOUNTER F OR SCREENING FOR COVID-19 Diagnosis 12/16/2020 07:28:00 AM [facility] I10 Essential (primary) hypertension Essential (primary) h ypertension Diagnosis 12/16/2020 07:28:00 AM [facility] Z8673 Personal history of transien t ischemic attack (TIA), and cerebral infarction without residual deficits Personal history of transient ischemic attack (TIA), and cerebral infarction without residual deficits Diagnosis 12/16/2020 07:28:00 AM [facility] M545 Low back pain Low back pain Diagnosis 12/16/2020 07:28:00 AM [facility] R300 Dysuria Dysuria Diagnosis 12/16/2020 07:28:00 AM ED [facility] N179 Acute kidney failure, unspecified Acute kidney f ailure, unspecified Diagnosis 12/16/2020 07:28:00 AM [facility] D649 Anemia, unspecified Anemia, unspecified Diagnosis 0 12/15/2020 07:49:00 AM [facility] F419 Anxiety disorder, unspecified Anxiety disorder, unspec ified Diagnosis 11/19/2020 02:23:00 PM [facility] F339 Major depressive disorder, recurrent, un specified Major depressive disorder, recurrent, unspecified Diagnosis 11/19/2020 02:23:00 PM [facility] R21 Rash and other nonspecific skin eruption Rash and other nonspecific skin eruption Diagnosis 11/19/2020 02:23:00 PM [facility] 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 (cu rrent) use of aspirin Diagnosis 09/07/2020 08:22:00 AM [facility] L237 Allergic contact dermatitis due to plant s, except food Allergic contact dermatitis due to plants, except food Diagnosis 09/07/2020 08:22:00 AM [facility] Z86.73 Personal history of transien t ischemic attack (TIA), and cerebral infarction without residual deficits Personal history of transient ischemic attack (TIA), and cerebral infarction without residual deficits Diagnosis 07/24/2020 01:59:59 PM EDT [facility] M1611 Unilateral primary osteoarthritis, right hip Unilateral primary osteoarthritis, right hip Diagnosis 04/25/2020 07:40:00 AM [facility] J53405 Pain in right hip Pain in right hip Diagnosis 04/09/2020 02:14:00 PM [facility] [id number] Pure hypercholesterolemia Pure hypercholesterolemia Pr oblem 01/29/2021 12:00:00 AM EDT [facility] ([facility]) I63.9 [id number] Cerebrovascular accident (CVA), unspecifi ed mechanism Problem 01/19/2021 12:00:00 AM EDT eCW1 ([facility]) N19 [id number] Renal failure, unspecified chronicity Pro blem 01/19/2021 12:00:00 AM EDT eCW1 ([facility]) R93.[id number] scan, chest Problem 01/19/2021 12:00:00 AM EDT eCW1 ([facility]) F31.9 [id number] Bipolar affective disorder, remission sta tus unspecified Problem 01/13/2021 12:00:00 AM EDT eCW1 ([facility]) E78.5 [id number] Hyperlipidemia, unspecified hyperlipidemi a type Problem 01/13/2021 12:00:00 AM EDT eCW1 ([facility]) F41.9 Anxiety state Anxiety state Problem 01/23/2020 12:00:00 AM EDT [facility] ([facility]) F33.9 Recurrent major depressive episodes Recurrent ma paul depressive episodes Problem 01/23/2020 12:00:00 AM EDT [facility] ([facility]) I10 Essential hypertension Essential hypertension Problem 01/23/2020 12:00:00 AM EDT [facility] ([facility]) Surgeries/Procedures Procedure Description Date Indications Data Source(s) OFFICE OUTPATIENT NEW 45 MINUTES 01/29/2021 12:00:00 A M EDT [facility] ([facility]) OFFICE OUTPATIENT VISIT 15 MINUTES 12/19/2020 12:00:00 AM EDT [facility] ([facility]) OFFICE OUTPATIENT VISIT 25 MINUTES 12/16/2020 12:00:00 AM EDT [facility] ([facility]) OFFICE OUTPATIENT VISIT 25 MINUTES 11/19/2020 12:00:00 AM EDT [facility] ([facility]) OFFICE OUTPATIENT VISIT 15 MINUTES 09/16/2020 12:00:00 AM EDT [facility] ([facility]) PLATELET AGGREGATION IN VITRO EACH AGENT <td>VERIFYNOW ASPIRIN</td><td>Routine</td><td>07/24/2020 2:27 PM EDT</td><td> History of ischemic stroke</td><td> </td> 07/24/2020 02:27:00 PM EDT History of ischemic stroke [facility] History of ischemic stroke Brief Emotional/Behav Assessment W/ Scoring Doc Per Standard Inst 01/23/2020 12:00:00 AM EDT [facility] ([facility]) Admin Patient Focused Health Risk Assessment Instrument 01/23/2020 12:00:00 AM EDT [facility] ([facility]) Results ID Date Data Source [id number] 01/29/2021 11:13:00 AM EDT [facility] ([facility]) Name Value Range Interpretation Code Description Data Rhea rce(s) Supporting Document(s) Appearance of Urine Laboratory test result [facility] ([facility]) Color of Urine Laboratory test result [facility] ([facility]) Leukocytes Laboratory test result [facility] ([facility]) pH of Urine by Test strip 5 5-9 MEDE NT ([facility]) Spec Backus 1.020 1.001-1.030 [facility] ([facility]) Protein [Presence] in Urine by Test strip Laboratory test result [facility] ([facility]) Nitrate [Presence] in Urine [facility] Urobilinogen Laboratory test result [facility] ([facility]) Ketones [Presence] in Urine by Test strip Laboratory [facility] Inhouse Glucose 100 Above high normal [place] DENT ([facility]) Bilirubin.total [Presence] in Urine by Test strip Laboratory test res ult [facility] ([facility]) Blood type and Indirect antibody screen panel - Blood 50 Above high normal [facility] ([facility]) ID Date Data Source [id number] 12/19/2020 10:07:00 PM EDT [facility] Name Value Range Interpretation Code Description Data Rhea rce(s) Supporting Document(s) SARS coronavirus 2 RNA [Presence] in Res piratory specimen by JOSE with probe detection NEGATIVE [facility] This lab was ordered by [facility] a nd reported by [facility]. ID Date Data Source [id number] 12/17/2020 08:04:00 AM EDT [facility] ([facility]) Name Value Range Interpretation Code Description Data Rhea rce(s) Supporting Document(s) Folate [Mass/volume] in Serum or Plasma 7.7 ng/mL 4.4-31.0 [facility] ([facility]) Ferritin [Mass/volume] in Serum or Plasma 451.0 ng/mL 5.0-244 Above high normal [facility] ([facility]) Cobalamin (Vitamin B12) [Mass/volume] in Serum or Plasma 917 pg/mL 2 32-1245 [facility] ([facility]) ID Date Data Source [id number] 12/17/2020 08:04:00 AM EDT [facility] ([facility]) Name Value Range Interpretation Code Description Data Rhea rce(s) Supporting Document(s) Iron 51 ug/dL 42-135 [facility] ([facility]) Uibc 185 ug/dL 112-347 [facility] ([facility]) Tibc 236 ug/dL 250-450 Below low normal [facility] ( [facility]) Iron Sat 22 % [facility] ([facility]) ID Date Data Source [id number] 12/17/2020 11:18:00 AM EDT [facility] Name Value Range Interpretation Code Description Data Rhea rce(s) Supporting Document(s) Ferritin [Mass/volume] in Serum or Plasma 451.0 ng/mL 5.0 - 244 H [facility] ID Date Data Source [id number] 12/17/2020 11:15:00 AM EDT [facility] Name Value Range Interpretation Code Description Data Rhea rce(s) Supporting Document(s) Cobalamin (Vitamin B12) [Mass/volume] in Serum or Plasma 917 PG/ML 232 - 1245 [facility] ID Date Data Source [id number] 12/17/2020 11:15:00 AM EDT [facility] Name Value Range Interpretation Code Description Data Rhea rce(s) Supporting Document(s) Folate [Mass/volume] in Serum or Plasma 7.7 NG/ML 4.4 - 31.0 [facility] ID Date Data Source [id number] 12/17/2020 10:54:00 AM EDT [facility] Name Value Range Interpretation Code Description Data Rhea rce(s) Supporting Document(s) Iron [Mass/volume] in Serum or Plasma 51 UG/DL 42 - 135 [facility] Iron binding capacity.unsaturated [Mass/volume] in Serum or Plasma 185 UG/DL 112 - 347 [facility] Iron binding capacity [Mass/volume] in Serum or Plasma 236 ug/dL 250 - 450 L [facility] Iron saturation [Mass Fraction] in Serum or Plasma 22 % [facility] ID Date Data Source [id number] 12/16/2020 08:34:00 AM EDT [facility] 1 OrderSheet [facility] Emergency Department [address] [place] [address] Phone #: [phone] 12/16/2020 08:34 Patient: NEERAJ SANTIAGO Sex: M [...] Danie Pierre Jennifer Jennifer R.N. 2 OrderSheet [facility] Emergency Department [address] [place] [address] Phone #: ext- [phone] 12/16/2020 08:34 Patient: NEERAJ SANTIAGO Sex: M : 1975 Age: 45y(Oxygen?(No)) Jem; R.N.(IV?(Yes)) Reason for Study: RLQ pain w radiation to rt testicle x 2 monthsUS Scrotal STAT 09:00 12/16/2020 Ack'd: 09:07 09:46 Prole,(Oxygen?(No)) Danie Pierre Jennifer Jennifer R.N. MLarissaDLarissa; R.N. Reason for Study: rt testicle pain x 2 monthsCT Chest W/O Cont STAT 10:35 12/16/2020 Cancelled: Patient Refusal 11:06 Turrin,(Oxygen?(No)) Danie Pierre M.D., M.D.; Reason for Study: Covid Pneumoniae on CTAPMEDICATION/IV/DRIP/FLUID ORD ERSOrder Description Priority Entered Acknowledged InitialedToradol 15 mg IVP 09:00 12/16/2020 Ack'd: 09:07 10:09 Prole,X1 dose: 15 mg Danie Pierre Jennifer Jennifer R.N.(NOW x1) M.D.; R.N.Zofran 4 mg IVP X 1 09:00 12/16/2020 Ack'd: 09:07 09:15 Prole,dose: 4 mg (NOW Danie Pierre Jennifer Jennifer R.N.x1) M.D.; R.N.NS IV 500 mL 09:00 12/16/2020 Ack'd: 09:07 09:15 Prema,Bolus: : Bolus 500 Danie Pierre Jennifer Jennifer R.N.mL, then 150 mL/hr M.D.; R.N.(X1)Potassium Chloride 09:48 12/16/2020 Ack'd: 09:50 10:09 Prole,Liquid PO 40 meq Danie Pierre Jennifer Jennifer R.N. M.DLarissa; R.N.Dexamethasone 10:29 12/16/2020IVP 10 mg Danie Pierre M.D.;GENERAL ORDERSOrder Description Priority Entered Acknowledged InitialedNPO 08:58 12/16/2020 09:07 Prole, Danie Pierre R.N., M.D.;Saline Lock 08:58 12/16/2020 09:07 Ignacio Lloyd Riccardo Jennifer R.N. M.D.; 3 OrderSheet [facility] Emergency Department [address] [place] [address] Phone #: ext- [phone] 12/16/2020 08:34 Patient: NEERAJ SANTIAGO Sex: M : 1975 Age: 45y[Electronically signed by Carola Lloyd R.N. (11:00 12/16/2020)][Electronically signed by Danie Pierre M.D. (19:30 12/16/2020)][Electronically locked by Carola Lloyd R.N. (11:00 12/16/2020)] Name Value Range Interpretation Code Description Data Rhea rce(s) Supporting Document(s) ID Date Data Source [id number] 12/16/2020 08:34:00 AM EDT [facility] 1 Medication Reconciliation Report [facility] Emergency Department [address] [place] [address] Phone #: ext- [phone] 12/16/2020 08:34 Patient: [...] rce(s) Supporting Document(s) ID Date Data Source [id number] 12/16/2020 08:34:00 AM EDT [facility] 1 Medication Administration Record [facility] Emergency Department [address] [place] [address] Phone #: ext- [phone] 12/16/2020 08:34 Patient: [...] NS IV 500 mL Bolus: : Bolus 47100:12/16/2020 Dose: IV Fluids mL, then 150 mL/hr (X1)Carola Llody R.N. Rate: 150 mL/hr---- Bolus: 500 mL wide openStop Dispensed: 1000 mL bag10:35 12/16/2020 Site: #1 left Carola Rick R.N.Given POTASSIUM CHLORIDE LIQUID PO Potassium Chloride Liquid PO 4010:09 12/16/2020 Dose: 40 meq Oral Suspension PO meqCarola Lloyd R.N. Name Value Range Interpretation Code Description Data Rhea rce(s) Supporting Document(s) ID Date Data Source [id number] 12/16/2020 08:34:00 AM EDT [facility] 1 General Instructions [facility] Emergency Department [address] [place] [address] Phone #: [phone]- [phone] 12/16/2020 08:34 Patient: NEERAJ SANTIAGO Sex: M [...] rce(s) Supporting Document(s) ID Date Data Source [id number] 12/16/2020 08:34:00 AM EDT [facility] 1 Clinical Report - Nurses [facility] Emergency Department [address] [place] [address] Phone #: ext- [phone] 12/16/2020 08:34 Patient: NEERAJ SANTIAGO Sex: M : 1975 Age: 45yTRIAGEArrived by private vehicle. Historian: patient. Accompanied by (Significant other).Triage time: 08:35 12/16/2020. Acuity: LEVEL 3.Chief Complaint: TESTICULAR PAIN.Alert.Onset. (2 weeks ago). 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 SEPSIS SCREEN [...] known surgeries. 2 Clinical Report - Nurses [facility] Emergency Department [address] [place] [address] Phone #: ext- [phone] 12/16/2020 08:34 Patient: [...] states chronic cough and recent travel to [place] with negative covid test on 12/08/2020, denies [...] Lloyd R.N. 3 Clinical Report - Nurses [facility] Emergency Department [address] [place] [address] Phone #: ext- [phone] 12/16/2020 08:34 Patient: NEERAJ SANTIAGO Sex: M [...] 12/16/20 Carola Lloyd R.N. Patient transported to [facility] by wheelchair with mask and cardiac cath lab radiology technologist. --09:46 12/16/20 Carola Lloyd R.N. 10:08 12/16/20. BP: 147/95. HR: 58. RR: 18. O2 saturation: 100%. --10:08 12/16/20 Carola Lloyd R.N. late entry - 10:05 12/16/20. Patient returned from [place] by wheelchair with mask and cardiac cath lab radiology technologist. --10:10 12/16/20 Carola Lloyd R.N. 10:12/16/2020 Toradol [...] Lloyd R.N. 4 Clinical Report - Nurses [facility] Emergency Department [address] [place] [address] Phone #: ext- [phone] 12/16/2020 08:34 Patient: [...] rce(s) Supporting Document(s) ID Date Data Source [id number] 12/16/2020 08:34:00 AM EDT [facility] 1 Clinical Report - Physicians/Mid Levels [facility] Emergency Department [address] [place] [address] Phone #: ext- [phone] 12/16/2020 08:34 Patient: [...] sent to ER for eval. was in [place] x last 2 weeks , returned on 12/14, was in ER 9 days ago, told he was dehydrated and his BP was low and his Creat was 10, but back to ncl now per his family MD???).REVIEW OF SYSTEMSNo [...] Allergy. 2 Clinical Report - Physicians/Mid Levels [facility] Emergency Department [address] [place] [address] Phone #: ext- [phone] 12/16/2020 08:34 Patient: NEERAJ SANTIAGO Sex: M : 1975 Age: 45ySOCIAL HISTORYHeavy tobacco smoker- 1 pack per day. Heavy drug use: marijuana. No alcohol use. Recent travel by[place] in the last two (2) weeks[place] [facility] [place]ADDITIONAL NOTESThe nursing notes have been reviewed with [...] noted. The exam was performed by a electrostatic powder coating technician.The study was limited due to pain. The study was interpreted by the radiologist. Interpretation time:10:15 12/16/2020.Laboratory Tests: Laboratory tests have been ordered, with results reviewed and considered in themedical decision making process. US Scrotal: (KYLE: 12/16/2020 09:00) ( KygRcvd 12/16/2020 10:00) In Progress US SCROTAL Reason(s): rt testicle pain x 2 months TRANSPORTATION: IV? O2? Oxygen?(No) Room: ED CBC w Diff: (KYLE: 12/16/2020 09:05) ( MsgRcvd 12/16/2020 09:15) Final results Test Result Flag Units (Reference) CBC W/AUTOMATED DIFF COMPLETE BLOOD CO UNT 3 Clinical Report - Physicians/Mid Levels [facility] Emergency Department [address] [place] [address] Phone #: ext- [phone] 12/16/2020 08:34 Patient: [...] Male GFR Interprentation 20-49 yrs >60 mL/min Dtqxgx62-98 yrs >56 mL/min Normal 60-69 yrs >49 mL/min Normal 70-79yrs>42 mL/min Normal 80 and above >35 mL/min Normal Female GFRInterpretation 20-39 yrs >60 mL/min Normal 40-49 yrs >58 mL/minNormal 50-59 yrs >51 mL/min Normal 60-69 yrs >45 mL/min Hetsek60-46 yrs >39 mL/min Normal 80 and above >32 mL/min Normal 4 Clinical Report - Physicians/Mid Levels [facility] Emergency Department [address] [place] [address] Phone #: ext- [phone] 12/16/2020 08:34 Patient: NEERAJ SANTIAGO 4 Sex: M : 1975 Age: 45y Lipase: (KYLE: 12/16/2020 09:05) ( [facility] 12/16/2020 09:41) Final results Test Result Flag [...] having 5 Clinical Report - Physicians/Mid Levels [facility] Emergency Department [address] [place] [address] Phone #: ext- [phone] 12/16/2020 08:34 Patient: NEERAJ SANTIAGO Sex: M [...] rce(s) Supporting Document(s) ID Date Data Source [id number] 12/16/2020 03:45:00 PM EDT [facility] ([facility]) Name Value Range Interpretation Code Description Data Rhea rce(s) Supporting Document(s) Laboratory test finding (navigational concept) Laboratory test result [facility] ([facility]) Sars-CoV-2, Jose Laboratory test result [facility] ([facility]) This nucleic acid amplification test was developed and its performance characteristics determined by [employer]. Nucleic acid amplification tests include RT-PCR and [...] in this assay. ID Date Data Source [id number] 12/16/2020 03:45:00 PM EDT [facility] Name Value Range Interpretation Code Description Data Rhea rce(s) Supporting Document(s) SARS coronavirus 2 RNA Not Detected [facility] This lab was ordered by [facility] Rob pascual and reported by [employer]. ID Date Data Source [id number] 12/19/2020 06:23:00 AM EDT [facility] Name Value Range Interpretation Code Description Data Rhea rce(s) Supporting Document(s) SARS-CoV-2, JOSE Not Detected Not Detected [facility] This nucleic acid amplification test was developed and its performancecharacteristics determined by [employer]. Nucleic acidamplification tests include RT-PCR and TMA. [...] assay. SARS-CoV-2, JOSE 2 DAY TAT Performed [facility] ID Date Data Source [id number] 12/16/2020 01:41:00 PM EDT [facility] [address] [place] [address] PHONE: [phone] FAX: [phone] Name .................. : PAMELA PICKARD Acct Number.................. : [id number] ROOM. ................. : VT- MR Number ................... : [id number] Stay type ............. : E/R Discharge Date......... ... : Admit Date ......... : 12/16/20 Admit Phys .................... : IGNACIO LENTZ Date of ....... : 1975 Family Phys ................... : GEN Phone .................. : [phone] Age ................................ : 45 Film# .................. .:[id number] Sex ................................. : M Unsigned transcriptions are preliminary reports and do not represent a medical or legal document CT ABD & PELVIS W/ IV ONLY [id number] COMPLETE:12/16/20 09:00 [id number] Reason(s): RLQ pain w radiation to rt [...] the reproductive organs. Page 1 of 3 [facility] [address] [facility] [place] [address] PHONE: [phone] FAX: [phone] Name .................. : PAMELA PICKARD Acct Number.................. : [id number] ROOM. ................. : VT-02 MR Number ................... : [id number] Stay type ............. : E/R Discharge Date......... ... : Admit Date ......... : 12/16/20 Admit Phys .................... : IGNACIO MARY CARMEN Date of ....... : 1975 Family Phys ................... : [employer] Phone .................. : [phone] Age ................................ : 45 Film# .................. .:[id number] Sex ................................. : M Unsigned transcriptions are preliminary reports and do not represent a medical or legal document CT ABD & PELVIS W/ IV ONLY [id number] COMPLETE:12/16/20 09:00 99425 Reason(s): RLQ pain w radiation to rt [...] via fax Copy for: EMERGENCY DEPT via [employer] Copy for: 710 MED REC Page 2 of 3 [facility] [address] [place] [address] [place] [address] PHONE: [phone] FAX: [phone] Name .................. : PAMELA PICKARD Acct Number.................. : [id number] ROOM. ................. : VT-02 MR Number ................... : [id number] Stay type ............. : E/R Discharge Date......... ... : Admit Date ......... : 12/16/20 Admit Phys .................... : IGNACIO LENTZ Date of ....... : 1975 Family Phys ................... : GEN Phone .............. .... : [phone] Age ................................ : 45 Film# .................. .:[id number] Sex ................................. : M Unsigned transcriptions are preliminary reports and do not represent a medical or legal document CT ABD & PELVIS W/ IV ONLY [id number] COMPLETE:12/16/20 09:00 11121 Reason(s): RLQ pain w radiation to rt testicle x 2 months DISCHARGED Page 3 of 3 Name Value Range Interpretation Code Description Data Rhea rce(s) Supporting Document(s) ID Date Data Source [id number] 12/16/2020 01:41:00 PM EDT [facility] [address] [place] [address] PHONE: [phone] FAX: [phone] Name .................. : PAMELA PICKARD Acct Number.................. : [id number] ROOM. ................. : VT-02 Number ................... : [id number] Stay type ............. : E/R Discharge Date......... ... : Admit Date ......... : 12/16/20 Admit Phys .................... : IGNACIO LENTZ Date of ....... : 1975 Family Phys ................... : GEN Phone .................. : [phone] Age ................................ : 45 Film# .................. .:[id number] Sex ................................. : M Unsigned transcriptions are preliminary reports and do not represent a medical or legal document SCROTAL [id number] COMPLETE:12/16/20 10:00 KNB [id number] Reason(s): rt testicle pain x 2 months [...] Nor mal study Page 1 of 2 [facility] [address] [place] [address] PHONE: [phone] FAX: [phone] Name .................. : PAMELA PICKARD Acct Number.................. : [id number] ROOM. ................. : VT-02 Number ................... : [id number] Stay type ............. : E/R Discharge Date......... ... : Admit Date ......... : 12/16/20 Admit Phys .................... : IGNACIO LENTZ Date of ....... : 1975 Family Phys ................... : GEN Phone .................. : [phone] Age ................................ : 45 Film# .................. .:[id number] Sex ................................. : M Unsigned transcriptions are preliminary reports and do not represent a medical or legal document SCROTAL [id number] COMPLETE:12/16/20 10:00 KNB [id number] Reason(s): rt testicle pain x 2 months [...] rce(s) Supporting Document(s) ID Date Data Source [id number] 12/16/2020 09:41:00 AM EDT [facility] Name Value Range Interpretation Code Description Data Rhea rce(s) Supporting Document(s) COMPREHENSIVE METABOLIC PANEL [facility] COMPREHENSIVE METABOLIC PANEL Sodium [Moles/volume] in Serum or Plasma 136 mEq/L 134 - 153 [facility] Potassium [Moles/volume] in Serum or Plasma 3.2 mEq/L 3.6 - 5.0 L [facility] Chloride [Moles/volume] in Serum or Plasma 98 mEq/L 98 - 107 [facility] Carbon dioxide, total [Moles/volume] in Serum or Plasma 25 MEQ/L 22 - 30 [facility] Glucose [Mass/volume] in Serum or Plasma 94 MG/DL 70 - 99 [facility] BUN 14 MG/DL 7 - 21 [facility] Creatinine [Mass/volume] in Serum or Plasma 0.8 MG/DL 0.7 - 1.5 [facility] BUN/CREAT 18 8 - 27 [facility] Protein [Mass/volume] in Serum or Plasma 6.0 G/DL 6.3 - 8.2 L [facility] Albumin [Mass/volume] in Serum or Plasma 4.1 G/DL 3.9 - 5.0 [facility] Globulin [Mass/volume] in Serum by calculation 1.9 GM/DL 2.4 - 3.2 L [facility] A/G RATIO 2.2 0.8 - 2.0 H [facility] al Calcium [Mass/volume] in Serum or Plasma 9.0 MG/DL 8.4 - 10.2 [facility] Bilirubin.total [Mass/volume] in Serum or Plasma 0.9 MG/DL 0.2 - 1.3 [facility] Alkaline phosphatase [Enzymatic activity/volume] in Serum or Plasma 103 U/L 38 - 126 [facility] Aspartate aminotransferase [Enzymatic activity/volume] in Serum or Plasma 50 U/L 5 - 40 H [facility] Alanine aminotransferase [Enzymatic activity/volume] in Seru m or Plasma 67 U/L 7 - 56 H [facility] Anion gap 3 in Serum or Plasma 13.0 mmol/L 8.0 - 16.0 [facility] AGE 45 yrs [facility] al NON-AA GFR >60 mL/min [facility] Hosp ital AFR AMER GFR >60 mL/min [facility] Ho spital Male GFR In terprentation [...] >32 mL/min Normal ID Date Data Source [id number] 12/16/2020 09:41:00 AM EDT [facility] Name Value Range Interpretation Code Description Data Rhea rce(s) Supporting Document(s) Lipase [Enzymatic activity/volume] in Serum or Plasma 28 U/L 13 - 60 [facility] ID Date Data Source [id number] 12/16/2020 09:21:00 AM EDT [facility] Name Value Range Interpretation Code Description Data Rhea rce(s) Supporting Document(s) Lactate [Moles/volume] in Serum or Plasma 1.3 MMOL/L 0.2 - 2.2 [facility] ID Date Data Source [id number] 12/16/2020 09:15:00 AM EDT [facility] Name Value Range Interpretation Code Description Data Rhea rce(s) Supporting Document(s) CBC W/AUTOMATED DIFF [facility] COMPLETE BLOOD COUNT Leukocytes [#/volume] in Blood by Automated count 9.5 10^3/uL 4.2 - 1 1.0 [facility] Erythrocytes [#/volume] in Blood by Automated count 3.80 10^6/uL 4. 50 - 6.30 L [facility] Hemoglobin [Mass/volume] in Blood 12.7 g/dL 14.0 - 16.0 L [facility] Hematocrit [Volume Fraction] of Blood by Automated count 36.5 % 4 1.0 - 51.0 L [facility] Erythrocyte mean corpuscular volume [Entitic volume] by Auto mated count 96.1 fL 80.0 - 94.0 H [facility] Erythrocyte mean corpuscular hemoglobin [Entitic mass] by Automated count 33.4 pg 27.0 - 34.0 [facility] Erythrocyte mean corpuscular hemoglobin concentration [Mass/volume] by Automated count 34.8 g/dL 31.0 - 36.0 [facility] Erythrocyte distribution width [Ratio] by Automated count 12.0 % 11.5 - 14.8 [facility] Platelets [#/volume] in Blood by Automated count 212 10^3/uL 150 - 45 0 [facility] Platelet mean volume [Entitic volume] in Blood by Automated count 11.4 fL 7.4 - 10.4 H [facility] Neutrophils/100 leukocytes in Blood by Automated count 70.0 % 37. 0 - 80.0 [facility] Lymphocytes/100 leukocytes in Blood by Manual count 19.3 % 25.0 - 40.0 L [facility] Monocytes/100 leukocytes in Blood by Automated count 8.2 % 3.0 - 8.0 H [facility] Eosinophils/100 leukocytes in Blood by Automated count 1.6 % 0.0 - 7.0 [facility] Basophils/100 leukocytes in Blood by Automated count 0.7 % 0.0 - 2.0 [facility] %IG 0.2 % 0.0 - 0.0 [facility] %NRBC 0.0 % 0.0 - 0.0 [facility] al Neutrophils [#/volume] in Blood by Automated count 6.68 10^3/uL 2.00 - 6.90 [facility] Lymphocytes [#/volume] in Blood by Automated count 1.84 10^3/uL 0.60 - 3.40 [facility] Monocytes [#/volume] in Blood by Automated count 0.78 10^3/uL 0.00 - 0.90 [facility] Eosinophils [#/volume] in Blood by Automated count 0.15 10^3/uL 0.00 - 0.70 [facility] Basophils [#/volume] in Blood by Automated count 0.07 10^3/uL 0.00 - 0.20 [facility] #IG 0.02 10^3/uL 0.00 - 0.10 [facility] H ospital #NRBC 0.00 10^3/uL 0.00 - 0.00 [facility] ospital MANUAL DIFF NOT INDICATED [facility] RBC MORPH NOT INDICATED [facility] spital ID Date Data Source [id number] 12/16/2020 09:14:00 AM EDT [facility] Name Value Range Interpretation Code Description Data Rhea rce(s) Supporting Document(s) UA REFLEX TO UA CULTURE [facility] URINALYSIS SOURCE R [facility] COLOR yellow NORMAL: Yellow [facility] ospital CLARITY clear NORMAL: Clear [facility] spital Specific gravity of Urine by Test strip 1.010 1.001 - 1.030 [facility] pH 6 5 - 9 [facility] al Glucose [Mass/volume] in Urine by Test strip NORM NORMAL: Negat myah [facility] Bilirubin.total [Presence] in Urine by Test strip NEG NORMAL: Negative [facility] Ketones [Presence] in Urine by Test strip NEG NORMAL: Negative [facility] Protein [Mass/volume] in Urine by Test strip NEG NORMAL: Negat myah [facility] Nitrite [Presence] in Urine by Test strip NEG NORMAL: Negative [facility] BLOOD 25 NORMAL: Negative A [facility] Leukocyte esterase [Presence] in Urine by Test strip NEG YOSVANY L: Negative [facility] Urobilinogen [Mass/volume] in Urine by Test strip NOR less gayle n 1.0 mg/dL [facility] MICROSCOPIC See Below [facility] ital WBC 0 - 1 NORMAL: NONE SEEN [facility] Erythrocytes [#/volume] in Urine by Test strip 0 - 1 NORMAL: NON E SEEN [facility] EPITHELIAL FEW NORMAL: NONE SEEN [facility] Bacteria [Presence] in Urine sediment by Light microscopy Tr jake NORMAL: NONE SEEN [facility] Mucus [Presence] in Urine sediment by Light microscopy None Seen NORMAL: NONE SEEN [facility] Amorphous sediment [Presence] in Urine sediment by Light jp roscopy NONE SEEN NORMAL: NONE SEEN [facility] Casts [#/area] in Urine sediment by Microscopy low power field N ot Indicated [facility] Crystals [type] in Urine sediment by Light microscopy Not Indicated [facility] YEAST None Seen [facility] ID Date Data Source [id number] 12/15/2020 08:04:00 AM EDT [facility] Name Value Range Interpretation Code Description Data Rhea rce(s) Supporting Document(s) Cve Panel Laboratory test result [facility] ([facility]) Is patient fasting? Y Cholesterol 178 mg/dL 131-200 [facility] ([facility]) Is patient fasting? Y Triglycerides 89 mg/dL 35-160 [facility] ([facility]) Is patient fasting? Y HDL 40 mg/dL 29-86 [facility] ([facility]) Is patient fasting? Y LDL 121 mg/dL 65-175 [facility] ([facility]) Is patient fasting? Y Risk Factor 4.5 3.4-4.9 [facility] ([facility]) Is patient fasting? Y LDL/HDL 3.03 1.00-3.55 [facility] ([facility]) Is patient fasting? Y ID Date Data Source [id number] 12/15/2020 08:04:00 AM EDT [facility] ([facility]) Name Value Range Interpretation Code Description Data Rhea rce(s) Supporting Document(s) Sodium 140 meq/L 134-153 [facility] ([facility]) Is patient fasting? Y Comprehensive [place] Laboratory test result [facility] ([facility]) Is patient fasting? Y Potassium 3.7 meq/L 3.6-5.0 [facility] ([facility]) Is patient fasting? Y Chloride 103 meq/L 98-107 [facility] ([facility]) Is patient fasting? Y Co2 25 meq/L 22-30 [facility] ([facility]) Is patient fasting? Y BUN 17 mg/dL 7-21 [facility] ([facility]) Is patient fasting? Y Glucose 97 mg/dL 70-99 [facility] ([facility]) Is patient fasting? Y Creatinine 0.8 mg/dL 0.7-1.5 [facility]) Is patient fasting? Y BUN/Creat 21 8-27 [facility] ([facility]) Is patient fasting? Y Total Protein 6.0 g/dL 6.3-8.2 Below low normal [facility] ([facility]) Is patient fasting? Y A/G Ratio 2.0 0.8-2.0 [facility] ([facility]) Is patient fasting? Y Globulin 2.0 GM/DL 2.4-3.2 Below low normal [facility] ( [facility]) Is patient fasting? Y Albumin 4.0 g/dL 3.9-5.0 [facility] ([facility]) Is patient fasting? Y Calcium 9.0 mg/dL 8.4-10.2 [facility] ([facility]) Is patient fasting? Y Total Bili 0.7 mg/dL 0.2-1.3 [facility] ([facility]) Is patient fasting? Y Alkaline Phos 98 U/L 38-126 [facility] ([facility]) Is patient fasting? Y Sgot/Ast 48 U/L 5-40 Above high normal [facility] ([facility]) Is patient fasting? Y Anion Gap 12.0 mmol/L 8.0-16.0 [facility] ([facility]) Is patient fasting? Y SGPT/Alt 72 U/L 7-56 Above high normal [facility] ([facility]) Is patient fasting? Y Non-Aa GFR Laboratory test result [facility] ([facility]) Is patient fasting? Y Age 45 yrs [facility] ([facility]) Is patient fasting? Y Afr Amer GFR Laboratory test result [facility] ([facility]) Is patient fasting? Y ID Date Data Source [id number] 12/15/2020 08:04:00 AM EDT [facility] ([facility]) Name Value Range Interpretation Code Description Data Rhea rce(s) Supporting Document(s) CBC W/Automated Diff Laboratory test result [facility] ([facility]) Is patient fasting? Y WBC 8.1 10^3/uL 4.2-11.0 [facility] ([facility]) Is patient fasting? Y RBC 3.84 10^6/uL 4.50-6.30 Below low normal [facility] ([facility]) Is patient fasting? Y Hemoglobin 12.6 g/dL 14.0-16.0 Below low normal [facility] ( [facility]) Is patient fasting? Y Hematocrit 37.3 % 41.0-51.0 Below low normal [facility] ( [facility]) Is patient fasting? Y MCV 97.1 fL 80.0-94.0 Above high normal [facility] ([facility]) Is patient fasting? Y MCHC 33.8 g/dL 31.0-36.0 [facility] ([facility]) Is patient fasting? Y MCH 32.8 pg 27.0-34.0 [facility] ([facility]) Is patient fasting? Y MPV 11.8 fL 7.4-10.4 Above high normal [facility] ([facility]) Is patient fasting? Y Platelets 198 10^3/uL 150-450 [facility] ([facility]) Is patient fasting? Y RDW 12.1 % 11.5-14.8 [facility] ([facility]) Is patient fasting? Y Neut 70.4 % 37.0-80.0 [facility] ([facility]) Is patient fasting? Y Lymph 16.7 % 25.0-40.0 Below low normal [facility] ( [facility]) Is patient fasting? Y George 8.8 % 3.0-8.0 Above high normal [facility] ([facility]) Is patient fasting? Y Eos 3.2 % 0.0-7.0 [facility] ([facility]) Is patient fasting? Y Baso 0.7 % 0.0-2.0 [facility] ([facility]) Is patient fasting? Y %NRBC 0.0 % 0.0-0.0 [facility] ([facility]) Is patient fasting? Y %Ig 0.2 % 0.0-0.0 Above high normal [facility] ([facility]) Is patient fasting? Y #Lymph 1.35 10^3/uL 0.60-3.40 [facility] ([facility]) Is patient fasting? Y #Neut 5.67 10^3/uL 2.00-6.90 [facility] ([facility]) Is patient fasting? Y #George 0.71 10^3/uL 0.00-0.90 [facility] ([facility]) Is patient fasting? Y #Eos 0.26 10^3/uL 0.00-0.70 [facility] ([facility]) Is patient fasting? Y #Baso 0.06 10^3/uL 0.00-0.20 [facility] ([facility]) Is patient fasting? Y #NRBC 0.00 10^3/uL 0.00-0.00 [facility] ([facility]) Is patient fasting? Y #Ig 0.02 10^3/uL 0.00-0.10 [facility] ([facility]) Is patient fasting? Y RBC Morph Laboratory test result [facility] ([facility]) Is patient fasting? Y Manual Diff Laboratory test result [facility] ([facility]) Is patient fasting? Y ID Date Data Source [id number] 12/15/2020 09:07:00 AM EDT [facility] Name Value Range Interpretation Code Description Data Rhea rce(s) Supporting Document(s) CBC W/AUTOMATED DIFF [facility] COMPLETE BLOOD COUNT Leukocytes [#/volume] in Blood by Automated count 8.1 10^3/uL 4.2 - 1 1.0 [facility] Erythrocytes [#/volume] in Blood by Automated count 3.84 10^6/uL 4. 50 - 6.30 L [facility] Hemoglobin [Mass/volume] in Blood 12.6 g/dL 14.0 - 16.0 L [facility] Hematocrit [Volume Fraction] of Blood by Automated count 37.3 % 4 1.0 - 51.0 L [facility] Erythrocyte mean corpuscular volume [Entitic volume] by Auto mated count 97.1 fL 80.0 - 94.0 H [facility] Erythrocyte mean corpuscular hemoglobin [Entitic mass] by Automated count 32.8 pg 27.0 - 34.0 [facility] Erythrocyte mean corpuscular hemoglobin concentration [Mass/volume] by Automated count 33.8 g/dL 31.0 - 36.0 [facility] Erythrocyte distribution width [Ratio] by Automated count 12.1 % 11.5 - 14.8 [facility] Platelets [#/volume] in Blood by Automated count 198 10^3/uL 150 - 45 0 [facility] Platelet mean volume [Entitic volume] in Blood by Automated count 11.8 fL 7.4 - 10.4 H [facility] Neutrophils/100 leukocytes in Blood by Automated count 70.4 % 37. 0 - 80.0 [facility] Lymphocytes/100 leukocytes in Blood by Manual count 16.7 % 25.0 - 40.0 L [facility] Monocytes/100 leukocytes in Blood by Automated count 8.8 % 3.0 - 8.0 H [facility] Eosinophils/100 leukocytes in Blood by Automated count 3.2 % 0.0 - 7.0 [facility] Basophils/100 leukocytes in Blood by Automated count 0.7 % 0.0 - 2.0 [facility] %IG 0.2 % 0.0 - 0.0 [facility] %NRBC 0.0 % 0.0 - 0.0 [facility] al Neutrophils [#/volume] in Blood by Automated count 5.67 10^3/uL 2.00 - 6.90 [facility] Lymphocytes [#/volume] in Blood by Automated count 1.35 10^3/uL 0.60 - 3.40 [facility] Monocytes [#/volume] in Blood by Automated count 0.71 10^3/uL 0.00 - 0.90 [facility] Eosinophils [#/volume] in Blood by Automated count 0.26 10^3/uL 0.00 - 0.70 [facility] Basophils [#/volume] in Blood by Automated count 0.06 10^3/uL 0.00 - 0.20 [facility] #IG 0.02 10^3/uL 0.00 - 0.10 [facility] H ospital #NRBC 0.00 10^3/uL 0.00 - 0.00 [facility]spital MANUAL DIFF NOT INDICATED [facility] RBC MORPH NOT INDICATED [facility] spital ID Date Data Source [id number] 12/15/2020 09:06:00 AM EDT [facility] Name Value Range Interpretation Code Description Data Rhea rce(s) Supporting Document(s) COMPREHENSIVE METABOLIC PANEL [facility] COMPREHENSIVE METABOLIC PANEL Sodium [Moles/volume] in Serum or Plasma 140 mEq/L 134 - 153 [facility] Potassium [Moles/volume] in Serum or Plasma 3.7 mEq/L 3.6 - 5.0 [facility] Chloride [Moles/volume] in Serum or Plasma 103 mEq/L 98 - 107 [facility] Carbon dioxide, total [Moles/volume] in Serum or Plasma 25 MEQ/L 22 - 30 [facility] Glucose [Mass/volume] in Serum or Plasma 97 MG/DL 70 - 99 [facility] BUN 17 MG/DL 7 - 21 [facility] al Creatinine [Mass/volume] in Serum or Plasma 0.8 MG/DL 0.7 - 1.5 [facility] BUN/CREAT 21 8 - 27 [facility] al Protein [Mass/volume] in Serum or Plasma 6.0 G/DL 6.3 - 8.2 L [facility] Albumin [Mass/volume] in Serum or Plasma 4.0 G/DL 3.9 - 5.0 [facility] Globulin [Mass/volume] in Serum by calculation 2.0 GM/DL 2.4 - 3.2 L [facility] A/G RATIO 2.0 0.8 - 2.0 [facility] Calcium [Mass/volume] in Serum or Plasma 9.0 MG/DL 8.4 - 10.2 [facility] Bilirubin.total [Mass/volume] in Serum or Plasma 0.7 MG/DL 0.2 - 1.3 [facility] Alkaline phosphatase [Enzymatic activity/volume] in Serum or Plasma 98 U/L 38 - 126 [facility] Aspartate aminotransferase [Enzymatic activity/volume] in Serum or Plasma 48 U/L 5 - 40 H [facility] Alanine aminotransferase [Enzymatic activity/volume] in Seru m or Plasma 72 U/L 7 - 56 H [facility] Anion gap 3 in Serum or Plasma 12.0 mmol/L 8.0 - 16.0 [facility] AGE 45 yrs [facility] al NON-AA GFR >60 mL/min [facility] ital AFR AMER GFR >60 mL/min [facility] Ho spital Male GFR In terprentation [...] >32 mL/min Normal ID Date Data Source [id number] 12/15/2020 09:06:00 AM EDT [facility] Name Value Range Interpretation Code Description Data Rhea rce(s) Supporting Document(s) CVE PANEL [facility] LIPID PANEL Cholesterol [Mass/volume] in Serum or Plasma 178 MG/DL 131 - 200 [facility] Deprecated Triglyceride [Mass/volume] in Serum or Plasma 89 MG/DL 3 5 - 160 [facility] HDL 40 MG/DL 29 - 86 [facility] Ch[facility] in LDL [Mass/volume] in Serum or Plasma by Direc t assay 121 mg/dL 65 - 175 [facility] Cholesterol.total/Cholesterol in HDL [Mass Ratio] in Serum o r Plasma 4.5 3.4 - 4.9 [facility] LDL/HDL 3.03 1.00 - 3.55 [facility] CVE RISK CHOL/HDL LDL/HDLMEN: 1/2 AVERAGE 3.43 1.00 AVERAGE 4.97 3.55 2X AVERAGE 9.55 6.25 3X AVERAGE 23.99 7.99WOMEN: 1/2 AVERAGE 3.27 1.47 AVERAGE 4.44 3.22 2X AVERAGE 7.05 5.03 3X AVERAGE 11.04 6.14 ID Date Data Source [id number] 09/18/2020 04:18:00 PM EDT [facility] ([facility]) Name Value Range Interpretation Code Description Data Rhea rce(s) Supporting Document(s) Lyme IgG/IgM Ab Laboratory test result 0.00-0.90 [facility] ([facility]) <content>Negative <0.91</content >
<content>Equivocal 0.91 - 1.09</content>
<content>Positive >1.09</content>
<content></content> IgG P93 Ab. [facility] Lyme Disease Ab, Quant,IgM 1.10 index 0.00-0.79 Above high normal [facility] <content>Negative <0.80</content >
<content>Equivocal 0.80 - 1.19</content>
<content>Positive >1.19</content>
<content>IgM levels may peak at 3-6 weeks post infection, then</content>
<content>gradually decline.</content>
<content></content> IgG P58 Ab. Laboratory test result [facility] ([facility]) IgG P66 Ab. Laboratory test result [facility] ([facility]) IgG P41 Ab. Laboratory test result [facility] ([facility]) IgG P45 Ab. Laboratory test result [facility] ([facility]) IgG P39 Ab. Laboratory test result [facility] ([facility]) IgG P30 Ab. Laboratory test result [facility] ([facility]) IgG P28 Ab. Laboratory test result [facility] ([facility]) IgG P18 Ab. Laboratory test result [facility] ([facility]) IgG P23 Ab. Laboratory test result [facility] ([facility]) Laboratory test finding (navigational concept) Laboratory test result [facility] ([facility]) Positive: 5 of the following Borrelia-specific bands: 18,23,28,30,39,41,45,58, 66, and 93. Negative: No bands or banding patterns which do not meet positive criteria. IgM P41 Ab. Laboratory test result [facility] ([facility]) IgM P39 Ab. Laboratory test result [facility] ([facility]) IgM P23 Ab. Laboratory test result Abnormal (applies to non-numeric results) [facility] ([facility]) Laboratory test finding (navigational concept) Laboratory test result [facility] ([facility]) Note: An equivocal or positive EIA resul [...] are those recommended by CDC/ASTPHLD. p23=Osp C, m19=zofwcvmnp Note: Sera from individuals with the following may cross react in the Lyme Line Blot assays: other spirochetal diseases (periodontal disease, leptospirosis, relapsing fever, yaws, and pinta); connective autoimmune (Rheumatoid Arthritis and Systemic Lupus Erythematosus and also individuals with Antinuclear Antibody); other infections ([place] Spotted Fever; Marcus-Reed Virus, and Cytomegalovirus). ID Date Data Source [id number] 09/21/2020 06:44:00 AM EDT [facility] Name Value Range Interpretation Code Description Data Rhea rce(s) Supporting Document(s) Borrelia burgdorferi IgG+IgM Ab [Units/volume] in Serum <0.91 ISR 0. 00-0.90 [facility] Negative <0.91 Equivocal 0.91 - 1.09 Positive >1.09 Borrelia burgdorferi IgM Ab [Units/volume] in Serum by Immun oassay 1.10 index 0.00-0.79 H [facility] Negative <0.80 Equivocal 0.80 - 1.19 Positive >1.19 IgM levels may peak at 3-6 weeks post infection, then gradually decline. Borrelia burgdorferi 93kD IgG Ab [Presence] in Serum by Immu noblot (IB) Absent [facility] Borrelia burgdorferi 66kD IgG Ab [Presence] in Serum by Immu noblot (IB) Absent [facility] Borrelia burgdorferi 58kD IgG Ab [Presence] in Serum by Immu noblot (IB) Absent [facility] Borrelia burgdorferi 45kD IgG Ab [Presence] in Serum by Immu noblot (IB) Absent [facility] Borrelia burgdorferi 41kD IgG Ab [Presence] in Serum by Immu noblot (IB) Absent [facility] Borrelia burgdorferi 39kD IgG Ab [Presence] in Serum by Immu noblot (IB) Absent [facility] Borrelia burgdorferi 30kD IgG Ab [Presence] in Serum by Immu noblot (IB) Absent [facility] Borrelia burgdorferi 28kD IgG Ab [Presence] in Serum by Immu noblot (IB) Absent [facility] Borrelia burgdorferi 23kD IgG Ab [Presence] in Serum by Immu noblot (IB) Absent [facility] Borrelia burgdorferi 18kD IgG Ab [Presence] in Serum by Immu noblot (IB) Absent [facility] Borrelia burgdorferi Ab.IgG band pattern [Interpretation] in Serum by Immunoblot (IB) Negative [facility] Posi tive: 5 of the following Borrelia-specific bands: 18,23,28,30,39,41,45,58, 66, and 93. Negative: No bands or banding patterns which do not meet positive criteria. Borrelia burgdorferi 41kD IgM Ab [Presence] in Serum by Immu noblot (IB) Absent [facility] Borrelia burgdorferi 39kD IgM Ab [Presence] in Serum by Immu noblot (IB) Absent [facility] Borrelia burgdorferi 23kD IgM Ab [Presence] in Serum by Immu noblot (IB) Present A [facility] Borrelia burgdorferi Ab.IgM band pattern [Interpretation] in Serum by Immunoblot (IB) Negative [facility] Note: An equivocal or positive EIA resul t followed by a negativeLine Blot result is considered NEGATIVE. An equivocal or positiveEIA result followed by a positive Line Blot is considered POSITIVEby the CDC.Positive: 2 of the following bands: 23,39 or 41Negative: No bands or banding patterns which do not meet positivecriteria.Criteria for positivity are those recommended by CDC/ASTPHLD.p23=Osp C, u55=wwybgzjlsSjab:Sera from individuals with the following may cross react in theLyme Line Blot assays: other spirochetal diseases (periodontaldisease, leptospirosis, relapsing fever, yaws, and pinta);connective autoimmune (Rheumatoid Arthritis and Systemic LupusErythematosus and also individuals with Antinuclear Antibody);other infections ([place] Spotted Fever; Marcus-Reed Virus,and Cytomegalov irus). ID Date Data Source [id number] 09/16/2020 04:18:00 PM EDT [facility] ([facility]) Name Value Range Interpretation Code Description Data Rhea rce(s) Supporting Document(s) C reactive protein [Mass/volume] in Serum or Plasma by High sensitivity method 0.57 mg/L 1.00-3.00 Below low normal [facility] ([facility]) Is patient fasting? N ID Date Data Source [id number] 09/16/2020 04:18:00 PM EDT [facility] ([facility]) Name Value Range Interpretation Code Description Data Rhea rce(s) Supporting Document(s) Hemoglobin A1c/Hemoglobin.total in Blood 5.7 % 4.4-6.1 [facility] ([facility]) Is patient fasting? N Thyrotropin [Units/volume] in Serum or Plasma 1.08 uIU/mL 0.47-5.01 [facility] ([facility]) Is patient fasting? N ID Date Data Source [id number] 09/16/2020 04:18:00 PM EDT [facility] ([facility]) Name Value Range Interpretation Code Description Data Rhea rce(s) Supporting Document(s) Comprehensive Metabo Laboratory test result [facility] ([facility]) Is patient fasting? N Potassium 3.4 meq/L 3.6-5.0 Below low normal [facility] ( [facility]) Is patient fasting? N Sodium 139 meq/L 134-153 [facility] ([facility]) Is patient fasting? N Chloride 101 meq/L 98-107 [facility] ([facility]) Is patient fasting? N Co2 27 meq/L 22-30 [facility] ([facility]) Is patient fasting? N Glucose 102 mg/dL 70-99 Above high normal [facility] ([facility]) Is patient fasting? N BUN 19 mg/dL 7-21 [facility] ([facility]) Is patient fasting? N Creatinine 1.0 mg/dL 0.7-1.5 [facility] ([facility]) Is patient fasting? N BUN/Creat 19 8-27 [facility] ([facility]) Is patient fasting? N Total Protein 6.5 g/dL 6.3-8.2 [facility] ([facility]) Is patient fasting? N Albumin 4.4 g/dL 3.9-5.0 [facility] ([facility]) Is patient fasting? N A/G Ratio 2.1 0.8-2.0 Above high normal [facility] ([facility]) Is patient fasting? N Globulin 2.1 GM/DL 2.4-3.2 Below low normal [facility] ( [facility]) Is patient fasting? N Calcium 9.2 mg/dL 8.4-10.2 [facility] ([facility]) Is patient fasting? N Total Bili 0.9 mg/dL 0.2-1.3 [facility] ([facility]) Is patient fasting? N Sgot/Ast 23 U/L 5-40 [facility] ([facility]) Is patient fasting? N Alkaline Phos 112 U/L 38-126 [facility] ([facility]) Is patient fasting? N SGPT/Alt 37 U/L 7-56 [facility] ([facility]) Is patient fasting? N Age 45 yrs [facility] ([facility]) Is patient fasting? N Non-Aa GFR Laboratory test result [facility] ([facility]) Is patient fasting? N Anion Gap 11.0 mmol/L 8.0-16.0 [facility] ([facility]) Is patient fasting? N Afr Amer GFR Laboratory test result [facility] ([facility]) Is patient fasting? N ID Date Data Source [id number] 09/16/2020 04:18:00 PM EDT [facility] ([facility]) Name Value Range Interpretation Code Description Data Rhea rce(s) Supporting Document(s) WBC 8.7 10^3/uL 4.2-11.0 [facility] ([facility]) Is patient fasting? N CBC W/Automated Diff Laboratory test result [facility] ([facility]) Is patient fasting? N RBC 4.60 10^6/uL 4.50-6.30 [facility] ([facility]) Is patient fasting? N Hemoglobin 15.3 g/dL 14.0-16.0 [facility] Is patient fasting? N Hematocrit 44.0 % 41.0-51.0 [facility] ([facility]) Is patient fasting? N MCV 95.7 fL 80.0-94.0 Above high normal [facility] ([facility]) Is patient fasting? N MCH 33.3 pg 27.0-34.0 [facility] ([facility]) Is patient fasting? N RDW 12.3 % 11.5-14.8 [facility] ([facility]) Is patient fasting? N MCHC 34.8 g/dL 31.0-36.0 [facility] ([facility]) Is patient fasting? N MPV 13.3 fL 7.4-10.4 Above high normal [facility] ([facility]) Is patient fasting? N Platelets 169 10^3/uL 150-450 [facility] ([facility]) Is patient fasting? N Neut 63.7 % 37.0-80.0 [facility] ([facility]) Is patient fasting? N Lymph 27.2 % 25.0-40.0 [facility] ([facility]) Is patient fasting? N George 6.7 % 3.0-8.0 [facility] ([facility]) Is patient fasting? N Eos 1.4 % 0.0-7.0 [facility] ([facility]) Is patient fasting? N %Ig 0.2 % 0.0-0.0 Above high normal [facility] ([facility]) Is patient fasting? N Baso 0.8 % 0.0-2.0 [facility] ([facility]) Is patient fasting? N #Neut 5.55 10^3/uL 2.00-6.90 [facility] ([facility]) Is patient fasting? N %NRBC 0.0 % 0.0-0.0 [facility] ([facility]) Is patient fasting? N #Eos 0.12 10^3/uL 0.00-0.70 [facility] ([facility]) Is patient fasting? N #George 0.58 10^3/uL 0.00-0.90 [facility] ([facility]) Is patient fasting? N #Lymph 2.37 10^3/uL 0.60-3.40 [facility] ([facility]) Is patient fasting? N #Baso 0.07 10^3/uL 0.00-0.20 [facility] ([facility]) Is patient fasting? N #Ig 0.02 10^3/uL 0.00-0.10 [facility] ([facility]) Is patient fasting? N #NRBC 0.00 10^3/uL 0.00-0.00 [facility] ([facility]) Is patient fasting? N Manual Diff Laboratory test result M [facility] ([facility]) Is patient fasting? N RBC Morph Laboratory test result [facility] ([facility]) Is patient fasting? N ID Date Data Source [id number] 09/16/2020 10:05:00 PM EDT [facility] Name Value Range Interpretation Code Description Data Rhea rce(s) Supporting Document(s) Thyrotropin [Units/volume] in Serum or Plasma by Detec tion limit <= 0.05 mIU/L 1.08 uIU/mL 0.47 - 5.01 [facility] ID Date Data Source [id number] 09/16/2020 10:00:00 PM EDT [facility] Name Value Range Interpretation Code Description Data Rhea rce(s) Supporting Document(s) C reactive protein [Mass/volume] in Serum or Plasma by High sensitivity method 0.57 MG/L 1.00 - 3.00 L [facility] HS-CRP CUT-OFF: RELATIVE RISK: <1.0 mg/L Low 1.0 - 3.0 mg/L Average >3.0 mg/L High Optimally, the average of HS-CRP results repeated two weeks apart should be used for risk assessment. ID Date Data Source [id number] 09/16/2020 10:00:00 PM EDT [facility] Name Value Range Interpretation Code Description Data Rhea rce(s) Supporting Document(s) COMPREHENSIVE METABOLIC PANEL [facility] COMPREHENSIVE METABOLIC PANEL Sodium [Moles/volume] in Serum or Plasma 139 mEq/L 134 - 153 [facility] Potassium [Moles/volume] in Serum or Plasma 3.4 mEq/L 3.6 - 5.0 L [facility] Chloride [Moles/volume] in Serum or Plasma 101 mEq/L 98 - 107 [facility] Carbon dioxide, total [Moles/volume] in Serum or Plasma 27 MEQ/L 22 - 30 [facility] Glucose [Mass/volume] in Serum or Plasma 102 MG/DL 70 - 99 H [facility] BUN 19 MG/DL 7 - 21 [facility] Creatinine [Mass/volume] in Serum or Plasma 1.0 MG/DL 0.7 - 1.5 [facility] BUN/CREAT 19 8 - 27 [facility] Protein [Mass/volume] in Serum or Plasma 6.5 G/DL 6.3 - 8.2 [facility] Albumin [Mass/volume] in Serum or Plasma 4.4 G/DL 3.9 - 5.0 [facility] Globulin [Mass/volume] in Serum by calculation 2.1 GM/DL 2.4 - 3.2 L [facility] A/G RATIO 2.1 0.8 - 2.0 H [facility] Calcium [Mass/volume] in Serum or Plasma 9.2 MG/DL 8.4 - 10.2 [facility] Bilirubin.total [Mass/volume] in Serum or Plasma 0.9 MG/DL 0.2 - 1.3 [facility] Alkaline phosphatase [Enzymatic activity/volume] in Serum or Plasma 112 U/L 38 - 126 [facility] Aspartate aminotransferase [Enzymatic activity/volume] in Serum or Plasma 23 U/L 5 - 40 [facility] Alanine aminotransferase [Enzymatic activity/volume] in Seru m or Plasma 37 U/L 7 - 56 [facility] Anion gap 3 in Serum or Plasma 11.0 mmol/L 8.0 - 16.0 [facility] AGE 45 yrs [facility] al NON-AA GFR >60 mL/min [facility] ital AFR AMER GFR >60 mL/min [facility] Male GFR In terprentation [...] >32 mL/min Normal ID Date Data Source [id number] 09/16/2020 09:59:00 PM EDT [facility] Name Value Range Interpretation Code Description Data Rhea rce(s) Supporting Document(s) Hemoglobin A1c/Hemoglobin.total in Blood 5.7 % 4.4 - 6.1 [facility] {A1]{HB] ID Date Data Source [id number] 09/16/2020 09:23:00 PM EDT [facility] Name Value Range Interpretation Code Description Data Rhea rce(s) Supporting Document(s) CBC W/AUTOMATED DIFF [facility] COMPLETE BLOOD COUNT Leukocytes [#/volume] in Blood by Automated count 8.7 10^3/uL 4.2 - 1 1.0 [facility] Erythrocytes [#/volume] in Blood by Automated count 4.60 10^6/uL 4. 50 - 6.30 [facility] Hemoglobin [Mass/volume] in Blood 15.3 g/dL 14.0 - 16.0 [facility] Hematocrit [Volume Fraction] of Blood by Automated count 44.0 % 4 1.0 - 51.0 [facility] Erythrocyte mean corpuscular volume [Entitic volume] by Auto mated count 95.7 fL 80.0 - 94.0 H [facility] Erythrocyte mean corpuscular hemoglobin [Entitic mass] by Automated count 33.3 pg 27.0 - 34.0 [facility] Erythrocyte mean corpuscular hemoglobin concentration [Mass/volume] by Automated count 34.8 g/dL 31.0 - 36.0 [facility] Erythrocyte distribution width [Ratio] by Automated count 12.3 % 11.5 - 14.8 [facility] Platelets [#/volume] in Blood by Automated count 169 10^3/uL 150 - 45 0 [facility] Platelet mean volume [Entitic volume] in Blood by Automated count 13.3 fL 7.4 - 10.4 H [facility] Neutrophils/100 leukocytes in Blood by Automated count 63.7 % 37. 0 - 80.0 [facility] Lymphocytes/100 leukocytes in Blood by Manual count 27.2 % 25.0 - 40.0 [facility] Monocytes/100 leukocytes in Blood by Automated count 6.7 % 3.0 - 8.0 [facility] Eosinophils/100 leukocytes in Blood by Automated count 1.4 % 0.0 - 7.0 [facility] Basophils/100 leukocytes in Blood by Automated count 0.8 % 0.0 - 2.0 [facility] %IG 0.2 % 0.0 - 0.0 H [facility] %NRBC 0.0 % 0.0 - 0.0 [facility] al Neutrophils [#/volume] in Blood by Automated count 5.55 10^3/uL 2.00 - 6.90 [facility] Lymphocytes [#/volume] in Blood by Automated count 2.37 10^3/uL 0.60 - 3.40 [facility] Monocytes [#/volume] in Blood by Automated count 0.58 10^3/uL 0.00 - 0.90 [facility] Eosinophils [#/volume] in Blood by Automated count 0.12 10^3/uL 0.00 - 0.70 [facility] Basophils [#/volume] in Blood by Automated count 0.07 10^3/uL 0.00 - 0.20 [facility] #IG 0.02 10^3/uL 0.00 - 0.10 [facility] #NRBC 0.00 10^3/uL 0.00 - 0.00 [facility] MANUAL DIFF NOT INDICATED [facility] RBC MORPH NOT INDICATED [facility] ID Date Data Source [id number] 09/07/2020 08:22:00 AM EDT [facility] 1 OrderSheet [facility] Emergency Department [address] [place] [address] Phone #: ext- [phone] 09/07/2020 08:18 [id number] Sex: [facility] : 1975 Age: 45yWEIGHT:86.1 kg (S) HEIGHT:70 inches (S) BMI:27.2ALLERGIES: No Known Drug AllergyCHIEF COMPLAINT: skin rash, lesionDIAGNOSIS: Contact dermatitisLAB ORDERSOrder Description Priority Entered Acknowledged InitialedDIAGNOSTIC STUDY ORDERSOrder Description Priority Entered Acknowledged InitialedMEDICATION/IV/DRIP/FLUID ORDERSOrder Description Priority Entered Acknowledged InitialedGENERAL ORDERSOrder Description Priority Entered Acknowledged InitialedAccucheck 09:02 09/07/2020 09:09 Todd Donahue Jack ; Nora RN[Electronically signed by Nagi Broosk (09:54 09/07/2020)][Electronically signed by Nora Donahue RN (10:15 09/07/2020)][Electronically locked by Nora Donahue RN (10:15 09/07/2020)] Name Value Range Interpretation Code Description Data Rhea rce(s) Supporting Document(s) ID Date Data Source [id number] 09/07/2020 08:22:00 AM EDT [facility] 1 Medication Reconciliation Report [facility] Emergency Department [address] [place] [address] Phone #: ext- [phone] 09/07/2020 08:18 Patient: [...] Dispense 1 tube.Refills: 0. Substitution permitted.Pharmacy - [facility] [address] [place], [place] [phone]. . -- Nagi Brooks Name Value Range Interpretation Code Description Data Rhea rce(s) Supporting Document(s) ID Date Data Source [id number] 09/07/2020 08:22:00 AM EDT [facility] 1 Medication Administration Record [facility] Emergency Department [address] [place] [address] Phone #: ext- [phone] 09/07/2020 08:18 Patient: NEERAJ SANTIAGO Sex: M : 1975 Age: 45yWeight: 86.1 kgHeight/Length: 70 inBMI: 27.2ALLERGIES: No Known Drug AllergyDate/Time Medication Administered Medication Ordered Name Value Range Interpretation Code Description Data Rhea rce(s) Supporting Document(s) ID Date Data Source [id number] 09/07/2020 08:22:00 AM EDT [facility] 1 General Instructions [facility] Emergency Department [address] [place] [address] Phone #: ext- [phone] 09/07/2020 08:18 Patient: NEERAJ SANTIAGO Sex: M [...] Dispense 1 tube.Refills: 0. Substitution permitted.Pharmacy - [facility] [address] [place], [place] [phone]. .Understanding of the discharge instructions verbalized by patient.Follow-up with: [facility], , , [address], [place], [facility] Follow up in two days if not [...] dyes and rinses, soaps, solvents, waxes, fingernail libyan, and deodorants Jewelry or watchbands made of nickel or cobalt 2 General Instructions [facility] Emergency Department [address] [place] [address] Phone #: ext- [phone] 09/07/2020 08:18 Patient: [...] you can't stay away 3 General Instructions [facility] Emergency Department [address] [place] [address] Phone #: [phone] ext- [phone] 09/07/2020 08:18 Patient: NEERAJ SANTIAGO Sex: M [...] skin Yellow-brown crusts on the open blisters [id number] [employer] [address] [place] [address], [place] [address]. All rights reserved. This information is not intended as asubstitute for professional medical care. Always follow your healthcare professional's instructions. You have been given the following additional information: Contact Dermatitis(Electronically signed by Nagi Brooks 09/07/2020 09:54) Name Value Range Interpretation Code Description Data Rhea rce(s) Supporting Document(s) ID Date Data Source [id number] 09/07/2020 08:22:00 AM EDT [facility] 1 Clinical Report - Nurses [facility] Emergency Department [address] [place] [address] Phone #: ext- [phone] 09/07/2020 08:18 [id number] Sex: M : 1975 Age: 45yTRIAGEArrived by [...] on the right leg. Onset. 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 SEPSIS SCREEN [...] Donahue RN. 2 Clinical Report - Nurses [facility] Emergency Department [address] [place] [address] Phone #: ext- [phone] 09/07/2020 08:18 [id number] Sex: M : 1975 Age: 45y ADDITIONAL [...] family medical history. --09:54 09/07/20 Nagi Brooks.PHYSICAL [id number]:25 09/07/20. Ambulatory to room.GENERAL / NEURO / [...] / DISCHARGE 3 Clinical Report - Nurses [facility] Emergency Department [address] [place] [address] Phone #: ext- [phone] 09/07/2020 08:18 [id number] Sex[facility] M : 1975 Age: 45y 09:30 09/07/20. BP: 114/79. MAP: 90. HR: 59. RR: 16. O2 saturation: 99%. Temp: 98.1 F. Pain level now: 04/07. --09:31 09/07/20 [employer] officer, Leeanne, Tech1 Departure time: 09:33 09/07/2020. --09:33 09/07/20 Nora Donahue RN Condition at departure: unchanged. No learning barriers present. Discharge instructions provided and reviewed with the patient. Reviewed medication(s) side effects, precautions, dosing and course information. Prescription(s) sent electronically to pharmacy. Reviewed referral to a primary care physician. Patient verbalized understanding. Written instructions provided in Kenyan. The patient was discharged by the physician. He was discharged home and accompanied by harvest crew supervisor. He left ambulatory and via private vehicle. Director Of Industrial Relations driving. --09:33 09/07/20 Nora Donahue RN.Locked/Released at 09/07/2020 10:15 by Nora Doanhue RN Name Value Range Interpretation Code Description Data Rhea rce(s) Supporting Document(s) ID Date Data Source [id number] 09/07/2020 08:22:00 AM EDT [facility] 1 Clinical Report - Physicians/Mid Levels [facility] Emergency Department [address] [place] [address] Phone #: ext- [phone] 09/07/2020 08:18 [id number] Sex: M : 1975 Age: 45y Time [...] Allergies: 2 Clinical Report - Physicians/Mid Levels [facility] Emergency Department [address] [place] [address] Phone #: ext- [phone] 09/07/2020 08:18 [id number] Sex: M : 1975 Age: 45y No [...] that has been ongoing since move from [place]. Disposition: Discharged. Condition: stable.CLINICAL IMPRESSION Mild irritative contact dermatitis from plants. 3 Clinical Report - Physicians/Mid Levels [facility] Emergency Department [address] [place] [address] Phone #: [phone] 09/07/2020 08:18 Patient: NEERAJ SANTIAGO Sex: M [...] tube. Refills: 0. Substitution permitted. Pharmacy - [facility] - [id number] ; [place], [place] [id number]. . Understanding of the discharge instructions verbalized by patient. Follow-up with: [facility], , , [address], , [place], [address] Follow up in two days if not well. Call for an appointment. Reason for referral: evaluation.(Electronically signed by Nagi Brooks 09/07/2020 09:54) Name Value Range Interpretation Code Description Data Rhea rce(s) Supporting Document(s) ID Date Data Source [id number] 07/26/2020 01:44:06 PM EDT [facility] Name Value Range Interpretation Code Description Data [facility] rce(s) Supporting Document(s) Progress Note [facility] WQCHWm1eZwMOOaBf93/RITflKQYra4BzULwyJTw0IQmcKHSwV0McLRC3sF9mAMG4SIlCZbXoElWbRYZv [facility] HnDjtIYsUoVRBeIqoCEkVeXQqdZqnkzVQwMD4LuIS0ILJaO46kFLYrCHDsL7RrZYPrAxk+Wc1PHIOkgF MtPQ4BUufA1Q0rvro3UG5v7M0PfQYGM4F1xr8fZWpUZdlszjmEIbHl9YXnl385gQGrhKxjrh6Ai9A6f6 ADcTwtNAfGleGmsxoPa3nGDJbP/XwV+4FefEMK9+XH INLi+kH8+D3xIzmZf7Lnb0sJyEWAJIbNS3yZD/86kRXIOVdDZiYcicdG930CpStgXlIMbMhD1JmAw189 jF+Ld/FoFM/kmqtKD9du3DYZGgm4/jEH5oyh0NNBx4mhgnVayCE60h+SoLSlJgzIXmboWKoGZ9uY8j4L pj1wCTWLCpC+5ATaY3+reFgCZhV9lNBiR+RtGotbu/ ET8AvWbARRNKGCZwTfUr+RUSjZnyW+wNGZ/HqP5Rdk4sAC+G8qj5cWgyi1DnCLkurPLAcX6qyM77bc5X IM/FYnAYLH9iQ6/JeKmkkqQSAAitBQIlHAt6goG/g+ijfKP1LmwxOv6nP42F1et6Rwh0F+4l6ljxAzma h+SY9O7d4/wfqRBCWPCyXLngNG5IlxUQ9kRbIg4FUp ZMal9Dt4zgXrydZtA7/o4rCsND0/S66S7nAOcs11P711d8yG2J0grBkeq16rJ9wd2TwMye+PLNqeHHjO YrdHe6Kp1pVW84Rv43Y6QXsUBfRwWSl69CC/v2GoevDY0svxpQFXsIFHCXDUkHDW69NmWY8P+u5Tj2VF 2Tuj8hCDc8JgbciQWXe1LG3Wa3/qyTQH7ocZkNMp8W pr/HsWZ+xf9kJi9H/H4q+gG7DkUx5AYBD9Ley12REvQwYfAzee7TskSwJUm+n42+Zazze7D2GdrusP3Z gtLz3Ot3AlkagSh4lYC+1mZ+e6az5hraQPmA9icqRU2uhoMBscV34s60YxjMOX8Vp5lmfY/bko/nkS94 zIVlPzWApTRDZ7Aw2saJZWZxggJ79NOCLhrUrFBQPN [file] ICAgICAgICAgICAgICAgICAgICAgICAgICAgICAgIC AgICAgICAgICAgICAgICAgICAgICAgICAgICAgICAgICAgICAgICAgICAgICAgICAgICANCiAgICAgIC AgICAgICAgICAgICAgICAgICAgICAgICAgICAgICAgICAgICAgICAgICAgICAgICAgICAgICAgICAgIC AgICAgICAgICAgICAgICAgICAgICAgICAgICAgICAg ICANCiAgICAgICAgICAgICAgICAgICAgICAgICAgICAgICAgICAgICAgICAgICAgICAgICAgICAgICAg ICAgICAgICAgICAgICAgICAgICAgICAgICAgICAgICAgICAgICAgICAgICANCiAgICAgICAgICAgICAg ICAgICAgICAgICAgICAgICAgICAgICAgICAgICAgIC AgICAgICAgICAgICAgICAgICAgICAgICAgICAgICAgICAgICAgICAgICAgICAgICAgICAgICANCiAgIC AgICAgICAgICAgICAgICAgICAgICAgICAgICAgICAgICAgICAgICAgICAgICAgICAgICAgICAgICAgIC AgICAgICAgICAgICAgICAgICAgICAgICAgICAgICAg ICAgICANCiAgICAgICAgICAgICAgICAgICAgICAgICAgICAgICAgICAgICAgICAgICAgICAgICAgICAg ICAgICAgICAgICAgICAgICAgICAgICAgICAgICAgICAgICAgICAgICAgICAgICANCiAgICAgICAgICAg ICAgICAgICAgICAgICAgICAgICAgICAgICAgICAgIC AgICAgICAgICAgICAgICAgICAgICAgICAgICAgICAgICAgICAgICAgICAgICAgICAgICAgICAgICANCi AgICAgICAgICAgICAgICAgICAgICAgICAgICAgICAgICAgICAgICAgICAgICAgICAgICAgICAgICAgIC AgICAgICAgICAgICAgICAgICAgICAgICAgICAgICAg ICAgICAgICANCiAgICAgICAgICAgICAgICAgICAgICAgICAgICAgICAgICAgICAgICAgICAgICAgICAg ICAgICAgICAgICAgICAgICAgICAgICAgICAgICAgICAgICAgICAgICAgICAgICAgICANCiAgICAgICAg ICAgICAgICAgICAgICAgICAgICAgICAgICAgICAgIC AgICAgICAgICAgICAgICAgICAgICAgICAgICAgICAgICAgICAgICAgICAgICAgICAgICAgICAgICAgIC ANCjw/uNLbH7sgpYDvyyJ1E3brSu4PKg7PIB6gj9QoLSQpKUluzgFrIeeVXuNrGVVjOrtTJww6EAntQV 8PwKTfO2QmV7NiZXusAK8VEHVmLJAimFKwMASlWALi IgK6ZPCrTMlgIG0KtGKkXPoeZSVuQUHnCvKxCNGyRYNnOETxCDEpRSMOEDHrFZMoUwHeCFOsSMMuFOra WEPABPT3KYGwQoGdLMPnEMCrXD4TIENeD772bjOdME5HIw4ENfRcJI8mfg8TAPMaKDKtYalNQwm8DIdq OP8UhLFqpMI9LnCxJTMZVsCoS1qwc9YdIEpwZWZBRP iwVA9Kv1EnxZWdCOd+Af0KPX0yh1IhOAz3MxWrLY0yws0ZPHaWKvHtN5QjlAjeNQHre2biOXPnNH5oiA VkTWS2BRWfhqgywmSPgiqvghCGv9AftrzbCZPwEELdWJ2jQG6qSVYhMUToLnGyQUDFBV8RTIMzDIXtdI RfHYDaVFQVDO1YZIklCDG4EGWvyeFpqJOnZEvjHD0R YXJlbnQgNDYgMCBSDQo+Zv5RKS6xx4HaAVe9ZJXoVR8pyk0DHUcWYbTdL9V8dKPhZ1F8AKfgCb3JZBCy QGGuNRQyJIMXXSqcXS6BYY2qvaQ0SW0RcQOiFQZxTTQeyGOfFWr0I23myJHxVYurLK3EIDE+Kaila+Pg0K CUKaUWEmCPJuNwWyEBOJCzNaP4JeM6KLb3YwF8FoVF 73sWbfwbCtSDpoRH0KRU9xHZPeSDZXGI8QhSYqiK7tkjZ2GcIdWSEJUkMhU16olACqYIZsQTS9BLFlTz 4YECQcT1WbzkWgjTertuFtSNGiWNFYLG7PNKsownXyeQDzcRpkVE22fDyzGV1INv5QUeQxRU5cum7IoM NgTe4LDNL2EE9IUGKyOKRfXONsJON1KPJjXbHcYPel UNGwRHPfIAP7XCFqWMEqFN4QXaZfCFRkMOAxOKfwNNYeTBMebe2GMJGuABU6BXUpHxJzFZUtWJNcDDvs CROhRDLcQRT3KPNpKJXoDG5GSnYyGXKgMUS4BVFxIALiZZSsqw3QSKRuUUYaFpznVQAcSUXwUDTeRBhh RIJuKQS9JXTpADMtAPVhXL9YByDhBFAnEUuzImckMY OvVIDdgd4IZRQqCGLuPSL9IHTvEGRgHKHiZExqDTDiGHU3DPLdHKJrZJShLS2TYoTzEUVoIYV4NVPyUI UhTBGzvf2ESHJmXJTjJzhhKHXbHZClXPEaWCaqTNFaIQG5TwBeKTHaEKErBF1CBpTdKIWjNAc4HuhgZZ YtODTmsh7BRHOkBANmAMCkWSFuEURyCVVxQXhoJRFn AQEzAPZ3OMUbHTWaTA5QFjNxJFThBmO7TMEsVTFeDGQjfj5WUQYcRJFeWbkcPWUmOTNoFIKtXTpcTITu RNM4Hae4XALuNXMsFH1HVzFpOCZyTuo6FVYjFQXmQMWsbq1XYDCpWRLtUObtVGZcEINbDWPqKJdkNXSy GUC0FZJtUXFkQCNwRS4WReVmIGUrWsn0WVLwANHfWU Iupa2IKDMvAPLwHPJ7DHDyMGViITMdBOtfDHAiOAGcCoDxSVVxSOYxHO4GLpBiACGzDdLoBwHeCMFuLD Cwor6CXMLkKLBnZNFxNbDvSJRcZXSrFShtNWPfCKGuDqXbFIXrBPHvCL5FNbEhQOTmRnR8YZKwLOChZP Ugbs0OZBWaQTD1NlJ9PvLkXMFaAFXbFSsfJJAyBIUh Zqy3DDJoTGKrAH2EJiSsZUZbRsGnZSQuJQIyYQYmfe2YMIIuSAK1WsYaIwQfBIKzWNJsOFiwOHPrMYH5 ScX2EURhDXBpIO3SMwBsFUDwByW4TcCgZACnGSKgao6YPPNaFEV8XBRzFzHfWQKiEKKzUXklNJHwHNT2 BQS4ZPZqAYCaWX3ADwSpBYJwBfN8DSczZQCkVHIuba 5MILBlWVX3QGbzAAWdXJNrZWDnVTqvQTOoSEs8SUIgKTNxHYOiBP3UYhMfIMPjZAE3NhcuBUTlHDOjrn 6XNKEsAFM4JGA1LmHzTHMcNOCdFOspEHFtRQa6NYa7HBGcPZPcNF5GMwMhSUQzMRTdGdtoZHMbCQCfhz 7TPAKaXGW1Yss7UzFaXDZnKFPtFAluOLUiAIi3Svl8 RCExLEFaJX7NZkFzDFLoMKpkZGpyRDMvHZNqrl3NHPVlLJL0LQMvDfLaYPOcUOOhDOy6xyNcvLRgEHh4 BR2ME1TsueNvWBqWJl2Ix550XKF6ACTzMm0RT5oyYg3oRNCdOUFEHt3XAFb5WRlpSsd7UMfxQFVtMTE0 FGWfHWl1GEraJVHpU9T3PgX+ICnnAOWsBOheCQB3EY Z1IhPeG7K3BZeuPwE9XsI9UND5Ms3lPFTPLu4+NJdhfRTcmNhgXNGWJfn7LpB7BOfwLKBNRa6S ID Date Data Source [id number] 07/24/2020 04:11:26 PM EDT [facility] Name Value Range Interpretation Code Description Data Rhea rce(s) Supporting Document(s) Platelet aggregation arachidonate induced [Units/volume] in Bloo d 451 ARU <550 [facility] (NOTE)350-549 ARU Therapeutic aspirin r spia886-696 ARU Non-therapeutic range for aspirin ID Date Data Source [id number] 05/10/2020 09:27:00 AM EST [facility] ([facility]) Name Value Range Interpretation Code Description Data Rhea rce(s) Supporting Document(s) Shoulder Comp-2 Or More VWS RT Laboratory test result [facility] ([facility]) Spine Cerv Comp-5 Or More View Laboratory test result [facility] ([facility]) ID Date Data Source [id number] 04/26/2020 10:55:00 AM EST [facility] [address] [place] [address] PHONE: [phone] FAX: [phone] Name .................. : PAMELA PICKARD Acct Number.................. : [id number] ROOM. ................. : MR Number ................... : [id number] Stay type ............. : O/P Discharge Date......... ... : 04/25/20 Admit Date ......... : 04/25/20 Admit Phys .................... : INGRAMELIS Date of ....... : 1975 Family Phys ................... : INGRAMELIS Phone . ................. : [phone] Age ................................ : 45 Film# .................. .:[id number] Sex ................................. : M Unsigned transcriptions are preliminary reports and do not represent a medical or legal document HIP COMPLETE RT [id number] COMPLETE:04/25/20 07:44 3115 (REASON FOR HIP: PAIN RIGHT HIP, 04/25/20: INDICATION: Pain. 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 Vcnv-vy-bbxe contact is identified along with joint space [...] By CANDIDA GLOVER MD , 04/26/20 10:55, [facility] Transcribe Initials: [facility], Transcribe Date: 04/25/20 10:52, Dictation Date: Copy for: NOLAN KAIA Hull via fax Copy for : [address] [facility] Page 1 of 1 Name Value Range Interpretation Code Description Data Rhea rce(s) Supporting Document(s) ID Date Data Source [id number] 04/09/2020 02:56:00 PM EST [facility] ([facility]) Name Value Range Interpretation Code Description Data Rhea rce(s) Supporting Document(s) Hip Complete RT Laboratory test result [facility] ([facility]) ID Date Data Source [id number] 03/07/2020 11:40:00 AM EST [facility] ([facility]) Name Value Range Interpretation Code Description Data Rhea rce(s) Supporting Document(s) Prostate specific Ag [Mass/volume] in Serum or Plasma 1.07 ng/mL 0.00 -4.00 [facility] ([facility]) Is patient fasting? N ID Date Data Source [id number] 03/07/2020 11:40:00 AM EST [facility] ([facility]) Name Value Range Interpretation Code Description Data Rhea rce(s) Supporting Document(s) Calcidiol [Mass/volume] in Serum or Plasma 37 ng/mL [facility] ([facility]) Is patient fasting? N ID Date Data Source [id number] 03/07/2020 11:40:00 AM EST [facility] ([facility]) Name Value Range Interpretation Code Description Data Rhea rce(s) Supporting Document(s) Thyrotropin [Units/volume] in Serum or Plasma 1.52 uIU/mL 0.47-5.01 [facility] ([facility]) Is patient fasting? N ID Date Data Source [id number] 03/07/2020 11:40:00 AM EST [facility] ([facility]) Name Value Range Interpretation Code Description Data Rhea rce(s) Supporting Document(s) Cve Panel Laboratory test result [facility] ([facility]) Is patient fasting? N Cholesterol 159 mg/dL 131-200 [facility] ([facility]) Is patient fasting? N Triglycerides 94 mg/dL 35-160 [facility] ([facility]) Is patient fasting? N HDL 41 mg/dL 29-86 [facility] ([facility]) Is patient fasting? N LDL 109 mg/dL 65-175 [facility] ([facility]) Is patient fasting? N LDL/HDL 2.66 1.00-3.55 [facility] ([facility]) Is patient fasting? N Risk Factor 3.9 3.4-4.9 [facility] ([facility]) Is patient fasting? N ID Date Data Source [id number] 03/07/2020 11:40:00 AM EST [facility] ([facility]) Name Value Range Interpretation Code Description Data Rhea rce(s) Supporting Document(s) Hemoglobin A1c/Hemoglobin.total in Blood 5.8 % 4.4-6.1 [facility] ([facility]) Is patient fasting? N ID Date Data Source [id number] 03/07/2020 11:40:00 AM EST [facility] ([facility]) Name Value Range Interpretation Code Description Data Rhea rce(s) Supporting Document(s) Comprehensive Metabo Laboratory test result [facility] ([facility]) Is patient fasting? N Sodium 140 meq/L 134-153 [facility] ([facility]) Is patient fasting? N Potassium 3.9 meq/L 3.6-5.0 [facility] ([facility]) Is patient fasting? N Chloride 101 meq/L 98-107 [facility] ([facility]) Is patient fasting? N Co2 30 meq/L 22-30 [facility] ([facility]) Is patient fasting? N Glucose 72 mg/dL 65-110 [facility] ([facility]) Is patient fasting? N Creatinine 1.0 mg/dL 0.7-1.5 [facility] ([facility]) Is patient fasting? N BUN 22 mg/dL 7-21 Above high normal [facility] ([facility]) Is patient fasting? N BUN/Creat 22 8-27 [facility] ([facility]) Is patient fasting? N Total Protein 6.4 g/dL 6.3-8.2 [facility] ([facility]) Is patient fasting? N Albumin 4.8 g/dL 3.9-5.0 [facility] ([facility]) Is patient fasting? N Globulin 1.6 GM/DL 2.4-3.2 Below low normal [facility] ( [facility]) Is patient fasting? N A/G Ratio 3.0 0.8-2.0 Above high normal [facility] Is patient fasting? N Calcium 9.4 mg/dL 8.4-10.2 [facility] ([facility]) Is patient fasting? N Total Bili Laboratory test result 0.2-1.3 [facility] ([facility]) Is patient fasting? N Alkaline Phos 106 U/L 38-126 [facility] ([facility]) Is patient fasting? N Anion Gap 9.0 mmol/L 8.0-16.0 [facility] ([facility]) Is patient fasting? N SGPT/Alt 36 U/L 7-56 [facility]) Is patient fasting? N Sgot/Ast 22 U/L 5-40 [facility] ([facility]) Is patient fasting? N Age 45 yrs [facility] ([facility]) Is patient fasting? N Non-Aa GFR Laboratory test result [facility] ([facility]) Is patient fasting? N Afr Amer GFR Laboratory test result [facility] ([facility]) Is patient fasting? N ID Date Data Source [id number] 03/07/2020 11:40:00 AM EST [facility] ([facility]) Name Value Range Interpretation Code Description Data Rhea rce(s) Supporting Document(s) CBC W/Automated Diff Laboratory test result [facility] ([facility]) Is patient fasting? N WBC 9.2 10^3/uL 4.2-11.0 [facility] ([facility]) Is patient fasting? N RBC 4.69 10^6/uL 4.50-6.30 [facility] ([facility]) Is patient fasting? N Hematocrit 46.1 % 41.0-51.0 [facility] ([facility]) Is patient fasting? N Hemoglobin 15.6 g/dL 14.0-16.0 [facility] ([facility]) Is patient fasting? N MCV 98.3 fL 80.0-94.0 Above high normal [facility] ([facility]) Is patient fasting? N MCH 33.3 pg 27.0-34.0 [facility] ([facility]) Is patient fasting? N Platelets 163 10^3/uL 150-450 [facility] ([facility]) Is patient fasting? N RDW 11.9 % 11.5-14.8 [facility] ([facility]) Is patient fasting? N MCHC 33.8 g/dL 31.0-36.0 [facility] ([facility]) Is patient fasting? N MPV 13.2 fL 7.4-10.4 Above high normal [facility] ([facility]) Is patient fasting? N Neut 59.1 % 37.0-80.0 [facility] ([facility]) Is patient fasting? N George 7.8 % 3.0-8.0 [facility] ([facility]) Is patient fasting? N Eos 1.7 % 0.0-7.0 [facility] ([facility]) Is patient fasting? N Lymph 30.1 % 25.0-40.0 [facility] ([facility]) Is patient fasting? N Baso 1.0 % 0.0-2.0 [facility] ([facility]) Is patient fasting? N %Ig 0.3 % 0.0-0.0 Above high normal [facility] ([facility]) Is patient fasting? N %NRBC 0.0 % 0.0-0.0 [facility] ([facility]) Is patient fasting? N #Neut 5.43 10^3/uL 2.00-6.90 [facility] ([facility]) Is patient fasting? N #Eos 0.16 10^3/uL 0.00-0.70 [facility] ([facility]) Is patient fasting? N #Lymph 2.77 10^3/uL 0.60-3.40 [facility] ([facility]) Is patient fasting? N #George 0.72 10^3/uL 0.00-0.90 [facility] ([facility]) Is patient fasting? N #Baso 0.09 10^3/uL 0.00-0.20 [facility] ([facility]) Is patient fasting? N #Ig 0.03 10^3/uL 0.00-0.10 [facility] ([facility]) Is patient fasting? N #NRBC 0.00 10^3/uL 0.00-0.00 [facility] ([facility]) Is patient fasting? N Manual Diff Laboratory test result [facility] ([facility]) Is patient fasting? N PLT Est Laboratory test result [facility] ([facility]) Is patient fasting? N RBC Morph Laboratory test result [facility] ([facility]) Is patient fasting? N ID Date Data Source [id number] 03/08/2020 03:53:00 AM EST [facility] Name Value Range Interpretation Code Description Data Rhea rce(s) Supporting Document(s) Calcidiol [Moles/volume] in Serum or Plasma 37 NG/ML [facility] VITAMIN-D(2 5HYDROXY) Deficiency: <=20 ng/ml Insufficiency: 21-29 ng/ml Preferred level: => 30 ng/ml ID Date Data Source [id number] 03/07/2020 06:18:00 PM EST [facility] Name Value Range Interpretation Code Description Data Rhea rce(s) Supporting Document(s) CBC W/AUTOMATED DIFF [facility] COMPLETE BLOOD COUNT Leukocytes [#/volume] in Blood by Automated count 9.2 10^3/uL 4.2 - 1 1.0 [facility] Erythrocytes [#/volume] in Blood by Automated count 4.69 10^6/uL 4. 50 - 6.30 [facility] Hemoglobin [Mass/volume] in Blood 15.6 g/dL 14.0 - 16.0 [facility] Hematocrit [Volume Fraction] of Blood by Automated count 46.1 % 4 1.0 - 51.0 [facility] Erythrocyte mean corpuscular volume [Entitic volume] by Auto mated count 98.3 fL 80.0 - 94.0 H [facility] Erythrocyte mean corpuscular hemoglobin [Entitic mass] by Automated count 33.3 pg 27.0 - 34.0 [facility] Erythrocyte mean corpuscular hemoglobin concentration [Mass/volume] by Automated count 33.8 g/dL 31.0 - 36.0 [facility] Erythrocyte distribution width [Ratio] by Automated count 11.9 % 11.5 - 14.8 [facility] Platelets [#/volume] in Blood by Automated count 163 10^3/uL 150 - 45 0 [facility] Platelet mean volume [Entitic volume] in Blood by Automated count 13.2 fL 7.4 - 10.4 H [facility] Neutrophils/100 leukocytes in Blood by Automated count 59.1 % 37. 0 - 80.0 [facility] Lymphocytes/100 leukocytes in Blood by Manual count 30.1 % 25.0 - 40.0 [facility] Monocytes/100 leukocytes in Blood by Automated count 7.8 % 3.0 - 8.0 [facility] Eosinophils/100 leukocytes in Blood by Automated count 1.7 % 0.0 - 7.0 [facility] Basophils/100 leukocytes in Blood by Automated count 1.0 % 0.0 - 2.0 [facility] %IG 0.3 % 0.0 - 0.0 [facility] %NRBC 0.0 % 0.0 - 0.0 [facility] Neutrophils [#/volume] in Blood by Automated count 5.43 10^3/uL 2.00 - 6.90 [facility] Lymphocytes [#/volume] in Blood by Automated count 2.77 10^3/uL 0.60 - 3.40 [facility] Monocytes [#/volume] in Blood by Automated count 0.72 10^3/uL 0.00 - 0.90 [facility] Eosinophils [#/volume] in Blood by Automated count 0.16 10^3/uL 0.00 - 0.70 [facility] Basophils [#/volume] in Blood by Automated count 0.09 10^3/uL 0.00 - 0.20 [facility] #IG 0.03 10^3/uL 0.00 - 0.10 [facility] #NRBC 0.00 10^3/uL 0.00 - 0.00 [facility] MANUAL DIFF NOT INDICATED [facility] RBC MORPH MORPH IS NORMAL [facility] { SICKLE CELL (NORMAL: NONE SEEN ) Platelet adequacy [Presence] in Blood by Light microscopy NORMAL NORMAL: NORMAL [facility] COMMENT: ID Date Data Source [id number] 03/07/2020 06:03:00 PM EST [facility] Name Value Range Interpretation Code Description Data Rhea rce(s) Supporting Document(s) CVE PANEL [facility] LIPID PANEL Cholesterol [Mass/volume] in Serum or Plasma 159 MG/DL 131 - 200 [facility] Deprecated Triglyceride [Mass/volume] in Serum or Plasma 94 MG/DL 3 5 - 160 [facility] HDL 41 MG/DL 29 - 86 [facility] Cholesterol in LDL [Mass/volume] in Serum or Plasma by Direc t assay 109 mg/dL 65 - 175 [facility] Cholesterol.total/Cholesterol in HDL [Mass Ratio] in Serum o r Plasma 3.9 3.4 - 4.9 [facility] LDL/HDL 2.66 1.00 - 3.55 [facility] ital CVE RISK CHOL/HDL LDL/HDLMEN: 1/2 AVERAGE 3.43 1.00 AVERAGE 4.97 3.55 2X AVERAGE 9.55 6.25 3X AVERAGE 23.99 7.99WOMEN: 1/2 AVERAGE 3.27 1.47 AVERAGE 4.44 3.22 2X AVERAGE 7.05 5.03 3X AVERAGE 11.04 6.14 ID Date Data Source [id number] 03/07/2020 06:02:00 PM EST [facility] Name Value Range Interpretation Code Description Data Reha rce(s) Supporting Document(s) COMPREHENSIVE METABOLIC PANEL [facility] COMPREHENSIVE METABOLIC PANEL Sodium [Moles/volume] in Serum or Plasma 140 mEq/L 134 - 153 [facility] Potassium [Moles/volume] in Serum or Plasma 3.9 mEq/L 3.6 - 5.0 [facility] Chloride [Moles/volume] in Serum or Plasma 101 mEq/L 98 - 107 [facility] Carbon dioxide, total [Moles/volume] in Serum or Plasma 30 MEQ/L 22 - 30 [facility] Glucose [Mass/volume] in Serum or Plasma 72 MG/DL 65 - 110 [facility] BUN 22 MG/DL 7 - 21 [facility] Creatinine [Mass/volume] in Serum or Plasma 1.0 MG/DL 0.7 - 1.5 [facility] BUN/CREAT 22 8 - 27 [facility] Protein [Mass/volume] in Serum or Plasma 6.4 G/DL 6.3 - 8.2 [facility] Albumin [Mass/volume] in Serum or Plasma 4.8 G/DL 3.9 - 5.0 [facility] Globulin [Mass/volume] in Serum by calculation 1.6 GM/DL 2.4 - 3.2 L [facility] A/G RATIO 3.0 0.8 - 2.0 [facility] Calcium [Mass/volume] in Serum or Plasma 9.4 MG/DL 8.4 - 10.2 [facility] Bilirubin.total [Mass/volume] in Serum or Plasma <0.7 MG/DL 0.2 - 1.3 [facility] Alkaline phosphatase [Enzymatic activity/volume] in Serum or Plasma 106 U/L 38 - 126 [facility] Aspartate aminotransferase [Enzymatic activity/volume] in Serum or Plasma 22 U/L 5 - 40 [facility] Alanine aminotransferase [Enzymatic activity/volume] in Seru m or Plasma 36 U/L 7 - 56 [facility] Anion gap 3 in Serum or Plasma 9.0 mmol/L 8.0 - 16.0 [facility] AGE 45 yrs [facility] NON-AA GFR >60 mL/min [facility] AFR AMER GFR >60 mL/min [facility] Male GFR In terprentation [...] >32 mL/min Normal ID Date Data Source [id number] 03/07/2020 06:02:00 PM [facility] Name Value Range Interpretation Code Description Data Rhea rce(s) Supporting Document(s) Prostate specific Ag [Mass/volume] in Serum or Plasma 1.07 ng/mL 0.00 - 4.00 [facility] \\BLDo\\PSA INTERPRETA TION\\BLDx\\ The PSA assay [...] be used interchangeably. ID Date Data Source [id number] 03/07/2020 06:02:00 PM [facility] Name Value Range Interpretation Code Description Data Rhea rce(s) Supporting Document(s) Thyrotropin [Units/volume] in Serum or Plasma by Detec tion limit <= 0.05 mIU/L 1.52 uIU/mL 0.47 - 5.01 [facility] ID Date Data Source [id number] 03/07/2020 04:59:00 PM [facility] Name Value Range Interpretation Code Description Data Rhea rce(s) Supporting Document(s) Hemoglobin A1c/Hemoglobin.total in Blood 5.8 % 4.4 - 6.1 [facility] {A1]{HB] Procedure Social History Code Duration Value Status Description Data Source(s ) Smoking 01/13/2021 12:00:00 AM EDT Current Smoker completed Curre nt Smoker eCW1 ([facility]) Alcohol intake 07/24/2020 12:00:00 AM EDT Ex-drinker (finding) comp leted Ex- drinker (finding) [facility] Tobacco use and exposure 07/24/2020 12:00:00 AM EDT Never used co mpleted Never used [facility] Smoking 07/24/2020 12:00:00 AM EDT Current every day smoker co mpleted Current every day smoker [facility] Vital Signs ID Date Data Source UNK Name Value Range Interpretation Code Description Data Source(s) Systolic blood pressure 134 mm[Hg] 134 mm[Hg] M EDENT ([facility]) Diastolic blood pressure 80 mm[Hg] 80 mm[Hg] MEDENT ([facility]) Heart rate 66 /min 66 /min [facility] ([facility]) Oxygen saturation in Arterial blood by Pulse oximetry 99 % 99 % [facility] ([facility]) Body weight 164.00 [lb_av] 164.00 [lb_av] MEDEN T ([facility]) Body weight 74.390 kg 74.390 kg [facility] ([facility]) Body height 70 [in_i] 70 [in_i] [facility] ([facility]) 5'10" Body mass index (BMI) [Ratio] 23.5 kg/m2 23.5 k g/m2 [facility] ([facility]) Body surface area Derived from formula 1.92 m2 1.92 m2 [facility] ([facility]) Body weight 187 [lb_av] 187 [lb_av] eCW1 ([facility]) Body weight 84.82 kg 84.82 kg W1 ([facility] Body height 70 [in_i] 70 [in_i] W1 ([facility]) Body mass index (BMI) [Ratio] 26.83 kg/m2 26.83 kg/m2 [facility] ([facility]) Heart rate 64 /min 64 /min eCW1 ([facility]) Respiratory rate 18 /min 18 /min eCW1 ([facility]) Body temperature 98.0 [degF] 98.0 [degF] eCW1 ( [facility]) Systolic blood pressure 155 mm[Hg] 155 mm[Hg] e CW1 ([facility]) Diastolic blood pressure 108 mm[Hg] 108 mm[Hg] eCW1 ([facility]) Heart rate 79 /min 79 /min MEDENT ([facility]) Body temperature 97.1 [degF] 97.1 [degF] MEDENT ([facility]) Oxygen saturation in Arterial blood by Pulse oximetry 98 % 98 % [facility] ([facility]) Body weight 166.38 [lb_av] 166.38 [lb_av] MEDEN T ([facility]) Body weight 75.468 kg 75.468 kg MEDENT ([facility]) Body height 71 [in_i] 71 [in_i] [facility] ([facility]) 5'11" Body mass index (BMI) [Ratio] 23.2 kg/m2 23.2 k g/m2 [facility] ([facility]) Body surface area Derived from formula 1.95 m2 1.95 m2 [facility] ([facility]) Systolic blood pressure 118 mm[Hg] 118 mm[Hg] [facility] ([facility]) Diastolic blood pressure 72 mm[Hg] 72 mm[Hg] [facility] ([facility]) Systolic blood pressure 142 mm[Hg] 142 mm[Hg] [facility] ([facility]) Diastolic blood pressure 90 mm[Hg] 90 mm[Hg] [facility] ([facility]) Heart rate 99 /min 99 /min [facility] ([facility]) Respiratory rate 24 /min 24 /min [facility] ( [facility]) Oxygen saturation in Arterial blood by Pulse oximetry 72 % 72 % [facility] ([facility]) Body weight 170.00 [lb_av] 170.00 [lb_av] [facility] ([facility]) Body weight 77.112 kg 77.112 kg [facility] ([facility]) Body height 69 [in_i] 69 [in_i] [facility] ([facility]) 5'9" Body mass index (BMI) [Ratio] 25.1 kg/m2 25.1 k g/m2 [facility] ([facility]) Body surface area Derived from formula 1.93 m2 1.93 m2 [facility] ([facility]) Systolic blood pressure 127 mm[Hg] 127 mm[Hg] [facility] ([facility]) Diastolic blood pressure 78 mm[Hg] 78 mm[Hg] [facility] ([facility]) Heart rate 88 /min 88 /min [facility] ([facility]) Body temperature 98.2 [degF] 98.2 [degF] [facility] ([facility]) Respiratory rate 16 /min 16 /min [facility] ( [facility]) Oxygen saturation in Arterial blood by Pulse oximetry 99 % 99 % [facility] ([facility]) Body weight 79.607 kg 79.607 kg [facility] ([facility]) Body height 68 [in_i] 68 [in_i] [facility] ([facility]) 5'8" Body mass index (BMI) [Ratio] 26.7 kg/m2 26.7 k g/m2 [facility] ([facility]) Body surface area Derived from formula 1.93 m2 1.93 m2 [facility] ([facility]) Body weight 175.50 [lb_av] 175.50 [lb_av] [facility] ([facility]) Systolic blood pressure 102 mm[Hg] 102 mm[Hg] [facility] ([facility]) Body weight 179.00 [lb_av] 179.00 [lb_av] [facility] ([facility]) Body weight 81.194 kg 81.194 kg [facility] ([facility]) Body height 70 [in_i] 70 [in_i] [facility] ([facility]) 5'10" Body mass index (BMI) [Ratio] 25.7 kg/m2 25.7 k g/m2 [facility] ([facility]) Body surface area Derived from formula 1.99 m2 1.99 m2 [facility] ([facility]) Diastolic blood pressure 68 mm[Hg] 68 mm[Hg] [facility] ([facility]) Heart rate 95 /min 95 /min [facility] ([facility]) Body temperature 97.3 [degF] 97.3 [degF] [facility] ([facility]) Respiratory rate 18 /min 18 /min [facility] ( [facility]) Oxygen saturation in Arterial blood by Pulse oximetry 98 % 98 % [facility] ([facility]) Systolic blood pressure 122 mm[Hg] 122 mm[Hg] [facility] ([facility]) Diastolic blood pressure 84 mm[Hg] 84 mm[Hg] [facility] ([facility]) Heart rate 73 /min 73 /min [facility] ([facility]) Body temperature 97.2 [degF] 97.2 [degF] [facility] ([facility]) Respiratory rate 16 /min 16 /min [facility] ( [facility]) Oxygen saturation in Arterial blood by Pulse oximetry 98 % 98 % [facility] ([facility]) Body weight 186.12 [lb_av] 186.12 [lb_av] [facility] ([facility]) Body weight 84.426 kg 84.426 kg [facility] ([facility]) Body height 70 [in_i] 70 [in_i] [facility] ([facility]) 5'10" Body mass index (BMI) [Ratio] 26.7 kg/m2 26.7 k g/m2 [facility] ([facility]) Body surface area Derived from formula 2.02 m2 2.02 m2 [facility] ([facility]) Systolic blood pressure 120 mm[Hg] 120 mm[Hg] [facility] ([facility]) Diastolic blood pressure 80 mm[Hg] 80 mm[Hg] [facility] ([facility]) Heart rate 68 /min 68 /min [facility] ([facility]) Body temperature 97.6 [degF] 97.6 [degF] [facility] ([facility]) Respiratory rate 16 /min 16 /min [facility] ( [facility]) Oxygen saturation in Arterial blood by Pulse oximetry 97 % 97 % [facility] ([facility]) Body weight 86.411 kg 86.411 kg [facility] ([facility]) Body height 70 [in_i] 70 [in_i] [facility] ([facility]) 5'10" Body mass index (BMI) [Ratio] 27.3 kg/m2 27.3 k [facility] Body surface area Derived from formula 2.04 m2 2.04 m2 [facility] ([facility]) Body weight 190.50 [lb_av] 190.50 [lb_av] [facility] ([facility]) Body mass index (BMI) [Ratio] 28.0 kg/m2 28.0 k g/m2 [facility] ([facility]) Body surface area Derived from formula 2.06 m2 2.06 m2 [facility] ([facility]) Systolic blood pressure 112 mm[Hg] 112 mm[Hg] [facility] ([facility]) Diastolic blood pressure 78 mm[Hg] 78 mm[Hg] [facility] ([facility]) Heart rate 57 /min 57 /min [facility] ([facility]) Body temperature 97.1 [degF] 97.1 [degF] [facility] ([facility]) Respiratory rate 16 /min 16 /min [facility] ( [facility]) Oxygen saturation in Arterial blood by Pulse oximetry 98 % 98 % [facility] ([facility]) Body weight 195.00 [lb_av] 195.00 [lb_av] [facility] ([facility]) Body weight 88.452 kg 88.452 kg [facility] ([facility]) Body height 70 [in_i] 70 [in_i] [facility] ([facility]) 5'10" Systolic blood pressure 128 mm[Hg] 128 mm[Hg] [facility] ([facility]) Diastolic blood pressure 80 mm[Hg] 80 mm[Hg] [facility] ([facility]) Heart rate 72 /min 72 /min [facility] ([facility]) Body temperature 97.4 [degF] 97.4 [degF] [facility] ([facility]) Respiratory rate 16 /min 16 /min [facility] ( [facility]) Oxygen saturation in Arterial blood by Pulse oximetry 99 % 99 % [facility] ([facility]) Body height 70 [in_i] 70 [in_i] [facility] ([facility]) 5'10" Body mass index (BMI) [Ratio] 27.3 kg/m2 27.3 k g/m2 [facility] ([facility]) Body surface area Derived from formula 2.04 m2 2.04 m2 [facility] ([facility]) Body weight 190.38 [lb_av] 190.38 [lb_av] [facility] ([facility]) Body weight 86.354 kg 86.354 kg [facility] ([facility]) ID Date Data Source [id number] 08/01/2020 02:01:52 PM [facility] Name Value Range Interpretation Code Description Data Source(s) WEIGHT RECORDED 190 lb 190 lb [facility] Body height Measured 71 in 71 in [facility] Patient Treatment Plan of Care Planned Activity Planned Date Details Description Data Source (s) Fluoxetine 20 MG Oral Capsule 07/24/2020 12:00:00 AM [facility] Amlodipine 10 MG Oral Tablet 03/08/2020 12:00:00 AM [facility] atorvastatin 80 MG Oral Tablet 03/08/2020 12:00:00 AM [facility] Hydrochlorothiazide 50 MG Oral Tablet 03/08/2020 12:00:00 AM [facility] Lisinopril 20 MG Oral Tablet 02/19/2020 12:00:00 AM [facility]
[2021-02-05] MEDS ORDERED: GASTROGRAFIN SOLUTION 30ML PO SCH (07:00)
[2021-02-05 08:14] VITALS: BP 132/87
[2021-02-05 10:07] LABS: ERYTHROCYTE SEDIMENTATION RATE 9 mm/hr (0-15)
== END 2021-02-05 08:16 | disposition left against medical advice (07) ==
LOC: M ED 04:16
DX: R10.9 Unspecified abdominal pain (principal); F17.200 Nicotine dependence, unspecified, uncomplicated; Z53.20 Procedure and treatment not carried out because of patient's decision for unspecified reasons
CPT/HCPCS: 36415; 80048; 80076; 81001; 83690; 85025; 85652; 86140; 96360; 96361; 99284; Q9963

== ENCOUNTER → 2021-02-07 | Outpatient (CLI) | payer OTHER ==
[~2021-02-07] MED LIST changes: +GASTROGRAFIN SOLUTION 30ML (Q9963) As Ordered ONE; +ISOVUE-370 76% 100ML VIAL As Ordered ONE
--- NOTE | 2021-02-07 16:20 | REP ---
INDICATION: ABD PAIN BLOOD IN STOOL. COMPARISON: None. TECHNIQUE: Oral Gastrografin mixture 10 mL in 290 mL flavored water for 2 doses per our bowel contrast protocol followed by bolus 100 mL Isovue 370 scanning through the abdomen pelvis with both coronal and sagittal reconstructions provided. FINDINGS: CT abdomen: Lung bases are clear. There was some minimal curvilinear atelectatic or fibrotic change in the inferior lingular segment of the left upper lobe at the anterior left lung base. Heart is not enlarged. There is no pericardial thickening or effusion and no hiatal hernia. Liver, spleen, gallbladder, pancreas and adrenal glands are unremarkable. There is a small splenule adjacent to the splenic hilum on the left, about 12.5 mm. Adrenal glands normal. Kidneys show symmetric enhancement with no mass, hydronephrosis, stone or cyst no hydroureter or ureteral stone. Small bowel loops were grossly unremarkable but oral contrast only reached the proximal ileum. Stool and gas are scattered in the abdominal portion of the colon some mild thickening of the cecum and right colonic wall minimal stranding in the fat adjacent may reflect some nonspecific colitis transverse left colon were grossly unremarkable no aortic aneurysm, periaortic, other retroperitoneal or mesenteric pathologic sized lymphadenopathy. Is no evidence for perforation or free air in the abdomen or pelvis on lung window review of all CT slices. Bone windows show some degenerative disc changes and spondylosis at the L2-3 minimally at other levels and without posterior element acute finding. Visualized ribs are intact. CT pelvis: Sacrum, SI joints and pelvis show some degenerative changes. The hips show narrowing with [id number] appearance at the superior margin of the acetabulum on the right rim osteophytes larger right than left. No fracture or avulsion noted. Pubic rami and symphysis pubis unremarkable distal ureters grossly intact and without dilatation or stone bladder only partially filled without mass, wall thickening or stone. Collapse of the left colon sigmoid and rectum noted with slightly thickened wall which may reflect some mild the colitis, skip type. There is omental fat distending the inguinal canals left greater than right without bowel herniation. Some calcifications are seen in the prostate which indents the bladder base. I cannot confirm a visualized appendix. IMPRESSION: 1. Some slight the wall thickening mid edema of the colon wall of the right the colon and cecum as well as the distal left colon sigmoid and rectum the may reflect a skip colitis. I do not see diverticulitis, perforation or abscess. The appendix is not seen. 2. No ascites, free air or mass. 3. Solid organs in the upper abdomen are grossly unremarkable. 4. Omental fat distends the inguinal canals, left greater than right, without bowel herniation. No ventral abdominal wall hernia. No acute bony finding. <Electronically signed by Miguel Esquivel > 02/07/21 0231
== END ==
LOC: M RAD 13:55
PROVIDERS: ATTEND Family Medicine
DX: R10.9 Unspecified abdominal pain (principal); R19.7 Diarrhea, unspecified
CPT/HCPCS: 74177; Q9963; Q9967

== ENCOUNTER → 2021-02-19 | Outpatient (CLI) | payer OTHER, MEDICAID ==
[~2021-02-19] MED LIST changes: -GASTROGRAFIN SOLUTION 30ML (Q9963) As Ordered ONE; -ISOVUE-370 76% 100ML VIAL As Ordered ONE
[2021-02-19 12:29] LABS: BASO # 0.1 10^3/uL (0.0-0.2); BASO % 1.2 % (0.0-1.0); EOS # 0.2 10^3/uL (0.0-0.5); EOS % 2.8 % (0.0-3.0); HEMOGLOBIN 14.9 g/dl (13.5-17.5); LYMPH # 1.9 10^3/uL (1.5-5.0); LYMPH % 24.3 % (24.0-44.0); MEAN CORPUSCULAR HEMOGLOBIN 32.4 pg (27.0-33.0); MEAN CORPUSCULAR HGB CONC 33.1 g/dl (32.0-36.5); MEAN CORPUSCULAR VOLUME 97.8 fl (80.0-96.0); MONO # 0.5 10^3/uL (0.0-0.8); MONO % 5.9 % (2.0-8.0); NEUTROPHILS # 5.1 10^3/uL (1.5-8.5); NEUTROPHILS % 65.4 % (36.0-66.0); PLATELET COUNT, AUTOMATED 169 10^3/uL (150-450); WHITE BLOOD COUNT 7.8 10^3/uL (4.0-10.0)
[2021-02-19 12:48] LABS: ERYTHROCYTE SEDIMENTATION RATE 3 mm/hr (0-15)
[2021-02-19 12:56] LABS: ALBUMIN 3.6 GM/DL (3.2-5.2); ALT/SGPT 32 U/L (12-78); BILIRUBIN,TOTAL 0.6 MG/DL (0.2-1.0); BLOOD UREA NITROGEN 15 MG/DL (7-18); CARBON DIOXIDE LEVEL 28 MEQ/L (21-32); CHLORIDE LEVEL 108 MEQ/L (98-107); CREATININE FOR GFR 1.04 MG/DL (0.70-1.30); FERRITIN 66 NG/ML (26-388); GLOMERULAR FILTRATION RATE > 60.0 (>60); GLUCOSE, FASTING 143 MG/DL (70-100); IRON (FE) 80 UG/DL (65-175); PERCENT SATURATION 20.7 % (19.7-50.0); SODIUM LEVEL 142 MEQ/L (136-145); TOTAL IRON BINDING CAPACITY 387 UG/DL (250-450); TOTAL PROTEIN 6.3 GM/DL (6.4-8.2)
[2021-02-19 13:03] LABS: TOTAL 25(OH) VITAMIN D 32.2 NG/ML (30.0-100.0); VITAMIN B12 LEVEL 474 PG/ML (247-911)
== END ==
LOC: M WUC 08:39
PROVIDERS: ATTEND Family Medicine
DX: R10.9 Unspecified abdominal pain (principal); R19.5 Other fecal abnormalities; R19.7 Diarrhea, unspecified

== ENCOUNTER → 2021-03-18 | Outpatient (CLI) | payer OTHER, MEDICAID ==
[2021-03-18 11:35] LABS: BASO # 0.1 10^3/uL (0.0-0.2); BASO % 0.5 % (0.0-1.0); EOS # 0.2 10^3/uL (0.0-0.5); EOS % 1.6 % (0.0-3.0); HEMATOCRIT 38.7 % (42.0-52.0); HEMOGLOBIN 12.8 g/dl (13.5-17.5); LYMPH # 2.3 10^3/uL (1.5-5.0); LYMPH % 24.5 % (24.0-44.0); MEAN CORPUSCULAR HEMOGLOBIN 32.1 pg (27.0-33.0); MEAN CORPUSCULAR HGB CONC 33.1 g/dl (32.0-36.5); MONO # 0.7 10^3/uL (0.0-0.8); MONO % 7.5 % (2.0-8.0); NEUTROPHILS % 65.6 % (36.0-66.0); PLATELET COUNT, AUTOMATED 169 10^3/uL (150-450); RED BLOOD COUNT 3.99 10^6/uL (4.30-6.10); WHITE BLOOD COUNT 9.2 10^3/uL (4.0-10.0)
[2021-03-18 12:06] LABS: ALBUMIN 3.9 GM/DL (3.2-5.2); ALT/SGPT 31 U/L (12-78); BILIRUBIN,DIRECT 0.2 MG/DL (0.0-0.2); BILIRUBIN,TOTAL 0.6 MG/DL (0.2-1.0); BLOOD UREA NITROGEN 20 MG/DL (7-18); CALCIUM LEVEL 8.9 MG/DL (8.5-10.1); CARBON DIOXIDE LEVEL 28 MEQ/L (21-32); CHLORIDE LEVEL 105 MEQ/L (98-107); CHOLESTEROL LEVEL 128 MG/DL (<200); CHOLESTEROL RISK RATIO 3.282 (<5); CREATININE FOR GFR 1.08 MG/DL (0.70-1.30); GLOMERULAR FILTRATION RATE > 60.0 (>60); GLUCOSE, FASTING 111 MG/DL (70-100); HDL CHOLESTEROL 39 MG/DL (>40); LDL CHOLESTEROL 70 MG/DL (<100); NON-HDL-C 89 MG/DL; POTASSIUM SERUM 3.5 MEQ/L (3.5-5.1); SODIUM LEVEL 139 MEQ/L (136-145); TOTAL PROTEIN 6.4 GM/DL (6.4-8.2); TRIGLYCERIDES LEVEL 95 MG/DL (<150)
== END ==
LOC: M WUC 09:04
PROVIDERS: ATTEND Psychiatry & Neurology Psychiatry
DX: F41.1 Generalized anxiety disorder (principal); F32.0 Major depressive disorder, single episode, mild; F63.81 Intermittent explosive disorder; F90.1 Attention-deficit hyperactivity disorder, predominantly hyperactive type

== ENCOUNTER → 2021-05-19 | Outpatient (CLI) | payer MEDICAID, OTHER ==
[~2021-05-19] MED LIST changes: +ADDE20CA3 PO; +DEPA1TAB3 PO; +FLUO-96 PO; -FLUO20CA20 PO; +HYDR-3490 PO; +POTA-151 PO; -POTA20TA6 PO; +PRAZ1CAP PO
== END ==
LOC: M LABSMTC 09:50
PROVIDERS: ATTEND Anesthesiology
DX: Z01.818 Encounter for other preprocedural examination (principal); Z11.52 Encounter for screening for COVID-19

== ENCOUNTER 2021-05-23 07:44 | Day surgery (SDC) | payer OTHER ==
[~2021-05-23] VITALS: Ht 177.8 cm; Wt 92.5 kg
[~2021-05-23 07:44] MED LIST changes: +NS 1,000 ML IV ONE
[2021-05-23] MEDS ORDERED: propofoL 200 MG/20 ML VIAL As Ordered ONE ×3 (07:59→09:39)
[2021-05-23] MEDS ORDERED: LIDOCAINE 2% 100MG/5ML SDV (FOR ANES.) As Ordered ONE (07:59)
[2021-05-23 10:25] VITALS: BP 140/87
== END 2021-05-23 10:21 | disposition home or self-care (01) ==
LOC: M OPP 07:44
PROVIDERS: ATTEND Internal Medicine Gastroenterology
DX: Z12.11 Encounter for screening for malignant neoplasm of colon (principal); D12.6 Benign neoplasm of colon, unspecified; Q43.8 Other specified congenital malformations of intestine; K64.8 Other hemorrhoids; Z79.82 Long term (current) use of aspirin; Z79.899 Other long term (current) drug therapy; F17.210 Nicotine dependence, cigarettes, uncomplicated; Z86.73 Personal history of transient ischemic attack (TIA), and cerebral infarction without residual deficits; Z87.442 Personal history of urinary calculi

== ENCOUNTER → 2021-06-30 | Outpatient (CLI) | payer OTHER, MEDICAID ==
[~2021-06-30] MED LIST changes: -NS 1,000 ML IV ONE
[2021-06-30 12:53] LABS: BASO # 0.1 10^3/uL (0.0-0.2); BASO % 1.1 % (0.0-1.0); EOS # 0.2 10^3/uL (0.0-0.5); HEMATOCRIT 44.6 % (42.0-52.0); HEMOGLOBIN 15.1 g/dl (13.5-17.5); LYMPH # 2.3 10^3/uL (1.5-5.0); LYMPH % 34.5 % (24.0-44.0); MEAN CORPUSCULAR HEMOGLOBIN 32.6 pg (27.0-33.0); MEAN CORPUSCULAR HGB CONC 33.9 g/dl (32.0-36.5); MEAN CORPUSCULAR VOLUME 96.3 fl (80.0-96.0); MONO # 0.6 10^3/uL (0.0-0.8); MONO % 8.3 % (2.0-8.0); NEUTROPHILS # 3.5 10^3/uL (1.5-8.5); NEUTROPHILS % 52.8 % (36.0-66.0); PLATELET COUNT, AUTOMATED 139 10^3/uL (150-450); RED BLOOD COUNT 4.63 10^6/uL (4.30-6.10); WHITE BLOOD COUNT 6.6 10^3/uL (4.0-10.0)
[2021-06-30 13:19] LABS: HEMOGLOBIN A1c 5.6 %
[2021-06-30 13:24] LABS: ALBUMIN 3.8 GM/DL (3.2-5.2); ALT/SGPT 49 U/L (12-78); BILIRUBIN,DIRECT 0.2 MG/DL (0.0-0.2); BILIRUBIN,TOTAL 1.1 MG/DL (0.2-1.0); BLOOD UREA NITROGEN 27 MG/DL (7-18); CARBON DIOXIDE LEVEL 29 MEQ/L (21-32); CHLORIDE LEVEL 106 MEQ/L (98-107); CHOLESTEROL LEVEL 146 MG/DL (<200); CHOLESTEROL RISK RATIO 3.395 (<5); CREATININE FOR GFR 1.24 MG/DL (0.70-1.30); GLOMERULAR FILTRATION RATE > 60.0 (>60); GLUCOSE, FASTING 107 MG/DL (70-100); HDL CHOLESTEROL 43 MG/DL (>40); LDL CHOLESTEROL 91 MG/DL (<100); NON-HDL-C 103 MG/DL; POTASSIUM SERUM 3.8 MEQ/L (3.5-5.1); SODIUM LEVEL 141 MEQ/L (136-145); TOTAL PROTEIN 6.5 GM/DL (6.4-8.2); TRIGLYCERIDES LEVEL 62 MG/DL (<150)
== END ==
LOC: M WUC 09:55
PROVIDERS: ATTEND Psychiatry & Neurology Psychiatry
DX: F41.1 Generalized anxiety disorder (principal); F32.0 Major depressive disorder, single episode, mild; F63.81 Intermittent explosive disorder

== ENCOUNTER → 2021-09-16 | Outpatient (CLI) | payer OTHER, MEDICAID ==
[2021-09-16 10:47] LABS: HEMOGLOBIN A1c 5.6 %
[2021-09-16 11:20] LABS: BLOOD UREA NITROGEN 17 MG/DL (7-18); CALCIUM LEVEL 9.1 MG/DL (8.5-10.1); CARBON DIOXIDE LEVEL 29 MEQ/L (21-32); CHLORIDE LEVEL 101 MEQ/L (98-107); CHOLESTEROL LEVEL 137 MG/DL (<200); CHOLESTEROL RISK RATIO 4.029 (<5); CREATININE FOR GFR 1.21 MG/DL (0.70-1.30); GLOMERULAR FILTRATION RATE > 60.0 (>60); GLUCOSE, FASTING 89 MG/DL (70-100); HDL CHOLESTEROL 34 MG/DL (>40); LDL CHOLESTEROL 71 MG/DL (<100); NON-HDL-C 103 MG/DL; POTASSIUM SERUM 3.2 MEQ/L (3.5-5.1); SODIUM LEVEL 138 MEQ/L (136-145); TRIGLYCERIDES LEVEL 161 MG/DL (<150)
== END ==
LOC: M WUC 08:18
PROVIDERS: ATTEND Family Medicine
DX: Z13.1 Encounter for screening for diabetes mellitus (principal); E66.9 Obesity, unspecified; M25.551 Pain in right hip